=== PATIENT | male | born 1960 | race African-American/Black ===

== ENCOUNTER 2020-03-30 17:27 | Inpatient (IN) | payer MEDICARE, MEDICAID ==
[~2020-03-30] VITALS: Ht 170.2 cm; Wt 51.1 kg
[2020-03-30 18:32] LABS: Eosinophils # (auto) 0 10 ^3/uL (0-0.8); Hematocrit 31.2 % (41.0-53.0); Mean Corpuscular Hemoglobin 26.3 pg (28.0-32.0); Monocytes # (auto) 0.7 10 ^3/uL (0-1.3); Neutrophils # (auto) 10.5 10 ^3/uL (1.6-8.6); Neutrophils % (auto) 88.8 % (37.0-80.0)
[2020-03-30 18:34] LABS: Basophils # (auto) 0 10 ^3/uL (0-0.2); Basophils % (auto) 0.2 % (0.0-2.0); Lymphocytes # (auto) 0.6 10 ^3/uL (0.4-5.4); Lymphocytes % (auto) 5.3 % (10.0-50.0); Mean Corpuscular Hgb Conc. 31.9 g/dL (32.0-36.0); Mean Corpuscular Volume 82.3 fL (80.0-100.0); Monocytes % (auto) 5.7 % (0.0-12.0); Nucleated Red Blood Cells % 0.2 %; Platelet Count (auto) 258 10^3/uL (140-450); Red Blood Cells 3.79 10^6/uL (4.5-5.90); White Blood Cell 11.8 10^3/uL (4.4-10.8)
[2020-03-30 18:49] LABS: Albumin 3.3 g/dL (3.4-5.0); Anion Gap 6 (5-15); BUN/Creatinine Ratio 21.8; Calcium 10.1 mg/dL (8.5-10.1); Carbon Dioxide 18 mmol/L (21-32); Chloride 115 mmol/L (98-107); GFR African American 15 mL/min; GFR Non-African American 12 mL/min; Glucose 145 mg/dL (74-106); Magnesium 2.5 mg/dL (1.6-2.6); Sodium 139 mmol/L (136-145)
[2020-03-30 19:12] LABS: Alanine Aminotransferase 29 U/L (16-61); Alkaline Phosphatase 100 U/L (45-117); Aspartate Aminotransferase 14 U/L (15-37); Bilirubin, Total 0.4 mg/dL (0.2-1.0); Blood Urea Nitrogen 114 mg/dL (7-18); Potassium 8.4 mmol/L (3.5-5.1); Total Protein 8.8 g/dL (6.4-8.2)
[2020-03-30] MEDS ORDERED: SODIUM CHLORIDE 0.9% 1,000 ML IVB ONE (19:29)
[2020-03-30] MEDS ORDERED: SODIUM BICARBONATE 8.4 % INJ 50ML VIAL IV ONE ×2 (19:30→20:49)
[2020-03-30] MEDS ORDERED: DEXTROSE (50%) 50ML SYRG IV ONE (19:30)
[2020-03-30] MEDS ORDERED: CALCIUM CHL 100MG/ML 1,000 MG in D5W 5% 100 ML IV ONE (19:30)
[2020-03-30] MEDS ORDERED: InsuLIN REG 1unit/0.01ml Soln (100units/ml) IV ONE (19:30)
[2020-03-30] MEDS ORDERED: ALBUTEROL SULF 2.5 MG/0.5ML(0.5%) NEB SOLN NEB ONE (19:30)
[2020-03-30] MEDS ORDERED: SODIUM ZIRCONIUM CYCL 10 GM PAK PO ONE (19:45)
[2020-03-30] MEDS ORDERED: CALCIUM CHLOR(10%) 100MG/ML 10ML SYRINGE IV ONE (19:50)
[2020-03-30 20:14] LABS: Amylase 145 U/L (25-115); Lipase 302 U/L (73-393)
[2020-03-30] MEDS: SODIUM BICARBONATE 50ML VIAL 50 ML in D5W/SOD CHL 0.45% 1,000 ML IV SCH (20:15)
[2020-03-30 20:24] LABS: INR 1.13 (0.9-1.15); Partial Thromboplastin Time 27.1 sec (23.64-32.05)
[2020-03-30 21:00] LABS: Protein, Urine 99.4 mg/dL (0.0-11.9)
[2020-03-30 21:13] LABS: Urine Bacteria NONE SEEN /hpf (None Seen); Urine Blood 1+ /uL (Negative); Urine Hyaline Cast MANY /lpf (0 - 2); Urine Mucus FEW (None Seen); Urine Specific Gravity 1.017 (1.001-1.035); Urine WBC 3 /hpf (0 - 3)
[2020-03-30] MEDS ORDERED: SODIUM CHLORIDE 0.9% 1,000 ML IV ONE (22:30)
[2020-03-30] MEDS ORDERED: TEMAZEPAM 15 MG CAP PO PRN (22:45)
[2020-03-30] MEDS ORDERED: DEXTROSE (50%) 50ML SYRG IV PRN (22:45)
[2020-03-30] MEDS ORDERED: SODIUM CHLORIDE 0.9% 1,000 ML IV SCH (22:45)
[2020-03-30] MEDS ORDERED: ONDANSETRON HCL 4 MG/2 ML VIAL IV PRN (22:45)
[2020-03-30] MEDS ORDERED: ALBUMIN 5% 250 ML IV ONE (22:45)
[2020-03-30] MEDS ORDERED: MORPHINE SULF INJ 2 MG/ML SYRINGE 1ML IV PRN (22:45)
[2020-03-30] MEDS ORDERED: NITROGLYCERIN 0.4 MG SL TAB SL PRN (22:45)
[2020-03-30 22:58] LABS: Lactic Acid w/Reflex 4.2 mmol/L (0.4-2.0)
[2020-03-31] MEDS ORDERED: SODIUM ZIRCONIUM CYCL 10 GM PAK PO ONE (01:30)
[2020-03-31] MEDS: NOREPINEPHRINE 8 MG/250ML KIT 250 ML IV SCH (01:58)
[2020-03-31] MEDS ORDERED: SODIUM BICARBONATE 8.4 % INJ 50ML VIAL IV ONE (05:24)
[2020-03-31 05:27] LABS: Basophils # (auto) 0 10 ^3/uL (0-0.2); Basophils % (auto) 0.1 % (0.0-2.0); Eosinophils # (auto) 0 10 ^3/uL (0-0.8); Eosinophils % (auto) 0.2 % (0.0-7.0); Hematocrit 27.8 % (41.0-53.0); Hemoglobin 9.1 g/dL (13.5-17.5); Lymphocytes # (auto) 0.5 10 ^3/uL (0.4-5.4); Lymphocytes % (auto) 3.5 % (10.0-50.0); Mean Corpuscular Hemoglobin 26.7 pg (28.0-32.0); Mean Corpuscular Hgb Conc. 32.9 g/dL (32.0-36.0); Mean Corpuscular Volume 81.2 fL (80.0-100.0); Monocytes # (auto) 1.1 10 ^3/uL (0-1.3); Monocytes % (auto) 7.4 % (0.0-12.0); Neutrophils # (auto) 12.8 10 ^3/uL (1.6-8.6); Neutrophils % (auto) 88.8 % (37.0-80.0); Nucleated Red Blood Cells % 0.1 %; Platelet Count (auto) 212 10^3/uL (140-450); Red Blood Cells 3.43 10^6/uL (4.5-5.90); Red Cell Distribution Width 12.7 % (11.8-14.3); White Blood Cell 14.4 10^3/uL (4.4-10.8)
[2020-03-31] MEDS: SODIUM BICARBONATE 50ML VIAL 50 ML in D5W/SOD CHL 0.45% 1,000 ML IV SCH ×2 (05:51→05:53)
[2020-03-31 05:53] LABS: Albumin 3.3 g/dL (3.4-5.0); Calcium 9.4 mg/dL (8.5-10.1); Potassium 4.8 mmol/L (3.5-5.1)
[2020-03-31 05:59] LABS: BUN/Creatinine Ratio 30.3; Bilirubin, Total 0.5 mg/dL (0.2-1.0); Total Protein 8.1 g/dL (6.4-8.2)
[2020-03-31] MEDS: ACCU-CHEK COMFORT CURVE STRIP VI SCH ×4 (08:00→23:00)
[2020-03-31] MEDS: InsuLIN REG 1unit/0.01ml Soln (100units/ml) SC SCH ×4 (08:00→22:00)
[2020-03-31] MEDS: SOD CHL 0.45% 1,000 ML IV SCH ×2 (08:30→22:59)
[2020-03-31 08:41] LABS: Alcohol, Urine < 3.0 mg/dL (0-10); Amphetamine Screen, Urine NEGATIVE (NEGATIVE); Barbiturate Scree,Urine NEGATIVE (NEGATIVE); Benzodiazephine Screen, Urine NEGATIVE (NEGATIVE); Cannabinoid Screen, Urine NEGATIVE (NEGATIVE); Cocaine Screen, Urine NEGATIVE (NEGATIVE); Opiate Scree,Urine NEGATIVE (NEGATIVE); Phencyclidine Screen, Urine NEGATIVE (NEGATIVE)
[2020-03-31] MEDS ORDERED: SODIUM CHLORIDE 0.9% 1,000 ML IV ONE ×2 (13:30→16:15)
[2020-03-31 15:04] LABS: BUN/Creatinine Ratio 29.2; Calcium 8.5 mg/dL (8.5-10.1); Potassium 4.7 mmol/L (3.5-5.1)
[2020-04-01] MEDS: NOREPINEPHRINE 8 MG/250ML KIT 250 ML IV SCH (01:29)
[2020-04-01] MEDS: InsuLIN REG 1unit/0.01ml Soln (100units/ml) SC SCH ×4 (07:00→21:41)
[2020-04-01] MEDS: ACCU-CHEK COMFORT CURVE STRIP VI SCH ×4 (07:22→21:41)
[2020-04-01 07:29] LABS: Basophils # (auto) 0 10 ^3/uL (0-0.2); Eosinophils # (auto) 0.1 10 ^3/uL (0-0.8); Hematocrit 28.3 % (41.0-53.0); Hemoglobin 9.2 g/dL (13.5-17.5); Lymphocytes # (auto) 0.9 10 ^3/uL (0.4-5.4)
[2020-04-01 07:32] LABS: Basophils % (auto) 0.4 % (0.0-2.0); Eosinophils % (auto) 1.1 % (0.0-7.0); Lymphocytes % (auto) 7.4 % (10.0-50.0); Mean Corpuscular Hgb Conc. 32.6 g/dL (32.0-36.0); Mean Corpuscular Volume 82.7 fL (80.0-100.0); Monocytes # (auto) 1.3 10 ^3/uL (0-1.3); Monocytes % (auto) 9.9 % (0.0-12.0); Neutrophils # (auto) 10.4 10 ^3/uL (1.6-8.6); Neutrophils % (auto) 81.2 % (37.0-80.0); Platelet Count (auto) 183 10^3/uL (140-450); Red Blood Cells 3.42 10^6/uL (4.5-5.90); Red Cell Distribution Width 12.7 % (11.8-14.3); White Blood Cell 12.8 10^3/uL (4.4-10.8)
[2020-04-01 07:53] LABS: Calcium 8.1 mg/dL (8.5-10.1); Potassium 4.6 mmol/L (3.5-5.1)
[2020-04-01 07:57] LABS: BUN/Creatinine Ratio 22.6
[2020-04-01] MEDS: SOD CHL 0.45% 1,000 ML IV SCH (11:27)
[2020-04-01 17:37] VITALS: BP 92/54
[2020-04-01] MEDS ORDERED: LIOT50TA PO (17:56)
[2020-04-01] MEDS ORDERED: LEVO200T7 PO (17:56)
[2020-04-01] MEDS ORDERED: LISI40TA PO (17:56)
[2020-04-01] MEDS ORDERED: METO-158 PO (17:56)
[2020-04-01] MEDS ORDERED: FURO1TAB33 PO (17:56)
[2020-04-01] MEDS ORDERED: POTA10TA51 PO (17:56)
[2020-04-01] MEDS ORDERED: NIFE90TA49 PO (17:56)
--- NOTE | 2020-04-01 19:25 | NUR ---
Opening Shift Note Received report from Pamela FULLER. Assumed care of patient, awake and alert. No S/S of distress/SOB or pain. Instructed on POC and to call for assist PRN. Fall precaution measures in place, will continue to monitor for changes Q1hr and PRN.
[2020-04-01 22:00] VITALS: BP 94/62
[2020-04-02] MEDS: SOD CHL 0.45% 1,000 ML IV SCH ×2 (00:45→13:59)
[2020-04-02] MEDS: NOREPINEPHRINE 8 MG/250ML KIT 250 ML IV SCH (01:29)
[2020-04-02 05:00] VITALS: BP 92/53
[2020-04-02 06:27] LABS: Basophils # (auto) 0 10 ^3/uL (0-0.2); Basophils % (auto) 0.3 % (0.0-2.0); Eosinophils # (auto) 0.3 10 ^3/uL (0-0.8); Eosinophils % (auto) 2.8 % (0.0-7.0); Hematocrit 27.9 % (41.0-53.0); Hemoglobin 9.3 g/dL (13.5-17.5); Lymphocytes # (auto) 0.8 10 ^3/uL (0.4-5.4); Lymphocytes % (auto) 7.3 % (10.0-50.0); Mean Corpuscular Hemoglobin 27.3 pg (28.0-32.0); Mean Corpuscular Hgb Conc. 33.4 g/dL (32.0-36.0); Mean Corpuscular Volume 81.9 fL (80.0-100.0); Monocytes # (auto) 0.9 10 ^3/uL (0-1.3); Monocytes % (auto) 8.4 % (0.0-12.0); Neutrophils # (auto) 8.6 10 ^3/uL (1.6-8.6); Neutrophils % (auto) 81.2 % (37.0-80.0); Nucleated Red Blood Cells % 0.1 %; Platelet Count (auto) 184 10^3/uL (140-450); Red Blood Cells 3.41 10^6/uL (4.5-5.90); Red Cell Distribution Width 12.7 % (11.8-14.3); White Blood Cell 10.6 10^3/uL (4.4-10.8)
[2020-04-02] MEDS: ACCU-CHEK COMFORT CURVE STRIP VI SCH ×4 (06:34→22:14)
[2020-04-02] MEDS: InsuLIN REG 1unit/0.01ml Soln (100units/ml) SC SCH ×4 (06:35→22:00)
[2020-04-02 06:49] LABS: Potassium 4.1 mmol/L (3.5-5.1)
[2020-04-02 06:58] LABS: Albumin 2.6 g/dL (3.4-5.0); BUN/Creatinine Ratio 28.7; Bilirubin, Total 0.4 mg/dL (0.2-1.0); Calcium 8.2 mg/dL (8.5-10.1); Phosphorus 2.6 mg/dL (2.5-4.90); Total Protein 7.2 g/dL (6.4-8.2)
[2020-04-02] MEDS: ACETAMINOPHEN 325 MG TAB PO PRN (08:55)
[2020-04-02 09:23] VITALS: BP 97/59
[2020-04-02 13:00] VITALS: BP 89/55
[2020-04-02 16:54] VITALS: BP 90/60
[2020-04-02 22:00] VITALS: BP 99/65
[2020-04-03] MEDS: SOD CHL 0.45% 1,000 ML IV SCH ×2 (03:10→16:30)
[2020-04-03 05:00] VITALS: BP 102/67
[2020-04-03] MEDS: InsuLIN REG 1unit/0.01ml Soln (100units/ml) SC SCH ×4 (07:00→22:00)
[2020-04-03] MEDS: ACCU-CHEK COMFORT CURVE STRIP VI SCH ×4 (07:00→22:00)
[2020-04-03 07:32] LABS: Potassium 3.8 mmol/L (3.5-5.1)
--- NOTE | 2020-04-03 07:35 | NUR ---
End of Shift Note Endorsed care to dayshift RN. At this time patient has no s/s of distress or SOB, no complaints.
[2020-04-03 07:39] LABS: Albumin 2.6 g/dL (3.4-5.0); Bilirubin, Total 0.1 mg/dL (0.2-1.0); Calcium 8.1 mg/dL (8.5-10.1); Total Protein 6.8 g/dL (6.4-8.2)
--- NOTE | 2020-04-03 07:50 | NUR ---
OPENING SHIFT NOTE ASSUMED CARE OF PATIENT FROM MANAGER MAIL RN ELIGIO. PATIENT IS AWAKE, ALERT, AND ORIENTED X1. REORIENTED PATIENT TO PLACE, TIME, AND SITUATION. SPEECH IS GARBLED AND UNCLEAR. INSTRUCTED PATIENT ON POC, WILL REINFORCE INSTRUCTIONS THROUGHOUT SHIFT. PATIENT HAS NO S/S OF DISTRESS/SOB OR PAIN. INSTRUCTED PATIENT ON POC, PATIENT VERBALIZED UNDERSTANDING. BED IS IN LOWEST POSITION WITH SIDE RAILS RAISED X2, BED WHEELS LOCKED, AND CALL LIGHT IS WITHIN REACH. WILL CONTINUE TO MONITOR.
[2020-04-03 09:00] VITALS: BP 120/65
[2020-04-03 13:00] VITALS: BP 114/70
--- NOTE | 2020-04-03 14:00 | NUR ---
Nutrition Assessment Notes please see attached link for complete assessment Est Energy needs BW 67 k-2010kcals (25-30 kcal/kgBW), Est Protein needs: 67-80 gms/day (1.0-1.2 gm/kgBW). Will continue to monitor and reassess prn. Addendum: 04/03/20 at [address] Amended: Links added.
[2020-04-03 17:00] VITALS: BP 110/61
--- NOTE | 2020-04-03 18:46 | NUR ---
CLOSING SHIFT NOTE PATIENT HAS NO S/S OF DISTRESS/SOB OR PAIN AT THIS TIME. WILL ENDORSE CARE TO BRICKLAYER SUPERVISOR RN.
[2020-04-03 22:00] VITALS: BP 95/59
[2020-04-04] MEDS: ACETAMINOPHEN 325 MG TAB PO PRN (01:34)
[2020-04-04 05:00] VITALS: BP 110/62
[2020-04-04] MEDS: SOD CHL 0.45% 1,000 ML IV SCH (05:50)
[2020-04-04 06:12] LABS: Basophils # (auto) 0 10 ^3/uL (0-0.2); Basophils % (auto) 0.3 % (0.0-2.0); Eosinophils # (auto) 0.3 10 ^3/uL (0-0.8); Eosinophils % (auto) 3.3 % (0.0-7.0); Hematocrit 27.4 % (41.0-53.0); Hemoglobin 9.1 g/dL (13.5-17.5); Lymphocytes # (auto) 0.9 10 ^3/uL (0.4-5.4); Lymphocytes % (auto) 11.3 % (10.0-50.0); Mean Corpuscular Hemoglobin 27.1 pg (28.0-32.0); Mean Corpuscular Volume 82.2 fL (80.0-100.0); Monocytes # (auto) 0.8 10 ^3/uL (0-1.3); Monocytes % (auto) 9.2 % (0.0-12.0); Neutrophils # (auto) 6.4 10 ^3/uL (1.6-8.6); Neutrophils % (auto) 75.9 % (37.0-80.0); Platelet Count (auto) 195 10^3/uL (140-450); Red Blood Cells 3.34 10^6/uL (4.5-5.90); Red Cell Distribution Width 12.8 % (11.8-14.3); White Blood Cell 8.4 10^3/uL (4.4-10.8)
[2020-04-04 06:36] LABS: Potassium 3.8 mmol/L (3.5-5.1)
[2020-04-04 06:44] LABS: Albumin 2.5 g/dL (3.4-5.0); BUN/Creatinine Ratio 25.9; Bilirubin, Total 0.2 mg/dL (0.2-1.0); Calcium 8.5 mg/dL (8.5-10.1); Total Protein 6.9 g/dL (6.4-8.2)
[2020-04-04] MEDS: InsuLIN REG 1unit/0.01ml Soln (100units/ml) SC SCH ×4 (06:47→21:46)
[2020-04-04] MEDS: ACCU-CHEK COMFORT CURVE STRIP VI SCH ×3 (06:47→17:21)
--- NOTE | 2020-04-04 07:10 | NUR ---
OPENING SHIFT NOTE ASSUMED CARE OF PATIENT FROM EXHIBITION DESIGNER RN ELIGIO. PATIENT IS AWAKE, ALERT, AND ORIENTED X1. REORIENTED PATIENT TO PLACE, TIME, AND SITUATION. SPEECH IS GARBLED AND UNCLEAR. INSTRUCTED PATIENT ON POC, WILL REINFORCE INSTRUCTIONS THROUGHOUT SHIFT. PATIENT HAS NO S/S OF DISTRESS/SOB OR PAIN. INSTRUCTED PATIENT ON POC, PATIENT VERBALIZED UNDERSTANDING. BED IS IN LOWEST POSITION WITH SIDE RAILS RAISED X2, BED WHEELS LOCKED, BRENNER IS HANGING BELOW BLADDER AND IS DRAINING YELLOW URINE, AND CALL LIGHT IS WITHIN REACH. WILL CONTINUE TO MONITOR.
--- NOTE | 2020-04-04 07:24 | NUR ---
End of Shift Note Endorsed care to dayshift RN. At this time patient has no s/s of distress or SOB. Patient responsive to name and touch.
[2020-04-04 08:00] VITALS: BP 111/68
[2020-04-04 08:51] VITALS: BP 111/68
--- NOTE | 2020-04-04 09:20 | NUR ---
MD EDILSON AT BEDSIDE UPDATED MD ON PATIENT'S STATUS. PER MD BRENNER CAN BE DISCONTINUED AND PATIENT CAN BE DISCHARGED. WILL FOLLOW THROUGH WITH ORDERS.
--- NOTE | 2020-04-04 10:25 | NUR ---
PAGED EDILSON FOR DISCHARGE ORDER AND TO INFORM OF HEART RATE OF 140 BPM AND FOUL SMELLING URINE. PATIENT HAS NO S/S OF DISTRESS/SOB OR PAIN AND HEART RATE WENT BACK DOWN TO 100. AWAITING CALL BACK.
--- NOTE | 2020-04-04 10:50 | NUR ---
Landrum catheter dc'd Order to discontinue landrum catheter. Landrum dc'd with clean technique following deflation of balloon. Patient tolerated well with no complaints of pain. 700 ml emptied. Continue care.
--- NOTE | 2020-04-04 12:06 | NUR ---
RECEIVED CALL BACK FROM DR. WAGGONER INFORMED MD PATIENT HAD FOUL SMELLING URINE WHEN BRENNER WAS DISCONTINUED AND AN EPISODE OF HEART RATE OF 140 BPM. MD IS AWARE AND ORDERED URINE CULTURE AND MICROSCOPIC. ONCE URINE IS COLLECTED MD WANTS BACTRIM ORDERED. WILL FOLLOW THROUGH WITH ORDERS.
[2020-04-04 13:00] VITALS: BP 114/72
[2020-04-04 16:37] VITALS: BP 96/57
[2020-04-04 17:10] LABS: Urine Bacteria FEW /hpf (None Seen); Urine Blood 2+ /uL (Negative); Urine Hyaline Cast FEW /lpf (0 - 2); Urine Specific Gravity 1.008 (1.001-1.035); Urine WBC 1 /hpf (0 - 3)
--- NOTE | 2020-04-04 19:04 | NUR ---
CLOSING SHIFT NOTE ENDORSED CARE TO GOLD MINER RN SCOTTY. PATIENT HAS NO S/S OF DISTRESS/SOB OR PAIN AT THIS TIME.
[2020-04-04] MEDS: SULFAMETHOX W/TRIMETH(800/160MG) DS TAB PO SCH (21:57)
[2020-04-04 22:00] VITALS: BP 104/68
[2020-04-05] MEDS: ACCU-CHEK COMFORT CURVE STRIP VI SCH ×4 (00:43→16:45)
[2020-04-05 05:00] VITALS: BP 108/77
[2020-04-05] MEDS: InsuLIN REG 1unit/0.01ml Soln (100units/ml) SC SCH ×3 (06:23→17:00)
[2020-04-05] MEDS: SOD CHL 0.45% 1,000 ML IV SCH ×2 (06:42→09:02)
[2020-04-05 08:00] VITALS: BP 137/83
[2020-04-05 08:50] VITALS: BP 137/83
[2020-04-05] MEDS: SULFAMETHOX W/TRIMETH(800/160MG) DS TAB PO SCH (09:02)
[2020-04-05] MEDS: ACETAMINOPHEN 325 MG TAB PO PRN ×2 (09:28→20:19)
[2020-04-05 10:09] VITALS: BP 137/83
--- NOTE | 2020-04-05 10:39 | NUR ---
CALLED PT'S BROTHER SHIRIN REGARDING DISCHARGE ORDER. SHIRIN STATED HE IS IN [place] AT THIS TIME WILL BE BACK TO ANTIQUE REPAIRER PT AROUND AROUND 8PM TONSOLE.
[2020-04-05 12:40] VITALS: BP 123/67
[2020-04-05 17:09] VITALS: BP 122/78
--- NOTE | 2020-04-05 21:25 | NUR ---
Pt's saline locks x2 dc'd in entirety and pressure dressing to each site. Pt gina well. Pt had prev attempted to use urinal. Large amount urine in pads on bed. Tele dc'd and sent to monitoring center. Pt's brother here at main entrance. Pt escorted by this RN to front entrance after home meds obtained from pharmacy. Printed and verbal discharge instructions given to Art, pt's brother who voiced understanding. Pt gina activity well; condition stable. Brother placed pt in private car. Rx for Bactrim given to brother as well as follow up info. Pt discharged.
== END 2020-04-05 21:25 | disposition home or self-care (01) | DRG 682 ==
LOC: ER 17:27 → TELE 17:28 → TELE-WESTW 04-01 15:54
PROVIDERS: ADMIT Nurse Practitioner; ATTEND Internal Medicine
DX: N17.9 Acute kidney failure, unspecified (principal); G93.41 Metabolic encephalopathy; E43 Unspecified severe protein-calorie malnutrition; E87.2 Acidosis; E87.0 Hyperosmolality and hypernatremia; Z68.1 Body mass index [BMI] 19.9 or less, adult; E87.5 Hyperkalemia; E86.0 Dehydration; R79.89 Other specified abnormal findings of blood chemistry; I95.9 Hypotension, unspecified; E05.90 Thyrotoxicosis, unspecified without thyrotoxic crisis or storm; F79 Unspecified intellectual disabilities; H54.8 Legal blindness, as defined in USA; D64.9 Anemia, unspecified; I10 Essential (primary) hypertension; E11.9 Type 2 diabetes mellitus without complications; E03.9 Hypothyroidism, unspecified; E86.9 Volume depletion, unspecified; E88.09 Other disorders of plasma-protein metabolism, not elsewhere classified
CPT/HCPCS: 36415; 36600; 70450; 71045; 72125; 74176; 76775; 80048; 80053; 80307; 81001; 82150; 82306; 82550; 82570; 82805; 82962; 83605; 83690; 83735; 83970; 84100; 84132; 84156; 84300; 84443; 84484; 85025; 85610; 85730; 87040; 87086; 93005; 94640; 96361; 96365; 96375; 99291; G0378; J1815; J7060

== ENCOUNTER 2020-04-12 11:19 | Inpatient (IN) | payer MEDICARE, MEDICAID ==
[~2020-04-12] VITALS: Ht 157.5 cm; Wt 53.1 kg
[~2020-04-12 11:19] MED LIST: FURO1TAB33 PO; LEVO200T7 PO; LIOT50TA PO; LISI40TA11 PO; METO-158 PO; NIFE90TA49 PO; POTA10TA51 PO
[2020-04-12 12:09] LABS: Hematocrit 29.7 % (41.0-53.0); Hemoglobin 9.5 g/dL (13.5-17.5); Mean Corpuscular Hemoglobin 26.6 pg (28.0-32.0); Mean Corpuscular Volume 83.2 fL (80.0-100.0); Platelet Count (auto) 430 10^3/uL (140-450); Red Blood Cells 3.57 10^6/uL (4.5-5.90); Red Cell Distribution Width 13.9 % (11.8-14.3); White Blood Cell 15.8 10^3/uL (4.4-10.8)
[2020-04-12 12:12] LABS: Band Neutrophils % (manual) 0; Basophils % (manual) 0 (0.0-2.0); Blast Cells 0; Eosinophils % (manual) 0 (0-7); Metamyelocytes % 0; Myelocytes % 0; Promyelocytes % 0; Reactive Lymphocytes 0
[2020-04-12 12:22] LABS: Lymphocytes % (manual) 3 (10.0-50.0); Monocytes % (manual) 1 (0-12)
[2020-04-12 12:28] LABS: Albumin 3.4 g/dL (3.4-5.0); Anion Gap 12 (5-15); Calcium 9.7 mg/dL (8.5-10.1); Carbon Dioxide 12 mmol/L (21-32); Chloride 115 mmol/L (98-107); Glucose 73 mg/dL (74-106); Magnesium 2.6 mg/dL (1.6-2.6); Sodium 139 mmol/L (136-145)
[2020-04-12 12:33] LABS: Alanine Aminotransferase 32 U/L (16-61); Alkaline Phosphatase 110 U/L (45-117); Aspartate Aminotransferase 30 U/L (15-37); Bilirubin, Total 0.4 mg/dL (0.2-1.0); GFR African American 8 mL/min; GFR Non-African American 6 mL/min
[2020-04-12 12:35] LABS: Blood Urea Nitrogen 108 mg/dL (7-18)
[2020-04-12] MEDS ORDERED: SODIUM BICARBONATE 8.4 % INJ 50ML VIAL IV ONE ×2 (12:45→14:00)
[2020-04-12] MEDS ORDERED: CALCIUM GLUC 4.65meq/50ml D5AE 50 ML IV ONE ×4 (12:45→14:00)
[2020-04-12 13:49] LABS: Alanine Aminotransferase 33 U/L (16-61); Anion Gap 14 (5-15); Aspartate Aminotransferase 32 U/L (15-37); BUN/Creatinine Ratio 12.1; Calcium 9.3 mg/dL (8.5-10.1); Carbon Dioxide 11 mmol/L (21-32); Chloride 113 mmol/L (98-107); GFR African American 8 mL/min; GFR Non-African American 6 mL/min; Glucose 73 mg/dL (74-106); Sodium 138 mmol/L (136-145)
[2020-04-12 13:52] LABS: Alkaline Phosphatase 103 U/L (45-117); Bilirubin, Total 0.4 mg/dL (0.2-1.0); Total Protein 8.3 g/dL (6.4-8.2)
[2020-04-12 13:54] LABS: Blood Urea Nitrogen 112 mg/dL (7-18); Potassium 9.1 mmol/L (3.5-5.1)
[2020-04-12] MEDS ORDERED: ALBUTEROL SULF 2.5 MG/0.5ML(0.5%) NEB SOLN HHN ONE (14:00)
[2020-04-12] MEDS ORDERED: SODIUM CHLORIDE 0.9% 1,000 ML IV ONE (14:15)
[2020-04-12] MEDS ORDERED: LIDOCAINE 2% (LOCAL ANESTH.) PF 5ml SDV ONE ×2 (14:15→14:31)
[2020-04-12] MEDS ORDERED: HEPARIN 1,000 UNITS/ml 1ML VIAL IV ONE (14:30)
[2020-04-12] MEDS ORDERED: SODIUM CHLORIDE 0.9% 3,000 ML IV ONE (14:30)
[2020-04-12] MEDS ORDERED: SODIUM BICARBONATE 50ML VIAL 150 ML in D5W 5% 1,000 ML IV ONE (14:30)
[2020-04-12] MEDS ORDERED: InsuLIN REG 1unit/0.01ml Soln (100units/ml) IV ONE (15:15)
[2020-04-12] MEDS ORDERED: CALCIUM CHL 100MG/ML 500 MG in D5W 5% 100 ML IV ONE (15:15)
[2020-04-12] MEDS ORDERED: FUROSEMIDE 40 MG/4 ML VIAL IV ONE (15:15)
[2020-04-12] MEDS ORDERED: DEXTROSE (50%) 50ML SYRG IV ONE ×2 (15:15→16:15)
[2020-04-12] MEDS ORDERED: SODIUM ZIRCONIUM CYCL 10 GM PAK PO ONE (15:15)
[2020-04-12] MEDS ORDERED: ALBUTEROL SULF 2.5 MG/0.5ML(0.5%) NEB SOLN NEB ONE (15:15)
[2020-04-12 15:51] LABS: Urine Amorphous Crystal FEW /hpf (None Seen); Urine Bacteria FEW /hpf (None Seen); Urine Blood 3+ /uL (Negative); Urine Hyaline Cast MANY /lpf (0 - 2); Urine Mucus FEW (None Seen); Urine Specific Gravity 1.015 (1.001-1.035); Urine WBC 3 /hpf (0 - 3)
[2020-04-12] MEDS ORDERED: METOPROLOL SUCCINATE XL 50 MG TAB PO ONE (16:00)
[2020-04-12] MEDS ORDERED: hydrALAZINE HCL 20 MG/ML VL IV PRN (16:00)
[2020-04-12] MEDS ORDERED: MORPHINE SULF INJ 2 MG/ML SYRINGE 1ML IV PRN (16:15)
[2020-04-12] MEDS ORDERED: MORPHINE SULFATE 4 MG/ML SYR/VIAL IV PRN (16:15)
[2020-04-12] MEDS ORDERED: NITROGLYCERIN 0.4 MG SL TAB SL PRN (16:15)
[2020-04-12] MEDS ORDERED: LORazepam 2MG/ML-1ML VIAL IV PRN (16:15)
[2020-04-12] MEDS ORDERED: VANCOMYCIN PER PHARMACY 1,000 MG IV SCH (16:15)
[2020-04-12] MEDS ORDERED: ACETAMINOPHEN 325 MG TAB PO PRN (16:15)
[2020-04-12 16:21] LABS: Alcohol, Urine < 3.0 mg/dL (0-10); Amphetamine Screen, Urine NEGATIVE (NEGATIVE); Barbiturate Scree,Urine NEGATIVE (NEGATIVE); Benzodiazephine Screen, Urine NEGATIVE (NEGATIVE); Cannabinoid Screen, Urine NEGATIVE (NEGATIVE); Cocaine Screen, Urine NEGATIVE (NEGATIVE); Opiate Scree,Urine NEGATIVE (NEGATIVE); Phencyclidine Screen, Urine NEGATIVE (NEGATIVE)
[2020-04-12] MEDS ORDERED: VANCOMYCIN 1GM/250ML 250 ML IV ONE (16:30)
[2020-04-12] MEDS: NOREPINEPHRINE 8 MG/250ML KIT 250 ML IV SCH (16:32)
[2020-04-12] MEDS ORDERED: SODIUM CHLORIDE 0.9% 2,000 ML IV ONE (16:45)
[2020-04-12 17:02] LABS: INR 1.2 (0.9-1.15); Partial Thromboplastin Time 24.8 sec (23.64-32.05)
[2020-04-12 17:07] LABS: Albumin 2.3 g/dL (3.4-5.0); BUN/Creatinine Ratio 13.3; Calcium 7.6 mg/dL (8.5-10.1); Potassium 4.9 mmol/L (3.5-5.1)
[2020-04-12 17:08] LABS: Lactic Acid w/Reflex 4.2 mmol/L (0.4-2.0)
[2020-04-12 17:10] LABS: Bilirubin, Total 0.3 mg/dL (0.2-1.0); Total Protein 6.4 g/dL (6.4-8.2)
[2020-04-12] MEDS ORDERED: POTA-180 PO (17:38)
[2020-04-12] MEDS ORDERED: SULF400T PO (17:38)
[2020-04-12] MEDS ORDERED: LEVO125T7 PO (17:38)
[2020-04-12] MEDS ORDERED: PIPERACILLIN-TAZOB 3.375GM 3.375 GM in D5W 5% 100 ML IV SCH (18:00)
[2020-04-12] MEDS: HYDROCORTISONE SOD SUCC 100 MG/2ML INJ VIAL IV SCH (18:00)
[2020-04-12] MEDS: FUROSEMIDE 20 MG/2 ML VIAL IV SCH (18:23)
[2020-04-12] MEDS ORDERED: PIPERACILLIN-TAZOB 2.25GM 50 ML IV SCH (22:00)
[2020-04-12] MEDS: FAMOTIDINE (10MG/ML) 2ML VL IV SCH (22:07)
[2020-04-12] MEDS: SODIUM ZIRCONIUM CYCL 10 GM PAK PO SCH (22:08)
[2020-04-13] MEDS: HYDROCORTISONE SOD SUCC 100 MG/2ML INJ VIAL IV SCH ×5 (00:28→23:05)
[2020-04-13] MEDS: MORPHINE SULF INJ 2 MG/ML SYRINGE 1ML IV PRN (02:57)
[2020-04-13] MEDS: NOREPINEPHRINE 8 MG/250ML KIT 250 ML IV SCH (04:10)
[2020-04-13 05:46] LABS: Basophils # (auto) 0.1 10 ^3/uL (0-0.2); Basophils % (auto) 0.5 % (0.0-2.0); Eosinophils # (auto) 0 10 ^3/uL (0-0.8); Hematocrit 26.5 % (41.0-53.0); Hemoglobin 8.9 g/dL (13.5-17.5); Lymphocytes # (auto) 0.3 10 ^3/uL (0.4-5.4); Lymphocytes % (auto) 1.9 % (10.0-50.0); Mean Corpuscular Hemoglobin 26.8 pg (28.0-32.0); Mean Corpuscular Hgb Conc. 33.5 g/dL (32.0-36.0); Mean Corpuscular Volume 80.1 fL (80.0-100.0); Monocytes # (auto) 0.4 10 ^3/uL (0-1.3); Monocytes % (auto) 2.7 % (0.0-12.0); Neutrophils # (auto) 15.1 10 ^3/uL (1.6-8.6); Neutrophils % (auto) 94.9 % (37.0-80.0); Nucleated Red Blood Cells % 0.1 %; Platelet Count (auto) 396 10^3/uL (140-450); Red Cell Distribution Width 13.5 % (11.8-14.3); White Blood Cell 15.9 10^3/uL (4.4-10.8)
[2020-04-13 06:01] LABS: INR 1.16 (0.9-1.15); Partial Thromboplastin Time 27.1 sec (23.64-32.05)
[2020-04-13] MEDS: FUROSEMIDE 20 MG/2 ML VIAL IV SCH (06:05)
[2020-04-13 06:21] LABS: Calcium 8.2 mg/dL (8.5-10.1); Magnesium 1.8 mg/dL (1.6-2.6); Potassium 4.9 mmol/L (3.5-5.1)
[2020-04-13 06:24] LABS: BUN/Creatinine Ratio 17.5; Bilirubin, Total 0.6 mg/dL (0.2-1.0); Phosphorus 4.8 mg/dL (2.5-4.90); Total Protein 8.3 g/dL (6.4-8.2)
[2020-04-13] MEDS: SODIUM ZIRCONIUM CYCL 10 GM PAK PO SCH ×3 (06:27→22:00)
[2020-04-13] MEDS: LEVOTHYROXINE SODIUM 100 MCG TAB PO SCH (06:50)
[2020-04-13] MEDS: SODIUM CHLORIDE 0.9% 1,000 ML IV SCH ×2 (06:57→20:05)
[2020-04-13] MEDS ORDERED: LIOTHYRONINE PO SCH (10:00)
[2020-04-13] MEDS: METOPROLOL SUCCINATE XL 50 MG TAB PO SCH (10:00)
[2020-04-13] MEDS ORDERED: MEROPENEM 500MG IVPB 50 ML IV ONE ×2 (10:15)
[2020-04-13] MEDS: LINEZOLID 600MG/300ML 300 ML IV SCH ×2 (10:15→22:00)
[2020-04-13] MEDS: FAMOTIDINE (10MG/ML) 2ML VL IV SCH (10:26)
[2020-04-13] MEDS ORDERED: MEROPENEM 1GM IVPB 100 ML IV SCH (22:00)
[2020-04-14] MEDS: HYDROCORTISONE SOD SUCC 100 MG/2ML INJ VIAL IV SCH ×3 (05:47→18:00)
[2020-04-14] MEDS: SODIUM ZIRCONIUM CYCL 10 GM PAK PO SCH ×2 (05:49→14:00)
[2020-04-14] MEDS: LEVOTHYROXINE SODIUM 100 MCG TAB PO SCH (06:05)
[2020-04-14] MEDS ORDERED: SODIUM CHLORIDE 0.9% 1,000 ML IV SCH (08:52)
[2020-04-14] MEDS ORDERED: SODIUM CHLORIDE 0.9% 500 ML IV ONE (09:00)
[2020-04-14 09:06] LABS: Calcium 7.2 mg/dL (8.5-10.1); Potassium 3.5 mmol/L (3.5-5.1)
[2020-04-14] MEDS: METOPROLOL SUCCINATE XL 50 MG TAB PO SCH (10:00)
[2020-04-14] MEDS: FAMOTIDINE (10MG/ML) 2ML VL IV SCH (10:00)
[2020-04-14] MEDS: LINEZOLID 600MG/300ML 300 ML IV SCH ×2 (12:00→23:14)
[2020-04-14 13:58] LABS: Eosinophils # (auto) 0 10 ^3/uL (0-0.8); Eosinophils % (auto) 0.2 % (0.0-7.0); Hemoglobin 8.8 g/dL (13.5-17.5); Lymphocytes # (auto) 0.6 10 ^3/uL (0.4-5.4); Lymphocytes % (auto) 4.8 % (10.0-50.0); Mean Corpuscular Volume 82.9 fL (80.0-100.0); Monocytes # (auto) 0.8 10 ^3/uL (0-1.3)
[2020-04-14 14:00] LABS: Basophils # (auto) 0.1 10 ^3/uL (0-0.2); Basophils % (auto) 0.5 % (0.0-2.0); Hematocrit 27.5 % (41.0-53.0); Mean Corpuscular Hemoglobin 26.6 pg (28.0-32.0); Mean Corpuscular Hgb Conc. 32.1 g/dL (32.0-36.0); Neutrophils # (auto) 11.5 10 ^3/uL (1.6-8.6); Neutrophils % (auto) 88.5 % (37.0-80.0); Nucleated Red Blood Cells % 0.4 %; Platelet Count (auto) 360 10^3/uL (140-450); Red Blood Cells 3.32 10^6/uL (4.5-5.90); Red Cell Distribution Width 13.6 % (11.8-14.3)
[2020-04-14] MEDS: NOREPINEPHRINE 8 MG/250ML KIT 250 ML IV SCH (16:03)
[2020-04-14] MEDS: MEROPENEM 1GM IVPB 100 ML IV SCH (19:48)
[2020-04-15] VITALS (20 sets, daily range): BP systolic 98–147; BP diastolic 46–82
[2020-04-15] MEDS: HYDROCORTISONE SOD SUCC 100 MG/2ML INJ VIAL IV SCH ×5 (00:50→23:28)
[2020-04-15] MEDS ORDERED: NOREPINEPHRINE 8 MG/250ML KIT 250 ML IV SCH (04:45)
[2020-04-15 04:50] LABS: Basophils # (auto) 0 10 ^3/uL (0-0.2); Eosinophils # (auto) 0 10 ^3/uL (0-0.8); Lymphocytes # (auto) 0.3 10 ^3/uL (0.4-5.4); Lymphocytes % (auto) 2.9 % (10.0-50.0); Monocytes # (auto) 0.2 10 ^3/uL (0-1.3); Neutrophils # (auto) 9.6 10 ^3/uL (1.6-8.6); Neutrophils % (auto) 95.2 % (37.0-80.0); Nucleated Red Blood Cells % 0.4 %; Platelet Count (auto) 325 10^3/uL (140-450); White Blood Cell 10.1 10^3/uL (4.4-10.8)
[2020-04-15 04:56] LABS: Hematocrit 27.5 % (41.0-53.0); Mean Corpuscular Hemoglobin 27.1 pg (28.0-32.0); Mean Corpuscular Hgb Conc. 32.7 g/dL (32.0-36.0); Mean Corpuscular Volume 82.9 fL (80.0-100.0); Monocytes % (auto) 1.9 % (0.0-12.0); Red Blood Cells 3.31 10^6/uL (4.5-5.90); Red Cell Distribution Width 13.3 % (11.8-14.3)
[2020-04-15 05:30] LABS: Calcium 7.1 mg/dL (8.5-10.1); Potassium 3.1 mmol/L (3.5-5.1)
[2020-04-15 05:32] LABS: BUN/Creatinine Ratio 22.8
[2020-04-15] MEDS: LEVOTHYROXINE SODIUM 100 MCG TAB PO SCH (07:00)
[2020-04-15] MEDS: MEROPENEM 1GM IVPB 100 ML IV SCH (08:40)
[2020-04-15] MEDS: METOPROLOL SUCCINATE XL 50 MG TAB PO SCH (09:58)
[2020-04-15] MEDS: LINEZOLID 600MG/300ML 300 ML IV SCH (09:58)
[2020-04-15] MEDS: FAMOTIDINE (10MG/ML) 2ML VL IV SCH (09:58)
[2020-04-15] MEDS ORDERED: POTASSIUM CHLORIDE 20 MEQ, LIDOCAINE 1% (LOCAL ANESTH.) 2 ML in SODIUM CHL 0.9% 100 ML IV ONE (13:30)
[2020-04-15] MEDS ORDERED: cefTRIAXone 1GM/50ML D5W 50 ML IV ONE (13:30)
--- NOTE | 2020-04-15 15:55 | NUR ---
Telemetry admit from ER JESSICA IRIZARRY admitted to Telemetry unit after SBAR received. Patient oriented to JOHN roman RN, unit, room, bed, and unit policies regarding patient care and visiting hours. Patient now on continuous telemetry monitoring, tele box # 40 and telemetry reading on arrival to unit is NSR. Patient weighed by bedscale and encouraged to call if they need something. All questions and concerns addressed, patient verbalized understanding.
--- NOTE | 2020-04-15 19:20 | NUR ---
End of shift note Endorsed care to NOC ALINA Potter. No s/s of distress noted.
--- NOTE | 2020-04-15 20:00 | NUR ---
Opening Shift Note Assumed care of patient. Awake, alert and oriented to self and location. No S/S of distress/SOB or pain. Patient was laying down in bed on room air with even and unlabored respirations. Em is off the floor, patent and draining clear, yellow urine. Instructed on POC and to call for assist PRN. Bed locked, in lowest position, call light within reach, side rails up x2, bed alarm on. Will continue to monitor for changes Q1hr and PRN.
[2020-04-16 05:00] VITALS: BP 126/63
[2020-04-16 05:16] LABS: Basophils # (auto) 0 10 ^3/uL (0-0.2); Eosinophils # (auto) 0 10 ^3/uL (0-0.8); Hematocrit 24.7 % (41.0-53.0); Hemoglobin 7.9 g/dL (13.5-17.5); Mean Corpuscular Hgb Conc. 32.1 g/dL (32.0-36.0); Neutrophils # (auto) 9.1 10 ^3/uL (1.6-8.6); Nucleated Red Blood Cells % 1.2 %; Red Blood Cells 2.93 10^6/uL (4.5-5.90)
[2020-04-16 05:23] LABS: Basophils % (auto) 0.4 % (0.0-2.0); Eosinophils % (auto) 0.2 % (0.0-7.0); Lymphocytes # (auto) 0.4 10 ^3/uL (0.4-5.4); Lymphocytes % (auto) 3.9 % (10.0-50.0); Mean Corpuscular Volume 84.2 fL (80.0-100.0); Monocytes # (auto) 0.5 10 ^3/uL (0-1.3); Monocytes % (auto) 5.3 % (0.0-12.0); Neutrophils % (auto) 90.2 % (37.0-80.0); Platelet Count (auto) 306 10^3/uL (140-450); Red Cell Distribution Width 13.6 % (11.8-14.3); White Blood Cell 10.1 10^3/uL (4.4-10.8)
[2020-04-16 05:39] LABS: Potassium 3.1 mmol/L (3.5-5.1)
[2020-04-16 05:44] LABS: Albumin 2.1 g/dL (3.4-5.0); BUN/Creatinine Ratio 33.7; Calcium 6.9 mg/dL (8.5-10.1)
[2020-04-16 05:47] LABS: Bilirubin, Total 0.2 mg/dL (0.2-1.0); Total Protein 5.9 g/dL (6.4-8.2)
[2020-04-16] MEDS: HYDROCORTISONE SOD SUCC 100 MG/2ML INJ VIAL IV SCH ×3 (06:20→18:36)
[2020-04-16] MEDS: LEVOTHYROXINE SODIUM 100 MCG TAB PO SCH (06:20)
[2020-04-16 09:00] VITALS: BP 126/77
[2020-04-16] MEDS: cefTRIAXone 1GM/50ML D5W 50 ML IV SCH (09:30)
[2020-04-16] MEDS: FAMOTIDINE (10MG/ML) 2ML VL IV SCH ×2 (09:30→21:21)
[2020-04-16] MEDS: METOPROLOL SUCCINATE XL 50 MG TAB PO SCH (09:31)
[2020-04-16 13:00] VITALS: BP 120/70
[2020-04-16 16:57] VITALS: BP 119/68
[2020-04-16] MEDS: POTASSIUM CHL 20 Meq TABLET PO SCH (21:21)
[2020-04-16 22:00] VITALS: BP 134/74
[2020-04-17] MEDS: HYDROCORTISONE SOD SUCC 100 MG/2ML INJ VIAL IV SCH ×4 (00:09→18:50)
[2020-04-17 05:00] VITALS: BP 135/70
[2020-04-17 06:32] LABS: Mean Corpuscular Hgb Conc. 32.1 g/dL (32.0-36.0); Platelet Count (auto) 290 10^3/uL (140-450); White Blood Cell 10.4 10^3/uL (4.4-10.8)
[2020-04-17 06:34] LABS: Hematocrit 24.9 % (41.0-53.0); Mean Corpuscular Hemoglobin 26.7 pg (28.0-32.0); Mean Corpuscular Volume 83.3 fL (80.0-100.0); Red Blood Cells 2.99 10^6/uL (4.5-5.90); Red Cell Distribution Width 13.4 % (11.8-14.3)
[2020-04-17] MEDS: LEVOTHYROXINE SODIUM 100 MCG TAB PO SCH (06:40)
--- NOTE | 2020-04-17 06:45 | NUR ---
IV dislodged Pressure dressing applied. No reports of pain. Will continue to monitor
[2020-04-17 06:51] LABS: Potassium 3.7 mmol/L (3.5-5.1)
[2020-04-17 06:56] LABS: BUN/Creatinine Ratio 33.7; Calcium 7.1 mg/dL (8.5-10.1)
--- NOTE | 2020-04-17 07:20 | NUR ---
Opening Shift Note Assumed care of patient, patient currently sleeping, breathing even and unlabored, easily awakened via verbal stimuli. No S/S of distress/SOB or pain reported at this time, Instructed on POC and to call for assist PRN, call light within teach, bed alarm on,will continue to monitor for changes Q1hr and PRN.
[2020-04-17 07:36] LABS: Band Neutrophils % (manual) 0; Basophils % (manual) 0 (0.0-2.0); Blast Cells 0; Eosinophils % (manual) 0 (0-7); Metamyelocytes % 0; Myelocytes % 0; Promyelocytes % 0; Reactive Lymphocytes 0
[2020-04-17 07:38] LABS: Lymphocytes % (manual) 3 (10.0-50.0); Monocytes % (manual) 4 (0-12)
[2020-04-17 09:00] VITALS: BP 142/88
--- NOTE | 2020-04-17 09:20 | NUR ---
LARGE BM PT ABLE TO ASSIST WITH TURNING, PT CLEANSED, PULLED UP IN BED AND POSITIONED ON HIS RIGHT SIDE, SKIN INTACT, HOB>30, CALL LIGHT WITHIN REACH, BED ALARM ACTIVATED, CONT CARE
[2020-04-17] MEDS: cefTRIAXone 1GM/50ML D5W 50 ML IV SCH (09:26)
[2020-04-17] MEDS: POTASSIUM CHL 20 Meq TABLET PO SCH (09:26)
[2020-04-17] MEDS: FAMOTIDINE (10MG/ML) 2ML VL IV SCH (09:26)
[2020-04-17] MEDS: METOPROLOL SUCCINATE XL 50 MG TAB PO SCH (09:27)
--- NOTE | 2020-04-17 10:10 | NUR ---
GI DR FORREST AT BEDSIDE, DISCUSSING POC, INCLUDING POSSIBLE EGD AND COLONOSCOPY, PT AXOX3, CONT CARE
[2020-04-17] MEDS ORDERED: GOLYTELY 4L KIT PO ONE (10:15)
--- NOTE | 2020-04-17 12:41 | NUR ---
Est energy needs 5257-3964 kcal (30-35 kcal/kg BW 51.4kg) Est protein needs 41-51g (0.8-1g/kg BW 51.4kg) Will reassess prn Addendum: 04/17/20 at [address] Amended: Links added.
[2020-04-17 13:00] VITALS: BP 123/70
--- NOTE | 2020-04-17 13:10 | NUR ---
GOLYTLY GIVEN TO PT SALBADOR CLOUD DEVELOPER AND PRIMARY RN WILL HELP PT KEEP CUP FULL SO JUG CAN BE COMPLETED IN A TIMELY MANNER.
--- NOTE | 2020-04-17 15:29 | NUR ---
BROTHER CALLED TO CONSENT PT LEFT MESSAGE, AWAITING RETURN CALL PT IS A&O X3 HOWEVER IS DELAYED AND STATES HIS BROTHER IS WHO HELPS HIM MAKE DECISIONS.
--- NOTE | 2020-04-17 15:38 | NUR ---
BROTHER RETURNED CALL GAVE VERBAL CONSENT FOR PROCEDURES WITNESSED BY: KASHMIR
[2020-04-17 17:00] VITALS: BP 139/95
[2020-04-17 22:00] VITALS: BP 134/81
[2020-04-18] MEDS: HYDROCORTISONE SOD SUCC 100 MG/2ML INJ VIAL IV SCH ×4 (00:48→17:37)
[2020-04-18] MEDS: FAMOTIDINE (10MG/ML) 2ML VL IV SCH ×3 (00:48→22:25)
[2020-04-18 05:00] VITALS: BP 139/72
[2020-04-18] MEDS ORDERED: GOLYTELY 4L KIT PO ONE (05:00)
[2020-04-18 07:03] LABS: Basophils # (auto) 0 10 ^3/uL (0-0.2); Eosinophils # (auto) 0 10 ^3/uL (0-0.8); Hemoglobin 8.6 g/dL (13.5-17.5); Lymphocytes # (auto) 0.7 10 ^3/uL (0.4-5.4); Monocytes # (auto) 0.4 10 ^3/uL (0-1.3)
[2020-04-18 07:04] LABS: Basophils % (auto) 0.2 % (0.0-2.0); Hematocrit 27.1 % (41.0-53.0); Lymphocytes % (auto) 6.4 % (10.0-50.0); Mean Corpuscular Hemoglobin 26.3 pg (28.0-32.0); Mean Corpuscular Hgb Conc. 31.8 g/dL (32.0-36.0); Mean Corpuscular Volume 82.9 fL (80.0-100.0); Monocytes % (auto) 3.7 % (0.0-12.0); Neutrophils # (auto) 9.5 10 ^3/uL (1.6-8.6); Neutrophils % (auto) 89.7 % (37.0-80.0); Nucleated Red Blood Cells % 2.7 %; Platelet Count (auto) 302 10^3/uL (140-450); Red Blood Cells 3.27 10^6/uL (4.5-5.90); Red Cell Distribution Width 13.6 % (11.8-14.3); White Blood Cell 10.6 10^3/uL (4.4-10.8)
[2020-04-18 07:16] LABS: INR 1.14 (0.9-1.15)
[2020-04-18 08:00] VITALS: BP 148/82
--- NOTE | 2020-04-18 08:00 | NUR ---
Morning note Patient resting in bed with even and unlabored respirations, no distress noted. Instructed patient on POC, fall precautions and to call for assistance as needed. Patient verbalized understanding although frequent reorientation needed due to mental status; patient is A&Ox self and place. Fall precautions in place with call light within reach; bed alarm on for safety.
[2020-04-18] MEDS: cefTRIAXone 1GM/50ML D5W 50 ML IV SCH (09:06)
[2020-04-18] MEDS: METOPROLOL SUCCINATE XL 50 MG TAB PO SCH (09:07)
--- NOTE | 2020-04-18 09:55 | NUR ---
RE: Orders Notified Dr. Gerber of Metoprolol PO held due to decreased HR. MD verbalized understanding. Orders received and read back to verify.
[2020-04-18] MEDS: amLODIPine BESYLATE 5 MG TAB PO SCH (11:08)
[2020-04-18] MEDS ORDERED: LIDOCAINE VISCOUS 2% 15ML UD ONE (11:33)
[2020-04-18] MEDS ORDERED: SODIUM CHLORIDE LOCK 10 ML ONE (11:33)
[2020-04-18] MEDS ORDERED: diphenhdrAMINE HCL 50 MG/1 ML VL ONE (11:34)
--- NOTE | 2020-04-18 11:55 | NUR ---
Patient transferred to pre-op via hospital bed. Respirations even and unlabored, no distress noted.
[2020-04-18 12:00] VITALS: BP 156/82
[2020-04-18] MEDS: fentaNYL CITRATE 100 MCG/2 ML VL ONE ×3 (12:05→12:20)
[2020-04-18] MEDS: MIDAZOLAM HCL 5 MG/ML-1ML VIAL ONE ×3 (12:05→12:20)
--- NOTE | 2020-04-18 12:10 | NUR ---
Attempted PT eval, pt is off unit for procedure. Will try again.
--- NOTE | 2020-04-18 13:06 | NUR ---
Patient returned to unit via hospital bed Respirations even and unlabored, no distress noted. Patient denies abdominal pain, or N/V. Call light within reach. Bed alarm on for safety.
--- NOTE | 2020-04-18 14:15 | NUR ---
Patient tolerated lunch meal with no complications noted.
--- NOTE | 2020-04-18 14:30 | NUR ---
Patient resting in bed with even and unlabored respirations, no distress noted. Patient denies abdominal pain, N/V. Fall precautions in place with call light within reach.
--- NOTE | 2020-04-18 16:00 | NUR ---
Spoke with RICHARD Art. RE: active social science research assistant order Kaelyn is aware of order.
[2020-04-18 17:00] VITALS: BP 106/70
[2020-04-18 17:28] LABS: Lactic Acid w/Reflex 2.1 mmol/L (0.4-2.0)
--- NOTE | 2020-04-18 18:44 | NUR ---
Closing note patient resting in bed with even and unlabored respirations, no distress noted. Fall precautions in place with call light within reach. patient denies abdominal pain, N/V. Abdomen is soft to palpitation.
--- NOTE | 2020-04-18 19:05 | NUR ---
Care endorsed to ALINA Mattson.
[2020-04-18 22:00] VITALS: BP 112/64
--- NOTE | 2020-04-18 22:45 | NUR ---
BROTHER CALLED Patient's brother called for an update. All questions were answered. Brother states that he will call tomorrow for another update.
[2020-04-19 05:00] VITALS: BP 137/74
[2020-04-19] MEDS: HYDROCORTISONE SOD SUCC 100 MG/2ML INJ VIAL IV SCH ×2 (06:00)
[2020-04-19 08:00] VITALS: BP 136/73
[2020-04-19] MEDS: cefTRIAXone 1GM/50ML D5W 50 ML IV SCH (09:14)
[2020-04-19] MEDS: amLODIPine BESYLATE 5 MG TAB PO SCH (09:15)
[2020-04-19] MEDS: FAMOTIDINE (10MG/ML) 2ML VL IV SCH ×2 (09:15→21:22)
--- NOTE | 2020-04-19 09:46 | NUR ---
POC discussed with POC discussed with Dr. Gerber. discussed transfer to higher level of care with patient's brother. Art, patient's brother, verbalized understanding.
--- NOTE | 2020-04-19 10:08 | NUR ---
POC discussed with Dr. Valera/RE: transfer Accepting MD at [facility] is Dr. Trinh per Dr. Valera. Attempted to call CM to update. Voicemail box full. Contacted RICHARD Wild, to notify. Voicemail left.
[2020-04-19] MEDS: SODIUM CHLORIDE 0.9% 1,000 ML IV SCH ×2 (10:38→21:22)
[2020-04-19 12:00] VITALS: BP 118/74
--- NOTE | 2020-04-19 12:06 | NUR ---
Nutrition Followup Notes Wt: 54.5 kg Pt was sleeping with no family by bedside. per records pt with anemia and having GI wrkup. pt is currently on clear liq diet with adequate PO of 75% x 6 per RN doc Est energy needs 3259-8755 kcal (30-35 kcal/kg BW 51.4kg) Est protein needs 41-51g (0.8-1g/kg BW 51.4kg) Will reassess prn LABS: BUN 32 H, CA 7.1 L, ALB 2.1 L. GI: Pt with daily BM per RN doc BS: 15 mod risk Refer to wound assessment report for full details. PES: Altered nutrition related labs aeb pt with severe hypoalb, hypocalcemia, elevated BUN r/t current medical condition Comments 1) Advance diet as medically feasible. 2) Continue to monitor po intake, labs, skin 2) Refer pt to [facility] on DC 3) Continue current plan of care. F/u high 2-3 days
--- NOTE | 2020-04-19 12:24 | NUR ---
Contacted SON Ramirez RE: transfer No answer. Voicemail left to notify CM that accepting MD is Dr. Trinh at [facility].
--- NOTE | 2020-04-19 14:39 | NUR ---
Called lab to request COVID swab
--- NOTE | 2020-04-19 14:53 | NUR ---
1430 04/19/20 Faxed to [facility] [place] center at [phone] face sheet, H/P, labs, meds, progress notes, imaging, order for transfer to for higher level of care for GI. Spoke with Janki at transfer center who requested a current COVID [address] test[address] Accepting physican is Dr Trinh. Pending review and bed availability.
--- NOTE | 2020-04-19 16:15 | NUR ---
Called lab to request COVID swab
--- NOTE | 2020-04-19 16:30 | NUR ---
COVID specimen collected per MD order Specimen walked to lab by ALINA Santos.
[2020-04-19 17:00] VITALS: BP 133/73
--- NOTE | 2020-04-19 18:41 | NUR ---
Closing note Patient resting in bed with even and unlabored, no distress noted. Fall precautions in place with call light within reach.
[2020-04-19] MEDS: MORPHINE SULF INJ 2 MG/ML SYRINGE 1ML IV PRN (21:22)
[2020-04-19 22:00] VITALS: BP 119/66
[2020-04-20 05:00] VITALS: BP 109/68
[2020-04-20 07:12] LABS: Basophils # (auto) 0 10 ^3/uL (0-0.2); Basophils % (auto) 0.4 % (0.0-2.0); Hematocrit 25.4 % (41.0-53.0); Hemoglobin 8.2 g/dL (13.5-17.5); Mean Corpuscular Hemoglobin 26.7 pg (28.0-32.0); Monocytes # (auto) 1.1 10 ^3/uL (0-1.3); Monocytes % (auto) 9.6 % (0.0-12.0); Nucleated Red Blood Cells % 1.9 %
[2020-04-20 07:13] LABS: Eosinophils # (auto) 0.8 10 ^3/uL (0-0.8); Eosinophils % (auto) 6.8 % (0.0-7.0); Lymphocytes # (auto) 1.2 10 ^3/uL (0.4-5.4); Lymphocytes % (auto) 10.2 % (10.0-50.0); Mean Corpuscular Hgb Conc. 32.3 g/dL (32.0-36.0); Mean Corpuscular Volume 82.6 fL (80.0-100.0); Neutrophils # (auto) 8.4 10 ^3/uL (1.6-8.6); Platelet Count (auto) 287 10^3/uL (140-450); Red Blood Cells 3.08 10^6/uL (4.5-5.90); Red Cell Distribution Width 13.8 % (11.8-14.3); White Blood Cell 11.5 10^3/uL (4.4-10.8)
[2020-04-20 07:30] LABS: Albumin 2.1 g/dL (3.4-5.0); Calcium 6.3 mg/dL (8.5-10.1)
[2020-04-20 07:34] LABS: BUN/Creatinine Ratio 9.2; Bilirubin, Total 0.3 mg/dL (0.2-1.0); Total Protein 5.3 g/dL (6.4-8.2)
[2020-04-20 07:36] LABS: Potassium 2.1 mmol/L (3.5-5.1)
--- NOTE | 2020-04-20 07:53 | NUR ---
Critical potassium Received telephone orders for critical potassium from Dr. Gerber. Orders read back and verified and entered in eMAR.
[2020-04-20] MEDS ORDERED: POTASSIUM CHL 20 Meq TABLET PO ONE (08:00)
[2020-04-20] MEDS ORDERED: POTASSIUM CHLORIDE 40 MEQ, LIDOCAINE 1% (LOCAL ANESTH.) 4 ML in SODIUM CHL 0.9% 100 ML IV ONE (08:00)
[2020-04-20] MEDS: cefTRIAXone 1GM/50ML D5W 50 ML IV SCH (08:13)
--- NOTE | 2020-04-20 08:20 | NUR ---
[facility] Transfer Telephone call received from Robert watch case polisher for [facility]. Patient has accepting MD, (Dr. Arteaga) but no beds are available at this time. He will notify watch case polisher when a bed becomes available for this patient.
[2020-04-20 09:13] VITALS: BP 112/70
[2020-04-20] MEDS: amLODIPine BESYLATE 5 MG TAB PO SCH (09:30)
[2020-04-20] MEDS: FAMOTIDINE (10MG/ML) 2ML VL IV SCH ×2 (09:30→22:44)
[2020-04-20 11:47] VITALS: BP 116/69
--- NOTE | 2020-04-20 11:59 | NUR ---
1100 04/20/20 - Contacted the [facility] transfer center at [phone] to f/u on pending transfer. Spoke with Robert palliative care coordinator who stated they had received all requested documents via fax. Robert also stated patient was still pending bed availability and [facility] has no beds available today.
[2020-04-20] MEDS: SODIUM CHLORIDE 0.9% 1,000 ML IV SCH (16:13)
[2020-04-20 16:30] VITALS: BP 120/69
--- NOTE | 2020-04-20 18:00 | NUR ---
Hospitalist Rounded Dr. Gerber rounded on patient.
--- NOTE | 2020-04-20 19:20 | NUR ---
Opening shift note Patient A&O without s/s of distress or SOB at this time. Discussed POC with patient and transport to [facility]. Em patent, draining 1200 ml of clear light yellow urine. IV discontinued to right FA due to infiltration/leaking. Changed wet gown/linens. Patient tolerated well. Bed lowered locked with 2 side rails up. Call light within reach. Will continue to monitor.
--- NOTE | 2020-04-20 20:06 | NUR ---
CALLED REPORT TO LELE FULLER AT [facility]
[2020-04-20 22:00] VITALS: BP 106/65
[2020-04-20] MEDS ORDERED: POTASSIUM CHL 20 Meq TABLET PO SCH (22:00)
--- NOTE | 2020-04-21 01:00 | NUR ---
[facility]IFF ARRIVED FOR TRANSPORT TO [facility]. Removed Telemetry box.
== END 2020-04-21 01:00 | disposition short-term general hospital (02) | DRG 871 ==
LOC: ER 11:19 → TELE 11:20 → TELE-CENTR 04-15 15:46
PROVIDERS: ADMIT Hospitalist; ATTEND Internal Medicine
PROC: 0DBL8ZZ Excision of Transverse Colon, Via Natural or Artificial Opening Endoscopic (ICD-10-PCS; 2020-04-18)
PROC: 0DB68ZX Excision of Stomach, Via Natural or Artificial Opening Endoscopic, Diagnostic (ICD-10-PCS; principal; 2020-04-18 12:04)
PROC: 0DBK8ZX Excision of Ascending Colon, Via Natural or Artificial Opening Endoscopic, Diagnostic (ICD-10-PCS; 2020-04-18 12:04)
DX: A41.9 Sepsis, unspecified organism (principal); E43 Unspecified severe protein-calorie malnutrition; N17.0 Acute kidney failure with tubular necrosis; E41 Nutritional marasmus; R53.2 Functional quadriplegia; R65.21 Severe sepsis with septic shock; G93.41 Metabolic encephalopathy; J18.9 Pneumonia, unspecified organism; N18.5 Chronic kidney disease, stage 5; M62.82 Rhabdomyolysis; I13.2 Hypertensive heart and chronic kidney disease with heart failure and with stage 5 chronic kidney disease, or end stage renal disease; E87.2 Acidosis; N39.0 Urinary tract infection, site not specified; E86.0 Dehydration; E87.5 Hyperkalemia; H54.8 Legal blindness, as defined in USA; I50.9 Heart failure, unspecified; D64.9 Anemia, unspecified; E03.9 Hypothyroidism, unspecified; E11.22 Type 2 diabetes mellitus with diabetic chronic kidney disease; E87.6 Hypokalemia; F79 Unspecified intellectual disabilities; K63.5 Polyp of colon; K31.7 Polyp of stomach and duodenum; Z82.3 Family history of stroke; Z83.3 Family history of diabetes mellitus; Z86.73 Personal history of transient ischemic attack (TIA), and cerebral infarction without residual deficits; Z79.899 Other long term (current) drug therapy; Z68.21 Body mass index [BMI] 21.0-21.9, adult; Z20.828 Contact with and (suspected) exposure to other viral communicable diseases
CPT/HCPCS: 36415; 36600; 43239; 45380; 71045; 80048; 80053; 80202; 80307; 81001; 82550; 82553; 82570; 82805; 82962; 83605; 83735; 84100; 84132; 84300; 84443; 84484; 85007; 85025; 85027; 85379; 85610; 85730; 87040; 87081; 87086; 93005; 93306; 94640; 96365; 96375; 96376; 97163; 99291; G0378; J0610; J0696; J1815; J2001; J2185; J2250; J2543; J3490; J7060

== ENCOUNTER 2020-04-30 17:07 | Inpatient (IN) | payer MEDICARE, MEDICAID ==
[~2020-04-30] VITALS: Ht 157.5 cm; Wt 45.1 kg
[~2020-04-30 17:07] MED LIST changes: +LEVO125T7 PO; -LEVO200T7 PO; -LIOT50TA PO; +POTA-180 PO; -POTA10TA51 PO; +SULF400T PO
[2020-04-30] MEDS ORDERED: ACETAMINOPHEN 325 MG TAB PO PRN (17:30)
[2020-04-30 17:52] VITALS: BP 95/74
--- NOTE | 2020-04-30 18:26 | NUR ---
JESSCIA IRIZARRY admitted to [facility] from I unit after SBAR received. AAOX2 developmental disability, functional quadriplegia. Incontinence BB. Patient oriented to Alexandro Canseco RN primary RN, unit, room, bed. Midline to right upper arm, IV to left FA SL. Patient placed on bedside oxygen, weighed by bedscale and encouraged to call if they need something. Bed locked in the lowest position, call light within easy reach, will continue care.
--- NOTE | 2020-04-30 18:31 | NUR ---
PT's brother Marito Cordova notified of the adm.
--- NOTE | 2020-04-30 19:40 | NUR ---
assumed care, pt. awake, pt. aphasic, but follows command, no c/o pain, repositioned pt. no sob.
[2020-04-30] MEDS: PRAVASTATIN SODIUM 20 MG TAB PO SCH (21:19)
[2020-04-30 22:00] VITALS: BP 114/68
[2020-05-01 05:00] VITALS: BP 96/60
[2020-05-01 06:44] LABS: Potassium 4.3 mmol/L (3.5-5.1)
[2020-05-01 06:47] LABS: Basophils # (auto) 0.1 10 ^3/uL (0-0.2); Eosinophils # (auto) 0.5 10 ^3/uL (0-0.8); Eosinophils % (auto) 5.5 % (0.0-7.0); Hematocrit 27.9 % (41.0-53.0); Lymphocytes # (auto) 0.9 10 ^3/uL (0.4-5.4); Lymphocytes % (auto) 10.7 % (10.0-50.0); Mean Corpuscular Hgb Conc. 32.1 g/dL (32.0-36.0); Mean Corpuscular Volume 84.1 fL (80.0-100.0); Monocytes # (auto) 0.7 10 ^3/uL (0-1.3); Monocytes % (auto) 7.9 % (0.0-12.0); Neutrophils # (auto) 6.2 10 ^3/uL (1.6-8.6); Neutrophils % (auto) 74.9 % (37.0-80.0); Platelet Count (auto) 285 10^3/uL (140-450); Red Blood Cells 3.32 10^6/uL (4.5-5.90); Red Cell Distribution Width 16.9 % (11.8-14.3); White Blood Cell 8.3 10^3/uL (4.4-10.8)
[2020-05-01 06:58] LABS: Albumin 2.9 g/dL (3.4-5.0); BUN/Creatinine Ratio 23.5; Bilirubin, Total 0.1 mg/dL (0.2-1.0); Calcium 8.5 mg/dL (8.5-10.1); Total Protein 7.2 g/dL (6.4-8.2)
--- NOTE | 2020-05-01 07:30 | NUR ---
Opening Shift Note Assumed patient care from [facility]. Patient currently resting in bed with eyes closed, laying on left side. No sign of distress, respirations even and unlabored on room air. Safety precautions in place, call light within reach, will continue to monitor.
[2020-05-01 09:00] VITALS: BP 112/67
[2020-05-01] MEDS: MAGNESIUM CHLORIDE 64 MG PO SCH (10:00)
[2020-05-01] MEDS: ASPirin 81 mg TAB PO SCH (10:28)
[2020-05-01] MEDS: POLYETHYLENE GLYCOL 17 GM PWDR PO SCH (10:29)
[2020-05-01] MEDS: MULTIPLE VITAMIN TAB PO SCH (10:29)
[2020-05-01] MEDS: FERROUS SULFATE 325 MG TAB PO SCH (10:29)
[2020-05-01] MEDS: LIDOCAINE 5% TOPICAL PATCH TOP SCH (10:29)
--- NOTE | 2020-05-01 10:53 | NUR ---
Family Spoke with family regarding patient care at [facility]. Per patient's mill hand plate mill, patient had a chest tube removed from [facility] on 04/29, colonic polyp removal done on 04/30.
--- NOTE | 2020-05-01 11:07 | NUR ---
Dressing Reinforced Left, lateral chest dressing reinforced. Patient shows no signs of distress at this time. Respirations even and unlabored. Safety precautions in place, call light within reach, will continue to monitor.
[2020-05-01 13:00] VITALS: BP 118/83
[2020-05-01] MEDS: HYDROcodone-ACET 5/325MG TAB PO PRN (13:21)
--- NOTE | 2020-05-01 14:10 | NUR ---
at Bedside Dr. Gerber at bedside discussing patient plan of care. New orders received.
[2020-05-01 17:00] VITALS: BP 116/61
--- NOTE | 2020-05-01 18:30 | NUR ---
Dressing Change Left lateral chest dressing changed per MD request. Minimal, dry drainage noted on dressing, no odor noted.
--- NOTE | 2020-05-01 19:24 | NUR ---
Closing Note Report given to [facility] RN, Erica. Patient shows no signs of distress at this time. Respirations even and unlabored. Safety precautions in place.
[2020-05-01 21:11] VITALS: BP 105/63
[2020-05-01] MEDS: PRAVASTATIN SODIUM 20 MG TAB PO SCH (21:11)
[2020-05-02 05:00] VITALS: BP 94/67
[2020-05-02] MEDS: LEVOTHYROXINE SODIUM 25 MCG TAB PO SCH (06:03)
--- NOTE | 2020-05-02 08:00 | NUR ---
Opening Shift Note Assumed patient care from [facility]. Patient currently resting in bed with eyes closed, laying on right side. No sign of distress, respirations even and unlabored on room air. Safety precautions in place, call light within reach, will continue to monitor.
[2020-05-02 08:05] LABS: Hematocrit 29.2 % (41.0-53.0); Hemoglobin 9.4 g/dL (13.5-17.5); Mean Corpuscular Hemoglobin 27.1 pg (28.0-32.0); Mean Corpuscular Hgb Conc. 32.2 g/dL (32.0-36.0); Mean Corpuscular Volume 84.1 fL (80.0-100.0); Platelet Count (auto) 302 10^3/uL (140-450); Red Blood Cells 3.47 10^6/uL (4.5-5.90); Red Cell Distribution Width 17.5 % (11.8-14.3); White Blood Cell 6.4 10^3/uL (4.4-10.8)
[2020-05-02 08:19] LABS: Potassium 4.2 mmol/L (3.5-5.1)
[2020-05-02 08:27] LABS: BUN/Creatinine Ratio 27.3; Bilirubin, Total 0.2 mg/dL (0.2-1.0); Calcium 8.6 mg/dL (8.5-10.1); Total Protein 7.7 g/dL (6.4-8.2)
[2020-05-02 08:32] LABS: Basophils % (manual) 0 (0.0-2.0); Blast Cells 0; Metamyelocytes % 0; Myelocytes % 0; Promyelocytes % 0; Reactive Lymphocytes 0
[2020-05-02 09:00] VITALS: BP 99/69
[2020-05-02 09:09] LABS: Band Neutrophils % (manual) 1; Eosinophils % (manual) 3 (0-7); Lymphocytes % (manual) 16 (10.0-50.0); Monocytes % (manual) 4 (0-12)
--- NOTE | 2020-05-02 09:30 | NUR ---
dr henderson at bedside
--- NOTE | 2020-05-02 09:42 | NUR ---
taken to chest ct
[2020-05-02] MEDS: POLYETHYLENE GLYCOL 17 GM PWDR PO SCH (10:00)
[2020-05-02] MEDS: MAGNESIUM CHLORIDE 64 MG PO SCH (10:00)
[2020-05-02] MEDS: ASPirin 81 mg TAB PO SCH (10:14)
[2020-05-02] MEDS: LIDOCAINE 5% TOPICAL PATCH TOP SCH (10:14)
[2020-05-02] MEDS: FERROUS SULFATE 325 MG TAB PO SCH (10:14)
[2020-05-02] MEDS: MULTIPLE VITAMIN TAB PO SCH (10:14)
--- NOTE | 2020-05-02 10:30 | NUR ---
returned from ct
--- NOTE | 2020-05-02 11:30 | NUR ---
UP WITH PT AMBULATED WITH A WALKER 500 FEET AND RETURNED TO ROOM. PATIENT TOLERATED WLELL.
[2020-05-02 13:00] VITALS: BP 99/71
[2020-05-02 17:00] VITALS: BP 96/69
--- NOTE | 2020-05-02 19:30 | NUR ---
Opening Shift Note Patient is AOx2 to person and place. Patient asked for bed brumfield by pointing. Patient has been helped to bed brumfield. Call light is within reach to call for assist when ready to get off bed brumfield. Patient is supine in bed w/ HOB at 40 degrees, no s/s of distress or SOB. Will continue to monitor.
--- NOTE | 2020-05-02 19:40 | NUR ---
Patient Cleaned Patient called for assist off bed brumfield, patient cleaned and linens along with soil sheets changed. Patient tolerated well and now comfortable in bed w/ HOB at 30 degrees and call light in reach.
[2020-05-02 20:00] VITALS: BP 106/58
[2020-05-02] MEDS: PRAVASTATIN SODIUM 20 MG TAB PO SCH (21:55)
[2020-05-03] MEDS: HYDROcodone-ACET 5/325MG TAB PO PRN (05:15)
--- NOTE | 2020-05-03 05:15 | NUR ---
Pain Patient woke up and as vitals were about to be taken patient pointed to left shoulder and said "hurt", asked patient if he needed pain medication and he nodded yes. Patient was given pain medication as prescribed for pain. Will continue to monitor patient.
[2020-05-03] MEDS: LEVOTHYROXINE SODIUM 25 MCG TAB PO SCH (06:38)
--- NOTE | 2020-05-03 07:15 | NUR ---
Endorsed Patient Care to Day Shift RN Patient is AOx4, in bed resting w/ bed locked in lowest position and call light within reach. No s/s of distress, SOB or pain at this time
--- NOTE | 2020-05-03 08:00 | NUR ---
Opening Shift Note Assumed patient care from NOC RN,Nava Patient currently resting in bed with eyes open laying on left side. No sign of distress, respirations even and unlabored on room air. Safety precautions in place, call light within reach, will continue to monitor.
[2020-05-03] MEDS: LIDOCAINE 5% TOPICAL PATCH TOP SCH (08:37)
[2020-05-03] MEDS: FERROUS SULFATE 325 MG TAB PO SCH (08:38)
[2020-05-03] MEDS: MULTIPLE VITAMIN TAB PO SCH (08:38)
[2020-05-03] MEDS: POLYETHYLENE GLYCOL 17 GM PWDR PO SCH (08:38)
[2020-05-03] MEDS: ASPirin 81 mg TAB PO SCH (08:38)
[2020-05-03 09:00] VITALS: BP 117/73
[2020-05-03] MEDS: MAGNESIUM CHLORIDE 64 MG PO SCH (10:00)
--- NOTE | 2020-05-03 12:33 | NUR ---
Assessment Patient is a 59-year-old male with mental disabilities. Assessment was completed with patient brother Art . Per Art prior to admission patient lived home with him and functioned with assistance. Per Art he helps patient with his ADLs. Per Art patient has a walker for home use. Advised Art there is a social service consult for home health physical therapy. Provided Art with information and choice letter for home health. Per Art he has no home health preference. Informed Art clinical information will be faxed to [facility]. Per Art patient will return home to his prior living arrangements post discharge and he will transport patient home. Informed Art he has the right to participate in all discharge planning. Art verbalized understanding and agreed to discharge plan. Faxed clinical information to [facility]. Ronny Campbell with [facility] they can accept patient and will see patient within 24-48hrs upon d/c day. Addendum: 05/03/20 at 1236 by VAN MILLER Amended: Links added.
[2020-05-03 13:01] VITALS: BP 115/74
[2020-05-03 14:48] VITALS: BP 115/74
--- NOTE | 2020-05-03 19:17 | NUR ---
Discharge instructions given as ordered. Encourage to follow up with PMD as instructed. All questions and concerns addressed. Patient verbalized understanding. BOTH IV removed with catheter intact, pressure dressing applied, Telemetry unit returned to ICU. Patient taken to vehicle via wheelchair with all personal belongings, accompanied by staff and family member. No distress noted at time of departure.
== END 2020-05-03 19:00 | disposition home health service (06) | DRG 393 ==
LOC: TELE-WESTW 17:07 → WEST WING 17:37
PROVIDERS: ADMIT Internal Medicine; ATTEND Internal Medicine
DX: K63.5 Polyp of colon (principal); E43 Unspecified severe protein-calorie malnutrition; Z68.1 Body mass index [BMI] 19.9 or less, adult; D64.9 Anemia, unspecified; E03.9 Hypothyroidism, unspecified; I10 Essential (primary) hypertension; F79 Unspecified intellectual disabilities; H54.8 Legal blindness, as defined in USA; Z87.19 Personal history of other diseases of the digestive system
CPT/HCPCS: 36415; 71250; 80053; 84443; 85007; 85025; 85027; 97163; G0378

== ENCOUNTER 2024-10-30 14:18 | Inpatient (IN) | payer MEDICARE, MEDICAID ==
[~2024-10-30] VITALS: Ht 177.8 cm; Wt 110.4 kg
[~2024-10-30 14:18] MED LIST changes: +CARB25TA79 PO; -FURO1TAB33 PO; +LEVO-177 PO; -LEVO125T7 PO; -LISI40TA11 PO; +LISI40TA16 PO; +NIFE1TAB30 PO; -NIFE90TA49 PO; -POTA-180 PO; -SULF400T PO
--- NOTE | 2024-10-30 14:57 | ED.PDOC ---
History of Present Illness HPI Comments 64M presents to the Er w/ no prior Hx associated to the c/c of ABD pain. EMS informed us that the pt is nonverbal w/ current baseline and w/ son at home taking care of the pt. EMS report that the son on scene stated that the pt was complaining of LLQ pain associated w/ constipation for 2 days. PMHx of Anemia, DM, HTN, Thyroid, UTI and Parkinson's Jeronimo. Family Hx of DM and CVA. Denies chills, fever, N/V/D, SOB, CP or other associated symptom's, modifiers, or recent injuries or sick contact at this time. Chief Complaint: Abdominal Pain Time Seen by MD: 14:35 Primary Care Provider: unknown Reviewed Notes: Nurses Notes, Fur Blowing Machine Attendant Notes, Medications, Allergies Allergies: Coded Allergies: NO KNOWN ALLERGIES (Unverified , 01/07/24) Home Meds Reported Medications Nifedipine (Nifedipine Er) 60 Mg Tab, 1 TAB PO DAILY 01/08/24 Levothyroxine Sodium (Levothyroxine Sodium) 88 Mcg Tab, 1 TAB PO DAILY 12/04/23 Carbidopa-Levodopa (Carbidopa/Levodopa Odt 25-100 mg) 1 Tab Tab, 1 TAB PO TID 12/04/23 Lisinopril (Lisinopril) 40 Mg Tab, 40 MG PO DAILY for 30 Days, MG 04/01/20 Metoprolol Tartrate (Metoprolol Tartrate) 50 Mg Tab, 50 MG PO BID for 30 Days, MG 04/01/20 Information Source: Patient, Emergency Med Personnel Mode of Arrival: EMS Severity: Moderate Timing: Days Duration: Since onset, Days Prehospital treatment: None Past Medical History PAST MEDICAL HISTORY: Anemia, DM, HTN, Thyroid, UTI'S Past Medical History (Other): Parkinson's Jeronimo Surgical History: Denies all surgeries Family History Family History: Reviewed,noncontributory to illness, Family hx of DM, Family hx of stroke Social History Smoker: Non-Smoker Alcohol: Denies ETOH Use Drugs: Denies Drug Use Lives In: Home Constitutional: denies: chills, diaphoresis, fatigue, fever, malaise, sweats, weakness, others EENTM: denies: blurred vision, double vision, ear bleeding, ear discharge, ear drainage, ear pain, ear ringing, eye pain, eye redness, hearing loss, mouth pain, mouth swelling, nasal discharge, nose bleeding, nose congestion, nose pain, photophobia, tearing, throat pain, throat swelling, voice changes, others Respiratory: denies: cough, hemoptysis, orthopnea, SOB at rest, shortness of breath, SOB with excertion, stridor, wheezing, others Cardiovascular: denies: chest pain, dizzy spells, diaphoresis, Dyspnea on exertion, edema, irregular heart beat, left arm pain, lightheadedness, palpitations, PND, syncope, others Gastrointestinal: reports: abdominal pain, constipated; denies: abdomen distended, blood streaked bowels, diarrhea, dysphagia, difficulty swallowing, hematemesis, melena, nausea, poor appetite, poor fluid intake, rectal bleeding, rectal pain, vomiting, others Genitourinary: denies: burning, dysuria, flank pain, frequency, hematuria, incontinence, penile discharge, penile sore, pain, testicle pain, testicle swelling, urgency, others Neurological: denies: dizziness, fainting, headache, left sided numbness, left sided weakness, numbness, paresthesia, pre-existing deficit, right sided numbness, right sided weakness, seizure, speech problems, tingling, tremors, weakness, others Musculoskeletal: denies: back pain, gout, joint pain, joint swelling, muscle pain, muscle stiffness, neck pain, others Integumetry: denies: bruises, change in color, change in hair/nails, dryness, laceration, lesions, lumps, rash, wounds, others Allergic/Immunocompromised: denies: Difficulty Healing, Frequent Infections, Hives, Itching, others Hematologic/Lymphatic: denies: anemia, blood clots, easy bleeding, easy bruising, swollen glands, others Endocrine: denies: excessive hunger, excessive sweating, excessive thirst, excessive urination, flushing, intolerance to cold, intolerance to heat, unexplained weight gain, unexplained weight loss, others Psychiatric: denies: anxiety, bipolar disorder, depression, hopeless, panic disorder, schizophrenia, sleepless, suicidal, others All Other Systems: Reviewed and Negative Physical Exam General Appearance: Moderate Distress HEENT: Normal ENT Inspection, Pharynx Normal, TMs Normal Neck: Full Range of Motion, Non-Tender, Normal, Normal Inspection Respiratory: Chest Non-Tender, Lungs Clear, No Accessory Muscle Use, No R espiratory Distress, Normal Breath Sounds Cardiovascular: No Edema, No JVD, No Murmur, No Gallop, Normal Peripheral Pulses, Regular Rate/Rhythm Breast Exam: Deferred Gastrointestinal: Diffuse, No Organomegaly, No Pulsatile Mass, Normal Bowel Sounds, Soft, Tenderness Genitalia: Deferred Pelvic: Deferred Rectal: Deferred Extremities: No calf tenderness, Normal capillary refill, No pedal edema Musculoskeletal : Apperance: Normal Neurologic: timber girdler II-XII nml as Tested, Motor Weakness, Normal Affect, No Sensory Deficits, Other (The patient was nonverbal) Cerebellar Function: Normal Reflexes: Normal Skin: Dry, Normal Color, Warm Lymphatic: No Adenopathy Was a procedure done? Was a procedure done?: No Differential Dx Considerations may include: Constipation, intractable abdominal pain, gastroenteritis, electrolyte imbalance X-Ray, Labs, Meds, VS Vital Signs Date Time Temp Pulse Resp B/P (MAP) Pulse Ox O2 Delivery O2 Flow Rate FiO2 10/30/24 14:28 97.8 100 16 114/75 (88) 95 Lab Test 10/30/24 15:19 Range/Units White Blood Count 5.8 4.4-10.8 10^3/uL Red Blood Count 4.43 L 4.5-5.90 10^6/uL Hemoglobin 12.8 L 13.5-17.5 g/dL Hematocrit 38.6 L 41.0-53.0 % Mean Corpuscular Volume 87.1 80.0-100.0 fL Mean Corpuscular Hemoglobin 28.9 28.0-32.0 pg Mean Corpuscular Hemoglobin Concent 33.2 32.0-36.0 g/dL Red Cell Distribution Width 14.6 H 11.8-14.3 % Platelet Count 191 140-450 10^3/uL Mean Platelet Volume 9.2 6.9-10.8 fL Neutrophils (%) (Auto) 84.5 H 37.0-80.0 % Lymphocytes (%) (Auto) 8.8 L 10.0-50.0 % Monocytes (%) (Auto) 4.5 0.0-12.0 % Eosinophils (%) (Auto) 1.5 0.0-7.0 % Basophils (%) (Auto) 0.7 0.0-2.0 % Neutrophils # (Auto) 4.9 1.6-8.6 10 ^3/uL Lymphocytes # (Auto) 0.5 0.4-5.4 10 ^3/uL Monocytes # (Auto) 0.3 0-1.3 10 ^3/uL Eosinophils # (Auto) 0.1 0-0.8 10 ^3/uL Basophils # (Auto) 0 0-0.2 10 ^3/uL Nucleated Red Blood Cells 0.0 % Sodium Level Pending Potassium Level Pending Chloride Level Pending Carbon Dioxide Level Pending Anion Gap Pending Blood Urea Nitrogen Pending Creatinine Pending Glomerular Filtration Rate Calc Pending BUN/Creatinine Ratio Pending Serum Glucose Pending Calcium Level Pending Total Bilirubin Pending Aspartate Amino Transferase (AST) Pending Alanine Aminotransferase (ALT) Pending Alkaline Phosphatase Pending Total Protein Pending Albumin Pending Lipase Pending The patient's CBC is within normal limits except for anemia with a hemoglobin of 12.8 and hematocrit that is decreased The patient was being admitted The CT scan of the abdomen and pelvis shows: IMPRESSION: 1. There is nonspecific moderate gas distention of the colon throughout with scattered stool. There are no obvious dilated small bowel loops. Findings May relate to constipation. Clinical correlation is recommended. 2. Prostatomegaly. Images Reviewed?: Images reviewed and evaluated by me Time of 1ST Reevaluation: 15:05 Reevaluation 1ST: Unchanged Patient Education/Counseling: Other (The patient was somewhat nonverbal) Family Education/Counseling: No Family Present Departure 1 Departure Time of Disposition: 16:14 Impression: Primary Impression: Intractable abdominal pain Additional Impressions: Constipation Qualified Codes: K59.00 - Constipation, unspecified Generalized weakness Disposition: ADMITTED INPATIENT Admit to: Med Surg Condition: Fair Critical Care Note Critical Care Time?: No Stability Stability form required: Yes Unstable for transfer: ED Physician Assesment (Clinical assesment) Heart Score Heart Score: Heart Score Response (Comments) Value History N/A 0 EKG N/A 0 Age N/A 0 Risk Factors N/A 0 Troponin N/A 0 Total 0 I personally scribed for GOGO SHIPMAN MD ([email or web address]) on 10/30/24 at 14:57. Electronically submitted by Adrian Veloz ([email or web address]). GOGO SHIPMAN MD Oct 30, 2024 14:57
--- NOTE | 2024-10-30 15:24 | DVH ---
CT ABDOMEN AND PELVIS WITHOUT CONTRAST CLINICAL HISTORY: pain TECHNIQUE: Multiple contiguous axial images of the abdomen and pelvis without intravenous contrast. The images were reformatted degenerate coronal and sagittal reconstructions. All CT scans at this medical facility are performed using dose modulation techniques as appropriate t o a performed exam including the following:Automated exposure control was utilized; adjustment of the MA and/or KV according to patient size; and use of iterative reconstruction technique. Radiation Dose Information: CT Dose: CTDI volume is 7 mGy. Dose-length product is 320 mGy*cm Comparison: CT CT AB PEL WO CON-NO ORAL OR IV on DOS: 01/07/24, CT CT AB PEL WO CON-NO ORAL OR IV on DO S: 12/26/23 FINDINGS: Evaluation of the abdomen and pelvis is limited without intravenous contrast. There is paucity of int ra-abdominal fat and crowding of the abdominal viscera which also limits evaluation. There is moderate gas distention of the colon throughout with scattered stool. There are no obvious dilated small bowel loops. The liver, gallbladder, pancreas, kidneys, adrenal glands, and spleen grossly appear within normal limits. there is no free fluid or obvious free air. The abdominal aorta and IVC appear within normal limits. There is a Em catheter in the bladder which is mostly decompressed. Prostate gland is prominent in size.. There is no gross evidence of a pelvic mass. There is no free fluid collection. Lung bases are clear. There is no acute osseous abnormality. IMPRESSION: 1. There is nonspecific moderate gas distention of the colon throughout with scattered stool. There a re no obvious dilated small bowel loops. Findings May relate to constipation. Clinical correlation i s recommended. 2. Prostatomegaly. HS:Y
[2024-10-30 15:55] LABS: Basophils # (auto) 0 10 ^3/uL (0-0.2); Basophils % (auto) 0.7 % (0.0-2.0); Eosinophils # (auto) 0.1 10 ^3/uL (0-0.8); Eosinophils % (auto) 1.5 % (0.0-7.0); Hematocrit 38.6 % (41.0-53.0); Hemoglobin 12.8 g/dL (13.5-17.5); Lymphocytes # (auto) 0.5 10 ^3/uL (0.4-5.4); Lymphocytes % (auto) 8.8 % (10.0-50.0); Mean Corpuscular Hemoglobin 28.9 pg (28.0-32.0); Mean Corpuscular Hgb Conc. 33.2 g/dL (32.0-36.0); Mean Corpuscular Volume 87.1 fL (80.0-100.0); Monocytes # (auto) 0.3 10 ^3/uL (0-1.3); Monocytes % (auto) 4.5 % (0.0-12.0); Neutrophils # (auto) 4.9 10 ^3/uL (1.6-8.6); Neutrophils % (auto) 84.5 % (37.0-80.0); Platelet Count (auto) 191 10^3/uL (140-450); Red Blood Cells 4.43 10^6/uL (4.5-5.90); Red Cell Distribution Width 14.6 % (11.8-14.3); White Blood Cell 5.8 10^3/uL (4.4-10.8)
[2024-10-30 16:09] LABS: Alanine Aminotransferase 12 U/L (7-40); Albumin 4.2 g/dL (3.2-4.8); Alkaline Phosphatase 78 U/L (46-116); Anion Gap 6 (5-15); Aspartate Aminotransferase 14 U/L (13-40); BUN/Creatinine Ratio 13.6 (10.0-20.0); Blood Urea Nitrogen 12 mg/dL (9-23); Calcium 9.5 mg/dL (8.7-10.4); Carbon Dioxide 27 mmol/L (20-31); Lipase 52 U/L (12-53); Potassium 3.7 mmol/L (3.5-5.1); Sodium 141 mmol/L (136-145); Total Protein 7.5 g/dL (5.7-8.2)
[2024-10-30 16:22] LABS: Bilirubin, Total 0.3 mg/dL (0.2-1.0); Chloride 108 mmol/L (98-107); Glucose 112 mg/dL (74-106)
[2024-10-30 16:51] VITALS: PULSE 98; RESP 20; O2SAT 98
[2024-10-30 17:14] LABS: Urine Bacteria MANY /hpf (None Seen); Urine Blood TRACE /uL (Negative); Urine Clarity Turbid (Clear); Urine Color Colorless (Yellow); Urine Mucus FEW (None Seen); Urine Protein, UAD TRACE (Negative); Urine Specific Gravity 1.014 (1.001-1.035); Urine Squamous Epithelial Cell None Seen /hpf (<5); Urine Urobilinogen Normal (Negative); Urine WBC 253 /HPF (0-3); Urine WBC Clumps PRESENT /hpf (None Seen)
[2024-10-30 19:35] VITALS: PULSE 87; RESP 20; O2SAT 98
[2024-10-30] MEDS ORDERED: ONDANSETRON HCL 4 MG/2 ML VIAL IV PRN (19:45)
[2024-10-30] MEDS ORDERED: DOCUSATE SOD 100 MG CAP PO PRN (19:45)
[2024-10-30] MEDS ORDERED: DEXTROSE (50%) 50ML SYRG IV PRN (19:45)
[2024-10-30] MEDS ORDERED: ACETAMINOPHEN 325 MG TAB PO PRN (19:45)
[2024-10-30] MEDS ORDERED: MORPHINE SULFATE INJ 2 MG/ml SYRG IV PRN (21:45)
[2024-10-30] MEDS ORDERED: NITROGLYCERIN 0.4 MG SL TAB SL PRN (21:45)
--- NOTE | 2024-10-30 21:47 | DVHHP2 ---
History of Present Illness Reason for Visit: Acute abdominal pain History of Present Illness The patient is a 64-year-old male with past medical history of anemia, DM, thyroid disease, UTIs, Parkinson's disease, and hypertension who presented to [facility] ED with complaint of acute abdominal pain. As reported by EMS, patient was complaining of left lower quadrant abdominal pain associated with constipation for 2 days. Patient was seen and evaluated in the ED, laboratory data shows WBC 5.8, platelets 191, sodium 141, potassium 3.7, BUN 12, creatinine 0.88, GFR 97, glucose 112, lipase 52. Abdomen/pelvis CT revealing nonspecific moderate gas distention of the colon throughout with scattered s tool, no obvious dilated small bowel loops, findings may relate to constipation; prostatomegaly. Please see medication orders section in the computer. On my assessment, patient denies abdominal pain at this moment, no diarrhea, no nausea, no vomiting, no fever, no chills. Patient was admitted for further evaluation and medical management. Past Medical History Anemia, DM, HTN, Thyroid, UTI'S, Parkinson's Past Surgical History Denies all surgeries Family History Reviewed, noncontributory to the management of this case. Past Social History The patient lives at home, denies smoking, alcohol or illicit drugs abuse. Review of Systems Constitutional: Yes: Weakness; No: Fever, Chills, Sweats, Malaise, Other Eyes: No: Pain, Vision change, Conjunctivae inflammation, Eyelid inflammation, Other, Redness ENT: No: Ear pain, Ear discharge, Nose pain, Nose discharge, Nose congestion, Mouth pain, Mouth swelling, Throat pain, Throat swelling, Other Respiratory: No: Cough, Dry, Shortness of breath, SOB with excertion, Wheezing, Hemoptysis, Pleuritic Pain, Sputum, Wheezing, Other Cardiovascular: No: Chest Pain, Palpitations, Orthopnea, Paroxysmal Noc. Dyspnea, Edema, Lt Headedness, Other Gastrointestinal: Abdominal Pain, Constipation; No: Nausea, Vomiting, Diarrhea, Melena, Hematochezia, Other Genitourinary: No Dysuria, No Frequency, No Incontinence, No Hematuria, No R etention, No Other Musculoskeletal: No: other, neck pain, shoulder pain, arm pain, back pain, hand pain, leg pain, foot pain Skin: No: Rash, Lesions, Jaundice, Bruising, Other Neurological: No: Weakness, Numbness, Incoordination, Change in speech, Confusion, Seizures, Other Allergies: Coded Allergies: NO KNOWN ALLERGIES (Unverified , 01/07/24) Medications Current Medications Medications Dose Ordered Sig/Kylee Route Start Time Stop Time Status Last Admin Dose Admin Lisinopril 20 mg DAILY PO 10/31/24 10:00 Metoprolol Tartrate 25 mg BID PO 10/30/24 22:00 Ceftriaxone Sodium 50 ml @ 100 mls/hr DAILY@09 IV 10/31/24 09:00 Levothyroxine Sodium 88 mcg QAM@0600 PO 10/31/24 06:00 Diagnostic Test (Pha) 1 strip ACHS 10/30/24 22:00 Insulin Human Regular ACHS SC 10/30/24 22:00 Dextrose 50 ml UD PRN IV 10/30/24 19:45 Sodium Chloride 10 ml Q8HR IV 10/30/24 22:00 Acetaminophen/ Hydrocodone Bitart 1 tab Q4HP PRN PO 10/30/24 19:45 Ondansetron HCl 4 mg Q4HP PRN IV 10/30/24 19:45 Docusate Sodium 100 mg BIDPRN PRN PO 10/30/24 19:45 Acetaminophen 650 mg Q6HP PRN PO 10/30/24 19:45 Carbidopa/Levodopa 1 tab TID PO 10/30/24 22:00 Exam Vital Signs Vital Signs Date Time Temp Pulse Resp B/P (MAP) Pulse Ox O2 Delivery O2 Flow Rate FiO2 10/30/24 20:00 98.0 79 15 92/62 (72) 96 98.0 10/30/24 19:35 Room Air* 0 21 General Appearance: Alert, Cooperative, No acute distress, Other (Oriented x2) HEENT: Atraumatic, PERRLA, EOMI, Mucous membr. moist/pink Respiratory: Clear to auscultation, Normal air movement Cardiovascular: Regular rate, Normal S1, Normal S2, No murmurs Abdominal: Normal bowel sounds, Soft, No tenderness, No hepatospenomegaly, No masses Extremities: No clubbing, No cyanosis, No edema, Normal pulses, No tenderness/swelling Skin: No rashes, No breakdown, No significant lesion Neuro: Normal speech, Normal tone, Sensation intact, Cranial nerves 3-12 NL, Reflexes 2+, Other (Generalized weakness) Psych/Mental Status: Mental status NL, Mood NL Labs/Xrays Labs Test 10/30/24 16:56 10/30/24 15:19 Range/Units Urine Color Colorless Yellow Urine Clarity Turbid H Clear Urine pH 6.0 5.0-9.0 Urine Specific [place] 1.014 1.001-1.035 Urine Protein Trace H Negative Urine Ketones Negative Negative Urine Blood Trace H Negative /uL Urine Nitrite Negative Negative Urine Bilirubin Negative Negative Urine Urobilinogen Normal Negative mg/dL Urine Leukocyte Esterase 3+ Negative /uL Urine RBC 19 0 - 3 /hpf Urine WBC Clumps Present None Seen /hpf Urine Microscopic WBC 253 H 0-3 /HPF Urine Squamous Epithelial Cells None seen <5 /hpf Urine Bacteria Many H None Seen /hpf Urine Mucus Few None Seen Urine Glucose Normal Normal mg/dL White Blood Count 5.8 4.4-10.8 10^3/uL Red Blood Count 4.43 L 4.5-5.90 10^6/uL Hemoglobin 12.8 L 13.5-17.5 g/dL Hematocrit 38.6 L 41.0-53.0 % Mean Corpuscular Volume 87.1 80.0-100.0 fL Mean Corpuscular Hemoglobin 28.9 28.0-32.0 pg Mean Corpuscular Hemoglobin Concent 33.2 32.0-36.0 g/dL Red Cell Distribution Width 14.6 H 11.8-14.3 % Platelet Count 191 140-450 10^3/uL Mean Platelet Volume 9.2 6.9-10.8 fL Neutrophils (%) (Auto) 84.5 H 37.0-80.0 % Lymphocytes (%) (Auto) 8.8 L 10.0-50.0 % Monocytes (%) (Auto) 4.5 0.0-12.0 % Eosinophils (%) (Auto) 1.5 0.0-7.0 % Basophils (%) (Auto) 0.7 0.0-2.0 % Neutrophils # (Auto) 4.9 1.6-8.6 10 ^3/uL Lymphocytes # (Auto) 0.5 0.4-5.4 10 ^3/uL Monocytes # (Auto) 0.3 0-1.3 10 ^3/uL Eosinophils # (Auto) 0.1 0-0.8 10 ^3/uL Basophils # (Auto) 0 0-0.2 10 ^3/uL Nucleated Red Blood Cells 0.0 % Sodium Level 141 136-145 mmol/L Potassium Level 3.7 3.5-5.1 mmol/L Chloride Level 108 H 98-107 mmol/L Carbon Dioxide Level 27 20-31 mmol/L Anion Gap 6 5-15 Blood Urea Nitrogen 12 9-23 mg/dL Creatinine 0.88 0.700-1.30 mg/dL Glomerular Filtration Rate Calc 97 >90 mL/min BUN/Creatinine Ratio 13.6 10.0-20.0 Serum Glucose 112 H 74-106 mg/dL Calcium Level 9.5 8.7-10.4 mg/dL Total Bilirubin 0.3 0.2-1.0 mg/dL Aspartate Amino Transferase (AST) 14 13-40 U/L Alanine Aminotransferase (ALT) 12 7-40 U/L Alkaline Phosphatase 78 46-116 U/L Total Protein 7.5 5.7-8.2 g/dL Albumin 4.2 3.2-4.8 g/dL Lipase 52 12-53 U/L Thyroid Stimulating Hormone (TSH) 0.31 L 0.55-4.78 uIU/mL PATIENT: JESSICA IRIZARRY ACCT: [id number] UNIT: [id number] : 1960 LOC: ER ROOM / BED: / AGE / SEX: 64 / M ADM STATUS: REG ER SERVICE 1440 ORDERING PHYSICIAN: GOGO SHIPMAN MD PROCEDURE(s): ABPL - CT AB PEL WO CON-NO ORAL OR IV REASON: pain ORDER NUMBER(s): [id number], ACCESSION NUMBER(s): [id number] CT ABDOMEN AND PELVIS WITHOUT CONTRAST CLINICAL HISTORY: pain TECHNIQUE: Multiple contiguous axial images of the abdomen and pelvis without intravenous contrast. The images were reformatted degenerate coronal and sagittal reconstructions. All CT scans at this medical facility are performed using dose modulation techniques as appropriate to a performed exam including the following:Automated exposure control was utilized; adjustment of the MA and/or KV according to patient size; and use of iterative reconstruction technique. Radiation Dose Information: CT Dose: CTDI volume is 7 mGy. Dose-length product is 320 mGy*cm Comparison: CT CT AB PEL WO CON-NO ORAL OR IV on DOS: 01/07/24, CT CT AB PEL WO CON-NO ORAL OR IV on DOS: 12/26/23 FINDINGS: Evaluation of the abdomen and pelvis is limited without intravenous contrast. There is paucity of intra-abdominal fat and crowding of the abdominal viscera which also limits evaluation. There is moderate gas distention of the colon throughout with scattered stool. There are no obvious dilated small bowel loops. The liver, gallbladder, pancreas, kidneys, adrenal glands, and spleen grossly appear within normal limits. there is no free fluid or obvious free air. The abdominal aorta and IVC appear within normal limits. There is a Em catheter in the bladder which is mostly decompressed. Prostate gland is prominent in size. There is no gross evidence of a pelvic mass. There is no free fluid collection. Lung bases are clear. There is no acute osseous abnormality. IMPRESSION: 1. There is nonspecific moderate gas distention of the colon throughout with scattered stool. There are no obvious dilated small bowel loops. Findings May relate to constipation. Clinical correlation is recommended. 2. Prostatomegaly. Assessment/Plan Assessment/Plan Intractable abdominal pain Constipation Constipation, unspecified Generalized weakness Urinary tract infection Plan 1. Admit to med surge unit 2. Breathing treatment 3. Pain control management 4. IV antibiotic management 5. Management of fluids and electrolytes 6. Consultation for hospitalist 7. Diagnostic test abdomen/pelvis CT 8. DVT prophylaxis-on SCDs 9. Repeat labs CBC, CMP in a.m. 10. Home medication reviewed and reconciled 11. Continue with current medical management 12. Treatment plan discussed with patient and RN. Patient verbalized understanding. Plan discussed with: Patient, Other (RN) My Orders Orders - KATIUSKA AUGUST DNP Procedure Category Date Status Time Lisinopril Tablet PHA 10/31/24 In Process (Zestril Tablet) 10:00 Metoprolol Tartrate PHA 10/30/24 In Process Tablet (Lopressor Ta 22:00 Ceftriaxone 1gm/50ml PHA 10/31/24 In Process D5w (Rocephin) 09:00 Urine Bacterial MINGO 10/30/24 In Process Culture 19:42 Consistent DIET 10/31/24 Transmitted Carb(Ccho)Diabetes Breakfast Levothyroxine Tablet PHA 10/31/24 In Process (Synthroid Tablet) 06:00 Glucose Blood PHA 10/30/24 In Process (Accu-Chek Comfort 22:00 Insulin R (Human) PHA 10/30/24 In Process (Insulin R) 22:00 Dextrose 50% Syringe PHA 10/30/24 In Process 19:45 Allergies DIVYA 10/30/24 In Process 19:42 Code Status CODE 10/30/24 Transmitted 19:42 Sodium Chloride Lock PHA 10/30/24 In Process (Saline Lock Ns) 22:00 Oxygen Per Hour RT 10/30/24 Transmitted 19:42 Hydrocodone-Acet PHA 10/30/24 In Process 5/325mg Tab ([place] 19:45 Ondansetron Hcl PHA 10/30/24 In Process (Zofran) 19:45 Docusate Sodium PHA 10/30/24 In Process Capsule (Colace 19:45 Complete Blood Count LAB 10/31/24 Verified 04:00 Comprehensive LAB 10/31/24 Verified Metabolic Panel 04:00 Condition: Serious DIVYA 10/30/24 In Process 19:42 Acetaminophen Tablet PHA 10/30/24 In Process (Tylenol Tablet) 19:45 Bedrest With Bathroom DIVYA 10/30/24 In Process Privileg 19:42 Sequential DIVYA 10/30/24 In Process Compression Device Carbidopa W Levodopa PHA 10/30/24 In Process 25/100mg (Sinemet 2 22:00 Admit ADMIT 10/30/24 Verified 21:45 Nitroglycerin PHA 10/30/24 Verified Sublingual (Ntrostat 21:45 Morphine Sulfate PHA 10/30/24 Verified Injection 21:45 Notify Md Of Changes DIVYA 10/30/24 Verified From Base 21:45 Emergency Dysrhythmia DIVYA 10/30/24 Verified Protocol 21:45 Oxygen By Nasal RT 10/30/24 Verified Cannula 21:45 Problem List: (1) Intractable abdominal pain (2) Constipation (3) Constipation, unspecified (4) Generalized weakness (5) Urinary tract infection Date of Service: Oct 30, 2024 Billing Provider: KATIUSKA AUGUST DNP Common Visit Codes: 12179-MUXBFIS INP/OBS CARE (HIGH) KATIUSKA AUGUST DNP Oct 30, 2024 21:47
[2024-10-30] MEDS: METOPROLOL TARTRATE 25 MG TAB PO SCH (22:00)
[2024-10-30] MEDS: InsuLIN REG 1unit/0.01ml Soln (100units/ml) SC SCH (22:00)
[2024-10-30] MEDS: SODIUM CHLOR 0.9% PF (SALINE LOCK) 10ML VIAL/SYR IV SCH (22:02)
[2024-10-30] MEDS: DOCUSATE SOD 100 MG CAP PO ONE (22:06)
[2024-10-30] MEDS: cefTRIAXone 1GM/50ML D5W 50 ML IV ONE (22:06)
[2024-10-30] MEDS: CARBIDOPA W LEVODOPA 25/100mg TABLET PO SCH (22:06)
[2024-10-30] MEDS: ACCU-CHEK COMFORT CURVE STRIP VI SCH (22:07)
[2024-10-31 05:40] LABS: Basophils # (auto) 0 10 ^3/uL (0-0.2); Basophils % (auto) 0.7 % (0.0-2.0); Eosinophils # (auto) 0.2 10 ^3/uL (0-0.8); Eosinophils % (auto) 4.5 % (0.0-7.0); Hematocrit 37.4 % (41.0-53.0); Hemoglobin 12.6 g/dL (13.5-17.5); Lymphocytes % (auto) 19.2 % (10.0-50.0); Mean Corpuscular Hemoglobin 29.3 pg (28.0-32.0); Mean Corpuscular Hgb Conc. 33.6 g/dL (32.0-36.0); Mean Corpuscular Volume 87.1 fL (80.0-100.0); Monocytes # (auto) 0.4 10 ^3/uL (0-1.3); Monocytes % (auto) 7.4 % (0.0-12.0); Neutrophils # (auto) 3.6 10 ^3/uL (1.6-8.6); Neutrophils % (auto) 68.2 % (37.0-80.0); Nucleated Red Blood Cells % 0.1 %; Platelet Count (auto) 170 10^3/uL (140-450); Red Blood Cells 4.29 10^6/uL (4.5-5.90); Red Cell Distribution Width 14.3 % (11.8-14.3); White Blood Cell 5.2 10^3/uL (4.4-10.8)
[2024-10-31 05:58] LABS: Albumin 4.2 g/dL (3.2-4.8); Alkaline Phosphatase 73 U/L (46-116); Anion Gap 9 (5-15); Aspartate Aminotransferase 15 U/L (13-40); Blood Urea Nitrogen 10 mg/dL (9-23); Calcium 9.4 mg/dL (8.7-10.4); Carbon Dioxide 25 mmol/L (20-31); Glucose 82 mg/dL (74-106); Sodium 141 mmol/L (136-145)
[2024-10-31 05:59] LABS: Bilirubin, Total 0.4 mg/dL (0.2-1.0); Total Protein 7.3 g/dL (5.7-8.2)
[2024-10-31 06:04] LABS: Alanine Aminotransferase < 9 U/L (7-40); Chloride 107 mmol/L (98-107); Potassium 3.4 mmol/L (3.5-5.1)
[2024-10-31] MEDS: LEVOTHYROXINE SODIUM 88 MCG TAB PO SCH (06:09)
[2024-10-31 07:48] VITALS: O2SAT 96
[2024-10-31] MEDS: cefTRIAXone 1GM/50ML D5W 50 ML IV SCH (08:39)
[2024-10-31 09:25] VITALS: BP 101/74; PULSE 64; PULSE 74; RESP 17; RESP 18; TEMP 97.8; O2SAT 97; O2SAT 98
[2024-10-31] MEDS ORDERED: OMEP20TA PO (09:58)
[2024-10-31] MEDS: LISINOPRIL 20 MG TAB PO SCH (10:00)
[2024-10-31] MEDS: POTASSIUM CHL 20MEQ/100ML 100 ML IV SCH (10:15)
[2024-10-31] MEDS: POTASSIUM EFFERVESENT TAB 25 MEQ PO ONE (10:49)
[2024-10-31] MEDS: SODIUM CHLORIDE 0.9% 1,000 ML IV SCH (10:49)
[2024-10-31 12:46] VITALS: BP 91/62; PULSE 77; RESP 17; TEMP 97.7; O2SAT 95
--- NOTE | 2024-10-31 14:36 | DVHPN2 ---
Subjective Feels better. No pain. Ate lunch. Not verbalizing properly Reviewed: Care Plan, H&P, Labs, Medications, Previous Orders, Radiology Changes from previous H/P or p: No Changes Objective Vitals Vital Signs Date Time Temp Pulse Resp B/P (MAP) Pulse Ox O2 Delivery O2 Flow Rate FiO2 10/31/24 12:46 97.7 77 17 91/62 (72) 95 97.7 10/31/24 09:25 Room Air* 0 21 Intake/Output Intake and Output 10/31/24 07:00 Intake Total 50 ml Output Total 800 ml Balance -750 ml Intake IV Total 50 ml Output Urine Total 800 ml General Appearance: Alert, Cooperative, No acute distress Lungs: Clear to auscultation Cardiovascular: Regular rate Abdomen: No tenderness Extremities: No edema Medications Current Medications Medications Dose Ordered Sig/Kylee Route Start Time Stop Time Status Last Admin Dose Admin Lisinopril 20 mg DAILY PO 10/31/24 10:00 Metoprolol Tartrate 25 mg BID PO 10/30/24 22:00 Ceftriaxone Sodium 50 ml @ 100 mls/hr DAILY@09 IV 10/31/24 09:00 10/31/24 08:39 100 MLS/HR Levothyroxine Sodium 88 mcg QAM@0600 PO 10/31/24 06:00 10/31/24 06:09 88 MCG Diagnostic Test (Pha) 1 strip ACHS 10/30/24 22:00 10/31/24 11:16 1 STRIP Insulin Human Regular ACHS SC 10/30/24 22:00 Dextrose 50 ml UD PRN IV 10/30/24 19:45 Sodium Chloride 10 ml Q8HR IV 10/30/24 22:00 10/31/24 13:45 10 ML Acetaminophen/ Hydrocodone Bitart 1 tab Q4HP PRN PO 10/30/24 19:45 Ondansetron HCl 4 mg Q4HP PRN IV 10/30/24 19:45 Docusate Sodium 100 mg BIDPRN PRN PO 10/30/24 19:45 Acetaminophen 650 mg Q6HP PRN PO 10/30/24 19:45 Carbidopa/Levodopa 1 tab TID PO 10/30/24 22:00 10/31/24 13:45 1 TAB Nitroglycerin 0.4 mg Q5MINP PRN SL 10/30/24 21:45 Morphine Sulfate 2 mg Q30M PRN IV 10/30/24 21:45 Sodium Chloride 1,000 ml @ 75 mls/hr [id number] IV 10/31/24 10:00 10/31/24 10:49 75 MLS/HR Laboratory Results Laboratory Tests 10/31/24 05:20 Chemistry Test 10/30/24 15:19 10/31/24 05:20 Albumin 4.2 g/dL (3.2-4.8) 4.2 g/dL (3.2-4.8) Calcium Level 9.5 mg/dL (8.7-10.4) 9.4 mg/dL (8.7-10.4) Total Protein 7.5 g/dL (5.7-8.2) 7.3 g/dL (5.7-8.2) Lipid panel Test 10/30/24 15:19 Lipase 52 U/L (12-53) LFT Test 10/30/24 15:19 10/31/24 05:20 Alanine Aminotransferase (ALT) 12 U/L (7-40) < 9 U/L (7-40) Alkaline Phosphatase 78 U/L (46-116) 73 U/L (46-116) Aspartate Amino Transferase (AST) 14 U/L (13-40) 15 U/L (13-40) Total Bilirubin 0.3 mg/dL (0.2-1.0) 0.4 mg/dL (0.2-1.0) HgA1c, TSH Test 10/30/24 15:19 Thyroid Stimulating Hormone (TSH) 0.31 uIU/mL (0.55-4.78) L Urinalysis Test 10/30/24 16:56 Urine Color Colorless (Yellow) Urine Clarity Turbid (Clear) H Urine pH 6.0 (5.0-9.0) Urine Specific [place] 1.014 (1.001-1.035) Urine Protein Trace (Negative) H Urine Ketones Negative (Negative) Urine Blood Trace /uL (Negative) H Urine Nitrite Negative (Negative) Urine Bilirubin Negative (Negative) Urine Urobilinogen Normal mg/dL (Negative) Urine Leukocyte Esterase 3+ /uL (Negative) Urine RBC 19 /hpf (0 - 3) Urine WBC Clumps Present /hpf (None Seen) Urine Microscopic WBC 253 /HPF (0-3) H Urine Squamous Epithelial Cells None seen /hpf (<5) Urine Bacteria Many /hpf (None Seen) H Urine Mucus Few (None Seen) Urine Glucose Normal mg/dL (Normal) Microbiology Microbiology Date/Time Source Procedure Growth Status 10/30/24 16:56 Voided Urine Urine Culture - Preliminary Resulted Assessment/Plan Assessment/Plan Abdominal pain UTI Constipation Diabetes Parkinson Anemia Hypothyroidism/over replaced Plan: IV fluid. Antibiotic. Potassium replacement. Further plan per orders Plan discussed with: Patient My Orders Orders - SAUL BOYER MD Procedure Category Date Status Time Sodium Chloride 0.9% PHA 10/31/24 In Process 10:00 Levothyroxine Tablet PHA 11/01/24 Verified (Synthroid Tablet) 06:00 Date of Service: Oct 31, 2024 Billing Provider: SAUL BOYER MD Common Visit Codes: [id number] INP/OBS CARE(HIGH) SAUL BOYER MD Oct 31, 2024 14:36
[2024-10-31 17:00] VITALS: BP 87/62; PULSE 65; RESP 17; TEMP 97.3; O2SAT 96
[2024-10-31 20:00] VITALS: PULSE 99; RESP 18; O2SAT 97
[2024-10-31 21:00] VITALS: BP 114/80; PULSE 94; RESP 18; TEMP 97.5; O2SAT 97
[2024-11-01] VITALS (9 sets, daily range): BP systolic 90–143; BP diastolic 57–76; PULSE 66–99; RESP 16–18; TEMP 97.5–98.4; O2SAT 95–97
[2024-11-01] MEDS: LEVOTHYROXINE SODIUM 25 MCG TAB PO SCH (05:54)
--- NOTE | 2024-11-01 13:27 | DVHPN2 ---
Subjective Same Reviewed: Care Plan, H&P, Labs, Medications, Previous Orders, Radiology Changes from previous H/P or p: No Changes Objective Vitals Vital Signs Date Time Temp Pulse Resp B/P (MAP) Pulse Ox O2 Delivery O2 Flow Rate FiO2 11/01/24 13:10 98.1 66 16 90/57 (68) 95 98.1 11/01/24 09:25 Room Air* 0 21 Intake/Output Intake and Output 11/01/24 07:00 Intake Total 1800 ml Output Total 1300 ml Balance 500 ml Intake Oral 1700 ml IV Total 100 ml Output Urine Total 1300 ml # Bowel Movements 2 General Appearance: Alert, Cooperative, No acute distress Lungs: Clear to auscultation Cardiovascular: Regular rate Abdomen: No tenderness Extremities: No edema Medications Current Medications Medications Dose Ordered Sig/Kylee Route Start Time Stop Time Status Last Admin Dose Admin Lisinopril 20 mg DAILY PO 10/31/24 10:00 11/01/24 09:00 20 MG Metoprolol Tartrate 25 mg BID PO 10/30/24 22:00 11/01/24 08:59 25 MG Ceftriaxone Sodium 50 ml @ 100 mls/hr DAILY@09 IV 10/31/24 09:00 11/01/24 09:01 100 MLS/HR Diagnostic Test (Pha) 1 strip ACHS 10/30/24 22:00 11/01/24 11:30 1 STRIP Insulin Human Regular ACHS SC 10/30/24 22:00 11/01/24 13:15 3 UNITS Dextrose 50 ml UD PRN IV 10/30/24 19:45 Sodium Chloride 10 ml Q8HR IV 10/30/24 22:00 11/01/24 05:53 10 ML Acetaminophen/ Hydrocodone Bitart 1 tab Q4HP PRN PO 10/30/24 19:45 Ondansetron HCl 4 mg Q4HP PRN IV 10/30/24 19:45 Docusate Sodium 100 mg BIDPRN PRN PO 10/30/24 19:45 Acetaminophen 650 mg Q6HP PRN PO 10/30/24 19:45 Carbidopa/Levodopa 1 tab TID PO 10/30/24 22:00 11/01/24 05:54 1 TAB Nitroglycerin 0.4 mg Q5MINP PRN SL 10/30/24 21:45 Morphine Sulfate 2 mg Q30M PRN IV 10/30/24 21:45 Sodium Chloride 1,000 ml @ 75 mls/hr [id number] IV 10/31/24 10:00 11/01/24 12:40 75 MLS/HR Levothyroxine Sodium 75 mcg QAM@0600 PO 11/01/24 06:00 11/01/24 05:54 75 MCG Laboratory Results Laboratory Tests 10/31/24 05:20 Urinalysis Test 10/30/24 16:56 Urine Color Colorless (Yellow) Urine Clarity Turbid (Clear) H Urine pH 6.0 (5.0-9.0) Urine Specific [place] 1.014 (1.001-1.035) Urine Protein Trace (Negative) H Urine Ketones Negative (Negative) Urine Blood Trace /uL (Negative) H Urine Nitrite Negative (Negative) Urine Bilirubin Negative (Negative) Urine Urobilinogen Normal mg/dL (Negative) Urine Leukocyte Esterase 3+ /uL (Negative) Urine RBC 19 /hpf (0 - 3) Urine WBC Clumps Present /hpf (None Seen) Urine Microscopic WBC 253 /HPF (0-3) H Urine Squamous Epithelial Cells None seen /hpf (<5) Urine Bacteria Many /hpf (None Seen) H Urine Mucus Few (None Seen) Urine Glucose Normal mg/dL (Normal) Microbiology Microbiology Date/Time Source Procedure Growth Status 10/30/24 16:56 Voided Urine Urine Culture - Preliminary Resulted Assessment/Plan Assessment/Plan Abdominal pain UTI Constipation Diabetes Parkinson Anemia Hypothyroidism/over replaced Plan: Continue current plan of care Plan discussed with: Other (Nursing) My Orders Orders - SAUL BOYER MD Procedure Category Date Status Time Levothyroxine Tablet PHA 11/01/24 In Process (Synthroid Tablet) 06:00 Date of Service: Nov 01, 2024 Billing Provider: SAUL BOYER MD Common Visit Codes: [id number] INP/OBS CARE(MOD) SAUL BOYER MD Nov 01, 2024 13:27
[2024-11-02] VITALS (9 sets, daily range): BP systolic 96–120; BP diastolic 57–79; PULSE 74–105; RESP 16–18; TEMP 97.2–98.6; O2SAT 94–100
--- NOTE | 2024-11-02 14:29 | DVHPN2 ---
Reviewed: Care Plan, H&P, Labs, Medications, Previous Orders, Radiology Changes from previous H/P or p: No Changes Objective Vitals Vital Signs Date Time Temp Pulse Resp B/P (MAP) Pulse Ox O2 Delivery O2 Flow Rate FiO2 11/02/24 13:18 98.1 78 16 117/57 (77) 100 98.1 11/02/24 08:00 Room Air* 0 21 Intake/Output Intake and Output 11/02/24 07:00 Intake Total 700 ml Output Total 2300 ml Balance -1600 ml Intake Oral 700 ml Output Urine Total 2300 ml # Bowel Movements 1 General Appearance: Alert, Cooperative, No acute distress Lungs: Clear to auscultation Cardiovascular: Regular rate Abdomen: No tenderness Extremities: No edema Medications Current Medications Medications Dose Ordered Sig/Kylee Route Start Time Stop Time Status Last Admin Dose Admin Lisinopril 20 mg DAILY PO 10/31/24 10:00 11/01/24 09:00 20 MG Metoprolol Tartrate 25 mg BID PO 10/30/24 22:00 11/01/24 08:59 25 MG Ceftriaxone Sodium 50 ml @ 100 mls/hr DAILY@09 IV 10/31/24 09:00 11/02/24 08:40 100 MLS/HR Diagnostic Test (Pha) 1 strip ACHS 10/30/24 22:00 11/02/24 11:47 1 STRIP Insulin Human Regular ACHS SC 10/30/24 22:00 11/01/24 13:15 3 UNITS Dextrose 50 ml UD PRN IV 10/30/24 19:45 Sodium Chloride 10 ml Q8HR IV 10/30/24 22:00 11/02/24 05:58 10 ML Acetaminophen/ Hydrocodone Bitart 1 tab Q4HP PRN PO 10/30/24 19:45 Ondansetron HCl 4 mg Q4HP PRN IV 10/30/24 19:45 Docusate Sodium 100 mg BIDPRN PRN PO 10/30/24 19:45 Acetaminophen 650 mg Q6HP PRN PO 10/30/24 19:45 Carbidopa/Levodopa 1 tab TID PO 10/30/24 22:00 11/02/24 05:58 1 TAB Nitroglycerin 0.4 mg Q5MINP PRN SL 10/30/24 21:45 Morphine Sulfate 2 mg Q30M PRN IV 10/30/24 21:45 Sodium Chloride 1,000 ml @ 75 mls/hr [id number] IV 10/31/24 10:00 11/02/24 06:10 75 MLS/HR Levothyroxine Sodium 75 mcg QAM@0600 PO 11/01/24 06:00 11/02/24 05:59 75 MCG Laboratory Results Laboratory Tests 10/31/24 05:20 Urinalysis Test 10/30/24 16:56 Urine Color Colorless (Yellow) Urine Clarity Turbid (Clear) H Urine pH 6.0 (5.0-9.0) Urine Specific [place] 1.014 (1.001-1.035) Urine Protein Trace (Negative) H Urine Ketones Negative (Negative) Urine Blood Trace /uL (Negative) H Urine Nitrite Negative (Negative) Urine Bilirubin Negative (Negative) Urine Urobilinogen Normal mg/dL (Negative) Urine Leukocyte Esterase 3+ /uL (Negative) Urine RBC 19 /hpf (0 - 3) Urine WBC Clumps Present /hpf (None Seen) Urine Microscopic WBC 253 /HPF (0-3) H Urine Squamous Epithelial Cells None seen /hpf (<5) Urine Bacteria Many /hpf (None Seen) H Urine Mucus Few (None Seen) Urine Glucose Normal mg/dL (Normal) Microbiology Microbiology Date/Time Source Procedure Growth Status 10/30/24 16:56 Voided Urine Urine Culture - Final Pseudomonas aeruginosa Complete Labs and/or images reviewed: Labs reviewed by me, Image(s) reviewed by me Assessment/Plan Assessment/Plan Sepsis Secondary to urinary tract infection Acute urinary tract infection: Urine cultures growing Pseudomonas, DC Rocephin start Levaquin Acute abdominal pain Constipation Diabetes Parkinson Anemia Hypothyroidism Plan discussed with: Patient Date of Service: Nov 02, 2024 Billing Provider: ANA PAULA SERVIN MD Common Visit Codes: [id number] INP/OBS CARE(HIGH) ANA PAULA SERVIN MD Nov 02, 2024 14:29
[2024-11-02] MEDS ORDERED: levoFLOXacin 500MG 100 ML IV ONE (14:30)
[2024-11-02] MEDS: levoFLOXacin 500 MG TAB PO ONE (18:00)
[2024-11-02] MEDS: HYDROcodone-ACET 5/325MG TAB PO PRN (22:06)
[2024-11-03 01:00] VITALS: BP 114/66; PULSE 76; RESP 17; TEMP 98.5; O2SAT 96
[2024-11-03 05:00] VITALS: BP 130/86; PULSE 98; RESP 18; TEMP 98.3; O2SAT 96
[2024-11-03 08:00] VITALS: PULSE 85; RESP 16; O2SAT 96
[2024-11-03 08:37] VITALS: BP 98/70; PULSE 85; RESP 16; TEMP 98.4; O2SAT 96
[2024-11-03] MEDS ORDERED: levoFLOXacin 500MG 100 ML IV SCH (10:00)
[2024-11-03] MEDS: levoFLOXacin 500 MG TAB PO SCH (10:13)
--- NOTE | 2024-11-03 11:46 | DVHDS2 ---
Discharge Summary Date of Admission Oct 30, 2024 at 21:45 Date of Discharge: Nov 03, 2024 Admitting Diagnosis Altered mental status and confusion Wounds: None Labs/Diagnostic Data: Laboratory Results Test 11/02/24 22:00 10/31/24 05:20 10/30/24 16:56 10/30/24 15:19 POC Glucose 105 mg/dl (70-106) White Blood Count 5.2 10^3/uL (4.4-10.8) Red Blood Count 4.29 10^6/uL (4.5-5.90) Hemoglobin 12.6 g/dL (13.5-17.5) Hematocrit 37.4 % (41.0-53.0) Mean Corpuscular Volume 87.1 fL (80.0-100.0) Mean Corpuscular Hemoglobin 29.3 pg (28.0-32.0) Mean Corpuscular Hemoglobin Concent 33.6 g/dL (32.0-36.0) Red Cell Distribution Width 14.3 % (11.8-14.3) Platelet Count 170 10^3/uL (140-450) Mean Platelet Volume 8.9 fL (6.9-10.8) Neutrophils (%) (Auto) 68.2 % (37.0-80.0) Lymphocytes (%) (Auto) 19.2 % (10.0-50.0) Monocytes (%) (Auto) 7.4 % (0.0-12.0) Eosinophils (%) (Auto) 4.5 % (0.0-7.0) Basophils (%) (Auto) 0.7 % (0.0-2.0) Neutrophils # (Auto) 3.6 10 ^3/uL (1.6-8.6) Lymphocytes # (Auto) 1.0 10 ^3/uL (0.4-5.4) Monocytes # (Auto) 0.4 10 ^3/uL (0-1.3) Eosinophils # (Auto) 0.2 10 ^3/uL (0-0.8) Basophils # (Auto) 0 10 ^3/uL (0-0.2) Nucleated Red Blood Cells 0.1 % Sodium Level 141 mmol/L (136-145) Potassium Level 3.4 mmol/L (3.5-5.1) Chloride Level 107 mmol/L (98-107) Carbon Dioxide Level 25 mmol/L (20-31) Anion Gap 9 (5-15) Blood Urea Nitrogen 10 mg/dL (9-23) Creatinine 0.91 mg/dL (0.700-1.30) Glomerular Filtration Rate Calc 95 mL/min (>90) BUN/Creatinine Ratio 11.0 (10.0-20.0) Serum Glucose 82 mg/dL (74-106) Calcium Level 9.4 mg/dL (8.7-10.4) Total Bilirubin 0.4 mg/dL (0.2-1.0) Aspartate Amino Transferase (AST) 15 U/L (13-40) Alanine Aminotransferase (ALT) < 9 U/L (7-40) Alkaline Phosphatase 73 U/L (46-116) Total Protein 7.3 g/dL (5.7-8.2) Albumin 4.2 g/dL (3.2-4.8) Urine Color Colorless (Yellow) Urine Clarity Turbid (Clear) Urine pH 6.0 (5.0-9.0) Urine Specific [place] 1.014 (1.001-1.035) Urine Protein Trace (Negative) Urine Ketones Negative (Negative) Urine Blood Trace /uL (Negative) Urine Nitrite Negative (Negative) Urine Bilirubin Negative (Negative) Urine Urobilinogen Normal mg/dL (Negative) Urine Leukocyte Esterase 3+ /uL (Negative) Urine RBC 19 /hpf (0 - 3) Urine WBC Clumps Present /hpf (None Seen) Urine Microscopic WBC 253 /HPF (0-3) Urine Squamous Epithelial Cells None seen /hpf (<5) Urine Bacteria Many /hpf (None Seen) Urine Mucus Few (None Seen) Urine Glucose Normal mg/dL (Normal) Lipase 52 U/L (12-53) Thyroid Stimulating Hormone (TSH) 0.31 uIU/mL (0.55-4.78) Other Laboratory Tests 10/31/24 05:20 Brief Hx & Hospital Course: 64-year-old male chronically bed-bound with a history of Parkinson's diabetes anemia hypothyroidism and constipation came in for abdominal pain found to have acute urinary tract infection growing Pseudomonas treated with the Rocephin and changed to Levaquin .constipation relieved with lactulose. Patient is bed-bound and nonverbal spoke to his brother Art who is also his caregiver and patient being discharged to [facility] facility for Levaquin 500 mg IV daily for three weeks for complicated cystitis . Consults/Reason for consult None Operations or Procedures CT abdomen pelvis without contrast Condition at Discharge: Fair Final Diagnosis/Problems List Sepsis Secondary to urinary tract infection Acute urinary tract infection: Urine cultures growing Pseudomonas, DC Rocephin start Levaquin Acute abdominal pain Constipation Diabetes Parkinson Anemia Hypothyroidism Discharge Disposition: [facility] Facility Discharge Instruct/Medications Diet: Regular Activity: Bed rest Follow Up/Referral: Follow up with the [facility] Medications: Levaquin 500 mg IV daily for three weeks See list for other meds 35 (Time taken for discharge summary 35 minutes) Discharge Statement: "Patient was advised to return to the ER or call 911 if any headaches, dizziness, shortness of breath, chest pain, abdominal pain, bleeding, fevers, or worsening of medical condition. Patient was counseled about treatment plan, medications, possible side effects, patientverbalized understanding. All questions were answered to the best of my ability. This discharge took greater then 30 minutes in planning, reviewing documentation, counseling the patient, and discussing with other team members." ASSESSMENT ASSESSMENT Hospital Course Marginal improvement Assessment Sepsis Secondary to urinary tract infection Acute urinary tract infection: Urine cultures growing Pseudomonas, DC Rocephin start Levaquin Acute abdominal pain Constipation Diabetes Parkinson Anemia Hypothyroidism Date of Service: Nov 03, 2024 Billing Provider: ANA PAULA SERVIN MD Common Visit Codes: [id number] DISCH DAY >30min ANA PAULA SERVIN MD Nov 03, 2024 11:46
[2024-11-03 13:06] VITALS: BP 108/74; PULSE 81; RESP 16; TEMP 97.8; O2SAT 97
[2024-11-03 15:52] VITALS: BP 112/74; PULSE 85; RESP 16; TEMP 36.6
== END 2024-11-03 16:30 | DRG 871 ==
LOC: ER 14:18 → EDBD 14:18 → OVERFLOW 21:45 → WEST WING 10-31 09:32
PROVIDERS: ADMIT Nurse Practitioner Family; ATTEND Family Medicine
PROC: 05HF33Z Insertion of Infusion Device into Left Cephalic Vein, Percutaneous Approach (ICD-10-PCS; principal; 2024-11-03)
PROC: B54NZZA Ultrasonography of Left Upper Extremity Veins, Guidance (ICD-10-PCS; 2024-11-03)
DX: A41.9 Sepsis, unspecified organism (principal); G93.41 Metabolic encephalopathy; N39.0 Urinary tract infection, site not specified; K59.00 Constipation, unspecified; D64.9 Anemia, unspecified; E03.9 Hypothyroidism, unspecified; E11.9 Type 2 diabetes mellitus without complications; G20.A1 Parkinson's disease without dyskinesia, without mention of fluctuations; B96.5 Pseudomonas (aeruginosa) (mallei) (pseudomallei) as the cause of diseases classified elsewhere; I10 Essential (primary) hypertension; Z74.01 Bed confinement status; Z82.3 Family history of stroke; Z83.3 Family history of diabetes mellitus
CPT/HCPCS: 36415; 74176; 80053; 81001; 82962; 83690; 84443; 85025; 87086; 87088; 87186; 97163; G0378; J1815

== ENCOUNTER 2024-12-14 20:01 | Inpatient (IN) | payer MEDICARE, MEDICAID ==
[~2024-12-14] VITALS: Ht 167.6 cm; Wt 46.0 kg
[~2024-12-14 20:01] MED LIST changes: -LISI40TA16 PO; -METO-158 PO; -NIFE1TAB30 PO; +OMEP20TA PO
--- NOTE | 2024-12-14 20:31 | ED.PDOC ---
History of Present Illness HPI Comments 64-year-old male, with limited known history of hypertension, nonverbal secondary to Parkinson's, and bed-bound with home assistance, is brought in by ambulance for complaint of diffused abdominal pain and constipation for 3 days, today. Per EMS report, patient's son called on patient's behalf, due to ongoing symptoms for the past 3 days following initial unprovoked onset (LBM 3x days ago). Patient was noted to have been found with a mild rigid abdomen, with generalized pain to palpation on scene by EMS. His vitals were commented to have been stable and within normal limits. Upon arrival to ED, patient is only able to use head nod gestures to responds to inquiries, which he uses to re- affirm on having current symptoms. Patient has no reported nausea, vomiting, diarrhea, urinary symptoms, fever, chills, or other associated symptoms or modifying factors at this time. Additional history cannot be obtained, due to patient's since of family/heat treating bluer historians at time of initial encounter. Per [facility] previous medical record, patient has history of anemia, chronic constipation, diabetes, hypothyroidism, sepsis, and UTIs. Time Seen by MD: 20:15 Primary Care Provider: unknown Reviewed Notes: Nurses Notes, Causticiser Notes, Medications, Allergies Allergies: Coded Allergies: NO KNOWN ALLERGIES (Unverified , 01/07/24) Home Meds Reported Medications Omeprazole (Gnp Omeprazole) 20 Mg Tab, 20 MG PO DAILY, TAB 10/31/24 Levothyroxine Sodium (Levothyroxine Sodium) 88 Mcg Tab, 1 TAB PO DAILY 12/04/23 Carbidopa-Levodopa (Carbidopa/Levodopa Odt 25-100 mg) 1 Tab Tab, 1 TAB PO TID 12/04/23 Information Source: Patient, Emergency Med Personnel Mode of Arrival: EMS Severity: Moderate Timing: Days Duration: Since onset Prehospital treatment: 12 Lead EKG, Accucheck, [facility] Review of Systems: REVIEW OF SYSTEMS: No fever, no chills, or fatigue HEENT: No sore throat, no earache, no congestion, no neck pain. Cardiac: No chest pain. No palpitations. Lungs: No shortness of breath, no cough. GI: Diffuse abdominal pain constipation. No nausea, no vomiting, no diarrhea. : No dysuria, frequency, or urgency. No hematuria. Musculoskeletal: No joint pain , no joint swelling, no extremity edema. Skin: No rash, no itching. Neuro: No headache, no dizziness, no weakness Vital Signs Vital Signs Date Time Temp Pulse Resp B/P (MAP) Pulse Ox O2 Delivery O2 Flow Rate FiO2 12/15/24 01:32 98.6 63 16 139/76 (97) 96 98.6 Physical Exam General: Awake, alert and oriented. No acute distress. Skin: Skin in warm, dry and intact. Appropriate color for ethnicity. HEENT: The head is normocephalic and atraumatic. Conjunctivae are clear without exudates or hemorrhage. Sclera is non-icteric. EOM are intact. No signs of nystagmus. Eyelids are normal in appearance without swelling or lesions. Oral mucosa is pink and moist Neck: The neck is supple with normal range of motion. No JVD. Cardiac: Heart rate and rhythm are normal. No murmurs, gallops, or rubs are auscultated. Respiratory: No signs of respiratory distress. Lung sounds are clear in all lobes bilaterally without rales, ronchi, or wheezes. Abdominal: Abdomen distended, tender with diminished bowel sounds. Extremities: Coarse bilateral upper extremity tremors. Upper and lower extremities are atraumatic in appearance without deformity or edema. Neurological: The patient is awake, nonverbal Coarse bilateral upper extremity tremors. Past Medical History PAST MEDICAL HISTORY: Anemia, DM, HTN, Thyroid (Hypothyroidism), UTI'S Past Medical History (Other): Chronic constipation, nonverbal secondary to Parkinson, sepsis Surgical History: Denies all surgeries Family History Family History: Reviewed,noncontributory to illness, Family hx of DM, Family hx of stroke Social History Smoker: Non-Smoker Alcohol: Denies ETOH Use Drugs: Denies Drug Use Lives In: Home, Assisted Care Was a procedure done? Was a procedure done?: No Differential Dx Considerations may include: Differential diagnoses considered include: Abdominal aortic aneurysm, IA, esophageal rupture, intestinal obstruction, mesenteric ischemia, perforated viscus or solid organ rupture, CHF with hepatomegaly, pneumonia, abscess, appendicitis, biliary disease, diverticulitis, gastritis, gastroenteritis, hepatitis, hernia, inflammatory bowel disease, pancreatitis, peptic ulcer disease, urinary tract infection, ureteral colic, constipation, GERD, irritable syndrome, abdominal wall pain, nonspecific abdominal pain, herpes zoster. X-Ray, Labs, Meds, VS Vital Signs Date Time Temp Pulse Resp B/P (MAP) Pulse Ox O2 Delivery O2 Flow Rate FiO2 12/15/24 01:32 98.6 63 16 139/76 (97) 96 98.6 12/15/24 01:32 63 14 139/76 12/14/24 20:19 97.8 92 16 131/84 (100) 95 Lab Test 12/14/24 20:29 Range/Units White Blood Count 6.5 4.4-10.8 10^3/uL Red Blood Count 3.76 L 4.5-5.90 10^6/uL Hemoglobin 11.2 L 13.5-17.5 g/dL Hematocrit 33.4 L 41.0-53.0 % Mean Corpuscular Volume 88.7 80.0-100.0 fL Mean Corpuscular Hemoglobin 29.8 28.0-32.0 pg Mean Corpuscular Hemoglobin Concent 33.6 32.0-36.0 g/dL Red Cell Distribution Width 15.1 H 11.8-14.3 % Platelet Count 182 140-450 10^3/uL Mean Platelet Volume 8.4 6.9-10.8 fL Neutrophils (%) (Auto) 78.8 37.0-80.0 % Lymphocytes (%) (Auto) 14.3 10.0-50.0 % Monocytes (%) (Auto) 5.7 0.0-12.0 % Eosinophils (%) (Auto) 1.0 0.0-7.0 % Basophils (%) (Auto) 0.2 0.0-2.0 % Neutrophils # (Auto) 5.1 1.6-8.6 10 ^3/uL Lymphocytes # (Auto) 0.9 0.4-5.4 10 ^3/uL Monocytes # (Auto) 0.4 0-1.3 10 ^3/uL Eosinophils # (Auto) 0.1 0-0.8 10 ^3/uL Basophils # (Auto) 0 0-0.2 10 ^3/uL Nucleated Red Blood Cells 0.1 % Sodium Level 141 136-145 mmol/L Potassium Level 3.3 L 3.5-5.1 mmol/L Chloride Level 106 98-107 mmol/L Carbon Dioxide Level 25 20-31 mmol/L Anion Gap 10 5-15 Blood Urea Nitrogen 8 L 9-23 mg/dL Creatinine 0.97 0.700-1.30 mg/dL Glomerular Filtration Rate Calc 88 >90 mL/min BUN/Creatinine Ratio 8.2 L 10.0-20.0 Serum Glucose 89 74-106 mg/dL Lactic Acid Level 1.7 0.4-2.0 mmol/L Calcium Level 9.1 8.7-10.4 mg/dL Total Bilirubin 0.3 0.2-1.0 mg/dL Aspartate Amino Transferase (AST) 25 13-40 U/L Alanine Aminotransferase (ALT) 12 7-40 U/L Alkaline Phosphatase 50 46-116 U/L Total Protein 6.8 5.7-8.2 g/dL Albumin 3.9 3.2-4.8 g/dL Lipase 43 12-53 U/L Current Medications Medications (Trade) Dose Ordered Sig/Kylee Route Start Time Stop Time Status Last Admin Morphine Sulfate 2 mg ONCE ONCE IV 12/14/24 20:15 12/14/24 20:17 DC 12/15/24 01:32 Ondansetron HCl (Zofran) 4 mg ONCE ONCE IV 12/14/24 20:15 12/14/24 20:17 DC 12/15/24 01:28 Ceftriaxone Sodium 50 ml @ 100 mls/hr ONCE ONCE IV 12/15/24 03:15 12/15/24 03:44 DC 12/15/24 04:01 Time of 1ST Reevaluation: 20:45 Reevaluation 1ST: Unchanged Patient Education/Counseling: Treatment, Need For Follow Up Family Education/Counseling: No Family Present Departure 1 Departure Time of Disposition: 00:46 Impression: Primary Impression: Fecal impaction Additional Impressions: Parkinson disease Abdominal pain Disposition: ADMITTED INPATIENT Condition: Stable Comments 64-YEAR-OLD MALE WITH HISTORY OF PARKINSON'S, BED-BOUND WITH ABDOMINAL PAIN AND SEVERE CONSTIPATION/FECAL IMPACTION. . PATIENT ADMITTED FOR FURTHER TREATMENT, EVALUATION AND MONITORING. Extensive evaluation was performed in attempt to identify or rule out: (See differential diagnosis section) The following tests were ordered, and results were reviewed by me: (See diagnostic results section) The following test were independently interpreted by me: N/A I reviewed and agreed with the following test results read by other providers: CT abdomen and pelvis I reviewed the following notes from the pt's past medical encounters: October/2024 encounter for acute abdominal pain and January/2024 encounter for generalized weakness. Additional information was gathered from interviewing the following independent historians: EMS Discussion of management or test interpretation with external physician/other qualified health children's zoo caretaker: N/A Critical Care Note Critical Care Time?: No Stability Stability form required: No Heart Score Heart Score: Heart Score Response (Comments) Value History N/A 0 EKG N/A 0 Age N/A 0 Risk Factors N/A 0 Troponin N/A 0 Total 0 I personally scribed for ANDREW BAILON MD ([email or web address]) on 12/14/24 at 20:31. Electronically submitted by Rashad Sue ([email or web address]). ANDREW BAILON MD Dec 14, 2024 20:31
[2024-12-14 21:28] LABS: Basophils # (auto) 0 10 ^3/uL (0-0.2); Basophils % (auto) 0.2 % (0.0-2.0); Eosinophils # (auto) 0.1 10 ^3/uL (0-0.8); Hematocrit 33.4 % (41.0-53.0); Hemoglobin 11.2 g/dL (13.5-17.5); Lymphocytes # (auto) 0.9 10 ^3/uL (0.4-5.4); Lymphocytes % (auto) 14.3 % (10.0-50.0); Mean Corpuscular Hemoglobin 29.8 pg (28.0-32.0); Mean Corpuscular Hgb Conc. 33.6 g/dL (32.0-36.0); Mean Corpuscular Volume 88.7 fL (80.0-100.0); Monocytes # (auto) 0.4 10 ^3/uL (0-1.3); Monocytes % (auto) 5.7 % (0.0-12.0); Neutrophils # (auto) 5.1 10 ^3/uL (1.6-8.6); Neutrophils % (auto) 78.8 % (37.0-80.0); Nucleated Red Blood Cells % 0.1 %; Platelet Count (auto) 182 10^3/uL (140-450); Red Blood Cells 3.76 10^6/uL (4.5-5.90); Red Cell Distribution Width 15.1 % (11.8-14.3); White Blood Cell 6.5 10^3/uL (4.4-10.8)
[2024-12-14 21:43] LABS: Alanine Aminotransferase 12 U/L (7-40); Albumin 3.9 g/dL (3.2-4.8); Alkaline Phosphatase 50 U/L (46-116); Anion Gap 10 (5-15); Aspartate Aminotransferase 25 U/L (13-40); BUN/Creatinine Ratio 8.2 (10.0-20.0); Calcium 9.1 mg/dL (8.7-10.4); Carbon Dioxide 25 mmol/L (20-31); Chloride 106 mmol/L (98-107); Glucose 89 mg/dL (74-106); Lipase 43 U/L (12-53); Sodium 141 mmol/L (136-145); Total Protein 6.8 g/dL (5.7-8.2)
[2024-12-14 21:44] LABS: Bilirubin, Total 0.3 mg/dL (0.2-1.0)
[2024-12-14 21:48] LABS: Blood Urea Nitrogen 8 mg/dL (9-23); Potassium 3.3 mmol/L (3.5-5.1)
--- NOTE | 2024-12-15 01:14 | DVH ---
Exam: CT CT AB PEL WITH IV CON ONLY History: Abdominal pain, abdominal distention, decreased bowel sounds Comparison Study: None available at time of dictation. Technique: Multidetector spiral CT of the abdomen and pelvis was performed from lung bases to pubic s ymphysis. Intravenous contrast was administered during this examination. Portal venous imaging was o btained. Axial, coronal and sagittal multiplanar reformats were performed by the technologist on a [employer] workstation. Radiation Dose : 1. Abdomen/Pelvis: CTDIvol 5.88 mGy, DLP 317.45 mGy*cm. Findings: Lung Bases: No acute or significant lung base finding. Normal heart size. No pleural or pericardial effusion. Liver: The liver is normal in size. No focal lesions. Normal hepatic vascular enhancement. Gallbladder and Biliary Tree: Unremarkable Spleen: Unremarkable Pancreas: The pancreas is normal in appearance without focal lesions or abnormal enhancement. Adrenal Glands: Unremarkable Kidneys: Kidneys demonstrate normal symmetric enhancement without focal lesions, calculi or hydroneph rosis. Bladder: Unremarkable Bowel: The stomach is grossly normal in appearance. Moderate fecal retention throughout the colon. La rge fecal impaction. There is mild wall thickening of the adjacent rectosigmoid colon with trace free fluid in the pelvis.. The appendix is not visualized; however, no secondary findings of acute append icitis identified. Ascites: Absent Lymphadenopathy: No mesenteric, retroperitoneal or periportal lymphadenopathy. Abdominal Wall and Mesentery: Unremarkable. Vasculature: The visualized abdominal aorta is normal in size and caliber. Abdominal and pelvic vess els demonstrate normal enhancement. Pelvic Organs: Unremarkable Musculoskeletal: No aggressive focal bony lesions, acute fractures or dislocation. IMPRESSION: Fecal impaction with findings concerning for stercoral colitis. Moderate to severe fecal retention throughout the colon.
[2024-12-15] MEDS: ONDANSETRON HCL 4 MG/2 ML VIAL IV ONE (01:28)
[2024-12-15] MEDS: MORPHINE SULFATE INJ 2 MG/ml SYRG IV ONE (01:32)
[2024-12-15] MEDS: IOHEXOL 300 MG/ML 100ML BOTTLE IJ ONE (03:04)
--- NOTE | 2024-12-15 03:42 | DVHHPRES ---
History of Present Illness Resident Creating Document: JAYY YINCampos RESDIENT History of Present Illness A 64-year-old male chronically bed-bound and nonverbal with past medical history of Parkinson disease, anemia, hypothyroidism and chronic constipation brought to the hospital due to abdominal pain and constipation. Per patient's brother, the patient has chronic constipation which recently has worsened and was associated with abdominal pain. Patient recently discharged on 10/26/2024 from [facility], had admitted with UTI. PMHx: Parkinson disease, anemia, hypothyroidism and chronic constipation Social history: She lives with brother at home, bed-bound and nonverbal at baseline Home medication: Carbidopa/levodopa, senna, lactulose, Colace, levothyroxine, Allergic history: No known allergies Review of Systems Review of Systems Patient is nonverbal, could not obtain review of systems. Allergies: Coded Allergies: NO KNOWN ALLERGIES (Unverified , 01/07/24) Exam Vital Signs Vital Signs Date Time Temp Pulse Resp B/P (MAP) Pulse Ox O2 Delivery O2 Flow Rate FiO2 12/15/24 01:32 98.6 63 16 139/76 (97) 96 98.6 Exam General Appearance: Alert, but can not communicate, cachectic HEENT: Atraumatic, PERRLA, EOMI, Mucous membrane moist/pink Respiratory: Clear to auscultation, Normal air movement Cardiovascular: Regular rate, Normal S1, Normal S2, No murmurs, no chest wall tenderness Abdominal: Mild abdominal tenderness with multiple mass palpated on lower abdomen Extremities: No clubbing, No cyanosis, No edema, Normal pulses, No tenderness/swelling Skin: No rashes, No breakdown, No significant lesion Neuro: Normal gait, Normal speech, Strength at 5/5 X4 ext, Normal tone, Sensation intact, Cranial nerves 3-12 NL, Reflexes 2+ Psych/Mental Status: Mental status NL, Mood NL Labs/Xrays Labs Test 12/14/24 20:29 Range/Units White Blood Count 6.5 4.4-10.8 10^3/uL Red Blood Count 3.76 L 4.5-5.90 10^6/uL Hemoglobin 11.2 L 13.5-17.5 g/dL Hematocrit 33.4 L 41.0-53.0 % Mean Corpuscular Volume 88.7 80.0-100.0 fL Mean Corpuscular Hemoglobin 29.8 28.0-32.0 pg Mean Corpuscular Hemoglobin Concent 33.6 32.0-36.0 g/dL Red Cell Distribution Width 15.1 H 11.8-14.3 % Platelet Count 182 140-450 10^3/uL Mean Platelet Volume 8.4 6.9-10.8 fL Neutrophils (%) (Auto) 78.8 37.0-80.0 % Lymphocytes (%) (Auto) 14.3 10.0-50.0 % Monocytes (%) (Auto) 5.7 0.0-12.0 % Eosinophils (%) (Auto) 1.0 0.0-7.0 % Basophils (%) (Auto) 0.2 0.0-2.0 % Neutrophils # (Auto) 5.1 1.6-8.6 10 ^3/uL Lymphocytes # (Auto) 0.9 0.4-5.4 10 ^3/uL Monocytes # (Auto) 0.4 0-1.3 10 ^3/uL Eosinophils # (Auto) 0.1 0-0.8 10 ^3/uL Basophils # (Auto) 0 0-0.2 10 ^3/uL Nucleated Red Blood Cells 0.1 % Sodium Level 141 136-145 mmol/L Potassium Level 3.3 L 3.5-5.1 mmol/L Chloride Level 106 98-107 mmol/L Carbon Dioxide Level 25 20-31 mmol/L Anion Gap 10 5-15 Blood Urea Nitrogen 8 L 9-23 mg/dL Creatinine 0.97 0.700-1.30 mg/dL Glomerular Filtration Rate Calc 88 >90 mL/min BUN/Creatinine Ratio 8.2 L 10.0-20.0 Serum Glucose 89 74-106 mg/dL Lactic Acid Level 1.7 0.4-2.0 mmol/L Calcium Level 9.1 8.7-10.4 mg/dL Total Bilirubin 0.3 0.2-1.0 mg/dL Aspartate Amino Transferase (AST) 25 13-40 U/L Alanine Aminotransferase (ALT) 12 7-40 U/L Alkaline Phosphatase 50 46-116 U/L Total Protein 6.8 5.7-8.2 g/dL Albumin 3.9 3.2-4.8 g/dL Lipase 43 12-53 U/L Assessment/Plan Assessment/Plan Constipation Possible colitis Abdominal CT scan shows fecal impaction with findings concerning for stercoral colitis Rectal enema Lactulose IV fluid Empiric Antibiotics History of Parkinson disease Continue home medicine Hypothyroidism Continue home medicine Severe malnutrition BMI is 14.6 Consult nutrition DIET: Regular the DVT PROPHYLAXIS: Lovenox BOWEL REGIMEN: Lactulose CODE STATUS: We will of care discussed for more than 21 minutes with brother, full code DISPOSITION: Med/surge Patient's status and paln discussed with the patient and the patient's brother on the phone. Case discussed with Dr. Ramirez. Plan discussed with: Patient, Other (Brother) My Orders Orders - ROMAINE YIN RESDISELINA Procedure Category Date Status Time Admit ADMIT 12/15/24 Transmitted 03:37 Stat Ekg For Chest DIVYA 12/15/24 In Process Pain 03:37 Notify Md Of Changes DIVAY 12/15/24 In Process From Base 03:37 Date of Service: Dec 15, 2024 Billing Provider: ZAINAB RAMIREZ MD Common Visit Codes: [id number] INP/OBS CARE (HIGH) ROMAINE YIN RESDIENT Dec 15, 2024 03:42 URSULA DEL CASTILLO RESIDENT Dec 15, 2024 06:38 ZAINAB RAMIREZ MD Dec 15, 2024 17:31
[2024-12-15] MEDS: cefTRIAXone 1GM/50ML D5W 50 ML IV ONE (04:01)
[2024-12-15] MEDS: LACTATED RINGER'S 1,000 ML IV ONE ×2 (04:04→04:50)
[2024-12-15] MEDS: POTASSIUM EFFERVESENT TAB 25 MEQ PO ONE (04:12)
[2024-12-15 04:29] LABS: Basophils # (auto) 0.1 10 ^3/uL (0-0.2); Basophils % (auto) 0.8 % (0.0-2.0); Eosinophils # (auto) 0.2 10 ^3/uL (0-0.8); Eosinophils % (auto) 2.6 % (0.0-7.0); Hematocrit 35.6 % (41.0-53.0); Hemoglobin 11.9 g/dL (13.5-17.5); Lymphocytes # (auto) 1.2 10 ^3/uL (0.4-5.4); Lymphocytes % (auto) 17.6 % (10.0-50.0); Mean Corpuscular Hemoglobin 29.4 pg (28.0-32.0); Mean Corpuscular Hgb Conc. 33.5 g/dL (32.0-36.0); Mean Corpuscular Volume 87.8 fL (80.0-100.0); Monocytes # (auto) 0.4 10 ^3/uL (0-1.3); Monocytes % (auto) 5.4 % (0.0-12.0); Neutrophils # (auto) 5.2 10 ^3/uL (1.6-8.6); Neutrophils % (auto) 73.6 % (37.0-80.0); Nucleated Red Blood Cells % 0.1 %; Platelet Count (auto) 192 10^3/uL (140-450); Red Blood Cells 4.05 10^6/uL (4.5-5.90); Red Cell Distribution Width 15.4 % (11.8-14.3)
[2024-12-15 04:40] LABS: Chloride 104 mmol/L (98-107); Potassium 3.7 mmol/L (3.5-5.1); Sodium 139 mmol/L (136-145)
[2024-12-15 04:41] LABS: Anion Gap 7 (5-15); Carbon Dioxide 28 mmol/L (20-31)
[2024-12-15] MEDS: CARBIDOPA W LEVODOPA CR 25/100mg TABLET PO ONE ×2 (04:45→04:51)
[2024-12-15 04:46] LABS: BUN/Creatinine Ratio 6.7 (10.0-20.0)
[2024-12-15 04:47] LABS: Magnesium 1.8 mg/dL (1.6-2.6)
[2024-12-15 04:54] LABS: Blood Urea Nitrogen 7 mg/dL (9-23); Glucose 107 mg/dL (74-106)
[2024-12-15] MEDS: metroNIDAZOLE 500MG/100ML 100 ML IV ONE (07:36)
[2024-12-15] MEDS: LACTULOSE 20Gm/30ML SOLN PO ONE ×2 (07:36)
[2024-12-15] MEDS: LACTULOSE 20Gm/30ML SOLN PO SCH (07:37)
[2024-12-15] MEDS: ENOXAPARIN SOD 40 MG/0.4 ML SYRINGE SC SCH (07:37)
[2024-12-15] MEDS: LEVOTHYROXINE SODIUM 88 MCG TAB PO SCH (07:38)
[2024-12-15 08:13] VITALS: PULSE 84; RESP 14; O2SAT 95
[2024-12-15 08:46] LABS: Opiate Scree,Urine Neg (NEGATIVE)
[2024-12-15 08:48] LABS: Amphetamine Screen, Urine Neg (NEGATIVE); Barbiturate Scree,Urine Neg (NEGATIVE); Benzodiazephine Screen, Urine Neg (NEGATIVE); Cannabinoid Screen, Urine Neg (NEGATIVE); Cocaine Screen, Urine Neg (NEGATIVE); Phencyclidine Screen, Urine Neg (NEGATIVE)
[2024-12-15 08:49] LABS: Urine Bacteria None Seen /hpf (None Seen); Urine Blood TRACE /uL (Negative); Urine Clarity Clear (Clear); Urine Color Colorless (Yellow); Urine Protein, UAD Negative (Negative); Urine Specific Gravity 1.011 (1.001-1.035); Urine Squamous Epithelial Cell None Seen /hpf (<5); Urine Urobilinogen Normal (Negative); Urine WBC 1 /HPF (0-3); Urine pH 7.5 (5.0-9.0)
--- NOTE | 2024-12-15 09:22 | DVHPNRES ---
Progress Note Date Seen: Dec 15, 2024 Resident Creating Document: ARIAN RAUSCH RESIDENT Medical Necessity Reason Pt with a Central, PICC or Fol: No Subjective Review of Systems This is a 64-year-old male chronically bed-bound and nonverbal with past medical history of Parkinson disease, anemia, hypothyroidism and chronic constipation brought to the hospital due to abdominal pain and constipation. Per patient's brother, the patient has chronic constipation which recently has worsened and was associated with abdominal pain. Patient recently discharged on 10/26/2024 from [facility], had admitted with UTI. Patient was seen and examined on the bedside. He is nonverbal and not able to mentioned any complaint. Objective vital signs Vital Sign Date Time Temp Pulse Resp B/P (MAP) Pulse Ox O2 Delivery O2 Flow Rate FiO2 12/15/24 08:23 98.0 92 16 116/76 (89) 98 98.0 12/15/24 08:13 Room Air* 0 21 Total Intake and Output 12/14/24 12/14/24 12/15/24 15:00 23:00 07:00 Intake Total 50 ml Balance 50 ml medications Current Medications Medications Dose Ordered Sig/Kylee Route Start Time Stop Time Status Last Admin Dose Admin Enoxaparin Sodium 30 mg DAILY SC 12/15/24 10:00 UNV Lactulose 30 ml BID PO 12/15/24 10:00 Carbidopa/Levodopa 1 tab BID PO 12/15/24 22:00 Levothyroxine Sodium 88 mcg DAILY PO 12/15/24 10:00 12/15/24 07:38 88 MCG Enoxaparin Sodium 40 mg DAILY SC 12/15/24 10:00 12/15/24 07:37 40 MG Metronidazole 100 ml @ 100 mls/hr Q8HR IV 12/15/24 14:00 Ceftriaxone Sodium 50 ml @ 100 mls/hr DAILY@0400 IV 12/16/24 04:00 Examination Physical examination: General Appearance: Alert, but can not communicate, cachectic HEENT: Atraumatic, PERRLA, EOMI, Mucous membrane moist/pink Respiratory: Clear to auscultation, Normal air movement Cardiovascular: Regular rate, Normal S1, Normal S2, No murmurs, no chest wall tenderness Abdominal: Mild abdominal tenderness with multiple mass palpated on lower abdomen. Extremities: No clubbing, No cyanosis, No edema, Normal pulses, No tenderness/swelling Skin: No rashes, No breakdown, No significant lesion Neuro: Normal speech, Strength at 5/5 X4 ext, Normal tone, Sensation intact, grossly intact cranial nerves. laboratory and microbiology Laboratory Tests 12/15/24 04:19 Test 12/15/24 04:19 Range/Units Serum Glucose 107 H 74-106 mg/dL Labs and/or images reviewed: Labs reviewed by me, Image(s) reviewed by me Problem List/Assessment/Plan Problem List/Assessment/Plan Assessment and plan: # Intractable abdominal pain likely due to constipation # Stercoral colitis CT abdomen pelvis with IV contrast demonstrated fecal impaction with finding concerning for stercoral colitis and moderate to severe fecal retention throughout the colon. - Rectal fleet enema once - Colace 100 mg p.o. b.i.d. - Lactulose 30 mL b.i.d. - Patient was given 2 L IV bolus - IV ceftriaxone 1 g daily and IV metronidazole 500 mg t.i.d. # History of Parkinson's disease - continue carbidopa/ levodopa ( ) 1 tab p.o. b.i.d. # Chronic hypothyroidism - Levothyroxine 88 mcg PO at q.a.m. # Severe malnutrition, BMI 14.6 kg/m2 - Nutrition consultation DIET: Regular the DVT PROPHYLAXIS: Lovenox BOWEL REGIMEN: Lactulose CODE STATUS: Goal of care discussed for more than 21 minutes with brother, full code DISPOSITION: Med/surge Plan discussed with Dr. Bauer Plan discussed with: Patient, Other Date of Service: Dec 15, 2024 Billing Provider: DELBERT BURGESS MD Common Visit Codes: [id number] INP/OBS CARE(HIGH) ARIAN RAUSCH RESIDENT Dec 15, 2024 09:22 DELBERT BURGESS MD Dec 20, 2024 23:31
[2024-12-15] MEDS ORDERED: LACTULOSE 20Gm/30ML SOLN PO SCH (10:00)
[2024-12-15] MEDS ORDERED: LEVOTHYROXINE SODIUM 88 MCG TAB PO SCH ×2 (10:00)
[2024-12-15] MEDS ORDERED: ENOXAPARIN SOD 30 MG/0.3 ML SYRINGE SC SCH (10:00)
[2024-12-15] MEDS ORDERED: ENOXAPARIN SOD 40 MG/0.4 ML SYRINGE SC SCH ×2 (10:00)
[2024-12-15] MEDS: FLEET ENEMA(ADULT) 135 ML PR ONE ×2 (10:42→11:45)
[2024-12-15] MEDS ORDERED: METOCLOPRAMIDE HCL 5MG/ml INJ 2ml VIAL IV PRN (11:45)
[2024-12-15] MEDS: DOCUSATE SOD 100 MG CAP PO ONE (13:49)
[2024-12-15] MEDS: metroNIDAZOLE 500MG/100ML 100 ML IV SCH (16:20)
[2024-12-15] MEDS: METOCLOPRAMIDE HCL 5MG/ml INJ 2ml VIAL IV SCH (16:20)
[2024-12-15 17:15] VITALS: PULSE 95; RESP 16; O2SAT 94
[2024-12-15 21:00] VITALS: BP 106/63; PULSE 74; RESP 18; TEMP 97.1; O2SAT 94
[2024-12-15] MEDS ORDERED: CARBIDOPA W LEVODOPA CR 25/100mg TABLET PO SCH (22:00)
[2024-12-15] MEDS: CARBIDOPA W LEVODOPA CR 25/100mg TABLET PO SCH (23:07)
[2024-12-15] MEDS: DOCUSATE SOD 100 MG CAP PO SCH (23:07)
[2024-12-16] VITALS (8 sets, daily range): BP systolic 91–108; BP diastolic 56–74; PULSE 75–97; RESP 16–19; TEMP 36.6; O2SAT 94–97
[2024-12-16] MEDS ORDERED: cefTRIAXone 1GM/50ML D5W 50 ML IV SCH (04:00)
[2024-12-16] MEDS: cefTRIAXone 1GM/50ML D5W 50 ML IV SCH (07:04)
[2024-12-16 07:27] LABS: Basophils # (auto) 0 10 ^3/uL (0-0.2); Basophils % (auto) 0.2 % (0.0-2.0); Eosinophils # (auto) 0.1 10 ^3/uL (0-0.8); Eosinophils % (auto) 1.3 % (0.0-7.0); Hematocrit 34.1 % (41.0-53.0); Hemoglobin 11.2 g/dL (13.5-17.5); Lymphocytes # (auto) 0.8 10 ^3/uL (0.4-5.4); Lymphocytes % (auto) 13.6 % (10.0-50.0); Mean Corpuscular Hemoglobin 30.4 pg (28.0-32.0); Mean Corpuscular Hgb Conc. 32.7 g/dL (32.0-36.0); Mean Corpuscular Volume 92.9 fL (80.0-100.0); Monocytes # (auto) 0.3 10 ^3/uL (0-1.3); Neutrophils # (auto) 4.4 10 ^3/uL (1.6-8.6); Neutrophils % (auto) 78.9 % (37.0-80.0); Nucleated Red Blood Cells % 0.2 %; Platelet Count (auto) 176 10^3/uL (140-450); Red Blood Cells 3.68 10^6/uL (4.5-5.90); Red Cell Distribution Width 15.4 % (11.8-14.3); White Blood Cell 5.6 10^3/uL (4.4-10.8)
[2024-12-16 07:33] LABS: Alanine Aminotransferase 12 U/L (7-40); Albumin 3.6 g/dL (3.2-4.8); Alkaline Phosphatase 47 U/L (46-116); Anion Gap 9 (5-15); Aspartate Aminotransferase 22 U/L (13-40); BUN/Creatinine Ratio 7.5 (10.0-20.0); Bilirubin, Total 0.5 mg/dL (0.2-1.0); Calcium 8.8 mg/dL (8.7-10.4); Carbon Dioxide 27 mmol/L (20-31); Chloride 104 mmol/L (98-107); Glucose 78 mg/dL (74-106); Potassium 3.7 mmol/L (3.5-5.1); Sodium 140 mmol/L (136-145); Total Protein 6.3 g/dL (5.7-8.2)
[2024-12-16 07:39] LABS: Blood Urea Nitrogen 7 mg/dL (9-23)
[2024-12-16] MEDS ORDERED: AUG875T PO ×2 (11:14)
[2024-12-16] MEDS ORDERED: LACT10SO3 PO ×2 (11:14)
[2024-12-16] MEDS ORDERED: DOCU-94 PO ×2 (11:14)
--- NOTE | 2024-12-16 11:32 | DVHDSRES ---
Discharge Summary Date of Admission Resident Creating Document: ARIAN RAUSCH RESIDENT Dec 15, 2024 at 03:37 Date of Discharge: Dec 16, 2024 Admitting Diagnosis Intractable abdominal pain likely due to constipation Wounds: No wound was present Labs/Diagnostic Data: Laboratory Results Test 12/16/24 06:37 12/15/24 09:00 12/15/24 04:19 12/15/24 03:45 White Blood Count 5.6 10^3/uL (4.4-10.8) Red Blood Count 3.68 10^6/uL (4.5-5.90) Hemoglobin 11.2 g/dL (13.5-17.5) Hematocrit 34.1 % (41.0-53.0) Mean Corpuscular Volume 92.9 fL (80.0-100.0) Mean Corpuscular Hemoglobin 30.4 pg (28.0-32.0) Mean Corpuscular Hemoglobin Concent 32.7 g/dL (32.0-36.0) Red Cell Distribution Width 15.4 % (11.8-14.3) Platelet Count 176 10^3/uL (140-450) Mean Platelet Volume 8.4 fL (6.9-10.8) Neutrophils (%) (Auto) 78.9 % (37.0-80.0) Lymphocytes (%) (Auto) 13.6 % (10.0-50.0) Monocytes (%) (Auto) 6.0 % (0.0-12.0) Eosinophils (%) (Auto) 1.3 % (0.0-7.0) Basophils (%) (Auto) 0.2 % (0.0-2.0) Neutrophils # (Auto) 4.4 10 ^3/uL (1.6-8.6) Lymphocytes # (Auto) 0.8 10 ^3/uL (0.4-5.4) Monocytes # (Auto) 0.3 10 ^3/uL (0-1.3) Eosinophils # (Auto) 0.1 10 ^3/uL (0-0.8) Basophils # (Auto) 0 10 ^3/uL (0-0.2) Nucleated Red Blood Cells 0.2 % Sodium Level 140 mmol/L (136-145) Potassium Level 3.7 mmol/L (3.5-5.1) Chloride Level 104 mmol/L (98-107) Carbon Dioxide Level 27 mmol/L (20-31) Anion Gap 9 (5-15) Blood Urea Nitrogen 7 mg/dL (9-23) Creatinine 0.93 mg/dL (0.700-1.30) Glomerular Filtration Rate Calc 92 mL/min (>90) BUN/Creatinine Ratio 7.5 (10.0-20.0) Serum Glucose 78 mg/dL (74-106) Calcium Level 8.8 mg/dL (8.7-10.4) Total Bilirubin 0.5 mg/dL (0.2-1.0) Aspartate Amino Transferase (AST) 22 U/L (13-40) Alanine Aminotransferase (ALT) 12 U/L (7-40) Alkaline Phosphatase 47 U/L (46-116) Total Protein 6.3 g/dL (5.7-8.2) Albumin 3.6 g/dL (3.2-4.8) Urine Color Colorless (Yellow) Urine Clarity Clear (Clear) Urine pH 7.5 (5.0-9.0) Urine Specific Chambers 1.011 (1.001-1.035) Urine Protein Negative (Negative) Urine Ketones Negative (Negative) Urine Blood Trace /uL (Negative) Urine Nitrite Negative (Negative) Urine Bilirubin Negative (Negative) Urine Urobilinogen Normal mg/dL (Negative) Urine Leukocyte Esterase Negative /uL (Negative) Urine RBC <1 /hpf (0 - 3) Urine Microscopic WBC 1 /HPF (0-3) Urine Squamous Epithelial Cells None seen /hpf (<5) Urine Bacteria None seen /hpf (None Seen) Urine Glucose Normal mg/dL (Normal) Lactic Acid Level 1.8 mmol/L (0.4-2.0) Magnesium Level 1.8 mg/dL (1.6-2.6) Urine Opiates Screen Neg (NEGATIVE) Urine Fentanyl Screen Neg (NEGATIVE) Urine Barbiturates Screen Neg (NEGATIVE) Urine Phencyclidine Screen Neg (NEGATIVE) Urine Amphetamines Screen Neg (NEGATIVE) Urine Benzodiazepines Screen Neg (NEGATIVE) Urine Cocaine Screen Neg (NEGATIVE) Urine Cannabinoids Screen Neg (NEGATIVE) Test 12/14/24 20:29 Lipase 43 U/L (12-53) Other Laboratory Tests 12/16/24 06:37 Brief Hx & Hospital Course: This is a 64-year-old male chronically bed-bound and nonverbal with past medical history of Parkinson disease, anemia, hypothyroidism and chronic constipation brought to the hospital due to abdominal pain and constipation. Per patient's brother, the patient has chronic constipation which recently has worsened and was associated with abdominal pain. Patient recently discharged on 10/26/2024 from [facility], had admitted with UTI. Hospital course: Initial CT abdomen pelvis with IV contrast demonstrated fecal impaction with finding concerning for stercoral colitis and moderate to severe fecal retention throughout the colon. the patient was treated with erectile Fleet enema once, Colace 100 mg p.o. b.i.d., lactulose 30 mL b.i.d., IV ceftriaxone 1 g daily and IV metronidazole 500 mg t.i.d. and also continued the home medications. nutrition consultation was done for severe malnutrition BMI 16.0 kg per m2. Patient had a big bowel movement yesterday and today on physical examination of the abdomen is soft, no tenderness and and no lump of hard stool in the abdomen. Patient is being discharged to home. Physical examination: General Appearance: Alert,but can not communicate, cachectic. HEENT: Atraumatic, PERRLA, EOMI, Mucous membrane moist/pink Respiratory: Clear to auscultation, Normal air movement Cardiovascular: Regular rate, Normal S1, Normal S2, No murmurs, no chest wall tenderness Abdominal: Normal bowel sounds, Soft, No tenderness, No hepatospenomegaly, No masses Extremities: No clubbing, No cyanosis, No edema, Normal pulses, No tenderness/swelling Skin: No rashes, No breakdown, No significant lesion Neuro: Bed bound, Normal speech, Strength at 5/5 X4 ext, Normal tone, Sensation intact, grossly intact cranial nerves. Psych/Mental Status: Mental status NL, Mood NL Discharge Diagnosis: # Intractable abdominal pain likely due to constipation # Stercoral colitis # History of Parkinson's disease # Chronic hypothyroidism # Severe malnutrition, BMI 16.0 kg/m2 Discharge Plan: Disposition: Home Medications: Augmentin 875 mg p.o. b.i.d. for 3 days, lactulose 30 mL b.i.d. for 7 days, Colace 100 mg p.o. b.i.d. for 1 month and continued home medications Dietary recommendations: More fibre and healthy nutritious diet Follow up : PCP in 1 week Consults/Reason for consult No consultation was done Operations or Procedures Exam: CT CT AB PEL WITH IV CON ONLY Findings: Lung Bases: No acute or significant lung base finding. Normal heart size. No pleural or pericardial effusion. Liver: The liver is normal in size. No focal lesions. Normal hepatic vascular enhancement. Gallbladder and Biliary Tree: Unremarkable Spleen: Unremarkable Pancreas: The pancreas is normal in appearance without focal lesions or abnormal enhancement. Adrenal Glands: Unremarkable Kidneys: Kidneys demonstrate normal symmetric enhancement without focal lesions, calculi or hydronephrosis. Bladder: Unremarkable Bowel: The stomach is grossly normal in appearance. Moderate fecal retention throughout the colon. Large fecal impaction. There is mild wall thickening of the adjacent rectosigmoid colon with trace free fluid in the pelvis.. The appendix is not visualized; however, no secondary findings of acute appendicitis identified. Ascites: Absent Lymphadenopathy: No mesenteric, retroperitoneal or periportal lymphadenopathy. Abdominal Wall and Mesentery: Unremarkable. Vasculature: The visualized abdominal aorta is normal in size and caliber. Abdominal and pelvic vessels demonstrate normal enhancement. Pelvic Organs: Unremarkable Musculoskeletal: No aggressive focal bony lesions, acute fractures or dislocation. IMPRESSION: Fecal impaction with findings concerning for stercoral colitis. Moderate to severe fecal retention throughout the colon. Condition at Discharge: Guarded Final Diagnosis/Problems List # Intractable abdominal pain likely due to constipation # Stercoral colitis # History of Parkinson's disease # Chronic hypothyroidism # Severe malnutrition, BMI 16.0 kg/m2 Discharge Disposition: Home Discharge Instruct/Medications Diet: Regular Activity: No Restrictions, As Tolerated Follow Up/Referral: Follow up with PCP in 1 week. Medications: Augmentin 875 mg b.i.d. for 3 days Colace 100 mg b.i.d. for 1 month Lactulose 30 mL b.i.d. for 7 days Discharge Statement: "Patient was advised to return to the ER or call 911 if any headaches, dizziness, shortness of breath, chest pain, abdominal pain, bleeding, fevers, or worsening of medical condition. Patient was counseled about treatment plan, medications, possible side effects, patientverbalized understanding. All questions were answered to the best of my ability. This discharge took greater then 30 minutes in planning, reviewing documentation, counseling the patient, and discussing with other team members." ASSESSMENT ASSESSMENT Assessment # Intractable abdominal pain likely due to constipation # Stercoral colitis # History of Parkinson's disease # Chronic hypothyroidism # Severe malnutrition, BMI 16.0 kg/m2 Date of Service: Dec 16, 2024 Billing Provider: DELBERT BURGESS MD Common Visit Codes: 29874-FXE/OBS DISCH DAY >30min ARIAN RAUSCH RESIDENT Dec 16, 2024 11:32 DELBERT BURGESS MD Dec 21, 2024 00:20
[2024-12-20] MEDS ORDERED: LACT10PA2 PO (07:36)
[2024-12-20] MEDS ORDERED: DOCU-94 PO (07:36)
[2024-12-24] MEDS ORDERED: LACT10SO3 PO (09:49)
[2024-12-24] MEDS ORDERED: DOCU-265 PO (09:49)
== END 2024-12-16 21:55 | disposition home or self-care (01) | DRG 388 ==
LOC: ER 20:01 → EDBD 20:01 → OVERFLOW 12-15 03:37 → EAST 12-15 18:13
PROVIDERS: ADMIT Student in an Organized Health Care Education/Training Program; ATTEND Emergency Medicine
DX: K56.41 Fecal impaction (principal); E43 Unspecified severe protein-calorie malnutrition; Z68.1 Body mass index [BMI] 19.9 or less, adult; K52.89 Other specified noninfective gastroenteritis and colitis; E03.9 Hypothyroidism, unspecified; I10 Essential (primary) hypertension; E11.9 Type 2 diabetes mellitus without complications; D64.9 Anemia, unspecified; G20.A1 Parkinson's disease without dyskinesia, without mention of fluctuations; Z74.01 Bed confinement status; Z79.899 Other long term (current) drug therapy; Z79.2 Long term (current) use of antibiotics
CPT/HCPCS: 36415; 74177; 80048; 80053; 80307; 81001; 83605; 83690; 83735; 85025; 87086; G0378; J2405; J3490

== ENCOUNTER 2024-12-17 20:04 | Emergency (ER) | payer MEDICARE, MEDICAID ==
[~2024-12-17] VITALS: Ht 162.6 cm; Wt 50.0 kg
[~2024-12-17 20:04] MED LIST changes: +AUG875T PO; +DOCU-94 PO; +LACT10SO3 PO
--- NOTE | 2024-12-17 20:30 | ED.PDOC ---
GI ASSESSMENT HPI Comments 64-year-old male chronically bed-bound and nonverbal with past medical history of Parkinson disease, anemia, hypothyroidism and chronic constipation brought to the hospital due to abdominal pain and constipation. Patient was just discharged yesterday and after admission for abdominal pain , constipation and stercoral colitis. Patient had a large bowel movement prior to discharge. He was started on bowel regimen including lactulose b.i.d. for 7 days and Colace b.i.d.. BMI 16.0 kg/m2. Per EMS, family members states patient still appears to be in pain, writhing while pointing to his stomach, associated with nausea and vomiting. 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 Specialist Notes Allergies: Coded Allergies: NO KNOWN ALLERGIES (Unverified , 01/07/24) Home Meds Active Scripts Acetaminophen (Acetaminophen Er) 650 Mg Tab, 650 MG PO TIDPRN PRN for 3 Days, #9 TAB Prov:ANDREW BAILON MD 12/18/24 Lactulose (Lactulose) 10 Gm/15 Ml Triny, 20 GM PO BID for 7 Days, #420 ML Prov:ARIAN RAUSCH RESIDENT 12/16/24 Docusate Sodium (Colace) 100 Mg Cap, 1 CAP PO BID for 30 Days, #60 CAP Prov:ARIAN RAUSCH RESIDENT 12/16/24 Amoxicillin & Pot Clavulanate (AUGMENTIN TABLET) 875 Mg Tb, 875 MG PO BID for 3 Days, #6 TAB Prov:ARIAN RAUSCH RESIDENT 12/16/24 Reported Medications Omeprazole (Gnp Omeprazole) 20 Mg Tab, 20 MG PO DAILY, TAB 10/31/24 Levothyroxine Sodium (Levothyroxine Sodium) 88 Mcg Tab, 1 TAB PO DAILY 12/04/23 Carbidopa-Levodopa (Carbidopa/Levodopa Odt 25-100 mg) 1 Tab Tab, 1 TAB PO TID 12/04/23 Information Source: Emergency Med Personnel Mode of Arrival: EMS Timing: Days Duration: Intermittent Review of Systems REVIEW OF SYSTEMS: No fever, no chills, or fatigue HEENT: No sore throat, no earache, no congestion, no neck pain. Cardiac: No chest pain. No palpitations. Lungs: No shortness of breath, no cough. GI: No nausea, no vomiting, no diarrhea, no constipation, (+) abdominal pain : No dysuria, frequency, or urgency. No hematuria. Musculoskeletal: No joint pain , no joint swelling, no extremity edema. Skin: No rash, no itching. Neuro: No headache, no dizziness, no weakness Vital Signs Vital Signs Date Time Temp Pulse Resp B/P (MAP) Pulse Ox O2 Delivery O2 Flow Rate FiO2 12/18/24 00:53 98.8 12/18/24 00:00 95 19 91/58 (69) 97 12/17/24 22:20 Room Air* 0 21 Physical Exam General: Awake, alert and oriented. No acute distress. Skin: Skin in warm, dry and intact. Appropriate color for ethnicity. Nailbeds pink with no cyanosis. HEENT: The head is normocephalic and atraumatic. Conjunctivae are clear without exudates or hemorrhage. Sclera is non-icteric. EOM are intact. No signs of nystagmus. Eyelids are normal in appearance without swelling or lesions. Oral mucosa is pink and moist Neck: The neck is supple with normal range of motion. No JVD. Cardiac: Heart rate and rhythm are normal. No murmurs, gallops, or rubs are auscultated. Respiratory: No signs of respiratory distress. Lung sounds are clear in all lobes bilaterally without rales, ronchi, or wheezes. Abdominal: Abdomen is soft, non-tender without distention. Bowel sounds are present and normoactive in all four quadrants. Extremities: Upper and lower extremities are atraumatic in appearance without deformity or edema. Neurological: The patient is awake, alert and oriented to person, place, and time with normal speech. Speech is clear. There is no facial asymmetry. Psychiatric: Appropriate mood and affect. Good judgement and insight. No visual or auditory hallucinations. Past Medical History PAST MEDICAL HISTORY: Anemia, DM, HTN, Thyroid, UTI'S Past Medical History (Other): Parkinson's disease Surgical History: Denies all surgeries Family History Family History: Reviewed,noncontributory to illness, Family hx of DM, Family hx of stroke Social History Smoker: Non-Smoker Alcohol: Denies ETOH Use Drugs: Denies Drug Use Lives In: Home Was a procedure done? Was a procedure done?: No GI differential Dx Differential Diagnosis: Constipation, Diverticular disease, Gastritis/PUD, Gastroenteritis, UTI X-Ray, Labs, Meds, VS Vital Signs Date Time Temp Pulse Resp B/P (MAP) Pulse Ox O2 Delivery O2 Flow Rate FiO2 12/18/24 00:53 98.8 12/18/24 00:21 98.9 12/18/24 00:00 98.8 95 19 91/58 (69) 97 98.8 12/17/24 22:20 98 14 97 Room Air* 0 21 12/17/24 22:03 98.9 97 17 110/87 (95) 97 98.9 12/17/24 20:10 99.0 94 18 100/71 (81) 99 Current Medications Medications (Trade) Dose Ordered Sig/Kylee Route Start Time Stop Time Status Last Admin Sodium Chloride 1,000 ml @ 1,000 mls/hr Q1H ONCE IV 12/18/24 00:15 12/18/24 01:14 DC 12/18/24 00:08 Lactulose 30 ml ONCE ONCE PO 12/18/24 00:15 12/18/24 00:16 DC 12/18/24 00:19 Docusate Sodium (Colace Capsule) 100 mg ONCE ONCE PO 12/18/24 00:15 12/18/24 00:16 DC 12/18/24 00:19 Acetaminophen (Tylenol Tablet) 650 mg ONCE ONCE PO 12/18/24 00:15 12/18/24 00:20 DC 12/18/24 00:21 Exam: CT AB PEL WO CON-NO ORAL OR IV History: severe abdominal pain s/p constipation and stercoral colitis Comparison Study: CT CT AB PEL WO CON-NO ORAL OR IV on DOS: 10/30/24, CT CT AB PEL WO CON-NO ORAL OR IV on DOS: 01/07/24, CT CT AB PEL WO CON-NO ORAL OR IV on DOS: 12/26/23 Contrast: None TECHNIQUE: Multidetector CT of abdomen and pelvis without IV contrast. Radiation Dose Information: CT Dose: CTDI volume is 5.88 mGy. Dose-length product is 317.45 mGy*cm FINDINGS: Patient May have enlarged aascending aorta which is incompletely seen in the study there is mild pulmonary vascular congestion in the lung bases.1 large fausto unt of material in the stomach. Patient has a large stool burden no evidence for obstruction. There is a large amount of dense stool in the rectosigmoid patient is constipated. Bones are osteopenic no compression fractures appreciated. Bladder is filled with fluid the prostate is prominent measuring 6 by 2.5 by 3.34 cm. Kidneys visual adrenals appear to be unremarkable. Liver and spleen are within normal limits for size. Appendix is normal. IMPRESSION: 1. Severe constipation. Time of 1ST Reevaluation: 20:24 Reevaluation 1ST: Unchanged Patient Education/Counseling: Diagnosis, Treatment Family Education/Counseling: No Family Present Departure 1 Departure Time of Disposition: 00:09 Impression: Primary Impression: Constipation Additional Impression: Abdominal pain Disposition: HOME / SELF CARE / HOMELESS Condition: Stable Additional Instructions: ED DISCHARGE INSTRUCTIONS Instructions: Please read all instructions provided in this packet carefully. Continue medications for constipation including Colace twice daily and lactulose twice daily. Use Tylenol as needed for abdominal pain. Although you have been discharged from the Emergency Department, this does not mean that you have a "clean bill of health". No definitive diagnosis for your symptoms has been made today. It is possible that you are in the process of developing a serious illness. This is why you must return to the ED without fail if any new or worsening symptoms (especially if your symptoms include no bowel movement within 3 days, chest pain, trouble breathing, worsening abdominal pain, fever, headache, confusion, trouble seeing, or trouble walking) It is also very important that you see a primary care doctor within the next 3-5 days to follow up. If you are unable to get an appointment, return to the ED for re-evaluation. e-Prescriptions Acetaminophen (Acetaminophen Er) 650 Mg Tab 650 MG PO TIDPRN PRN for 3 Days, #9 TAB Prov: ANDREW BAILON MD 12/18/24 Comments 64-year-old nonverbal male with a history of Parkinson's male who presents to the emergency department with family reports of abdominal pain. CT abdomen and pelvis shows constipation. Patient had bowel movement prior to discharge yesterday. Patient observed in the ED with no vomiting, has been sleeping quietly. No peritoneal signs on exam. He is felt stable for discharge home to continue bowel regimen and follow up with primary care provider for re- evaluation. Extensive evaluation was performed in attempt to identify or rule out: (See differential diagnosis section) The following tests were ordered, and results were reviewed by me: (See diagnostic results section) The following test were independently interpreted by me: N/A I reviewed and agreed with the following test results read by other providers: CT abdomen and pelvis I reviewed the following notes from the pt's past medical encounters: Recent admission for abdominal pain, constipation and stercoral colitis Additional information was gathered from interviewing the following independent historians: EMS personnel, PATIENT'S BROTHER SHIRIN Discussion of management or test interpretation with external physician/other qualified health daycare teacher: N/A Decision regarding hospitalization or escalation of hospital level of care: Risks and benefits of admission for further treatment of patient's condition was considered however due to patient's stable condition patient will be discharged to follow up closely or return to care for worsening of condition or inability to follow up. Critical Care Note Critical Care Time?: No Stability Stability form required: No Heart Score Heart Score: Heart Score Response (Comments) Value History N/A 0 EKG N/A 0 Age N/A 0 Risk Factors N/A 0 Troponin N/A 0 Total 0 I personally scribed for ANDREW BAILON MD ([facility]) on 12/17/24 at 20:30. Electronically submitted by Leighton Granados ([place]). I personally scribed for ANDREW BAILON MD ([facility]) on 12/17/24 at 23:23. Electronically submitted by Leighton Granados ([place]). ANDREW BAILON MD Dec 17, 2024 20:30
[2024-12-17 22:20] VITALS: PULSE 98; RESP 14; O2SAT 97
[2024-12-17] MEDS: ACETAMINOPHEN IV 1000 MG/100ML (10MG/ML) IV ONE (22:28)
--- NOTE | 2024-12-17 23:01 | DVH ---
Exam: CT AB PEL WO CON-NO ORAL OR IV History: severe abdominal pain s/p constipation and stercoral colitis Comparison Study: CT CT AB PEL WO CON-NO ORAL OR IV on DOS: 10/30/24, CT CT AB PEL WO CON-NO ORAL OR I V on DOS: 01/07/24, CT CT AB PEL WO CON-NO ORAL OR IV on DOS: 12/26/23 Contrast: None TECHNIQUE: Multidetector CT of abdomen and pelvis without IV contrast. Radiation Dose Information: CT Dose: CTDI volume is 5.88 mGy. Dose-length product is 317.45 mGy*cm FINDINGS: Patient May have enlarged aascending aorta which is incompletely seen in the study there is mild pulm onary vascular congestion in the lung bases.1 large amount of material in the stomach. Patient has a large stool burden no evidence for obstruction. There is a large amount of dense stool in the rectos igmoid patient is constipated. Bones are osteopenic no compression fractures appreciated. Bladder is filled with fluid the prostate is prominent measuring 6 by 2.5 by 3.34 cm. Kidneys visual adrenals appear to be unremarkable. Liver and spleen are within normal limits for size . Appendix is normal. IMPRESSION: 1. Severe constipation.
[2024-12-18] MEDS ORDERED: MAGNESIUM CITRATE SOLUTION 300 ML BTL PO ONE
[2024-12-18] MEDS: SODIUM CHLORIDE 0.9% 1,000 ML IV ONE (00:08)
[2024-12-18] MEDS ORDERED: ACET650T12 PO (00:12)
[2024-12-18] MEDS: LACTULOSE 20Gm/30ML SOLN PO ONE (00:19)
[2024-12-18] MEDS: DOCUSATE SOD 100 MG CAP PO ONE (00:19)
[2024-12-18] MEDS: ACETAMINOPHEN 325 MG TAB PO ONE (00:21)
[2024-12-18 00:53] VITALS: TEMP 98.8
[2024-12-18 02:05] VITALS: RESP 16; O2SAT 98
[2024-12-18 04:00] VITALS: BP 106/60; PULSE 82; RESP 19; O2SAT 97
== END 2024-12-18 05:38 | disposition home or self-care (01) ==
LOC: ER 20:04
DX: K59.00 Constipation, unspecified (principal); E11.9 Type 2 diabetes mellitus without complications; E03.9 Hypothyroidism, unspecified; I10 Essential (primary) hypertension; Z74.01 Bed confinement status; Z79.890 Hormone replacement therapy; Z79.899 Other long term (current) drug therapy; Z87.440 Personal history of urinary (tract) infections
CPT/HCPCS: 74176; 96360; 99284; J7030

== ENCOUNTER 2024-12-17 20:04 | Emergency (ER) | payer MEDICARE, MEDICAID ==
[~2024-12-17] VITALS: Ht 162.6 cm; Wt 50.0 kg
[2024-12-17 20:10] VITALS: BP 100/71; PULSE 94; RESP 18; O2SAT 99
[2024-12-18] MEDS ORDERED: ACET650T12 PO (00:12)
--- NOTE | 2024-12-18 00:38 | ECG ---
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
[2024-12-20] MEDS ORDERED: DOCU-94 PO (07:36)
[2024-12-20] MEDS ORDERED: LACT10PA2 PO (07:36)
[2024-12-24] MEDS ORDERED: LACT10SO3 PO (09:49)
[2024-12-24] MEDS ORDERED: DOCU-265 PO (09:49)
== END 2024-12-17 20:10 | disposition left against medical advice (07) ==
LOC: EDBD 20:04 → EDUNIT# 20:04 → ER 20:04
DX: R10.84 Generalized abdominal pain (principal); Z53.21 Procedure and treatment not carried out due to patient leaving prior to being seen by health care provider
CPT/HCPCS: 93005

== ENCOUNTER 2024-12-18 21:38 | Inpatient (IN) | payer MEDICARE, MEDICAID ==
[~2024-12-18] VITALS: Ht 167.6 cm; Wt 50.3 kg
[~2024-12-18 21:38] MED LIST changes: +ACET650T12 PO
--- NOTE | 2024-12-18 22:01 | ED.PDOC ---
GI ASSESSMENT HPI Comments 64Y M with PMHx DM, HTN, and anemia presents to ED via EMS for chief complaint abd pain and constipation. Pt was discharged from [facility] on 12/16/2024 and 11/03/2024. Pt was also seen at [facility] ER yesterday, 02/16/2025. Pt was discharged home with Lactulose and Docusate, but EMS believes pt may not have been given medication by family. Pt is nonverbal. No other symptoms reported.Per EMS, patient's brother has done an excellent job of managed with the patient until he had a stroke himself a short time back. Subsequent to that event, patient has had health concerns. Time Seen by MD: 21:50 Primary Care Provider: unknown Reviewed Notes: Nurses Notes, Scalper Operator Notes, Medications, Allergies Allergies: Coded Allergies: NO KNOWN ALLERGIES (Unverified , 01/07/24) Home Meds Active Scripts Acetaminophen (Acetaminophen Er) 650 Mg Tab, 650 MG PO TIDPRN PRN for 3 Days, #9 TAB Prov:ANDREW BAILON MD 12/18/24 Lactulose (Lactulose) 10 Gm/15 Ml Triny, 20 GM PO BID for 7 Days, #420 ML Prov:ARIAN RAUSCH RESIDENT 12/16/24 Docusate Sodium (Colace) 100 Mg Cap, 1 CAP PO BID for 30 Days, #60 CAP Prov:ARIAN RAUSCH RESIDENT 12/16/24 Amoxicillin & Pot Clavulanate (AUGMENTIN TABLET) 875 Mg Tb, 875 MG PO BID for 3 Days, #6 TAB Prov:ARIAN RAUSCH RESIDENT 12/16/24 Reported Medications Omeprazole (Gnp Omeprazole) 20 Mg Tab, 20 MG PO DAILY, TAB 10/31/24 Levothyroxine Sodium (Levothyroxine Sodium) 88 Mcg Tab, 1 TAB PO DAILY 12/04/23 Carbidopa-Levodopa (Carbidopa/Levodopa Odt 25-100 mg) 1 Tab Tab, 1 TAB PO TID 12/04/23 Information Source: Emergency Med Personnel Mode of Arrival: EMS Brought in by: EMS Timing: Days Duration: Since onset Prehospital treatment: Treatment Quality: Other Vomitus: None Stool: Minimal Severity: Moderate Recent: Other (Patient has a history of recent constipation concerns.) Recent Hx of: Narcotic Use Pain Location: Diffuse, Epigastric, Periumbilical Modifying Factors: Nothing Associated sign and symptoms: Constipation, Abdominal Pain Past Medical History PAST MEDICAL HISTORY: Anemia, DM, HTN, Thyroid, UTI'S Surgical History: Denies all surgeries Family History Family History: Reviewed,noncontributory to illness, Family hx of DM, Family hx of stroke Social History Smoker: Non-Smoker Alcohol: Denies ETOH Use Drugs: Denies Drug Use Lives In: Home Constitutional: denies: chills, diaphoresis, fatigue, fever, malaise, sweats, weakness, others EENTM: denies: blurred vision, double vision, ear bleeding, ear discharge, ear drainage, ear pain, ear ringing, eye pain, eye redness, hearing loss, mouth pain, mouth swelling, nasal discharge, nose bleeding, nose congestion, nose pain, photophobia, tearing, throat pain, throat swelling, voice changes, others Respiratory: denies: cough, hemoptysis, orthopnea, SOB at rest, shortness of breath, SOB with excertion, stridor, wheezing, others Cardiovascular: denies: chest pain, dizzy spells, diaphoresis, Dyspnea on exertion, edema, irregular heart beat, left arm pain, lightheadedness, palpitations, PND, syncope, others Gastrointestinal: reports: abdominal pain, constipated; denies: abdomen distended, blood streaked bowels, diarrhea, dysphagia, difficulty swallowing, hematemesis, melena, nausea, poor appetite, poor fluid intake, rectal bleeding, rectal pain, vomiting, others Genitourinary: denies: burning, dysuria, flank pain, frequency, hematuria, incontinence, penile discharge, penile sore, pain, testicle pain, testicle swelling, urgency, others Neurological: denies: dizziness, fainting, headache, left sided numbness, left sided weakness, numbness, paresthesia, pre-existing deficit, right sided numbness, right sided weakness, seizure, speech problems, tingling, tremors, weakness, others Musculoskeletal: denies: back pain, gout, joint pain, joint swelling, muscle pain, muscle stiffness, neck pain, others Integumetry: denies: bruises, change in color, change in hair/nails, dryness, laceration, lesions, lumps, rash, wounds, others Allergic/Immunocompromised: denies: Difficulty Healing, Frequent Infections, Hives, Itching, others Hematologic/Lymphatic: denies: anemia, blood clots, easy bleeding, easy bruising, swollen glands, others Endocrine: denies: excessive hunger, excessive sweating, excessive thirst, excessive urination, flushing, intolerance to cold, intolerance to heat, unexplained weight gain, unexplained weight loss, others Psychiatric: denies: anxiety, bipolar disorder, depression, hopeless, panic disorder, schizophrenia, sleepless, suicidal, others Unable to Obtain due to: Other All Other Systems: Reviewed and Negative Physical Exam General Appearance: No Apparent Distress, Normal HEENT: Normal ENT Inspection, Pharynx Normal, TMs Normal Neck: Full Range of Motion, Non-Tender, Normal, Normal Inspection Respiratory: Chest Non-Tender, Lungs Clear, No Accessory Muscle Use, No Respiratory Distress, Normal Breath Sounds Cardiovascular: No Edema, No JVD, No Murmur, No Gallop, Normal Peripheral Pulses, Regular Rate/Rhythm Breast Exam: Deferred Gastrointestinal: Other ( Patient arrives with a relatively firm belly on the gurney. Patient displayed signs of pain on palpation. No pulsatile masses.) Genitalia: Deferred Pelvic: Deferred Rectal: Deferred Extremities: No calf tenderness, Normal capillary refill, Non-tender, No pedal edema Musculoskeletal : Apperance: Normal Neurologic: NOT DONE Cerebellar Function: NOT DONE Reflexes: NOT DONE Skin: Dry, Normal Color, Warm Lymphatic: No Adenopathy Was a procedure done? Was a procedure done?: No GI differential Dx Differential Diagnosis: Constipation, Gastritis/PUD, Gastroenteritis, Dehydration X-Ray, Labs, Meds, VS Vital Signs Date Time Temp Pulse Resp B/P (MAP) Pulse Ox O2 Delivery O2 Flow Rate FiO2 12/19/24 00:00 83 12/19/24 00:00 89 18 138/81 (100) 96 12/18/24 22:30 98.2 79 14 97/65 (76) 98 98.2 12/18/24 21:49 89 12/18/24 21:44 97.9 98 14 119/80 (93) 95 97.9 Lab Test 12/18/24 23:07 12/18/24 22:01 Range/Units Troponin I High Sensitivity 11 11 </=54 ng/L White Blood Count 5.1 4.4-10.8 10^3/uL Red Blood Count 3.91 L 4.5-5.90 10^6/uL Hemoglobin 11.2 L 13.5-17.5 g/dL Hematocrit 34.5 L 41.0-53.0 % Mean Corpuscular Volume 88.3 # 80.0-100.0 fL Mean Corpuscular Hemoglobin 28.6 28.0-32.0 pg Mean Corpuscular Hemoglobin Concent 32.4 32.0-36.0 g/dL Red Cell Distribution Width 16.1 H 11.8-14.3 % Platelet Count 173 140-450 10^3/uL Mean Platelet Volume 8.5 6.9-10.8 fL Neutrophils (%) (Auto) 80.6 H 37.0-80.0 % Lymphocytes (%) (Auto) 9.3 L 10.0-50.0 % Monocytes (%) (Auto) 6.7 0.0-12.0 % Eosinophils (%) (Auto) 2.9 0.0-7.0 % Basophils (%) (Auto) 0.5 0.0-2.0 % Neutrophils # (Auto) 4.1 1.6-8.6 10 ^3/uL Lymphocytes # (Auto) 0.5 0.4-5.4 10 ^3/uL Monocytes # (Auto) 0.3 0-1.3 10 ^3/uL Eosinophils # (Auto) 0.2 0-0.8 10 ^3/uL Basophils # (Auto) 0 0-0.2 10 ^3/uL Nucleated Red Blood Cells 0.1 % Sodium Level 140 136-145 mmol/L Potassium Level 3.5 3.5-5.1 mmol/L Chloride Level 105 98-107 mmol/L Carbon Dioxide Level 27 20-31 mmol/L Anion Gap 8 5-15 Blood Urea Nitrogen 9 9-23 mg/dL Creatinine 0.98 0.700-1.30 mg/dL Glomerular Filtration Rate Calc 87 >90 mL/min BUN/Creatinine Ratio 9.2 L 10.0-20.0 Serum Glucose 84 74-106 mg/dL Lactic Acid Level 1.4 0.4-2.0 mmol/L Calcium Level 9.0 8.7-10.4 mg/dL Total Bilirubin 0.4 0.2-1.0 mg/dL Aspartate Amino Transferase (AST) 18 13-40 U/L Alanine Aminotransferase (ALT) < 9 7-40 U/L Alkaline Phosphatase 47 46-116 U/L Total Protein 7.0 5.7-8.2 g/dL Albumin 4.1 3.2-4.8 g/dL Lipase 43 12-53 U/L X-Ray, Labs, Meds, VS Comment All studies performed the ED were evaluated by me personally. Laboratories were only remarkable for an anemia. Imaging studies of the abdomen revealed copious stool throughout the large intestine. This patient has constipation issues that can not be managed at home. I do not believe it is a fault of the family but rather, and inability of the family to help with the patient has the brother has had a stroke and appears to have some long lasting effects from that event. Patient should be admitted, constipation issue should be resolved and the patient probably needs to be placed in a [place] [facility] [place] facility for a while until patient can be set up an long-term assisted living condition. Time of 1ST Reevaluation: 00:47 Reevaluation 1ST: Unchanged Consultation: PCP Patient Education/Counseling: Diagnosis, Treatment Family Education/Counseling: Diagnosis, Treatment, No Family Present Departure 1 Departure Time of Disposition: 00:47 Impression: Primary Impression: Constipation Additional Impression: Anemia Disposition: 09 ADMITTED INPATIENT Condition: Stable Discharged With: Self Critical Care Note Critical Care Time?: No Stability Stability form required: No Heart Score Heart Score: Heart Score Response (Comments) Value History N/A 0 EKG N/A 0 Age N/A 0 Risk Factors N/A 0 Troponin N/A 0 Total 0 I personally scribed for EUFEMIA LE PAC ([email or web address]) on 12/18/24 at 22:01. Electronically submitted by Danielle Fleming ([email or web address]). EUFEMIA LE PAC Dec 18, 2024 22:01
[2024-12-18 22:31] LABS: Basophils # (auto) 0 10 ^3/uL (0-0.2); Basophils % (auto) 0.5 % (0.0-2.0); Eosinophils # (auto) 0.2 10 ^3/uL (0-0.8); Eosinophils % (auto) 2.9 % (0.0-7.0); Hematocrit 34.5 % (41.0-53.0); Hemoglobin 11.2 g/dL (13.5-17.5); Lymphocytes # (auto) 0.5 10 ^3/uL (0.4-5.4); Lymphocytes % (auto) 9.3 % (10.0-50.0); Mean Corpuscular Hemoglobin 28.6 pg (28.0-32.0); Mean Corpuscular Hgb Conc. 32.4 g/dL (32.0-36.0); Mean Corpuscular Volume 88.3 fL (80.0-100.0); Monocytes # (auto) 0.3 10 ^3/uL (0-1.3); Monocytes % (auto) 6.7 % (0.0-12.0); Neutrophils # (auto) 4.1 10 ^3/uL (1.6-8.6); Neutrophils % (auto) 80.6 % (37.0-80.0); Nucleated Red Blood Cells % 0.1 %; Platelet Count (auto) 173 10^3/uL (140-450); Red Blood Cells 3.91 10^6/uL (4.5-5.90); Red Cell Distribution Width 16.1 % (11.8-14.3); White Blood Cell 5.1 10^3/uL (4.4-10.8)
[2024-12-18 23:04] LABS: Alanine Aminotransferase < 9 U/L (7-40); Albumin 4.1 g/dL (3.2-4.8); Alkaline Phosphatase 47 U/L (46-116); Anion Gap 8 (5-15); Aspartate Aminotransferase 18 U/L (13-40); BUN/Creatinine Ratio 9.2 (10.0-20.0); Bilirubin, Total 0.4 mg/dL (0.2-1.0); Blood Urea Nitrogen 9 mg/dL (9-23); Carbon Dioxide 27 mmol/L (20-31); Chloride 105 mmol/L (98-107); Glucose 84 mg/dL (74-106); Lipase 43 U/L (12-53); Potassium 3.5 mmol/L (3.5-5.1); Sodium 140 mmol/L (136-145)
--- NOTE | 2024-12-18 23:18 | DVH ---
Exam: XY KUB ABDOMEN SINGLE VIEW Indication: Constipation Comparison: None Technique: AP radiographs of the abdomen Findings / Impression: Nonobstructive bowel gas pattern noted. Large amount of stool present in the large bowel. No abnormal calcifications noted.
[2024-12-19] MEDS: LACTULOSE 10g/15ml SOLN 473ML PR ONE (00:45)
[2024-12-19] MEDS: SODIUM CHLORIDE 0.9% 1,000 ML IV ONE (01:15)
[2024-12-19] MEDS ORDERED: ONDANSETRON HCL 4 MG/2 ML VIAL IV PRN (02:15)
[2024-12-19] MEDS: DOCUSATE ORAL LIQUID 100 MG/10 ML UD GT ONE (02:15)
[2024-12-19] MEDS ORDERED: MORPHINE SULFATE INJ 2 MG/ml SYRG IV PRN (02:15)
[2024-12-19] MEDS ORDERED: ACETAMINOPHEN 650 MG PO PRN (02:45)
--- NOTE | 2024-12-19 02:49 | DVHHPRES ---
History of Present Illness Resident Creating Document: CHUCK SIMON RESIDENT Reason for Visit: abd pain and constipation History of Present Illness Patient is a 64 year-old male, nonverbal at baseline due to CVA, presented to ED via EMS for chief complaint abd pain and constipation. Pt was recently dischar [facility] from [facility] on 12/16/2024 and 11/03/2024. Pt was discharged home with Lactulose and Docusate, but EMS believes patient may not received the medication by family. No other symptoms reported. Abdominal xray showed Nonobstructive bowel gas pattern noted. Large amount of stool present in the large bowel. No abnormal calcifications noted. PMHx: DM, HTN, CVA status chronically bed-bound and nonverbal, Parkinson's disease dementia, hypothyroidism, chronic constipation, multiple admissions due to chronic constipation PSHX: Denies all surgeries FHx: Reviewed,noncontributory to illness, Family hx of DM, Family hx of stroke SHX:lives at home, No Smoking or ETOH use Review of Systems Review of Systems Patient is nonverbal. Thus unable to obtain further history Allergies: Coded Allergies: NO KNOWN ALLERGIES (Unverified , 01/07/24) Medications Current Medications Medications Dose Ordered Sig/Kylee Route Start Time Stop Time Status Last Admin Dose Admin Docusate Sodium 100 mg DAILY GT 12/19/24 10:00 Exam Vital Signs Vital Signs Date Time Temp Pulse Resp B/P (MAP) Pulse Ox O2 Delivery O2 Flow Rate FiO2 12/19/24 00:00 83 12/19/24 00:00 18 138/81 (100) 96 12/18/24 22:30 98.2 98.2 Exam General Appearance: Alert, Oriented X3, Cooperative, Mild acute distress HEENT: Atraumatic, PERRLA, EOMI, Mucous membrane moist/pink Respiratory: Clear to auscultation, Normal air movement Cardiovascular: Regular rate, Normal S1, Normal S2, No murmurs, no chest wall tenderness Abdominal: [place] and distended, mild tenderness,hyper active bowel sounds present, no scars noted Extremities: Muscle atrophy notable in the upper and lower extremities Skin: Sacral ulcer noted Neuro: Unable to assess Psych/Mental Status: Non-verbal Labs/Xrays Labs Test 12/18/24 23:07 12/18/24 22:01 Range/Units Troponin I High Sensitivity 11 </=54 ng/L White Blood Count 5.1 4.4-10.8 10^3/uL Red Blood Count 3.91 L 4.5-5.90 10^6/uL Hemoglobin 11.2 L 13.5-17.5 g/dL Hematocrit 34.5 L 41.0-53.0 % Mean Corpuscular Volume 88.3 # 80.0-100.0 fL Mean Corpuscular Hemoglobin 28.6 28.0-32.0 pg Mean Corpuscular Hemoglobin Concent 32.4 32.0-36.0 g/dL Red Cell Distribution Width 16.1 H 11.8-14.3 % Platelet Count 173 140-450 10^3/uL Mean Platelet Volume 8.5 6.9-10.8 fL Neutrophils (%) (Auto) 80.6 H 37.0-80.0 % Lymphocytes (%) (Auto) 9.3 L 10.0-50.0 % Monocytes (%) (Auto) 6.7 0.0-12.0 % Eosinophils (%) (Auto) 2.9 0.0-7.0 % Basophils (%) (Auto) 0.5 0.0-2.0 % Neutrophils # (Auto) 4.1 1.6-8.6 10 ^3/uL Lymphocytes # (Auto) 0.5 0.4-5.4 10 ^3/uL Monocytes # (Auto) 0.3 0-1.3 10 ^3/uL Eosinophils # (Auto) 0.2 0-0.8 10 ^3/uL Basophils # (Auto) 0 0-0.2 10 ^3/uL Nucleated Red Blood Cells 0.1 % Sodium Level 140 136-145 mmol/L Potassium Level 3.5 3.5-5.1 mmol/L Chloride Level 105 98-107 mmol/L Carbon Dioxide Level 27 20-31 mmol/L Anion Gap 8 5-15 Blood Urea Nitrogen 9 9-23 mg/dL Creatinine 0.98 0.700-1.30 mg/dL Glomerular Filtration Rate Calc 87 >90 mL/min BUN/Creatinine Ratio 9.2 L 10.0-20.0 Serum Glucose 84 74-106 mg/dL Lactic Acid Level 1.4 0.4-2.0 mmol/L Calcium Level 9.0 8.7-10.4 mg/dL Total Bilirubin 0.4 0.2-1.0 mg/dL Aspartate Amino Transferase (AST) 18 13-40 U/L Alanine Aminotransferase (ALT) < 9 7-40 U/L Alkaline Phosphatase 47 46-116 U/L Total Protein 7.0 5.7-8.2 g/dL Albumin 4.1 3.2-4.8 g/dL Lipase 43 12-53 U/L Assessment/Plan Assessment/Plan Constipation --> Evidence on abdomen x-ray --> Fleet enema --> Colace Abdominal pain secondary to constipation --> As above Normocytic anemia --> stable --> Monitor closely for any changes Sacral ulcer - present on admission --> Wound consult Hypothyroidism --> Continue levothyroxine --> Order TSH Diabetes Mellitus --> Random blood sugar 84 CVA - current clinical status bed-bound and nonverbal --> Currently on aspirin and atorvastatin --> DVT prophylaxis Parkinson's disease --> Continue home medication Goal of care discussed for more than 20 minute, full code Case and plan discussed with Dr. Ramirez Plan discussed with: Patient, Other (Nurses) My Orders Orders - CHUCK SIMON RESIDENT Procedure Category Date Status Time Docusate Sodium PHA 12/19/24 In Process Liquid (Colace Liquid) 02:15 Docusate Sodium PHA 12/19/24 In Process Liquid (Colace Liquid) 10:00 Admit ADMIT 12/19/24 Verified 02:06 Code Status CODE 12/19/24 Verified 02:06 Vital Signs [facility] 12/19/24 Verified 02:06 Review Orders With [facility] 12/19/24 Verified Adm. 02:06 Acetaminophen Tablet [facility] 12/19/24 Verified (Tylenol Tablet) 02:15 Notify Of Changes [facility] 12/19/24 Verified From Base 02:06 Advance Directive [facility] 12/19/24 Verified 02:06 Patient Condition ORDERS 12/19/24 Verified 02:06 Allergies [facility] 12/19/24 Verified 02:06 Ondansetron Hcl [facility] 12/19/24 Verified (Zofran) 02:15 Morphine 2mg Iv Q4hprn [facility] 12/19/24 Verified 02:15 Caden Rodrigues Of Changes [facility] 12/19/24 Verified From Base 02:06 Basic Metabolic Panel LAB 12/19/24 Verified 04:00 Complete Blood Count LAB 12/19/24 Verified 04:00 Urinalysis LAB 12/19/24 Verified 02:06 Date of Service: Dec 19, 2024 Billing Provider: ZAINAB RAMIREZ MD Common Visit Codes: [id number] INP/OBS CARE (HIGH) CHUCK SIMON RESIDENT Dec 19, 2024 02:49 URSULA DEL CASTILLO RESIDENT Dec 19, 2024 02:58 ZAINAB RAMIREZ MD Dec 19, 2024 11:39
--- NOTE | 2024-12-19 03:31 | ECG ---
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
[2024-12-19] MEDS: FLEET ENEMA(ADULT) 135 ML PR ONE ×3 (03:32→13:52)
[2024-12-19 03:40] VITALS: PULSE 79; RESP 14; O2SAT 97
[2024-12-19 05:00] VITALS: BP 145/95; PULSE 76; RESP 18; TEMP 97.8; O2SAT 96
[2024-12-19] MEDS: CARBIDOPA W LEVODOPA 25/100mg TABLET PO SCH (05:40)
[2024-12-19 09:00] VITALS: BP 100/78; PULSE 82; RESP 17; TEMP 96.7; O2SAT 99
[2024-12-19] MEDS: DOCUSATE ORAL LIQUID 100 MG/10 ML UD GT SCH (10:29)
[2024-12-19] MEDS: ASPirin 81 mg TAB PO SCH (10:30)
[2024-12-19] MEDS: ENOXAPARIN SOD 30 MG/0.3 ML SYRINGE SC SCH (10:30)
[2024-12-19] MEDS: LACTULOSE 20Gm/30ML SOLN PO SCH (10:30)
[2024-12-19] MEDS: PANTOPRAZOLE 40 MG TAB PO SCH (10:30)
[2024-12-19] MEDS: LEVOTHYROXINE SODIUM 88 MCG TAB PO SCH (10:30)
[2024-12-19 10:48] LABS: Basophils # (auto) 0 10 ^3/uL (0-0.2); Basophils % (auto) 0.1 % (0.0-2.0); Eosinophils # (auto) 0 10 ^3/uL (0-0.8); Eosinophils % (auto) 0.3 % (0.0-7.0); Hematocrit 33.8 % (41.0-53.0); Hemoglobin 11.3 g/dL (13.5-17.5); Lymphocytes # (auto) 0.6 10 ^3/uL (0.4-5.4); Mean Corpuscular Hemoglobin 29.5 pg (28.0-32.0); Mean Corpuscular Hgb Conc. 33.6 g/dL (32.0-36.0); Mean Corpuscular Volume 87.9 fL (80.0-100.0); Monocytes # (auto) 0.4 10 ^3/uL (0-1.3); Monocytes % (auto) 4.3 % (0.0-12.0); Neutrophils # (auto) 8.3 10 ^3/uL (1.6-8.6); Neutrophils % (auto) 89.3 % (37.0-80.0); Nucleated Red Blood Cells % 0.1 %; Platelet Count (auto) 183 10^3/uL (140-450); Red Blood Cells 3.84 10^6/uL (4.5-5.90); Red Cell Distribution Width 15.8 % (11.8-14.3); White Blood Cell 9.3 10^3/uL (4.4-10.8)
[2024-12-19 10:58] LABS: Chloride 104 mmol/L (98-107); Sodium 139 mmol/L (136-145)
[2024-12-19 10:59] LABS: Anion Gap 9 (5-15); Calcium 8.8 mg/dL (8.7-10.4); Carbon Dioxide 26 mmol/L (20-31)
[2024-12-19 11:01] LABS: Potassium 3.5 mmol/L (3.5-5.1)
[2024-12-19 11:04] LABS: BUN/Creatinine Ratio 9.8 (10.0-20.0); Glucose 78 mg/dL (74-106)
[2024-12-19 11:06] LABS: Blood Urea Nitrogen 9 mg/dL (9-23)
--- NOTE | 2024-12-19 12:34 | DVHPN2 ---
Reviewed: Care Plan, H&P, Labs, Medications, Previous Orders, Radiology Changes from previous H/P or p: No Changes Objective Vitals Vital Signs Date Time Temp Pulse Resp B/P (MAP) Pulse Ox O2 Delivery O2 Flow Rate FiO2 12/19/24 09:00 96.7 82 17 100/78 (85) 99 96.7 12/19/24 08:00 Room Air* 0 21 Intake/Output Intake and Output 12/19/24 07:00 Intake Total 0 ml Balance 0 ml Intake Oral 0 ml Medications Current Medications Medications Dose Ordered Sig/Kylee Route Start Time Stop Time Status Last Admin Dose Admin Docusate Sodium 100 mg DAILY GT 12/19/24 10:00 12/19/24 10:29 100 MG Acetaminophen 650 mg Q6HP PRN PO 12/19/24 02:15 Ondansetron HCl 4 mg Q4HP PRN IV 12/19/24 02:15 Morphine Sulfate 2 mg Q4HPRN PRN IV 12/19/24 02:15 Levothyroxine Sodium 88 mcg DAILY PO 12/19/24 10:00 12/19/24 10:30 88 MCG Carbidopa/Levodopa 1 tab TID PO 12/19/24 06:00 12/19/24 05:40 1 TAB Lactulose 30 ml BID PO 12/19/24 10:00 12/19/24 10:30 30 ML Pantoprazole Sodium 40 mg DAILY PO 12/19/24 10:00 12/19/24 10:30 40 MG Aspirin 81 mg DAILY PO 12/19/24 10:00 12/19/24 10:30 81 MG Atorvastatin Calcium 20 mg HS PO 12/19/24 22:00 Enoxaparin Sodium 30 mg DAILY SC 12/19/24 10:00 12/19/24 10:30 30 MG Laboratory Results Laboratory Tests 12/19/24 10:11 Chemistry Test 12/18/24 22:01 12/19/24 10:11 Albumin 4.1 g/dL (3.2-4.8) Calcium Level 9.0 mg/dL (8.7-10.4) 8.8 mg/dL (8.7-10.4) Total Protein 7.0 g/dL (5.7-8.2) Lipid panel Test 12/18/24 22:01 Lipase 43 U/L (12-53) LFT Test 12/18/24 22:01 Alanine Aminotransferase (ALT) < 9 U/L (7-40) Alkaline Phosphatase 47 U/L (46-116) Aspartate Amino Transferase (AST) 18 U/L (13-40) Total Bilirubin 0.4 mg/dL (0.2-1.0) Labs and/or images reviewed: Labs reviewed by me, Image(s) reviewed by me Assessment/Plan Assessment/Plan Constipation: Colace lactulose Acute abdominal pain Diabetes Parkinson Anemia Hypothyroidism Parkinson's Nonverbal Bedridden Multiple admissions Plan discussed with: Patient Date of Service: Dec 19, 2024 Billing Provider: ANA PAULA SERVIN MD Common Visit Codes: [id number] INP/OBS CARE(HIGH) ANA PAULA SERVIN MD Dec 19, 2024 12:34
[2024-12-19 12:46] VITALS: BP 122/85; PULSE 87; RESP 17; TEMP 97.6; O2SAT 94
[2024-12-19] MEDS: D5W/SOD CHLO 0.9% 1,000 ML IV SCH (13:52)
[2024-12-19 17:00] VITALS: BP 157/81; PULSE 72; RESP 17; TEMP 97.3; O2SAT 96
[2024-12-19 21:00] VITALS: BP 142/81; PULSE 84; RESP 17; TEMP 98.2; O2SAT 96
[2024-12-19] MEDS: ATORVASTATIN 20 MG TAB PO SCH (22:14)
[2024-12-19] MEDS: ACETAMINOPHEN 325 MG TAB PO PRN (22:15)
[2024-12-20 01:00] VITALS: BP 121/75; PULSE 69; RESP 17; TEMP 98.1; O2SAT 96
[2024-12-20 05:00] VITALS: BP 117/68; PULSE 70; RESP 17; TEMP 97.9; O2SAT 95
[2024-12-20] MEDS ORDERED: LACT10PA2 PO ×2 (07:36)
[2024-12-20] MEDS ORDERED: DOCU-94 PO ×2 (07:36)
--- NOTE | 2024-12-20 07:38 | DVHPN2 ---
Reviewed: Care Plan, H&P, Labs, Medications, Previous Orders, Radiology Changes from previous H/P or p: No Changes Objective Vitals Vital Signs Date Time Temp Pulse Resp B/P (MAP) Pulse Ox O2 Delivery O2 Flow Rate FiO2 12/20/24 05:00 97.9 70 17 117/68 (84) 95 97.9 12/19/24 20:00 Room Air* 0 21 Intake/Output Intake and Output 12/20/24 07:00 Intake Total 100 ml Balance 100 ml Intake Oral 100 ml # Voids 3 # Bowel Movements 2 Medications Current Medications Medications Dose Ordered Sig/Kylee Route Start Time Stop Time Status Last Admin Dose Admin Docusate Sodium 100 mg DAILY GT 12/19/24 10:00 12/19/24 10:29 100 MG Acetaminophen 650 mg Q6HP PRN PO 12/19/24 02:15 12/19/24 22:15 650 MG Ondansetron HCl 4 mg Q4HP PRN IV 12/19/24 02:15 Morphine Sulfate 2 mg Q4HPRN PRN IV 12/19/24 02:15 Levothyroxine Sodium 88 mcg DAILY PO 12/19/24 10:00 12/19/24 10:30 88 MCG Carbidopa/Levodopa 1 tab TID PO 12/19/24 06:00 12/20/24 06:13 1 TAB Lactulose 30 ml BID PO 12/19/24 10:00 12/19/24 22:15 30 ML Pantoprazole Sodium 40 mg DAILY PO 12/19/24 10:00 12/19/24 10:30 40 MG Aspirin 81 mg DAILY PO 12/19/24 10:00 12/19/24 10:30 81 MG Atorvastatin Calcium 20 mg HS PO 12/19/24 22:00 12/19/24 22:14 20 MG Enoxaparin Sodium 30 mg DAILY SC 12/19/24 10:00 12/19/24 10:30 30 MG Dextrose/Sodium Chloride 1,000 ml @ 125 mls/hr Q8H IV 12/19/24 12:45 12/20/24 06:12 125 MLS/HR Laboratory Results Laboratory Tests 12/19/24 10:11 Chemistry Test 12/19/24 10:11 Calcium Level 8.8 mg/dL (8.7-10.4) Labs and/or images reviewed: Labs reviewed by me, Image(s) reviewed by me Assessment/Plan Assessment/Plan Constipation: Colace lactulose Acute abdominal pain Diabetes Parkinson Anemia Hypothyroidism Parkinson's Nonverbal Bedridden Multiple admissions Patient has had a good bowel movement and constipation has been relieved after administration of enema 2 times Plan discussed with: Patient My Orders Orders - ANA PAULA SERVIN MD Procedure Category Date Status Time D5w/Sod Chlo 0.9% PHA 12/19/24 In Process (D5w Ns 0.9%) 12:45 Npo (Nothing By DIET 12/19/24 Transmitted Mouth) Diet Lunch * Swallow Request ST 12/19/24 Transmitted 13:20 Date of Service: Dec 20, 2024 Billing Provider: ANA PAULA SERVIN MD Common Visit Codes: [id number] INP/OBS CARE(HIGH) ANA PAULA SERVIN MD Dec 20, 2024 07:38
--- NOTE | 2024-12-20 07:41 | DVHDS2 ---
Discharge Summary Date of Admission Dec 19, 2024 at 02:06 Date of Discharge: Dec 20, 2024 Admitting Diagnosis Abdominal pain secondary to constipation Wounds: None Labs/Diagnostic Data: Laboratory Results Test 12/19/24 10:11 12/18/24 23:07 12/18/24 22:01 White Blood Count 9.3 10^3/uL (4.4-10.8) Red Blood Count 3.84 10^6/uL (4.5-5.90) Hemoglobin 11.3 g/dL (13.5-17.5) Hematocrit 33.8 % (41.0-53.0) Mean Corpuscular Volume 87.9 fL (80.0-100.0) Mean Corpuscular Hemoglobin 29.5 pg (28.0-32.0) Mean Corpuscular Hemoglobin Concent 33.6 g/dL (32.0-36.0) Red Cell Distribution Width 15.8 % (11.8-14.3) Platelet Count 183 10^3/uL (140-450) Mean Platelet Volume 8.6 fL (6.9-10.8) Neutrophils (%) (Auto) 89.3 % (37.0-80.0) Lymphocytes (%) (Auto) 6.0 % (10.0-50.0) Monocytes (%) (Auto) 4.3 % (0.0-12.0) Eosinophils (%) (Auto) 0.3 % (0.0-7.0) Basophils (%) (Auto) 0.1 % (0.0-2.0) Neutrophils # (Auto) 8.3 10 ^3/uL (1.6-8.6) Lymphocytes # (Auto) 0.6 10 ^3/uL (0.4-5.4) Monocytes # (Auto) 0.4 10 ^3/uL (0-1.3) Eosinophils # (Auto) 0 10 ^3/uL (0-0.8) Basophils # (Auto) 0 10 ^3/uL (0-0.2) Nucleated Red Blood Cells 0.1 % Sodium Level 139 mmol/L (136-145) Potassium Level 3.5 mmol/L (3.5-5.1) Chloride Level 104 mmol/L (98-107) Carbon Dioxide Level 26 mmol/L (20-31) Anion Gap 9 (5-15) Blood Urea Nitrogen 9 mg/dL (9-23) Creatinine 0.92 mg/dL (0.700-1.30) Glomerular Filtration Rate Calc 93 mL/min (>90) BUN/Creatinine Ratio 9.8 (10.0-20.0) Serum Glucose 78 mg/dL (74-106) Calcium Level 8.8 mg/dL (8.7-10.4) Troponin I High Sensitivity 11 ng/L (</=54) Lactic Acid Level 1.4 mmol/L (0.4-2.0) Total Bilirubin 0.4 mg/dL (0.2-1.0) Aspartate Amino Transferase (AST) 18 U/L (13-40) Alanine Aminotransferase (ALT) < 9 U/L (7-40) Alkaline Phosphatase 47 U/L (46-116) Total Protein 7.0 g/dL (5.7-8.2) Albumin 4.1 g/dL (3.2-4.8) Lipase 43 U/L (12-53) Other Laboratory Tests 12/19/24 10:11 Brief Hx & Hospital Course: 64-year-old male with a history of diabetes Parkinson's with a anemia hypothyroidism nonverbal bedridden frequent admissions came in for constipation treated with a Colace lactulose and adult Fleet enema x2 he had a good bowel movement and now completely pain-free being discharged home. CT abdomen pelvis without contrast showed constipation. Consults/Reason for consult None Operations or Procedures Enema CT abdomen pelvis without contrast Condition at Discharge: Fair Final Diagnosis/Problems List Constipation: Colace lactulose Acute abdominal pain Diabetes Parkinson Anemia Hypothyroidism Parkinson's Nonverbal Bedridden Multiple admissions Discharge Disposition: Home Discharge Instruct/Medications Diet: Regular Activity: Light activity Follow Up/Referral: Follow up with the primary Dr Jose A medications today Medications: Colace Lactulose Transmitted to pharmacy 35 (Time taken for discharge summary 35 minutes) Discharge Statement: "Patient was advised to return to the ER or call 911 if any headaches, dizziness, shortness of breath, chest pain, abdominal pain, bleeding, fevers, or worsening of medical condition. Patient was counseled about treatment plan, medications, possible side effects, patientverbalized understanding. All questions were answered to the best of my ability. This discharge took greater then 30 minutes in planning, reviewing documentation, counseling the patient, and discussing with other team members." ASSESSMENT ASSESSMENT Hospital Course Improved Assessment Constipation: Colace lactulose Acute abdominal pain Diabetes Parkinson Anemia Hypothyroidism Parkinson's Nonverbal Bedridden Multiple admissions Date of Service: Dec 20, 2024 Billing Provider: ANA PAULA SERVIN MD Common Visit Codes: [id number] DISCH DAY >30min ANA PAULA SERVIN MD Dec 20, 2024 07:41
[2024-12-20 08:26] VITALS: BP 113/73; PULSE 73; RESP 19; TEMP 36.6; O2SAT 97
[2024-12-20 08:45] VITALS: BP 113/73; PULSE 73; RESP 19; TEMP 97.8; O2SAT 97
[2024-12-20 13:08] VITALS: BP 131/85; PULSE 76; RESP 19; TEMP 97.9; O2SAT 97
== END 2024-12-20 14:20 | disposition home or self-care (01) | DRG 390 ==
LOC: ER 21:38 → EDBD 21:38 → OVERFLOW 12-19 02:06 → CENTRAL 12-19 03:50
PROVIDERS: ADMIT Family Medicine; ATTEND Family Medicine
DX: K56.41 Fecal impaction (principal); D64.9 Anemia, unspecified; G20.A1 Parkinson's disease without dyskinesia, without mention of fluctuations; E03.9 Hypothyroidism, unspecified; I10 Essential (primary) hypertension; F02.80 Dementia in other diseases classified elsewhere, unspecified severity, without behavioral disturbance, psychotic disturbance, mood disturbance, and anxiety; E11.9 Type 2 diabetes mellitus without complications; Z79.1 Long term (current) use of non-steroidal anti-inflammatories (NSAID); Z79.899 Other long term (current) drug therapy; Z79.2 Long term (current) use of antibiotics; Z74.01 Bed confinement status; Z79.82 Long term (current) use of aspirin; L89.152 Pressure ulcer of sacral region, stage 2
CPT/HCPCS: 36415; 74018; 80048; 80053; 83605; 83690; 84484; 85025; 92610; 93005; 96360; G0378; J7042

== ENCOUNTER 2024-12-26 12:02 | Inpatient (IN) | payer MEDICARE, MEDICAID ==
[~2024-12-26] VITALS: Ht 157.5 cm; Wt 45.0 kg
[~2024-12-26 12:02] MED LIST changes: -ACET650T12 PO; -AUG875T PO; +DOCU-265 PO; -DOCU-94 PO
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
--- NOTE | 2024-12-26 13:06 | DVH ---
CT CT AB PEL WO CON-NO ORAL OR IV INDICATION: abd pain EXAM DATE: 12/26/2024 12:15 PM COMPARISON: CT CT AB PEL WO CON-NO ORAL OR IV on DOS: 12/17/24, CT CT AB PEL WO CON-NO ORAL OR IV on D OS: 10/30/24, CT CT AB PEL WO CON-NO ORAL OR IV on DOS: 01/07/24 RADIATION DOSE: CTDIvol: 5.47 mGy, DLP: 275.45 mGy*cm PROCEDURE: Helical CT images were obtained of the abdomen and pelvis without IV contrast Sagittal and coronal reconstructions are provided. ORAL CONTRAST: None. ADDITIONAL IMAGES / REFORMATS: None All C T scans at this medical facility are performed using dose modulation techniques as appropriate to a p erformed exam including the following: Automated exposure control was utilized; adjustment of the MA and/or KV according to patient size; and use of iterative reconstruction technique. FINDINGS: LUNG BASE: Normal. LIVER: Normal. GALLBLADDER AND BILIARY TREE: No calcified gallstones. Normal caliber wall. No intra- or extrahepatic biliary ductal dilation. PANCREAS: Normal. SPLEEN: Normal. BOWEL: Large colonic fecal burden. Stool filled appendix. ADRENALS: Normal. KIDNEYS AND URETER: Normal. BLADDER: Em REPRODUCTIVE ORGANS: Normal. LYMPH NODES:No lymphadenopathy. PERITONEUM: No ascites or free air. No other fluid collection. VESSELS: Scattered atherosclerotic calcifications are noted. RETROPERITONEUM: Normal. ABDOMINAL WALL: Small umbilical hernia BONES: Scattered osseous degenerative changes are noted. IMPRESSION: No acute intraabdominal abnormality. Large colonic fecal burden.
--- NOTE | 2024-12-26 13:08 | DVH ---
EXAM: XR Chest, 1 View CLINICAL INDICATION: weak TECHNIQUE: Frontal view of the chest. COMPARISON: XY CHEST PORTABLE on DOS: 01/07/24, XY CHEST PORTABLE on DOS: 12/04/23, CHEST PORTABLE on DOS: 04/12/20, CHEST PORTABLE on DOS: 04/12/20, CHEST PORTABLE on DOS: 03/30/20 FINDINGS: LUNGS AND PLEURAL SPACES: Unremarkable. No consolidation. No pneumothorax. HEART: Unremarkable. No cardiomegaly. MEDIASTINUM: Unremarkable. Normal mediastinal contour. BONES/JOINTS: Unremarkable. No acute fracture. OTHER FINDINGS: . None. IMPRESSION: No acute cardiopulmonary process.
[2024-12-26] MEDS: SODIUM CHLORIDE 0.9% 1,000 ML IV ONE (13:30)
[2024-12-26 13:33] LABS: Basophils # (auto) 0 10 ^3/uL (0-0.2); Basophils % (auto) 0.3 % (0.0-2.0); Eosinophils # (auto) 0 10 ^3/uL (0-0.8); Eosinophils % (auto) 0.6 % (0.0-7.0); Hematocrit 39.7 % (41.0-53.0); Lymphocytes # (auto) 0.3 10 ^3/uL (0.4-5.4); Lymphocytes % (auto) 6.6 % (10.0-50.0); Mean Corpuscular Hemoglobin 29.3 pg (28.0-32.0); Mean Corpuscular Hgb Conc. 32.9 g/dL (32.0-36.0); Monocytes # (auto) 0.2 10 ^3/uL (0-1.3); Monocytes % (auto) 4.5 % (0.0-12.0); Neutrophils # (auto) 4.6 10 ^3/uL (1.6-8.6); Platelet Count (auto) 200 10^3/uL (140-450); Red Blood Cells 4.46 10^6/uL (4.5-5.90); Red Cell Distribution Width 16.8 % (11.8-14.3); White Blood Cell 5.3 10^3/uL (4.4-10.8)
[2024-12-26 13:52] LABS: Alanine Aminotransferase 18 U/L (7-40); Albumin 4.5 g/dL (3.2-4.8); Alkaline Phosphatase 57 U/L (46-116); Anion Gap 8 (5-15); Aspartate Aminotransferase 31 U/L (13-40); BUN/Creatinine Ratio 9.8 (10.0-20.0); Blood Urea Nitrogen 11 mg/dL (9-23); CRP High Sensitivity 0.02 mg/dL (<1.0); Calcium 8.8 mg/dL (8.7-10.4); Carbon Dioxide 26 mmol/L (20-31); Glucose 84 mg/dL (74-106); Magnesium 1.8 mg/dL (1.6-2.6); Potassium 3.8 mmol/L (3.5-5.1); Total Protein 7.8 g/dL (5.7-8.2)
[2024-12-26 13:58] LABS: Bilirubin, Total 0.3 mg/dL (0.2-1.0); Chloride 112 mmol/L (98-107); Sodium 146 mmol/L (136-145)
[2024-12-26 14:36] LABS: Lipase 48 U/L (12-53)
[2024-12-26 15:15] VITALS: PULSE 98; RESP 15; O2SAT 98
[2024-12-26 15:35] LABS: Urine Bacteria None Seen /hpf (None Seen)
[2024-12-26 15:48] LABS: Urine Blood Negative /uL (Negative); Urine Clarity Clear (Clear); Urine Color Light-Yellow (Yellow); Urine Mucus FEW (None Seen); Urine Protein, UAD Negative (Negative); Urine Specific Gravity 1.011 (1.001-1.035); Urine Squamous Epithelial Cell None Seen /hpf (<5); Urine Urobilinogen Normal (Negative); Urine WBC 2 /HPF (0-3)
[2024-12-26] MEDS ORDERED: ONDANSETRON HCL 4 MG/2 ML VIAL IV PRN (16:30)
[2024-12-26] MEDS ORDERED: ACETAMINOPHEN 325 MG TAB PO PRN (16:30)
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
[2024-12-26] MEDS: MAGNESIUM SULFATE 1GM/100ML 100 ML IV SCH (17:48)
[2024-12-26] MEDS: SODIUM CHLORIDE 0.9% 1,000 ML IV SCH (17:48)
[2024-12-26 20:26] VITALS: PULSE 83; RESP 17; O2SAT 96
[2024-12-26] MEDS: ASCORBIC ACID 500 MG TAB PO SCH (22:20)
[2024-12-27 03:59] LABS: Basophils # (auto) 0 10 ^3/uL (0-0.2); Basophils % (auto) 0.4 % (0.0-2.0); Eosinophils # (auto) 0.2 10 ^3/uL (0-0.8); Eosinophils % (auto) 3.5 % (0.0-7.0); Hematocrit 32.5 % (41.0-53.0); Hemoglobin 10.9 g/dL (13.5-17.5); Lymphocytes # (auto) 0.6 10 ^3/uL (0.4-5.4); Lymphocytes % (auto) 13.2 % (10.0-50.0); Mean Corpuscular Hemoglobin 29.7 pg (28.0-32.0); Mean Corpuscular Hgb Conc. 33.6 g/dL (32.0-36.0); Mean Corpuscular Volume 88.6 fL (80.0-100.0); Monocytes # (auto) 0.3 10 ^3/uL (0-1.3); Monocytes % (auto) 6.5 % (0.0-12.0); Neutrophils # (auto) 3.4 10 ^3/uL (1.6-8.6); Neutrophils % (auto) 76.4 % (37.0-80.0); Nucleated Red Blood Cells % 0.2 %; Platelet Count (auto) 183 10^3/uL (140-450); Red Blood Cells 3.67 10^6/uL (4.5-5.90); Red Cell Distribution Width 16.9 % (11.8-14.3); White Blood Cell 4.4 10^3/uL (4.4-10.8)
[2024-12-27 04:31] LABS: Alanine Aminotransferase 37 U/L (7-40); Albumin 3.8 g/dL (3.2-4.8); Alkaline Phosphatase 49 U/L (46-116); BUN/Creatinine Ratio 8.8 (10.0-20.0); Glucose 105 mg/dL (74-106); Potassium 3.6 mmol/L (3.5-5.1); Sodium 142 mmol/L (136-145); Total Protein 6.6 g/dL (5.7-8.2)
[2024-12-27 04:32] LABS: Aspartate Aminotransferase 25 U/L (13-40)
[2024-12-27 04:39] LABS: Blood Urea Nitrogen 7 mg/dL (9-23); Calcium 8.5 mg/dL (8.7-10.4); Chloride 108 mmol/L (98-107)
[2024-12-27 04:51] LABS: Anion Gap 10 (5-15); Carbon Dioxide 24 mmol/L (20-31)
[2024-12-27 05:07] LABS: Bilirubin, Total 0.3 mg/dL (0.2-1.0)
[2024-12-27 05:12] VITALS: PULSE 64; RESP 18; O2SAT 96
[2024-12-27 08:14] VITALS: PULSE 87; RESP 20; O2SAT 96
[2024-12-27 13:00] VITALS: BP 131/88; PULSE 84; RESP 16; TEMP 97.9; O2SAT 97
[2024-12-27] MEDS: LACTULOSE 20Gm/30ML SOLN PO SCH (16:38)
[2024-12-27] MEDS: ENOXAPARIN SOD 40 MG/0.4 ML SYRINGE SC SCH (16:39)
[2024-12-27] MEDS: ZINC SULFATE 220mg CAP or TAB PO SCH (16:39)
[2024-12-27] MEDS: MULTIPLE VITAMIN TAB PO SCH (16:39)
[2024-12-27] MEDS: FLEET ENEMA(ADULT) 135 ML PR ONE (16:39)
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
[2024-12-27 17:00] VITALS: BP 144/81; PULSE 87; RESP 16; TEMP 97.8; O2SAT 99
[2024-12-27] MEDS: PANTOPRAZOLE 40 MG/10 ML VIAL INJ IV ONE (19:03)
[2024-12-27] MEDS: CARBIDOPA W LEVODOPA 25/100mg TABLET PO ONE (19:03)
[2024-12-27 20:00] VITALS: RESP 16
[2024-12-27] MEDS: DOCUSATE SOD 100 MG CAP PO SCH (20:56)
[2024-12-27] MEDS: CARBIDOPA W LEVODOPA 25/100mg TABLET PO SCH (20:56)
[2024-12-27] MEDS: ATORVASTATIN 20 MG TAB PO SCH (20:57)
[2024-12-27 21:00] VITALS: BP 107/74; PULSE 86; RESP 16; TEMP 98.2; O2SAT 98
[2024-12-28] VITALS (7 sets, daily range): BP systolic 96–123; BP diastolic 67–83; PULSE 54–95; RESP 16–18; TEMP 97.7–98.6; O2SAT 97–100
[2024-12-28 07:57] LABS: Basophils # (auto) 0 10 ^3/uL (0-0.2); Basophils % (auto) 0.9 % (0.0-2.0); Eosinophils # (auto) 0.1 10 ^3/uL (0-0.8); Eosinophils % (auto) 3.6 % (0.0-7.0); Hematocrit 33.4 % (41.0-53.0); Lymphocytes # (auto) 0.6 10 ^3/uL (0.4-5.4); Lymphocytes % (auto) 17.3 % (10.0-50.0); Mean Corpuscular Hemoglobin 29.6 pg (28.0-32.0); Mean Corpuscular Volume 89.7 fL (80.0-100.0); Monocytes # (auto) 0.3 10 ^3/uL (0-1.3); Monocytes % (auto) 7.4 % (0.0-12.0); Neutrophils # (auto) 2.5 10 ^3/uL (1.6-8.6); Neutrophils % (auto) 70.8 % (37.0-80.0); Nucleated Red Blood Cells % 0.2 %; Platelet Count (auto) 177 10^3/uL (140-450); Red Blood Cells 3.72 10^6/uL (4.5-5.90); Red Cell Distribution Width 16.9 % (11.8-14.3); White Blood Cell 3.5 10^3/uL (4.4-10.8)
[2024-12-28 08:15] LABS: Anion Gap 9 (5-15); Carbon Dioxide 26 mmol/L (20-31); Potassium 3.8 mmol/L (3.5-5.1); Sodium 144 mmol/L (136-145)
[2024-12-28 08:16] LABS: Calcium 8.9 mg/dL (8.7-10.4)
[2024-12-28 08:18] LABS: Chloride 109 mmol/L (98-107)
[2024-12-28 08:21] LABS: BUN/Creatinine Ratio 9.5 (10.0-20.0); Glucose 79 mg/dL (74-106)
[2024-12-28 08:22] LABS: Magnesium 1.9 mg/dL (1.6-2.6)
[2024-12-28 08:26] LABS: Blood Urea Nitrogen 8 mg/dL (9-23)
--- NOTE | 2024-12-28 10:03 | ECG ---
[facility] Test Date: 2024-12-26 Test Time: 12:03:47 Pat Name: JESSICA IRIZARRY Department: ED Room: 0277 B Gender: M Meter Calibrator: swathi : 1960 Requested By: YAMINI MAHMOOD Order Number: [id number] Reading MD: Lon Sauer Measurements Intervals Otto Rate: 101 P: -62 HI: 214 QRS: 52 QRSD: 80 T: 76 QT: 342 QTc: 444 Interpretive Statements Sinus or ectopic atrial tachycardia Borderline prolonged HI interval Abnormal R-wave progression, early transition Electronically Signed On 12-31-2024 13:13:35 PDT by Lon Sauer Please click the below link to view image of tracing.
[2024-12-28] MEDS: PANTOPRAZOLE 40 MG/10 ML VIAL INJ IV SCH (10:52)
[2024-12-28] MEDS: ASPirin 81 mg TAB PO SCH (10:52)
[2024-12-28] MEDS: LEVOTHYROXINE SODIUM 88 MCG TAB PO SCH (10:53)
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
[2024-12-28] MEDS: FLEET ENEMA(ADULT) 135 ML PR ONE (14:54)
[2024-12-29] VITALS (7 sets, daily range): BP systolic 116–159; BP diastolic 48–93; PULSE 81–117; RESP 16–18; TEMP 97.4–98.9; O2SAT 95–98
[2024-12-29 06:22] LABS: Anion Gap 11 (5-15); Carbon Dioxide 25 mmol/L (20-31); Chloride 108 mmol/L (98-107); Potassium 3.5 mmol/L (3.5-5.1); Sodium 144 mmol/L (136-145)
[2024-12-29 06:23] LABS: Calcium 9.2 mg/dL (8.7-10.4)
[2024-12-29 06:28] LABS: BUN/Creatinine Ratio 9.9 (10.0-20.0); Glucose 83 mg/dL (74-106)
[2024-12-29 06:30] LABS: Blood Urea Nitrogen 9 mg/dL (9-23)
[2024-12-29] MEDS: POTASSIUM EFFERVESENT TAB 25 MEQ PO ONE (11:27)
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
== END 2024-12-29 20:12 | disposition home or self-care (01) | DRG 388 ==
LOC: EDBD 12:02 → ER 12:02 → OVERFLOW 16:21 → WEST WING 12-27 09:14
PROVIDERS: ADMIT Internal Medicine; ATTEND Internal Medicine
DX: K56.41 Fecal impaction (principal); R53.2 Functional quadriplegia; E87.0 Hyperosmolality and hypernatremia; R64 Cachexia; Z68.1 Body mass index [BMI] 19.9 or less, adult; E44.1 Mild protein-calorie malnutrition; R62.7 Adult failure to thrive; E11.9 Type 2 diabetes mellitus without complications; E83.42 Hypomagnesemia; I10 Essential (primary) hypertension; D64.9 Anemia, unspecified; E03.9 Hypothyroidism, unspecified; G20.A1 Parkinson's disease without dyskinesia, without mention of fluctuations; L89.891 Pressure ulcer of other site, stage 1; E86.0 Dehydration; Z86.73 Personal history of transient ischemic attack (TIA), and cerebral infarction without residual deficits; Z74.01 Bed confinement status; Z79.899 Other long term (current) drug therapy
CPT/HCPCS: 36415; 71045; 74176; 80048; 80053; 81001; 83605; 83690; 83735; 83880; 84484; 85025; 86141; 87081; 92610; 93005; 96361; 96365; G0378; J2470

== ENCOUNTER 2025-01-13 10:24 | Inpatient (IN) | payer MEDICARE, MEDICAID ==
[~2025-01-13] VITALS: Ht 160 cm; Wt 45.0 kg
--- NOTE | 2025-01-13 10:32 | ED.PDOC ---
GI ASSESSMENT HPI Comments 64 year old male ANA presents to the ED with chief complaint of abdominal pain. EMS reports that the patient is coming from home with concern of abdominal pain with associated constipation for the past week. EMS relays that the patient's brother stated that the patient has used stool softeners with no relief and is currently on Cipro. EMS states patient is bed bound and non-verbal, but able to answer to yes or no questions. EMS denies any further history at this time. Chief Complaint: Abdominal Pain Time Seen by MD: 10:28 Reviewed Notes: Nurses Notes, Radiologist Notes, Medications, Allergies Allergies: Coded Allergies: NO KNOWN ALLERGIES (Unverified , 12/17/24) Information Source: Patient, Emergency Med Personnel Mode of Arrival: EMS Timing: Days Duration: Since onset Prehospital treatment: None Quality: Aching Vomitus: None Stool: Impaction Severity: Moderate Recent: None Recent Hx of: None Pain Location: Diffuse Modifying Factors: Nothing Associated sign and symptoms: Constipation, Abdominal Pain Past Medical History PAST MEDICAL HISTORY: DM Past Medical History (Other): Bed-bound Surgical History: Unknown Family History Family History: Reviewed,noncontributory to illness Social History Smoker: Non-Smoker Alcohol: Denies ETOH Use Drugs: Denies Drug Use Lives In: Home, Assisted Care Constitutional: denies: chills, diaphoresis, fatigue, fever, malaise, sweats, weakness, others EENTM: denies: blurred vision, double vision, ear bleeding, ear discharge, ear drainage, ear pain, ear ringing, eye pain, eye redness, hearing loss, mouth pain, mouth swelling, nasal discharge, nose bleeding, nose congestion, nose pain, photophobia, tearing, throat pain, throat swelling, voice changes, others Respiratory: denies: cough, hemoptysis, orthopnea, SOB at rest, shortness of breath, SOB with excertion, stridor, wheezing, others Cardiovascular: denies: chest pain, dizzy spells, diaphoresis, Dyspnea on exertion, edema, irregular heart beat, left arm pain, lightheadedness, palpitations, PND, syncope, others Gastrointestinal: reports: abdominal pain, constipated; denies: abdomen distended, blood streaked bowels, diarrhea, dysphagia, difficulty swallowing, hematemesis, melena, nausea, poor appetite, poor fluid intake, rectal bleeding, rectal pain, vomiting, others Genitourinary: denies: burning, dysuria, flank pain, frequency, hematuria, incontinence, penile discharge, penile sore, pain, testicle pain, testicle swelling, urgency, others Neurological: denies: dizziness, fainting, headache, left sided numbness, left sided weakness, numbness, paresthesia, pre-existing deficit, right sided numbness, right sided weakness, seizure, speech problems, tingling, tremors, weakness, others Musculoskeletal: denies: back pain, gout, joint pain, joint swelling, muscle pain, muscle stiffness, neck pain, others Integumetry: denies: bruises, change in color, change in hair/nails, dryness, laceration, lesions, lumps, rash, wounds, others Allergic/Immunocompromised: denies: Difficulty Healing, Frequent Infections, Hives, Itching, others Hematologic/Lymphatic: denies: anemia, blood clots, easy bleeding, easy bruising, swollen glands, others Endocrine: denies: excessive hunger, excessive sweating, excessive thirst, excessive urination, flushing, intolerance to cold, intolerance to heat, unexplained weight gain, unexplained weight loss, others Psychiatric: denies: anxiety, bipolar disorder, depression, hopeless, panic disorder, schizophrenia, sleepless, suicidal, others All Other Systems: Reviewed and Negative Physical Exam General Appearance: Moderate Distress HEENT: Normal ENT Inspection, Pharynx Normal, TMs Normal Neck: Full Range of Motion, Non-Tender, Normal, Normal Inspection Respiratory: Chest Non-Tender, Lungs Clear, No Accessory Muscle Use, No Respiratory Distress, Normal Breath Sounds Cardiovascular: No Edema, No JVD, No Murmur, No Gallop, Normal Peripheral Pulses, Regular Rate/Rhythm Breast Exam: Deferred Gastrointestinal: Diffuse, No Organomegaly, No Pulsatile Mass, Normal Bowel Sounds, Soft, Tenderness Genitalia: Deferred Pelvic: Deferred Rectal: Deferred Extremities: No calf tenderness, Normal capillary refill, Non-tender, No pedal edema Musculoskeletal : Apperance: Normal Neurologic: rolled ham lacer II-XII nml as Tested, Motor Weakness, No Sensory Deficits, Other (The patient was nonverbal and weakness) Cerebellar Function: Unable to Test Reflexes: NOT DONE Skin: Dry, Pallor, Warm Lymphatic: No Adenopathy Was a procedure done? Was a procedure done?: No GI differential Dx Differential Diagnosis: Appendicitis, Gastritis/PUD, Gastroenteritis, Ischemic Bowel, Pancreatitis, UTI, Electrolyte Imbalance, Food Poisoning X-Ray, Labs, Meds, VS Vital Signs Date Time Temp Pulse Resp B/P (MAP) Pulse Ox O2 Delivery O2 Flow Rate FiO2 01/13/25 11:46 98.0 94 16 132/80 (97) 98 98.0 01/13/25 11:29 Room Air* 0 21 01/13/25 10:28 98.4 99 18 134/81 (98) 98 98.4 Lab Test 01/13/25 10:55 Range/Units White Blood Count 5.9 4.4-10.8 10^3/uL Red Blood Count 4.12 L 4.5-5.90 10^6/uL Hemoglobin 12.2 L 13.5-17.5 g/dL Hematocrit 36.4 L 41.0-53.0 % Mean Corpuscular Volume 88.4 80.0-100.0 fL Mean Corpuscular Hemoglobin 29.6 28.0-32.0 pg Mean Corpuscular Hemoglobin Concent 33.5 32.0-36.0 g/dL Red Cell Distribution Width 16.8 H 11.8-14.3 % Platelet Count 228 140-450 10^3/uL Mean Platelet Volume 8.4 6.9-10.8 fL Neutrophils (%) (Auto) 85.2 H 37.0-80.0 % Lymphocytes (%) (Auto) 8.4 L 10.0-50.0 % Monocytes (%) (Auto) 4.0 0.0-12.0 % Eosinophils (%) (Auto) 0.4 0.0-7.0 % Basophils (%) (Auto) 2.0 0.0-2.0 % Neutrophils # (Auto) 5.0 1.6-8.6 10 ^3/uL Lymphocytes # (Auto) 0.5 0.4-5.4 10 ^3/uL Monocytes # (Auto) 0.2 0-1.3 10 ^3/uL Eosinophils # (Auto) 0 0-0.8 10 ^3/uL Basophils # (Auto) 0.1 0-0.2 10 ^3/uL Nucleated Red Blood Cells 0.1 % Sodium Level 142 136-145 mmol/L Potassium Level 3.8 3.5-5.1 mmol/L Chloride Level 106 98-107 mmol/L Carbon Dioxide Level 27 20-31 mmol/L Anion Gap 9 5-15 Blood Urea Nitrogen 11 9-23 mg/dL Creatinine 0.91 0.700-1.30 mg/dL Glomerular Filtration Rate Calc 95 >90 mL/min BUN/Creatinine Ratio 12.1 10.0-20.0 Serum Glucose 96 74-106 mg/dL Calcium Level 9.8 8.7-10.4 mg/dL Total Bilirubin 0.4 0.2-1.0 mg/dL Aspartate Amino Transferase (AST) 44 H 13-40 U/L Alanine Aminotransferase (ALT) 23 7-40 U/L Alkaline Phosphatase 73 46-116 U/L Total Protein 8.0 5.7-8.2 g/dL Albumin 4.5 3.2-4.8 g/dL CT Abd/Pel indicates: There is large amount of stool in the distal colon, particularly in the rectosigmoid colon. There is likely fecal impaction in the rectum. The patient's CBC is within normal limits The chemistry panel is within normal limits The patient will have a GI consult The patient was admitted Images Reviewed?: Images reviewed and evaluated by me Time of 1ST Reevaluation: 12:33 Reevaluation 1ST: Unchanged Patient Education/Counseling: Diagnosis, Treatment, Prognosis Family Education/Counseling: No Family Present Additional Information -Reviewed patient's previous visit(s): None - The following tests were ordered, and results were reviewed by me: CT Abd/Pel, CBC, CMP, UA - Additional information was gathered from interviewing the following independent Historian: EMS - I reviewed and agreed with the following test results read by other provider: CT Abd/Pel - I discussed treatments and results with medical personnel and: patient Comprehensive systems review obtained and negative except for what is stated in the HPI. Departure 1 Departure Time of Disposition: 12:32 Impression: Primary Impression: Intractable abdominal pain Additional Impression: Fecal impaction Disposition: ADMITTED INPATIENT Admit to: Med Surg Condition: Fair Critical Care Note Critical Care Time?: No Stability Stability form required: Yes Unstable for transfer: ED Physician Assesment (Clinical assesment) Heart Score Heart Score: Heart Score Response (Comments) Value History N/A 0 EKG N/A 0 Age N/A 0 Risk Factors N/A 0 Troponin N/A 0 Total 0 I personally scribed for GOGO SHIPMAN MD ([email or web address]) on 01/13/25 at 10:32. Electronically submitted by Jeremias Ferrer ([email or web address]). I personally scribed for GOGO SHIPMAN MD ([email or web address]) on 01/13/25 at 11:57. Electronically submitted by Jeremias Ferrer ([email or web address]). GOGO SHIPMAN MD Jan 13, 2025 10:32
[2025-01-13 11:05] LABS: Basophils # (auto) 0.1 10 ^3/uL (0-0.2); Eosinophils # (auto) 0 10 ^3/uL (0-0.8); Eosinophils % (auto) 0.4 % (0.0-7.0); Hematocrit 36.4 % (41.0-53.0); Hemoglobin 12.2 g/dL (13.5-17.5); Lymphocytes # (auto) 0.5 10 ^3/uL (0.4-5.4); Lymphocytes % (auto) 8.4 % (10.0-50.0); Mean Corpuscular Hemoglobin 29.6 pg (28.0-32.0); Mean Corpuscular Hgb Conc. 33.5 g/dL (32.0-36.0); Mean Corpuscular Volume 88.4 fL (80.0-100.0); Monocytes # (auto) 0.2 10 ^3/uL (0-1.3); Neutrophils % (auto) 85.2 % (37.0-80.0); Nucleated Red Blood Cells % 0.1 %; Platelet Count (auto) 228 10^3/uL (140-450); Red Blood Cells 4.12 10^6/uL (4.5-5.90); Red Cell Distribution Width 16.8 % (11.8-14.3); White Blood Cell 5.9 10^3/uL (4.4-10.8)
[2025-01-13 11:22] LABS: Alanine Aminotransferase 23 U/L (7-40); Albumin 4.5 g/dL (3.2-4.8); Alkaline Phosphatase 73 U/L (46-116); Anion Gap 9 (5-15); Aspartate Aminotransferase 44 U/L (13-40); BUN/Creatinine Ratio 12.1 (10.0-20.0); Bilirubin, Total 0.4 mg/dL (0.2-1.0); Blood Urea Nitrogen 11 mg/dL (9-23); Calcium 9.8 mg/dL (8.7-10.4); Carbon Dioxide 27 mmol/L (20-31); Chloride 106 mmol/L (98-107); Glucose 96 mg/dL (74-106); Potassium 3.8 mmol/L (3.5-5.1); Sodium 142 mmol/L (136-145)
--- NOTE | 2025-01-13 11:52 | DVH ---
CT ABDOMEN AND PELVIS WITHOUT CONTRAST CLINICAL HISTORY: pain TECHNIQUE: Multiple contiguous axial images of the abdomen and pelvis without intravenous contrast. T he images were reformatted degenerate coronal and sagittal reconstructions. All CT scans at this medical facility are performed using dose modulation techniques as appropriate t o a performed exam including the following:Automated exposure control was utilized; adjustment of the MA and/or KV according to patient size; and use of iterative reconstruction technique. Radiation Dose Information: CT Dose: CTDI volume is 5.8 mGy. Dose-length product is 309.77 mGy*cm Comparison: None FINDINGS: Evaluation of the abdomen and pelvis is limited without intravenous contrast. Gallbladder is not adequately seen. The liver, pancreas, kidneys, adrenal glands, and spleen gross ly appear within normal limits. There is no obvious free fluid or free air. There are no dilated small or large bowel loops. There is large amount of stool in the distal colon, particularly in the rectosigmoid colon. There is likely fecal impaction in the rectum. There is large amount of air in the proximal and transverse colon. The appendix is not seen in the right lower quad rant abdomen. The abdominal aorta and IVC appear within normal limits. The bladder appears unremarkable for the degree of distention. Pelvic organ appears within normal rolon its. There is no gross evidence of a pelvic mass. There is no free fluid collection. There is elevation of the left hemidiaphragm. There is mild scarring versus atelectasis in the lung b ases. There is no acute osseous abnormality. IMPRESSION: 1. There is large amount of stool in the distal colon, particularly in the rectosigmoid colon. There is likely fecal impaction in the rectum. HS:Y
[2025-01-13] MEDS ORDERED: ONDANSETRON HCL 4 MG/2 ML VIAL IV PRN (19:30)
[2025-01-13] MEDS ORDERED: ACETAMINOPHEN 325 MG TAB PO PRN (19:30)
[2025-01-13 19:50] VITALS: PULSE 79; RESP 14; O2SAT 97
[2025-01-13 20:03] LABS: Urine Bacteria None Seen /hpf (None Seen)
[2025-01-13 20:16] LABS: Urine Blood Negative /uL (Negative); Urine Clarity Clear (Clear); Urine Color Light-Yellow (Yellow); Urine Mucus FEW (None Seen); Urine Protein, UAD Negative (Negative); Urine Specific Gravity 1.018 (1.001-1.035); Urine Squamous Epithelial Cell None Seen /hpf (<5); Urine Urobilinogen Normal (Negative); Urine WBC 2 /HPF (0-3); Urine pH 5.5 (5.0-9.0)
[2025-01-13] MEDS: FLEET ENEMA(ADULT) 135 ML PR ONE (20:51)
[2025-01-13] MEDS: HYDROcodone-ACET 5/325MG TAB PO PRN (20:52)
[2025-01-13] MEDS: DOCUSATE SOD 100 MG CAP PO SCH (20:52)
[2025-01-14] VITALS (7 sets, daily range): BP systolic 95–145; BP diastolic 61–99; PULSE 64–97; RESP 15–17; TEMP 97.7–98.3; O2SAT 94–99
--- NOTE | 2025-01-14 02:20 | DVHHP2 ---
History of Present Illness Reason for Visit: Constipation History of Present Illness 64-year-old male presents for evaluation of constipation. Patient is bed ridden and is a six secondary to CVA. He presents with complaints of abdominal pain with constipation for the past one-week. No rebound tenderness. No cardiac or respiratory symptoms. Past Medical History Diabetes mellitus and CVA Past Surgical History Denies Family History Noncontributory Smoke: No ALCOHOL: none Drugs: None Lives: with Family Review of Systems Review of Systems Review of systems are currently negative otherwise addressed in HPI. Allergies: Coded Allergies: NO KNOWN ALLERGIES (Unverified , 12/17/24) Medications Current Medications Medications Dose Ordered Sig/Kylee Route Start Time Stop Time Status Last Admin Dose Admin Docusate Sodium 100 mg BID PO 01/13/25 22:00 01/13/25 20:52 100 MG Acetaminophen/ Hydrocodone Bitart 1 tab Q4HP PRN PO 01/13/25 19:30 01/13/25 20:52 1 TAB Ondansetron HCl 4 mg Q4HP PRN IV 01/13/25 19:30 Enoxaparin Sodium 40 mg DAILY SC 01/14/25 10:00 Acetaminophen 650 mg Q6HP PRN PO 01/13/25 19:30 Pantoprazole Sodium 40 mg DAILY IV 01/14/25 10:00 Exam Vital Signs Vital Signs Date Time Temp Pulse Resp B/P (MAP) Pulse Ox O2 Delivery O2 Flow Rate FiO2 01/14/25 00:00 82 01/13/25 19:50 98.6 14 135/76 (95) 97 98.6 01/13/25 11:29 Room Air* 0 21 Exam Gen: 64-year-old male in mild distress. Skin: Warm, dry, normal color and texture, no rash. HEENT: Normocephalic atraumatic, mucous membranes moist and pink. Neck: Cervical and supraclavicular nodes normal without enlargement, trachea is midline, thyroid gland is normal without masses. Pulmonary: Clear to auscultation and percussion bilaterally. Cardiac: Regular rate and rhythm. No murmur Abdomen: Soft, nontender, nondistended, bowel sounds present all 4 quadrants, no guarding, no rigidity, no organomegaly. Extremities: No cyanosis, clubbing, no edema Neuro: Cranial nerves II through XII grossly intact, normal affect and speech, no focal motor deficits. Labs/Xrays ORDERING PHYSICIAN: GOGO SHIPMAN MD PROCEDURE(s): ABPL - CT AB PEL WO CON-NO ORAL OR IV REASON: pain ORDER NUMBER(s): [id number], ACCESSION NUMBER(s): [id number] CT ABDOMEN AND PELVIS WITHOUT CONTRAST CLINICAL HISTORY: pain TECHNIQUE: Multiple contiguous axial images of the abdomen and pelvis without intravenous contrast. The images were reformatted degenerate coronal and sagittal reconstructions. All CT scans at this medical facility are performed using dose modulation techniques as appropriate to a performed exam including the following:Automated exposure control was utilized; adjustment of the MA and/or KV according to patient size; and use of iterative reconstruction technique. Radiation Dose Information: CT Dose: CTDI volume is 5.8 mGy. Dose-length product is 309.77 mGy*cm Comparison: None FINDINGS: Evaluation of the abdomen and pelvis is limited without intravenous contrast. Gallbladder is not adequately seen. The liver, pancreas, kidneys, adrenal glands, and spleen grossly appear within normal limits. There is no obvious free fluid or free air. There are no dilated small or large bowel loops. There is large amount of stool in the distal colon, particularly in the rectosigmoid colon. There is likely fecal impaction in the rectum. There is large amount of air in the proximal and transverse colon. The appendix is not seen in the right lower quadrant abdomen. The abdominal aorta and IVC appear within normal limits. The bladder appears unremarkable for the degree of distention. Pelvic organ appears within normal limits. There is no gross evidence of a pelvic mass. There is no free fluid collection. There is elevation of the left hemidiaphragm. There is mild scarring versus atelectasis in the lung bases. There is no acute osseous abnormality. IMPRESSION: 1. There is large amount of stool in the distal colon, particularly in the rectosigmoid colon. There is likely fecal impaction in the rectum. HS:Y ATED BY: CHUCK HUBBARD MD DICTATED DATE/TIME: 01/13/25 1150 Labs Test 01/13/25 20:01 01/13/25 10:55 Range/Units Urine Color Light-yellow Yellow Urine Clarity Clear Clear Urine pH 5.5 5.0-9.0 Urine Specific [place] 1.018 1.001-1.035 Urine Protein Negative Negative Urine Ketones Negative Negative Urine Blood Negative Negative /uL Urine Nitrite Negative Negative Urine Bilirubin Negative Negative Urine Urobilinogen Normal Negative mg/dL Urine Leukocyte Esterase Negative Negative /uL Urine RBC 1 0 - 3 /hpf Urine Microscopic WBC 2 0-3 /HPF Urine Squamous Epithelial Cells None seen <5 /hpf Urine Bacteria None seen None Seen /hpf Urine Mucus Few None Seen Urine Glucose Normal Normal mg/dL White Blood Count 5.9 4.4-10.8 10^3/uL Red Blood Count 4.12 L 4.5-5.90 10^6/uL Hemoglobin 12.2 L 13.5-17.5 g/dL Hematocrit 36.4 L 41.0-53.0 % Mean Corpuscular Volume 88.4 80.0-100.0 fL Mean Corpuscular Hemoglobin 29.6 28.0-32.0 pg Mean Corpuscular Hemoglobin Concent 33.5 32.0-36.0 g/dL Red Cell Distribution Width 16.8 H 11.8-14.3 % Platelet Count 228 140-450 10^3/uL Mean Platelet Volume 8.4 6.9-10.8 fL Neutrophils (%) (Auto) 85.2 H 37.0-80.0 % Lymphocytes (%) (Auto) 8.4 L 10.0-50.0 % Monocytes (%) (Auto) 4.0 0.0-12.0 % Eosinophils (%) (Auto) 0.4 0.0-7.0 % Basophils (%) (Auto) 2.0 0.0-2.0 % Neutrophils # (Auto) 5.0 1.6-8.6 10 ^3/uL Lymphocytes # (Auto) 0.5 0.4-5.4 10 ^3/uL Monocytes # (Auto) 0.2 0-1.3 10 ^3/uL Eosinophils # (Auto) 0 0-0.8 10 ^3/uL Basophils # (Auto) 0.1 0-0.2 10 ^3/uL Nucleated Red Blood Cells 0.1 % Sodium Level 142 136-145 mmol/L Potassium Level 3.8 3.5-5.1 mmol/L Chloride Level 106 98-107 mmol/L Carbon Dioxide Level 27 20-31 mmol/L Anion Gap 9 5-15 Blood Urea Nitrogen 11 9-23 mg/dL Creatinine 0.91 0.700-1.30 mg/dL Glomerular Filtration Rate Calc 95 >90 mL/min BUN/Creatinine Ratio 12.1 10.0-20.0 Serum Glucose 96 74-106 mg/dL Calcium Level 9.8 8.7-10.4 mg/dL Total Bilirubin 0.4 0.2-1.0 mg/dL Aspartate Amino Transferase (AST) 44 H 13-40 U/L Alanine Aminotransferase (ALT) 23 7-40 U/L Alkaline Phosphatase 73 46-116 U/L Total Protein 8.0 5.7-8.2 g/dL Albumin 4.5 3.2-4.8 g/dL Assessment/Plan Assessment/Plan Assessment Acute abdominal pain Fecal impaction Bed ridden Diabetes mellitus History of CVA Plan Admit the patient to [facility] to the hospitalist Pedro Pablo fergusonema Bowel regimen Resume home medications Continue treatment per orders Plan discussed with: Patient My Orders Orders - REILLY RHODES Procedure Category Date Status Time Docusate Sodium PHA 01/13/25 In Process Capsule (Colace 22:00 Admit ADMIT 01/13/25 Transmitted 19:17 Hydrocodone-Acet PHA 01/13/25 In Process 5/325mg Tab ([place] 19:30 Ondansetron Hcl PHA 01/13/25 In Process (Zofran) 19:30 Enoxaparin Sodium PHA 01/14/25 In Process (Lovenox) 10:00 Condition: Stable DIVYA 01/13/25 In Process 19:17 Acetaminophen Tablet PHA 01/13/25 In Process (Tylenol Tablet) 19:30 Clear Liq Diet DIET 01/14/25 Transmitted Breakfast Maintain Bed Rest DIVYA 01/13/25 In Process 19:17 Pantoprazole PHA 01/14/25 In Process (Protonix) 10:00 Date of Service: Jan 13, 2025 Billing Provider: REILLY RHODES Common Visit Codes: [id number] INP/OBS CARE (MOD) REILLY RHODES Jan 14, 2025 02:20
[2025-01-14] MEDS: PANTOPRAZOLE 40 MG/10 ML VIAL INJ IV SCH (09:33)
[2025-01-14] MEDS: ENOXAPARIN SOD 40 MG/0.4 ML SYRINGE SC SCH (09:33)
--- NOTE | 2025-01-14 12:07 | DVHPN2 ---
Reviewed: Care Plan, H&P, Labs, Medications, Previous Orders, Radiology Changes from previous H/P or p: No Changes Objective Vitals Vital Signs Date Time Temp Pulse Resp B/P (MAP) Pulse Ox O2 Delivery O2 Flow Rate FiO2 01/14/25 09:00 98.2 96 16 114/76 (89) 97 98.2 01/14/25 02:08 Room Air* 0 21 Intake/Output Intake and Output 01/14/25 07:00 Intake Total 0 ml Balance 0 ml Intake Oral 0 ml # Bowel Movements 1 Medications Current Medications Medications Dose Ordered Sig/Kylee Route Start Time Stop Time Status Last Admin Dose Admin Docusate Sodium 100 mg BID PO 01/13/25 22:00 01/14/25 09:33 100 MG Acetaminophen/ Hydrocodone Bitart 1 tab Q4HP PRN PO 01/13/25 19:30 01/13/25 20:52 1 TAB Ondansetron HCl 4 mg Q4HP PRN IV 01/13/25 19:30 Enoxaparin Sodium 40 mg DAILY SC 01/14/25 10:00 01/14/25 09:33 40 MG Acetaminophen 650 mg Q6HP PRN PO 01/13/25 19:30 Pantoprazole Sodium 40 mg DAILY IV 01/14/25 10:00 01/14/25 09:33 40 MG Laboratory Results Laboratory Tests 01/13/25 10:55 Urinalysis Test 01/13/25 20:01 Urine Color Light-yellow (Yellow) Urine Clarity Clear (Clear) Urine pH 5.5 (5.0-9.0) Urine Specific [place] 1.018 (1.001-1.035) Urine Protein Negative (Negative) Urine Ketones Negative (Negative) Urine Blood Negative /uL (Negative) Urine Nitrite Negative (Negative) Urine Bilirubin Negative (Negative) Urine Urobilinogen Normal mg/dL (Negative) Urine Leukocyte Esterase Negative /uL (Negative) Urine RBC 1 /hpf (0 - 3) Urine Microscopic WBC 2 /HPF (0-3) Urine Squamous Epithelial Cells None seen /hpf (<5) Urine Bacteria None seen /hpf (None Seen) Urine Mucus Few (None Seen) Urine Glucose Normal mg/dL (Normal) Labs and/or images reviewed: Labs reviewed by me, Image(s) reviewed by me Assessment/Plan Assessment/Plan Acute abdominal pain Fecal impaction : Patient has had bowel movement after enema in the emergency room GI consult for Dr. Mickie Newsome Chronic Bed ridden Developmental delay Diabetes mellitus History of CVA Plan discussed with: Patient My Orders Orders - ANA PAULA SERVIN MD Procedure Category Date Status Time * Gi Dvh It Security Architect CONS 01/14/25 Transmitted 12:01 Date of Service: Jan 14, 2025 Billing Provider: ANA PAULA SERVIN MD Common Visit Codes: [id number] INP/OBS CARE(HIGH) ANA PAULA SERVIN MD Jan 14, 2025 12:07
--- NOTE | 2025-01-14 15:26 | DVHINCON2 ---
Date of service: Jan 14, 2025 Family History: Diabetes mellitus G8 MOTHER G8 FATHER G8 BROTHER FH: CVA (cerebrovascular accident) G8 FATHER Allergies: Coded Allergies: NO KNOWN ALLERGIES (Unverified , 01/07/24) Home Meds Active Scripts Lactulose (Lactulose) 10 Gm/15 Ml Triny, 30 ML PO BID for 30 Days, #100 ML [facility] 12/24/24 Docusate Sodium (Docusate Sodium) 100 Mg Cap, 100 MG PO BID for 60 Days, #120 CAP Prov:[facility] 12/24/24 Reported Medications Omeprazole (Gnp Omeprazole) 20 Mg Tab, 20 MG PO DAILY, TAB 10/31/24 Levothyroxine Sodium (Levothyroxine Sodium) 88 Mcg Tab, 1 TAB PO DAILY 12/04/23 Carbidopa-Levodopa (Carbidopa/Levodopa Odt 25-100 mg) 1 Tab Tab, 1 TAB PO TID 12/04/23 Current Medications Current Medications Medications (Trade) Dose Ordered Sig/Kylee Route PRN Reason Start Time Stop Time Status Last Admin Docusate Sodium (Colace Capsule) 100 mg BID PO 01/13/25 22:00 01/14/25 09:33 Acetaminophen/ Hydrocodone Bitart ([place] 5/325MG Tab) 1 tab Q4HP PRN PO MODERATE PAIN (4-6 PAIN SCALE) 01/13/25 19:30 01/13/25 20:52 Ondansetron HCl (Zofran) 4 mg Q4HP PRN IV NAUSEA / VOMITING 01/13/25 19:30 Enoxaparin Sodium (Lovenox) 40 mg DAILY SC 01/14/25 10:00 01/14/25 09:33 Acetaminophen (Tylenol Tablet) 650 mg Q6HP PRN PO PAIN SCALE 1-3 OR TEMP>100.4 01/13/25 19:30 Pantoprazole Sodium (Protonix) 40 mg DAILY IV 01/14/25 10:00 01/14/25 09:33 Vital Signs Vital Signs Date Time Temp Pulse Resp B/P (MAP) Pulse Ox O2 Delivery O2 Flow Rate FiO2 01/14/25 13:00 97.8 82 15 95/61 (72) 98 97.8 01/14/25 08:00 Room Air* 0 21 Labs/Diagnostic Data Labs Test 01/13/25 20:01 01/13/25 10:55 Range/Units Urine Color Light-yellow Yellow Urine Clarity Clear Clear Urine pH 5.5 5.0-9.0 Urine Specific [place] 1.018 1.001-1.035 Urine Protein Negative Negative Urine Ketones Negative Negative Urine Blood Negative Negative /uL Urine Nitrite Negative Negative Urine Bilirubin Negative Negative Urine Urobilinogen Normal Negative mg/dL Urine Leukocyte Esterase Negative Negative /uL Urine RBC 1 0 - 3 /hpf Urine Microscopic WBC 2 0-3 /HPF Urine Squamous Epithelial Cells None seen <5 /hpf Urine Bacteria None seen None Seen /hpf Urine Mucus Few None Seen Urine Glucose Normal Normal mg/dL White Blood Count 5.9 4.4-10.8 10^3/uL Red Blood Count 4.12 L 4.5-5.90 10^6/uL Hemoglobin 12.2 L 13.5-17.5 g/dL Hematocrit 36.4 L 41.0-53.0 % Mean Corpuscular Volume 88.4 80.0-100.0 fL Mean Corpuscular Hemoglobin 29.6 28.0-32.0 pg Mean Corpuscular Hemoglobin Concent 33.5 32.0-36.0 g/dL Red Cell Distribution Width 16.8 H 11.8-14.3 % Platelet Count 228 140-450 10^3/uL Mean Platelet Volume 8.4 6.9-10.8 fL Neutrophils (%) (Auto) 85.2 H 37.0-80.0 % Lymphocytes (%) (Auto) 8.4 L 10.0-50.0 % Monocytes (%) (Auto) 4.0 0.0-12.0 % Eosinophils (%) (Auto) 0.4 0.0-7.0 % Basophils (%) (Auto) 2.0 0.0-2.0 % Neutrophils # (Auto) 5.0 1.6-8.6 10 ^3/uL Lymphocytes # (Auto) 0.5 0.4-5.4 10 ^3/uL Monocytes # (Auto) 0.2 0-1.3 10 ^3/uL Eosinophils # (Auto) 0 0-0.8 10 ^3/uL Basophils # (Auto) 0.1 0-0.2 10 ^3/uL Nucleated Red Blood Cells 0.1 % Sodium Level 142 136-145 mmol/L Potassium Level 3.8 3.5-5.1 mmol/L Chloride Level 106 98-107 mmol/L Carbon Dioxide Level 27 20-31 mmol/L Anion Gap 9 5-15 Blood Urea Nitrogen 11 9-23 mg/dL Creatinine 0.91 0.700-1.30 mg/dL Glomerular Filtration Rate Calc 95 >90 mL/min BUN/Creatinine Ratio 12.1 10.0-20.0 Serum Glucose 96 74-106 mg/dL Calcium Level 9.8 8.7-10.4 mg/dL Total Bilirubin 0.4 0.2-1.0 mg/dL Aspartate Amino Transferase (AST) 44 H 13-40 U/L Alanine Aminotransferase (ALT) 23 7-40 U/L Alkaline Phosphatase 73 46-116 U/L Total Protein 8.0 5.7-8.2 g/dL Albumin 4.5 3.2-4.8 g/dL Assessment [id number] CONSTIPATION PARAPLEGIC WITH STROKE HISTORY RECTAL EXAM DONE AT BEDSIDE LOOSE STOOL NO FECAL IMPACTION NOTED CONTINUE CLOSE OBSERVATION Plan discussed with: Other PAULINA BONILLA MD Jan 14, 2025 15:26
[2025-01-14] MEDS ORDERED: POLYETHYLENE GLYCOL 17 GM PWDR PO ONE (15:30)
--- NOTE | 2025-01-14 16:07 | DVHINCON2 ---
DATE OF CONSULTATION: 01/14/2025 HISTORY OF PRESENT ILLNESS: He is 64 years old, unable to give history. He is aphasic and I was asked to see him regarding fecal impaction or possible disimpaction, history of constipation. He is bedridden and has a stroke history and no cardiac or respiratory issues. PAST MEDICAL HISTORY: Diabetes and CVA. PAST SURGICAL HISTORY: Not available. PHYSICAL EXAMINATION: VITAL SIGNS: Afebrile, stable signs. HEENT: With no evidence of pallor, cyanosis, or jaundice. NECK: Supple, nontender with no thyromegaly, lymphadenopathy. CHEST AND LUNGS: Clear. HEART: Within normal limits. ABDOMEN: Soft, minimally distended. No rebound. EXTREMITIES: Unremarkable. NEUROLOGIC: Not assessed. CLINICAL IMPRESSION: Fecal impaction that was possibly released this morning or yesterday. PLAN: To do a rectal examination to disimpact any other residue of the fecal mass in the rectum. Residual fecal stool can be evacuated and the rectal examination was done at the bedside with the nurse at the bedside and liquid stool was obtained. There was no fecal impaction noted, so the plan is to keep him under close observation and manage him conservatively. No indication for urgent surgery. MD ALISSON Gates/ADY TID: [id number] RECEIPT: [id number] cc: Dong Montesinos MD
--- NOTE | 2025-01-14 22:27 | DVHINCON2 ---
Date of service: Jan 14, 2025 Referring Physician Dong Montesinos Reason for Consultation Fecal impaction History of Present Illness 64 years old aphasic admitted with abd pain. Severe constipation with fecal impaction . He is bedridden and has a stroke history and no cardiac or respiratory issues. Family History: Diabetes mellitus G8 MOTHER G8 FATHER G8 BROTHER FH: CVA (cerebrovascular accident) G8 FATHER Allergies: Coded Allergies: NO KNOWN ALLERGIES (Unverified , 01/07/24) Home Meds Active Scripts Lactulose (Lactulose) 10 Gm/15 Ml Triny, 30 ML PO BID for 30 Days, #100 ML Prov:ILENE LORENZANA RESIDENT 12/24/24 Docusate Sodium (Docusate Sodium) 100 Mg Cap, 100 MG PO BID for 60 Days, #120 CAP Prov:ILENE LORENZANA RESIDENT 12/24/24 Reported Medications Omeprazole (Gnp Omeprazole) 20 Mg Tab, 20 MG PO DAILY, TAB 10/31/24 Levothyroxine Sodium (Levothyroxine Sodium) 88 Mcg Tab, 1 TAB PO DAILY 12/04/23 Carbidopa-Levodopa (Carbidopa/Levodopa Odt 25-100 mg) 1 Tab Tab, 1 TAB PO TID 12/04/23 Current Medications Current Medications Medications (Trade) Dose Ordered Sig/Kylee Route PRN Reason Start Time Stop Time Status Last Admin Enoxaparin Sodium (Lovenox) 40 mg DAILY SC 01/14/25 10:00 01/14/25 09:33 Pantoprazole Sodium (Protonix) 40 mg DAILY IV 01/14/25 10:00 01/14/25 09:33 Vital Signs Vital Signs Date Time Temp Pulse Resp B/P (MAP) Pulse Ox O2 Delivery O2 Flow Rate FiO2 01/14/25 21:00 98.3 64 15 131/99 (110) 98 98.3 01/14/25 08:00 Room Air* 0 21 Physical Exam VITAL SIGNS: Afebrile, stable signs. HEENT: With no evidence of pallor, cyanosis, or jaundice. NECK: Supple, nontender with no thyromegaly, lymphadenopathy. CHEST AND LUNGS: Clear. HEART: Within normal limits. ABDOMEN: Soft, minimally distended. No rebound. EXTREMITIES: Unremarkable. Rectal examination done by Dr. Rajiv Bonilla, no impaction noted in the rectum Labs/Diagnostic Data Labs Test 01/13/25 20:01 01/13/25 10:55 Range/Units Urine Color Light-yellow Yellow Urine Clarity Clear Clear Urine pH 5.5 5.0-9.0 Urine Specific [place] 1.018 1.001-1.035 Urine Protein Negative Negative Urine Ketones Negative Negative Urine Blood Negative Negative /uL Urine Nitrite Negative Negative Urine Bilirubin Negative Negative Urine Urobilinogen Normal Negative mg/dL Urine Leukocyte Esterase Negative Negative /uL Urine RBC 1 0 - 3 /hpf Urine Microscopic WBC 2 0-3 /HPF Urine Squamous Epithelial Cells None seen <5 /hpf Urine Bacteria None seen None Seen /hpf Urine Mucus Few None Seen Urine Glucose Normal Normal mg/dL White Blood Count 5.9 4.4-10.8 10^3/uL Red Blood Count 4.12 L 4.5-5.90 10^6/uL Hemoglobin 12.2 L 13.5-17.5 g/dL Hematocrit 36.4 L 41.0-53.0 % Mean Corpuscular Volume 88.4 80.0-100.0 fL Mean Corpuscular Hemoglobin 29.6 28.0-32.0 pg Mean Corpuscular Hemoglobin Concent 33.5 32.0-36.0 g/dL Red Cell Distribution Width 16.8 H 11.8-14.3 % Platelet Count 228 140-450 10^3/uL Mean Platelet Volume 8.4 6.9-10.8 fL Neutrophils (%) (Auto) 85.2 H 37.0-80.0 % Lymphocytes (%) (Auto) 8.4 L 10.0-50.0 % Monocytes (%) (Auto) 4.0 0.0-12.0 % Eosinophils (%) (Auto) 0.4 0.0-7.0 % Basophils (%) (Auto) 2.0 0.0-2.0 % Neutrophils # (Auto) 5.0 1.6-8.6 10 ^3/uL Lymphocytes # (Auto) 0.5 0.4-5.4 10 ^3/uL Monocytes # (Auto) 0.2 0-1.3 10 ^3/uL Eosinophils # (Auto) 0 0-0.8 10 ^3/uL Basophils # (Auto) 0.1 0-0.2 10 ^3/uL Nucleated Red Blood Cells 0.1 % Sodium Level 142 136-145 mmol/L Potassium Level 3.8 3.5-5.1 mmol/L Chloride Level 106 98-107 mmol/L Carbon Dioxide Level 27 20-31 mmol/L Anion Gap 9 5-15 Blood Urea Nitrogen 11 9-23 mg/dL Creatinine 0.91 0.700-1.30 mg/dL Glomerular Filtration Rate Calc 95 >90 mL/min BUN/Creatinine Ratio 12.1 10.0-20.0 Serum Glucose 96 74-106 mg/dL Calcium Level 9.8 8.7-10.4 mg/dL Total Bilirubin 0.4 0.2-1.0 mg/dL Aspartate Amino Transferase (AST) 44 H 13-40 U/L Alanine Aminotransferase (ALT) 23 7-40 U/L Alkaline Phosphatase 73 46-116 U/L Total Protein 8.0 5.7-8.2 g/dL Albumin 4.5 3.2-4.8 g/dL CT SCAN ABD PELVIS IMPRESSION: 1. There is large amount of stool in the distal colon, particularly in the rectosigmoid colon. There is likely fecal impaction in the rectum. Problems(with codes): (1) Constipation, unspecified (2) Fecal impaction (3) Abdominal pain (4) Parkinsons disease Plan/Recommendation Plan Continue conservative management Patient's impaction may be slightly higher up in the rectosigmoid Give him laxatives stool softeners fleets enema and supportive care for now Plan discussed with: Other (Dr Rajiv Bonilla) ADÁN BONILLA MD Jan 14, 2025 22:27
[2025-01-14] MEDS: MAGNESIUM CITRATE SOLUTION 300 ML BTL PO ONE (22:30)
[2025-01-15] VITALS (7 sets, daily range): BP systolic 106–158; BP diastolic 72–92; PULSE 69–104; RESP 15–16; TEMP 97.6–98.1; O2SAT 95–97
--- NOTE | 2025-01-15 10:27 | DVHPN2 ---
Reviewed: Care Plan, H&P, Labs, Medications, Previous Orders, Radiology Changes from previous H/P or p: No Changes Objective Vitals Vital Signs Date Time Temp Pulse Resp B/P (MAP) Pulse Ox O2 Delivery O2 Flow Rate FiO2 01/15/25 08:41 97.6 73 16 114/86 (95) 97 97.6 01/15/25 08:00 Room Air* 0 21 Intake/Output Intake and Output 01/15/25 07:00 Intake Total 550 ml Output Total 1050 ml Balance -500 ml Intake Oral 550 ml Output Urine Total 1050 ml Medications Current Medications Medications Dose Ordered Sig/Kylee Route Start Time Stop Time Status Last Admin Dose Admin Docusate Sodium 100 mg BID PO 01/13/25 22:00 01/15/25 09:37 100 MG Acetaminophen/ Hydrocodone Bitart 1 tab Q4HP PRN PO 01/13/25 19:30 01/13/25 20:52 1 TAB Ondansetron HCl 4 mg Q4HP PRN IV 01/13/25 19:30 Enoxaparin Sodium 40 mg DAILY SC 01/14/25 10:00 01/15/25 09:37 40 MG Acetaminophen 650 mg Q6HP PRN PO 01/13/25 19:30 Pantoprazole Sodium 40 mg DAILY IV 01/14/25 10:00 01/15/25 09:37 40 MG Laboratory Results Laboratory Tests 01/13/25 10:55 Urinalysis Test 01/13/25 20:01 Urine Color Light-yellow (Yellow) Urine Clarity Clear (Clear) Urine pH 5.5 (5.0-9.0) Urine Specific [place] 1.018 (1.001-1.035) Urine Protein Negative (Negative) Urine Ketones Negative (Negative) Urine Blood Negative /uL (Negative) Urine Nitrite Negative (Negative) Urine Bilirubin Negative (Negative) Urine Urobilinogen Normal mg/dL (Negative) Urine Leukocyte Esterase Negative /uL (Negative) Urine RBC 1 /hpf (0 - 3) Urine Microscopic WBC 2 /HPF (0-3) Urine Squamous Epithelial Cells None seen /hpf (<5) Urine Bacteria None seen /hpf (None Seen) Urine Mucus Few (None Seen) Urine Glucose Normal mg/dL (Normal) Labs and/or images reviewed: Labs reviewed by me, Image(s) reviewed by me Assessment/Plan Assessment/Plan Acute abdominal pain Fecal impaction : Patient has had bowel movement after enema in the emergency room GI consult for Dr. Mickie Newsome treated, surgical consult by Dr. Rajiv Newsome appreciated, patient symptom was relieved Chronic Bed ridden Developmental delay Diabetes mellitus History of CVA Plan discussed with: Patient My Orders Orders - ANA PAULA SERVIN MD Procedure Category Date Status Time * Gi Dvh Warehouse Helper CONS 01/14/25 Transmitted 12:01 * Incident Response Coordinator CONS 01/14/25 Transmitted Consult Sequential DIVYA 01/14/25 In Process Compression Device 12:57 Date of Service: Jan 15, 2025 Billing Provider: ANA PAULA SERVIN MD Common Visit Codes: 07886-ACZZELOHOG INP/OBS CARE(HIGH) ANA PAULA SERVIN MD Jan 15, 2025 10:27
[2025-01-15] MEDS ORDERED: POLY335015 PO (10:28)
[2025-01-15] MEDS ORDERED: DOCU-94 PO (10:28)
--- NOTE | 2025-01-15 10:33 | DVHDS2 ---
Discharge Summary Date of Admission Jan 13, 2025 at 19:17 Date of Discharge: Jan 15, 2025 Admitting Diagnosis Abdominal Pain and constipation Wounds: none Labs/Diagnostic Data: Laboratory Results Test 01/13/25 20:01 01/13/25 10:55 Urine Color Light-yellow (Yellow) Urine Clarity Clear (Clear) Urine pH 5.5 (5.0-9.0) Urine Specific [place] 1.018 (1.001-1.035) Urine Protein Negative (Negative) Urine Ketones Negative (Negative) Urine Blood Negative /uL (Negative) Urine Nitrite Negative (Negative) Urine Bilirubin Negative (Negative) Urine Urobilinogen Normal mg/dL (Negative) Urine Leukocyte Esterase Negative /uL (Negative) Urine RBC 1 /hpf (0 - 3) Urine Microscopic WBC 2 /HPF (0-3) Urine Squamous Epithelial Cells None seen /hpf (<5) Urine Bacteria None seen /hpf (None Seen) Urine Mucus Few (None Seen) Urine Glucose Normal mg/dL (Normal) White Blood Count 5.9 10^3/uL (4.4-10.8) Red Blood Count 4.12 10^6/uL (4.5-5.90) Hemoglobin 12.2 g/dL (13.5-17.5) Hematocrit 36.4 % (41.0-53.0) Mean Corpuscular Volume 88.4 fL (80.0-100.0) Mean Corpuscular Hemoglobin 29.6 pg (28.0-32.0) Mean Corpuscular Hemoglobin Concent 33.5 g/dL (32.0-36.0) Red Cell Distribution Width 16.8 % (11.8-14.3) Platelet Count 228 10^3/uL (140-450) Mean Platelet Volume 8.4 fL (6.9-10.8) Neutrophils (%) (Auto) 85.2 % (37.0-80.0) Lymphocytes (%) (Auto) 8.4 % (10.0-50.0) Monocytes (%) (Auto) 4.0 % (0.0-12.0) Eosinophils (%) (Auto) 0.4 % (0.0-7.0) Basophils (%) (Auto) 2.0 % (0.0-2.0) Neutrophils # (Auto) 5.0 10 ^3/uL (1.6-8.6) Lymphocytes # (Auto) 0.5 10 ^3/uL (0.4-5.4) Monocytes # (Auto) 0.2 10 ^3/uL (0-1.3) Eosinophils # (Auto) 0 10 ^3/uL (0-0.8) Basophils # (Auto) 0.1 10 ^3/uL (0-0.2) Nucleated Red Blood Cells 0.1 % Sodium Level 142 mmol/L (136-145) Potassium Level 3.8 mmol/L (3.5-5.1) Chloride Level 106 mmol/L (98-107) Carbon Dioxide Level 27 mmol/L (20-31) Anion Gap 9 (5-15) Blood Urea Nitrogen 11 mg/dL (9-23) Creatinine 0.91 mg/dL (0.700-1.30) Glomerular Filtration Rate Calc 95 mL/min (>90) BUN/Creatinine Ratio 12.1 (10.0-20.0) Serum Glucose 96 mg/dL (74-106) Calcium Level 9.8 mg/dL (8.7-10.4) Total Bilirubin 0.4 mg/dL (0.2-1.0) Aspartate Amino Transferase (AST) 44 U/L (13-40) Alanine Aminotransferase (ALT) 23 U/L (7-40) Alkaline Phosphatase 73 U/L (46-116) Total Protein 8.0 g/dL (5.7-8.2) Albumin 4.5 g/dL (3.2-4.8) Other Laboratory Tests 01/13/25 10:55 Brief Hx & Hospital Course: 4-year-old male developmentally delayed history of diabetes CVA bedridden multiple previous admissions for constipation came in complaining of constipation abdominal pain nausea. CT abdomen pelvis without contrast showed smoke fecal impaction which was disimpacted in the emergency room patient was admitted for observation given Colace and MiraLax seen by GI Dr. Mickie Newsome and surgeon Dr. Rajiv Newsome advised conservative management at the time of discharge patient is asymptomatic no pain and no nausea discharged home on MiraLax and Colace he will continue all his previous home medications follow up with the primary Dr Consults/Reason for consult GI Dr. Mickie Newsome Surgeon Dr. Rajiv Newsome Operations or Procedures CT abdomen pelvis without contrast Condition at Discharge: Fair Final Diagnosis/Problems List Acute abdominal pain Fecal impaction : Patient has had bowel movement after enema in the emergency room GI consult for Dr. Mickie Newsome treated, surgical consult by Dr. Rajiv Newsome appreciated, patient symptom was relieved Chronic Bed ridden Developmental delay Diabetes mellitus History of CVA Discharge Disposition: Home Discharge Instruct/Medications Diet: Regular Activity: Bed rest Follow Up/Referral: Follow up with your primary Dr Luna all previous home medications Medications: Colace MiraLax Transmitted to pharmacy 39 (Time Taken for discharge summary 39 minutes) Discharge Statement: "Patient was advised to return to the ER or call 911 if any headaches, dizziness, shortness of breath, chest pain, abdominal pain, bleeding, fevers, or worsening of medical condition. Patient was counseled about treatment plan, medications, possible side effects, patientverbalized understanding. All questions were answered to the best of my ability. This discharge took greater then 30 minutes in planning, reviewing documentation, counseling the patient, and discussing with other team members." ASSESSMENT ASSESSMENT Hospital Course Uneventful Assessment Acute abdominal pain Fecal impaction : Patient has had bowel movement after enema in the emergency room GI consult for Dr. Mickie Newsome treated, surgical consult by Dr. Rajiv Newsome appreciated, patient symptom was relieved Chronic Bed ridden Developmental delay Diabetes mellitus History of CVA Date of Service: Jan 15, 2025 Billing Provider: ANA PAULA SERVIN MD Common Visit Codes: 58719-DQH/OBS DISCH DAY >30min ANA PAULA SERVIN MD Jan 15, 2025 10:33
--- NOTE | 2025-01-15 21:29 | DVHPN2 ---
Progress Note - Dictate Date Seen: Jan 15, 2025 (10 am) Medical Necessity Reason Pt with a Central, PICC or Fol: No Subjective No New complaints Patient had a bowel movement after digital disimpaction yesterday Abdominal pain has improved vital signs Vital Sign Date Time Temp Pulse Resp B/P (MAP) Pulse Ox O2 Delivery O2 Flow Rate FiO2 01/15/25 17:00 97.8 104 16 158/92 (114) 97 97.8 01/15/25 08:00 Room Air* 0 21 Total Intake and Output 01/14/25 01/14/25 01/15/25 15:00 23:00 07:00 Intake Total 350 ml 200 ml Output Total 550 ml 500 ml Balance -200 ml -300 ml objective VITAL SIGNS: Afebrile, stable signs. HEENT: With no evidence of pallor, cyanosis, or jaundice. NECK: Supple, nontender with no thyromegaly, lymphadenopathy. CHEST AND LUNGS: Clear. HEART: Within normal limits. ABDOMEN: Soft, minimally distended. No rebound. EXTREMITIES: Unremarkable. laboratory and microbiology Laboratory Tests 01/13/25 10:55 Test 01/13/25 10:55 Range/Units Serum Glucose 96 74-106 mg/dL Problems(with codes): (1) Constipation, unspecified (2) Abdominal pain (3) Parkinsons disease (4) Intractable abdominal pain Prognosis Plan Discharge planning is in progress Maintained on stool softeners Lactulose 30 mL p.o. daily MiraLax 17 g p.o. daily or as needed Follow up as needed Plan discussed with: Other (None) ADÁN BONILLA MD Jan 15, 2025 21:29
== END 2025-01-15 17:38 | disposition home or self-care (01) | DRG 388 ==
LOC: ER 10:24 → EDBD 10:24 → OVERFLOW 19:17 → EDUNIT# 19:17 → WEST WING 19:19
PROVIDERS: ADMIT Family Medicine; ATTEND Family Medicine
DX: K56.41 Fecal impaction (principal); E43 Unspecified severe protein-calorie malnutrition; R53.2 Functional quadriplegia; R47.01 Aphasia; R64 Cachexia; Z68.1 Body mass index [BMI] 19.9 or less, adult; E11.9 Type 2 diabetes mellitus without complications; Z74.01 Bed confinement status; Z86.73 Personal history of transient ischemic attack (TIA), and cerebral infarction without residual deficits; Z83.3 Family history of diabetes mellitus; Z82.3 Family history of stroke; Z79.899 Other long term (current) drug therapy
CPT/HCPCS: 36415; 74176; 80053; 81001; 85025; G0378; J2470

== ENCOUNTER 2025-02-03 15:30 | Inpatient (IN) | payer MEDICARE, MEDICAID ==
[~2025-02-03] VITALS: Ht 170.2 cm; Wt 39.9 kg
[~2025-02-03 15:30] MED LIST changes: +DOCU-94 PO; +POLY335015 PO
--- NOTE | 2025-02-03 16:47 | ED.PDOC ---
GI ASSESSMENT HPI Comments BIBA FOR C/O CONSTIPATION X 4 DAYS HX OF CONSTIPATION ALONG WITH DIFFUSE ABDOMINAL. PT IS NON VERBAL AND NON AMBULATORY. Patient denies nausea, vomiting, chest pain, shortness breath, difficulty breathing, diarrhea, fever or chills. Chief Complaint: Constipation Time Seen by MD: 16:02 Primary Care Provider: UNKNOWN Reviewed Notes: Nurses Notes, Tie Worker Notes, Medications, Allergies Allergies: Coded Allergies: NO KNOWN ALLERGIES (Unverified , 01/07/24) Home Meds Active Scripts Docusate Sodium (Colace) 100 Mg Cap, 1 CAP PO BID, #60 CAP 2 Refills Prov:ANA PAULA SERVIN MD 01/15/25 Polyethylene Glycol 3350 (Miralax) 17 Gm Pow, 17 GM PO DAILY PRN, #340 POW Prov:ANA PAULA SERVIN MD 01/15/25 Lactulose (Lactulose) 10 Gm/15 Ml Triny, 30 ML PO BID for 30 Days, #100 ML Prov:ILENE LORENZANA RESIDENT 12/24/24 Docusate Sodium (Docusate Sodium) 100 Mg Cap, 100 MG PO BID for 60 Days, #120 CAP Prov:ILENE LORENZANA 12/24/24 Reported Medications Omeprazole (Gnp Omeprazole) 20 Mg Tab, 20 MG PO DAILY, TAB 10/31/24 Levothyroxine Sodium (Levothyroxine Sodium) 88 Mcg Tab, 1 TAB PO DAILY 12/04/23 Carbidopa-Levodopa (Carbidopa/Levodopa Odt 25-100 mg) 1 Tab Tab, 1 TAB PO TID 12/04/23 Information Source: Patient Mode of Arrival: EMS Past Medical History PAST MEDICAL HISTORY: HTN Surgical History: Unknown Family History Family History: Reviewed,noncontributory to illness, Unknown Social History Smoker: Non-Smoker Alcohol: Denies ETOH Use Drugs: Denies Drug Use Lives In: Home, Assisted Care Constitutional: denies: chills, diaphoresis, fatigue, fever, malaise, sweats, weakness, others Respiratory: denies: cough, hemoptysis, orthopnea, SOB at rest, shortness of breath, SOB with excertion, stridor, wheezing, others Cardiovascular: denies: chest pain, dizzy spells, diaphoresis, Dyspnea on exertion, edema, irregular heart beat, left arm pain, lightheadedness, palpitations, PND, syncope, others Gastrointestinal: reports: abdomen distended, constipated; denies: abdominal pain, blood streaked bowels, diarrhea, dysphagia, difficulty swallowing, hematemesis, melena, nausea, poor appetite, poor fluid intake, rectal bleeding, rectal pain, vomiting, others Genitourinary: denies: burning, dysuria, flank pain, frequency, hematuria, incontinence, penile discharge, penile sore, pain, testicle pain, testicle swelling, urgency, others Neurological: denies: dizziness, fainting, headache, left sided numbness, left sided weakness, numbness, paresthesia, pre-existing deficit, right sided numbness, right sided weakness, seizure, speech problems, tingling, tremors, weakness, others Musculoskeletal: denies: back pain, gout, joint pain, joint swelling, muscle pain, muscle stiffness, neck pain, others Integumetry: denies: bruises, change in color, change in hair/nails, dryness, laceration, lesions, lumps, rash, wounds, others Allergic/Immunocompromised: denies: Difficulty Healing, Frequent Infections, Hives, Itching, others Hematologic/Lymphatic: denies: anemia, blood clots, easy bleeding, easy bruising, swollen glands, others Endocrine: denies: excessive hunger, excessive sweating, excessive thirst, excessive urination, flushing, intolerance to cold, intolerance to heat, unexplained weight gain, unexplained weight loss, others Psychiatric: denies: anxiety, bipolar disorder, depression, hopeless, panic disorder, schizophrenia, sleepless, suicidal, others Physical Exam General Appearance: No Apparent Distress, Normal HEENT: Pharynx Normal Neck: Full Range of Motion, Non-Tender, Normal, Normal Inspection Respiratory: Chest Non-Tender, Lungs Clear, No Accessory Muscle Use, No Respiratory Distress, Normal Breath Sounds Cardiovascular: No Edema, No JVD, No Murmur, No Gallop, Normal Peripheral Pulses, Regular Rate/Rhythm Breast Exam: Deferred Gastrointestinal: Diffuse (Tenderness diffuse), Distended, No Organomegaly, No Pulsatile Mass, Normal Bowel Sounds, Soft Genitalia: Deferred Pelvic: Deferred Rectal: Deferred Extremities: Normal capillary refill, Normal inspection, Normal range of motion , Non-tender, No pedal edema Musculoskeletal : Apperance: Normal Neurologic: Alert, environmental compliance inspector II-XII nml as Tested, No Motor Deficits, Normal Affect, Normal Mood, No Sensory Deficits Cerebellar Function: Normal Reflexes: Normal Skin: Dry, Normal Color, Warm Lymphatic: No Adenopathy Was a procedure done? Was a procedure done?: No GI differential Dx Differential Diagnosis: Bowel Obstruction, Constipation, Urolithiasis, Impaction X-Ray, Labs, Meds, VS Vital Signs Date Time Temp Pulse Resp B/P (MAP) Pulse Ox O2 Delivery O2 Flow Rate FiO2 02/03/25 15:30 99.8 120 18 132/57 (82) 95 99.8 X-Ray, Labs, Meds, VS Comment PATIENT WITH PAST HISTORY OF CHRONIC CONSTIPATION HAS BEEN ADMITTED IN THE PAST BEFORE FOR FECAL IMPACTION PATIENT CONTINUES WITH ABDOMINAL PAIN CONSTIPATION PATIENT PLACED FOR ADMIT HOSPITALIST WITH SCHOOL BUS INSPECTOR MEAGAN. LACTULOSE 60 ML P.O. TRIAL. Time of 1ST Reevaluation: 16:45 Reevaluation 1ST: Unchanged Patient Education/Counseling: Treatment, Prognosis, Need For Follow Up Family Education/Counseling: No Family Present Departure 1 Departure Time of Disposition: 19:27 Impression: Primary Impression: Abdominal pain Qualified Codes: R10.84 - Generalized abdominal pain Additional Impressions: Fecal impaction Constipation, unspecified Qualified Codes: K59.00 - Constipation, unspecified Disposition: ADMITTED INPATIENT Condition: Stable Discharged With: Self Critical Care Note Critical Care Time?: No Stability Stability form required: CAMERON Louis Feb 03, 2025 16:47
--- NOTE | 2025-02-03 18:58 | DVH ---
EXAM: XR Abdomen, 1 View CLINICAL INDICATION: constipation TECHNIQUE: Frontal supine view of the abdomen/pelvis. COMPARISON: XY KUB ABDOMEN SINGLE VIEW on DOS: 01/27/25, XY KUB ABDOMEN SINGLE VIEW on DOS: 12/23/24, XY KUB ABDOMEN SINGLE VIEW on DOS: 12/18/24 FINDINGS: GASTROINTESTINAL TRACT: Fecal retention in the colon consistent with constipation. No dilation. BONES/JOINTS: Unremarkable. No acute fracture. OTHER FINDINGS: . IMPRESSION: Fecal retention in the colon consistent with constipation.
[2025-02-03] MEDS ORDERED: ONDANSETRON HCL 4 MG/2 ML VIAL IV PRN (20:00)
[2025-02-03 20:11] LABS: Basophils # (auto) 0 10 ^3/uL (0-0.2); Basophils % (auto) 0.5 % (0.0-2.0); Eosinophils # (auto) 0.1 10 ^3/uL (0-0.8); Eosinophils % (auto) 0.7 % (0.0-7.0); Hemoglobin 13.4 g/dL (13.5-17.5); Lymphocytes # (auto) 0.9 10 ^3/uL (0.4-5.4); Lymphocytes % (auto) 10.4 % (10.0-50.0); Mean Corpuscular Hemoglobin 28.9 pg (28.0-32.0); Mean Corpuscular Hgb Conc. 32.8 g/dL (32.0-36.0); Mean Corpuscular Volume 88.2 fL (80.0-100.0); Monocytes # (auto) 0.4 10 ^3/uL (0-1.3); Monocytes % (auto) 4.7 % (0.0-12.0); Neutrophils # (auto) 7.2 10 ^3/uL (1.6-8.6); Neutrophils % (auto) 83.7 % (37.0-80.0); Platelet Count (auto) 251 10^3/uL (140-450); Red Blood Cells 4.64 10^6/uL (4.5-5.90); Red Cell Distribution Width 16.4 % (11.8-14.3); White Blood Cell 8.6 10^3/uL (4.4-10.8)
[2025-02-03 20:30] LABS: Alanine Aminotransferase 19 U/L (7-40); Albumin 4.6 g/dL (3.2-4.8); Alkaline Phosphatase 83 U/L (46-116); Anion Gap 10 (5-15); Aspartate Aminotransferase 14 U/L (13-40); Calcium 10.1 mg/dL (8.7-10.4); Carbon Dioxide 25 mmol/L (20-31); Glucose 98 mg/dL (74-106); Potassium 4.1 mmol/L (3.5-5.1); Total Protein 8.1 g/dL (5.7-8.2)
[2025-02-03 20:31] LABS: Bilirubin, Total 0.3 mg/dL (0.2-1.0); Blood Urea Nitrogen 24 mg/dL (9-23); Chloride 110 mmol/L (98-107); Sodium 145 mmol/L (136-145)
[2025-02-03 21:33] VITALS: PULSE 113; RESP 18; O2SAT 99
[2025-02-03] MEDS: LACTULOSE 20Gm/30ML SOLN PO ONE (21:44)
[2025-02-03 22:00] VITALS: BP 129/83; PULSE 52; RESP 16; TEMP 98; O2SAT 99
[2025-02-03] MEDS: CARBIDOPA W LEVODOPA 25/100mg TABLET PO SCH (22:00)
[2025-02-03] MEDS: LACTULOSE 20Gm/30ML SOLN PO SCH (22:00)
[2025-02-03 22:22] VITALS: PULSE 52; RESP 18; O2SAT 99
[2025-02-04] VITALS (8 sets, daily range): BP systolic 107–176; BP diastolic 52–91; PULSE 71–123; RESP 15–24; TEMP 97.7–98.1; O2SAT 90–98
[2025-02-04] MEDS: FLEET ENEMA(ADULT) 135 ML PR ONE (00:19)
--- NOTE | 2025-02-04 04:52 | DVHHP2 ---
History of Present Illness Reason for Visit: Constipation History of Present Illness 64-year-old male brought in for evaluation of abdominal pain with constipation. Patient noted to be having abdominal discomfort with five days of constipation. No nausea or vomiting reported. No cardiac or respiratory complaints. Past Medical History Parkinson's disease, hypothyroidism, hypertension Past Surgical History None Family History Noncontributory Smoke: No ALCOHOL: none Drugs: None Lives: with Family Review of Systems Review of Systems Review of systems are currently negative otherwise addressed in HPI. Allergies: Coded Allergies: NO KNOWN ALLERGIES (Unverified , 01/07/24) Medications Current Medications Medications Dose Ordered Sig/Kylee Route Start Time Stop Time Status Last Admin Dose Admin Lactulose 30 ml BID PO 02/03/25 22:00 Carbidopa/Levodopa 1 tab TID PO 02/03/25 22:00 Levothyroxine Sodium 88 mcg QAM@0600 PO 02/04/25 06:00 Ondansetron HCl 4 mg Q4HP PRN IV 02/03/25 20:00 Enoxaparin Sodium 40 mg DAILY SC 02/04/25 10:00 Acetaminophen 650 mg Q6HP PRN PO 02/03/25 20:00 Exam Vital Signs Vital Signs Date Time Temp Pulse Resp B/P (MAP) Pulse Ox O2 Delivery O2 Flow Rate FiO2 02/04/25 04:46 98.1 110 15 142/81 (101) 97 98.1 02/03/25 22:22 Room Air* 0 21 Exam Gen: 64-year-old male in mild distress, cachectic Skin: Warm, dry, normal color and texture, no rash. HEENT: Normocephalic atraumatic, mucous membranes moist and pink. Neck: Cervical and supraclavicular nodes normal without enlargement, trachea is midline, thyroid gland is normal without masses. Pulmonary: Clear to auscultation and percussion bilaterally. Cardiac: Regular rate and rhythm. No murmur Abdomen: Soft, nontender, nondistended, bowel sounds present all 4 quadrants, no guarding, no rigidity, no organomegaly. Extremities: No cyanosis, clubbing, no edema Neuro: Cranial nerves II through XII grossly intact, normal affect and speech, no focal motor deficits. Labs/Xrays ORDERING PHYSICIAN: CAMERON LAWRENCE PROCEDURE(s): KUB - KUB ABDOMEN SINGLE VIEW REASON: constipation ORDER NUMBER(s): [id number], ACCESSION NUMBER(s): [id number] EXAM: XR Abdomen, 1 View CLINICAL INDICATION: constipation TECHNIQUE: Frontal supine view of the abdomen/pelvis. COMPARISON: XY KUB ABDOMEN SINGLE VIEW on DOS: 01/27/25, XY KUB ABDOMEN SINGLE VIEW on DOS: 12/23/24, XY KUB ABDOMEN SINGLE VIEW on DOS: 12/18/24 FINDINGS: GASTROINTESTINAL TRACT: Fecal retention in the colon consistent with constipation. No dilation. BONES/JOINTS: Unremarkable. No acute fracture. OTHER FINDINGS: . IMPRESSION: Fecal retention in the colon consistent with constipation. Labs Test 02/03/25 20:01 Range/Units White Blood Count 8.6 # 4.4-10.8 10^3/uL Red Blood Count 4.64 4.5-5.90 10^6/uL Hemoglobin 13.4 L 13.5-17.5 g/dL Hematocrit 41.0 # 41.0-53.0 % Mean Corpuscular Volume 88.2 80.0-100.0 fL Mean Corpuscular Hemoglobin 28.9 28.0-32.0 pg Mean Corpuscular Hemoglobin Concent 32.8 32.0-36.0 g/dL Red Cell Distribution Width 16.4 H 11.8-14.3 % Platelet Count 251 140-450 10^3/uL Mean Platelet Volume 8.9 6.9-10.8 fL Neutrophils (%) (Auto) 83.7 H 37.0-80.0 % Lymphocytes (%) (Auto) 10.4 10.0-50.0 % Monocytes (%) (Auto) 4.7 0.0-12.0 % Eosinophils (%) (Auto) 0.7 0.0-7.0 % Basophils (%) (Auto) 0.5 0.0-2.0 % Neutrophils # (Auto) 7.2 1.6-8.6 10 ^3/uL Lymphocytes # (Auto) 0.9 0.4-5.4 10 ^3/uL Monocytes # (Auto) 0.4 0-1.3 10 ^3/uL Eosinophils # (Auto) 0.1 0-0.8 10 ^3/uL Basophils # (Auto) 0 0-0.2 10 ^3/uL Nucleated Red Blood Cells 0.0 % Sodium Level 145 # 136-145 mmol/L Potassium Level 4.1 3.5-5.1 mmol/L Chloride Level 110 H 98-107 mmol/L Carbon Dioxide Level 25 20-31 mmol/L Anion Gap 10 5-15 Blood Urea Nitrogen 24 H 9-23 mg/dL Creatinine 0.96 0.700-1.30 mg/dL Glomerular Filtration Rate Calc 89 >90 mL/min BUN/Creatinine Ratio 25.0 H 10.0-20.0 Serum Glucose 98 74-106 mg/dL Calcium Level 10.1 8.7-10.4 mg/dL Total Bilirubin 0.3 0.2-1.0 mg/dL Aspartate Amino Transferase (AST) 14 13-40 U/L Alanine Aminotransferase (ALT) 19 7-40 U/L Alkaline Phosphatase 83 46-116 U/L Total Protein 8.1 5.7-8.2 g/dL Albumin 4.6 3.2-4.8 g/dL Assessment/Plan Assessment/Plan Assessment Abdominal pain secondary to chronic constipation Anemia of chronic disease Parkinson's disease Hypothyroidism Plan Admit the patient to [facility] to the hospitalist Pedro Pablo franklin Lactulose b.i.d. Resume home medications Continue treatment per orders. Plan discussed with: Other My Orders Orders - REILLY RHODES Procedure Category Date Status Time Lactulose Oral PHA 02/03/25 In Process 22:00 Carbidopa W Levodopa PHA 02/03/25 In Process 25/100mg (Sinemet 2 22:00 Levothyroxine Tablet PHA 02/04/25 In Process (Synthroid Tablet) 06:00 Admit ADMIT 02/03/25 Transmitted 19:51 Ondansetron Hcl PHA 02/03/25 In Process (Zofran) 20:00 Enoxaparin Sodium PHA 02/04/25 In Process (Lovenox) 10:00 Condition: Stable DIVYA 02/03/25 In Process 19:51 Acetaminophen Tablet PHA 02/03/25 In Process (Tylenol Tablet) 20:00 Bedrest With Bathroom DIVYA 02/03/25 In Process Privileg 19:51 * Lunchroom Monitor CONS 02/03/25 Transmitted Consult Mrsa Screen MINGO 02/03/25 In Process 23:19 * Swallow Request ST 02/04/25 Transmitted 00:09 Npo (Nothing By DIET 02/04/25 Transmitted Mouth) Diet Breakfast * Dietary Consult CONS 02/04/25 Transmitted 02:16 D5w/Sod Chlo 0.9% Ns PHA 02/04/25 Transmitted 05:00 Date of Service: Feb 03, 2025 Billing Provider: REILLY RHODES Common Visit Codes: [id number] INP/OBS CARE (MOD) REILLY RHODES February 04, 2025 04:52
[2025-02-04] MEDS: D5W/SOD CHLO 0.9% 1,000 ML IV ONE (05:17)
[2025-02-04] MEDS: LEVOTHYROXINE SODIUM 88 MCG TAB PO SCH (06:00)
[2025-02-04] MEDS: ENOXAPARIN SOD 40 MG/0.4 ML SYRINGE SC SCH (10:30)
[2025-02-04] MEDS: hydrALAZINE HCL 20 MG/ML VL IV PRN (11:05)
--- NOTE | 2025-02-04 12:11 | DVHPN2 ---
Subjective The patient is seen and examined at bedside. The patient is nonverbal. Reviewed: Care Plan, H&P, Labs, Medications, Previous Orders, Radiology Changes from previous H/P or p: No Changes Objective Vitals Vital Signs Date Time Temp Pulse Resp B/P (MAP) Pulse Ox O2 Delivery O2 Flow Rate FiO2 02/04/25 11:05 176/65 02/04/25 09:03 98.0 115 22 97 98.0 02/04/25 08:00 Room Air* 0 21 Intake/Output Intake and Output 02/04/25 07:00 Intake Total 0 ml Output Total 450 ml Balance -450 ml Intake Oral 0 ml Output Urine Total 450 ml # Bowel Movements 1 General Appearance: Alert, No acute distress, Other (Nonverbal) HEENT: Atraumatic, PERRLA, EOMI, Mucous membr. moist/pink Cardiovascular: Regular rate, Normal S1, Normal S2, No murmurs, Gallops, Rubs Abdomen: Normal bowel sounds, Soft, No tenderness, No hepatospenomegaly Neuro: Other (Nonverbal, bed-bound, paraplegic) Medications Current Medications Medications Dose Ordered Sig/Kylee Route Start Time Stop Time Status Last Admin Dose Admin Lactulose 30 ml BID PO 02/03/25 22:00 Carbidopa/Levodopa 1 tab TID PO 02/03/25 22:00 Levothyroxine Sodium 88 mcg QAM@0600 PO 02/04/25 06:00 Ondansetron HCl 4 mg Q4HP PRN IV 02/03/25 20:00 Enoxaparin Sodium 40 mg DAILY SC 02/04/25 10:00 02/04/25 10:30 40 MG Acetaminophen 650 mg Q6HP PRN PO 02/03/25 20:00 Hydralazine HCl 10 mg Q6HP PRN IV 02/04/25 11:00 02/04/25 11:05 10 MG Laboratory Results Laboratory Tests 02/03/25 20:01 Chemistry Test 02/03/25 20:01 Albumin 4.6 g/dL (3.2-4.8) Calcium Level 10.1 mg/dL (8.7-10.4) Total Protein 8.1 g/dL (5.7-8.2) LFT Test 02/03/25 20:01 Alanine Aminotransferase (ALT) 19 U/L (7-40) Alkaline Phosphatase 83 U/L (46-116) Aspartate Amino Transferase (AST) 14 U/L (13-40) Total Bilirubin 0.3 mg/dL (0.2-1.0) Labs and/or images reviewed: Labs reviewed by me Assessment/Plan Assessment/Plan Abdominal pain secondary to chronic constipation Anemia of chronic disease Parkinson's disease Hypothyroidism Plan Continuing current management Continuing with Fleet enema and Lactulose b.i.d. We will monitor his constipation. This medical document was created using an electronic medical record system with [employer] direct computerized dictation system. Although this document has been carefully reviewed, there may still be some phonetic and typographical errors. These areas are purely typographical due to imperfections of the software programs, and do not reflect any compromise in the patient's medical care. Plan discussed with: Patient, Other (RN) My Orders Orders - FERNANDO FOSTER MD Procedure Category Date Status Time Hydralazine Injection PHA 02/04/25 In Process (Apresoline Inject 11:00 Date of Service: February 04, 2025 Billing Provider: FERNANDO FOSTER MD Common Visit Codes: [id number] INP/OBS CARE(HIGH) FERNANDO FOSTER MD February 04, 2025 12:11
[2025-02-05 01:00] VITALS: BP 119/80; PULSE 98; RESP 18; TEMP 98; O2SAT 96
[2025-02-05 05:00] VITALS: BP 102/61; PULSE 94; RESP 18; TEMP 97.8; O2SAT 97
[2025-02-05 09:00] VITALS: BP 153/66; PULSE 90; RESP 18; TEMP 97.4; O2SAT 99
--- NOTE | 2025-02-05 12:19 | DVHPN2 ---
Subjective The patient is seen and examined at bedside. The patient is nonverbal. Reviewed: Care Plan, H&P, Labs, Medications, Previous Orders, Radiology Changes from previous H/P or p: No Changes Objective Vitals Vital Signs Date Time Temp Pulse Resp B/P (MAP) Pulse Ox O2 Delivery O2 Flow Rate FiO2 02/05/25 09:00 97.4 90 18 153/66 (95) 99 97.4 02/05/25 08:00 Room Air* 0 21 Intake/Output Intake and Output 02/05/25 07:00 Intake Total 1200 ml Output Total 800 ml Balance 400 ml Intake Oral 200 ml IV Total 1000 ml Output Urine Total 800 ml General Appearance: Alert, No acute distress, Other (Nonverbal) HEENT: Atraumatic, PERRLA, EOMI, Mucous membr. moist/pink Cardiovascular: Regular rate, Normal S1, Normal S2, No murmurs, Gallops, Rubs Abdomen: Normal bowel sounds, Soft, No tenderness, No hepatospenomegaly Neuro: Other (Nonverbal, bed-bound, paraplegic) Medications Current Medications Medications Dose Ordered Sig/Kylee Route Start Time Stop Time Status Last Admin Dose Admin Lactulose 30 ml BID PO 02/03/25 22:00 02/05/25 09:25 30 ML Carbidopa/Levodopa 1 tab TID PO 02/03/25 22:00 02/05/25 05:57 1 TAB Levothyroxine Sodium 88 mcg QAM@0600 PO 02/04/25 06:00 02/05/25 05:57 88 MCG Ondansetron HCl 4 mg Q4HP PRN IV 02/03/25 20:00 Enoxaparin Sodium 40 mg DAILY SC 02/04/25 10:00 02/05/25 09:27 40 MG Acetaminophen 650 mg Q6HP PRN PO 02/03/25 20:00 Hydralazine HCl 10 mg Q6HP PRN IV 02/04/25 11:00 02/04/25 11:05 10 MG Laboratory Results Laboratory Tests 02/03/25 20:01 Microbiology Microbiology Date/Time Source Procedure Growth Status 02/03/25 23:37 Nose MRSA Screen - Final Complete Labs and/or images reviewed: Labs reviewed by me Assessment/Plan Assessment/Plan Abdominal pain secondary to chronic constipation Anemia of chronic disease Parkinson's disease Hypothyroidism Plan Continuing current management Continuing with Fleet enema and Lactulose b.i.d. We will monitor his constipation. This medical document was created using an electronic medical record system with [employer] direct computerized dictation system. Although this document has been carefully reviewed, there may still be some phonetic and typographical errors. These areas are purely typographical due to imperfections of the software programs, and do not reflect any compromise in the patient's medical care. Plan discussed with: Patient My Orders Orders - FERNANDO FOSTER MD Procedure Category Date Status Time Notify Provider NOTICE 02/04/25 Transmitted Malnutrition 16:33 Nutritional NOURISH 02/04/25 Transmitted Supplements 16:33 Increase Calorie NOURISH 02/04/25 Transmitted Intake 16:33 Date of Service: February 05, 2025 Billing Provider: FERNANDO FOSTER MD Common Visit Codes: [id number] INP/OBS CARE(HIGH) FERNANDO FOSTER MD February 05, 2025 12:19
[2025-02-05 12:56] VITALS: BP 132/80; PULSE 99; RESP 18; TEMP 98.2; O2SAT 95
[2025-02-05 17:00] VITALS: BP 153/81; PULSE 120; RESP 18; TEMP 99.4; O2SAT 94
[2025-02-05 21:00] VITALS: BP 147/68; PULSE 118; RESP 16; TEMP 98.5; O2SAT 92
[2025-02-06 01:00] VITALS: BP 160/85; PULSE 105; RESP 17; TEMP 98.4; O2SAT 98
[2025-02-06] MEDS: ACETAMINOPHEN 325 MG TAB PO PRN (03:16)
[2025-02-06 05:00] VITALS: BP 104/73; PULSE 99; RESP 16; TEMP 98; O2SAT 96
[2025-02-06] MEDS: ENOXAPARIN SOD 30 MG/0.3 ML SYRINGE SC SCH (09:43)
[2025-02-06 13:00] VITALS: BP 123/83; PULSE 101; RESP 19; TEMP 98; O2SAT 99
--- NOTE | 2025-02-06 15:46 | DVHPN2 ---
Subjective The patient is seen and examined at bedside. The patient is nonverbal. Reviewed: Care Plan, H&P, Labs, Medications, Previous Orders, Radiology Objective Vitals Vital Signs Date Time Temp Pulse Resp B/P (MAP) Pulse Ox O2 Delivery O2 Flow Rate FiO2 02/06/25 05:00 98.0 99 16 104/73 (83) 96 98.0 02/05/25 20:00 Room Air* 0 21 Intake/Output Intake and Output 02/06/25 07:00 Intake Total 2200 ml Output Total 760 ml Balance 1440 ml Intake Oral 2200 ml Output Urine Total 760 ml General Appearance: Alert, No acute distress, Other (Nonverbal) HEENT: Atraumatic, PERRLA, EOMI, Mucous membr. moist/pink Cardiovascular: Regular rate, Normal S1, Normal S2, No murmurs, Gallops, Rubs Abdomen: Normal bowel sounds, Soft, No tenderness, No hepatospenomegaly Neuro: Other (Nonverbal, bed-bound, paraplegic) Medications Current Medications Medications Dose Ordered Sig/Kylee Route Start Time Stop Time Status Last Admin Dose Admin Lactulose 30 ml BID PO 02/03/25 22:00 02/06/25 09:44 30 ML Carbidopa/Levodopa 1 tab TID PO 02/03/25 22:00 02/06/25 05:54 1 TAB Levothyroxine Sodium 88 mcg QAM@0600 PO 02/04/25 06:00 02/06/25 05:54 88 MCG Ondansetron HCl 4 mg Q4HP PRN IV 02/03/25 20:00 Acetaminophen 650 mg Q6HP PRN PO 02/03/25 20:00 02/06/25 03:16 650 MG Hydralazine HCl 10 mg Q6HP PRN IV 02/04/25 11:00 02/04/25 11:05 10 MG Enoxaparin Sodium 30 mg DAILY SC 02/06/25 10:00 02/06/25 09:43 30 MG Laboratory Results Laboratory Tests 02/03/25 20:01 Microbiology Microbiology Date/Time Source Procedure Growth Status 02/03/25 23:37 Nose MRSA Screen - Final Complete Assessment/Plan Assessment/Plan Abdominal pain secondary to chronic constipation Anemia of chronic disease Parkinson's disease Hypothyroidism Plan Continuing current management Continuing with Fleet enema and Lactulose b.i.d. We will monitor his constipation. This medical document was created using an electronic medical record system with [employer] direct computerized dictation system. Although this document has been carefully reviewed, there may still be some phonetic and typographical errors. These areas are purely typographical due to imperfections of the software programs, and do not reflect any compromise in the patient's medical care. FERNANDO FOSTER MD February 06, 2025 15:46
[2025-02-06 17:00] VITALS: BP 124/68; PULSE 59; RESP 18; TEMP 97.9; O2SAT 96
[2025-02-06 21:00] VITALS: BP_SYST 126; BP_DIAS 7; BP_DIAS 70; PULSE 11; RESP 16; TEMP 97.6; O2SAT 90
[2025-02-07] VITALS (10 sets, daily range): BP systolic 80–128; BP diastolic 43–109; PULSE 65–100; RESP 15–17; TEMP 97.3–97.9; O2SAT 94–97
[2025-02-07] MEDS ORDERED: LACT10SO3 PO (13:22)
--- NOTE | 2025-02-07 13:22 | DVHDS2 ---
Discharge Summary Date of Admission Feb 03, 2025 at 19:51 Labs/Diagnostic Data: Laboratory Results Test 02/03/25 20:01 White Blood Count 8.6 10^3/uL (4.4-10.8) Red Blood Count 4.64 10^6/uL (4.5-5.90) Hemoglobin 13.4 g/dL (13.5-17.5) Hematocrit 41.0 % (41.0-53.0) Mean Corpuscular Volume 88.2 fL (80.0-100.0) Mean Corpuscular Hemoglobin 28.9 pg (28.0-32.0) Mean Corpuscular Hemoglobin Concent 32.8 g/dL (32.0-36.0) Red Cell Distribution Width 16.4 % (11.8-14.3) Platelet Count 251 10^3/uL (140-450) Mean Platelet Volume 8.9 fL (6.9-10.8) Neutrophils (%) (Auto) 83.7 % (37.0-80.0) Lymphocytes (%) (Auto) 10.4 % (10.0-50.0) Monocytes (%) (Auto) 4.7 % (0.0-12.0) Eosinophils (%) (Auto) 0.7 % (0.0-7.0) Basophils (%) (Auto) 0.5 % (0.0-2.0) Neutrophils # (Auto) 7.2 10 ^3/uL (1.6-8.6) Lymphocytes # (Auto) 0.9 10 ^3/uL (0.4-5.4) Monocytes # (Auto) 0.4 10 ^3/uL (0-1.3) Eosinophils # (Auto) 0.1 10 ^3/uL (0-0.8) Basophils # (Auto) 0 10 ^3/uL (0-0.2) Nucleated Red Blood Cells 0.0 % Sodium Level 145 mmol/L (136-145) Potassium Level 4.1 mmol/L (3.5-5.1) Chloride Level 110 mmol/L (98-107) Carbon Dioxide Level 25 mmol/L (20-31) Anion Gap 10 (5-15) Blood Urea Nitrogen 24 mg/dL (9-23) Creatinine 0.96 mg/dL (0.700-1.30) Glomerular Filtration Rate Calc 89 mL/min (>90) BUN/Creatinine Ratio 25.0 (10.0-20.0) Serum Glucose 98 mg/dL (74-106) Calcium Level 10.1 mg/dL (8.7-10.4) Total Bilirubin 0.3 mg/dL (0.2-1.0) Aspartate Amino Transferase (AST) 14 U/L (13-40) Alanine Aminotransferase (ALT) 19 U/L (7-40) Alkaline Phosphatase 83 U/L (46-116) Total Protein 8.1 g/dL (5.7-8.2) Albumin 4.6 g/dL (3.2-4.8) Other Laboratory Tests 02/03/25 20:01 Discharge Statement: "Patient was advised to return to the ER or call 911 if any headaches, dizziness, shortness of breath, chest pain, abdominal pain, bleeding, fevers, or worsening of medical condition. Patient was counseled about treatment plan, medications, possible side effects, patientverbalized understanding. All questions were answered to the best of my ability. This discharge took greater then 30 minutes in planning, reviewing documentation, counseling the patient, and discussing with other team members." ASSESSMENT ASSESSMENT Assessment FERNANDO FOSTER MD February 07, 2025 13:22
== END 2025-02-07 21:55 | disposition home or self-care (01) | DRG 388 ==
LOC: EDBD 15:30 → ER 15:33 → OVERFLOW 19:51 → WEST WING 19:56
PROVIDERS: ADMIT Internal Medicine; ATTEND Internal Medicine
DX: K56.41 Fecal impaction (principal); E43 Unspecified severe protein-calorie malnutrition; R53.2 Functional quadriplegia; G20.A1 Parkinson's disease without dyskinesia, without mention of fluctuations; D63.8 Anemia in other chronic diseases classified elsewhere; E03.9 Hypothyroidism, unspecified; I10 Essential (primary) hypertension; Z79.899 Other long term (current) drug therapy
CPT/HCPCS: 36415; 74018; 80053; 85025; 87081; 92610; G0378; J7042

== ENCOUNTER 2025-02-21 11:05 | Inpatient (IN) | payer MEDICARE, MEDICAID ==
[~2025-02-21] VITALS: Ht 157.5 cm; Wt 54.5 kg
[2025-02-21 11:17] VITALS: PULSE 65; RESP 15; O2SAT 98
--- NOTE | 2025-02-21 11:32 | ED.PDOC ---
GI ASSESSMENT HPI Comments 64 year old male presents to the ED via EMS with a chief complaint of abdominal pain onset today (02/21/25). 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 Patient has multiple ED visits with admission due to chronic constipation, last ED visit was 02/03/25. PMHx chronic constipation, Parkinson's disease, anemia, hypothyroidism, HTN. No other symptoms or modifying factors present at this time. Chief Complaint: Abdominal Pain Time Seen by MD: 11:20 Primary Care Provider: UNKNOWN Reviewed Notes: Medications, Allergies Allergies: Coded Allergies: NO KNOWN ALLERGIES (Unverified , 01/07/24) Home Meds Active Scripts Lactulose (Lactulose) 10 Gm/15 Ml Triny, 30 ML PO BID for 30 Days, #100 ML 5 Refills Prov:FERNANDO FOSTER MD 02/07/25 Docusate Sodium (Colace) 100 Mg Cap, 1 CAP PO BID, #60 CAP 2 Refills Prov:ANA PAULA SERVIN MD 01/15/25 Polyethylene Glycol 3350 (Miralax) 17 Gm Pow, 17 GM PO DAILY PRN, #340 POW Prov:ANA PAULA SERVIN MD 01/15/25 Docusate Sodium (Docusate Sodium) 100 Mg Cap, 100 MG PO BID for 60 Days, #120 CAP Prov:ILENE LORENZANA RESIDENT 12/24/24 Reported Medications Omeprazole (Gnp Omeprazole) 20 Mg Tab, 20 MG PO DAILY, TAB 10/31/24 Levothyroxine Sodium (Levothyroxine Sodium) 88 Mcg Tab, 1 TAB PO DAILY 12/04/23 Carbidopa-Levodopa (Carbidopa/Levodopa Odt 25-100 mg) 1 Tab Tab, 1 TAB PO TID 12/04/23 Information Source: Relative, Emergency Med Personnel Mode of Arrival: EMS Timing: Hours Duration: Since onset Prehospital treatment: None Quality: Sharp Vomitus: None Severity: Moderate Recent: None Recent Hx of: None Pain Location: Epigastric Modifying Factors: Nothing Associated sign and symptoms: Constipation, Abdominal Pain Past Medical History PAST MEDICAL HISTORY: Anemia, HTN, Thyroid Past Medical History (Other): parkinson's disease, chronic constipation Surgical History: Unknown Family History Family History: Reviewed,noncontributory to illness, Unknown Social History Smoker: Non-Smoker Alcohol: Denies ETOH Use Drugs: Denies Drug Use Lives In: Home, Assisted Care Constitutional: denies: chills, diaphoresis, fatigue, fever, malaise, sweats, weakness, others EENTM: denies: blurred vision, double vision, ear bleeding, ear discharge, ear drainage, ear pain, ear ringing, eye pain, eye redness, hearing loss, mouth pain, mouth swelling, nasal discharge, nose bleeding, nose congestion, nose pain, photophobia, tearing, throat pain, throat swelling, voice changes, others Respiratory: denies: cough, hemoptysis, orthopnea, SOB at rest, shortness of breath, SOB with excertion, stridor, wheezing, others Cardiovascular: denies: chest pain, dizzy spells, diaphoresis, Dyspnea on exertion, edema, irregular heart beat, left arm pain, lightheadedness, palpitations, PND, syncope, others Gastrointestinal: reports: abdominal pain, constipated; denies: abdomen dist ended, blood streaked bowels, diarrhea, dysphagia, difficulty swallowing, hematemesis, melena, nausea, poor appetite, poor fluid intake, rectal bleeding, rectal pain, vomiting, others Genitourinary: denies: burning, dysuria, flank pain, frequency, hematuria, incontinence, penile discharge, penile sore, pain, testicle pain, testicle swelling, urgency, others Neurological: denies: dizziness, fainting, headache, left sided numbness, left sided weakness, numbness, paresthesia, pre-existing deficit, right sided numbness, right sided weakness, seizure, speech problems, tingling, tremors, weakness, others Musculoskeletal: denies: back pain, gout, joint pain, joint swelling, muscle pain, muscle stiffness, neck pain, others Integumetry: denies: bruises, change in color, change in hair/nails, dryness, laceration, lesions, lumps, rash, wounds, others Allergic/Immunocompromised: denies: Difficulty Healing, Frequent Infections, Hives, Itching, others Hematologic/Lymphatic: denies: anemia, blood clots, easy bleeding, easy bruising, swollen glands, others Endocrine: denies: excessive hunger, excessive sweating, excessive thirst, excessive urination, flushing, intolerance to cold, intolerance to heat, unexplained weight gain, unexplained weight loss, others Psychiatric: denies: anxiety, bipolar disorder, depression, hopeless, panic disorder, schizophrenia, sleepless, suicidal, others All Other Systems: Reviewed and Negative Physical Exam General Appearance: Normal, Other (nonverbal, follows commands, in diapper, landrum catheter in place, clear yellow urine) HEENT: Normal ENT Inspection, Pharynx Normal, TMs Normal Neck: Full Range of Motion, Non-Tender, Normal, Normal Inspection Respiratory: Chest Non-Tender, Lungs Clear, No Accessory Muscle Use, No Respiratory Distress, Normal Breath Sounds Cardiovascular: No Edema, No JVD, No Murmur, No Gallop, Normal Peripheral Pulses, Regular Rate/Rhythm Breast Exam: Deferred Gastrointestinal: No Organomegaly, No Pulsatile Mass, Soft, Other (decreased bowel sounds) Genitalia: Deferred Pelvic: Deferred Rectal: Deferred Extremities: No calf tenderness, Normal capillary refill, Normal inspection, Normal range of motion, Non-tender, No pedal edema Musculoskeletal : Apperance: Normal Neurologic: Alert, teletype operator II-XII nml as Tested, No Motor Deficits, Normal Affect, Normal Mood, No Sensory Deficits Cerebellar Function: Normal Reflexes: Normal Skin: Dry, Normal Color, Warm Lymphatic: No Adenopathy Was a procedure done? Was a procedure done?: No GI differential Dx Differential Diagnosis: Appendicitis, Angina/TN, Aortic dissection, Bowel Obstruction, Cholangitis, Cholecystitis, Constipation, Diverticular disease, Ga stritis/PUD, Gastroenteritis, GI hemorrhage, Hernia, Hepatitis, Inflammatory BD, Ischemic Bowel, Pancreatitis, UTI, Electrolyte Imbalance, Food Poisoning, Bacterial, Parasitic, Viral, Hypovolemia, Impaction, Malnutrition, Renal Failure, Ischemic Bowel, Mass, Anemia, Stress Ulcer, Kidney Stone X-Ray, Labs, Meds, VS Vital Signs Date Time Temp Pulse Resp B/P (MAP) Pulse Ox O2 Delivery O2 Flow Rate FiO2 02/21/25 13:35 77 15 91/63 (72) 98 02/21/25 12:34 96.2 65 15 02/21/25 11:17 65 15 98 Room Air* 0 21 02/21/25 11:17 96.5 65 15 86/59 (68) 98 96.5 02/21/25 11:08 98.2 74 14 86/58 (67) 98 98.2 Lab Test 02/21/25 14:30 02/21/25 12:35 02/21/25 12:01 Range/Units Lactic Acid Level Pending 2.7 *H 0.4-2.0 mmol/L White Blood Count 9.2 4.4-10.8 10^3/uL Red Blood Count 4.13 L 4.5-5.90 10^6/uL Hemoglobin 11.7 L 13.5-17.5 g/dL Hematocrit 36.4 L 41.0-53.0 % Mean Corpuscular Volume 88.3 80.0-100.0 fL Mean Corpuscular Hemoglobin 28.4 28.0-32.0 pg Mean Corpuscular Hemoglobin Concent 32.1 32.0-36.0 g/dL Red Cell Distribution Width 15.3 H 11.8-14.3 % Platelet Count 358 140-450 10^3/uL Mean Platelet Volume 9.5 6.9-10.8 fL Neutrophils (%) (Auto) 83.2 H 37.0-80.0 % Lymphocytes (%) (Auto) 11.2 10.0-50.0 % Monocytes (%) (Auto) 4.6 0.0-12.0 % Eosinophils (%) (Auto) 0.7 0.0-7.0 % Basophils (%) (Auto) 0.3 0.0-2.0 % Neutrophils # (Auto) 7.6 1.6-8.6 10 ^3/uL Lymphocytes # (Auto) 1.0 0.4-5.4 10 ^3/uL Monocytes # (Auto) 0.4 0-1.3 10 ^3/uL Eosinophils # (Auto) 0.1 0-0.8 10 ^3/uL Basophils # (Auto) 0 0-0.2 10 ^3/uL Nucleated Red Blood Cells 0.1 % Sodium Level 138 136-145 mmol/L Potassium Level 4.1 3.5-5.1 mmol/L Chloride Level 103 98-107 mmol/L Carbon Dioxide Level 26 20-31 mmol/L Anion Gap 9 5-15 Blood Urea Nitrogen 12 9-23 mg/dL Creatinine 0.89 0.700-1.30 mg/dL Glomerular Filtration Rate Calc 96 >90 mL/min BUN/Creatinine Ratio 13.5 10.0-20.0 Serum Glucose 100 74-106 mg/dL Calcium Level 9.4 8.7-10.4 mg/dL Current Medications Medications (Trade) Dose Ordered Sig/Kylee Route Start Time Stop Time Status Last Admin Sodium Chloride 1,000 ml @ 150 mls/hr Q6H40M ONCE IV 02/21/25 11:45 02/21/25 18:24 02/21/25 11:51 Lactated Ringer's 1,650 ml @ 1,650 mls/hr ONCE ONCE IV 02/21/25 12:15 02/21/25 13:14 DC 02/21/25 12:28 Piperacillin Sod/ Tazobactam Sod 100 ml @ 100 mls/hr ONCE ONCE IV 02/21/25 12:45 02/21/25 13:44 DC 02/21/25 12:50 Time of 1ST Reevaluation: 11:50 Reevaluation 1ST: Unchanged Time of 2ND Reevaluation: 13:52 Reevaluation 2ND: Improved Patient Education/Counseling: Diagnosis, Treatment, Prognosis Family Education/Counseling: No Family Present Additional Information Reviewed previous charts from: 02/03/25, 01/27/25, 01/29/25, 12/21/24, 12/19/24, 12/15/24 The following tests were ordered, and results were reviewed by me: CBC, XY KUB ABDOMEN SINGLE VIEW, BMP Additional Information was gathered from interviewing the following independent historians: EMS I reviewed and agreed with the following test results read by other providers: XY KUB ABDOMEN SINGLE VIEW I discussed treatment and results with medical personnel and: patient Comprehensive systems review obtained and negative except for what is stated in the HPI. pt is clinically stable, appears to be at his baseline, per his care provider. his last visit, he had hypotension as well. he is on mineralocorticoid supplement. however, due to the hypothermia sepsis protocol was initiated. the workup, so far continues to show stool impaction severe sepsis was suspected at: 1130 with SIRS criteria :hypotension, hypothermia at 1117 infection source: suspect intraabdominal patient has evidence of organ failure:sbp <90 broad spectrum antibiotic:zosyn, vanco started at:1250 IVF started at:1228 LR 30cc/kg total of 1600cc blood culture drawn at :1230 in addition, septic shock was not present vasopressor started at: none repeat lactic acid drawn at:1430 reassessment done at:1335. improved BP SBP 91. good skin turgor Sepsis Sepsis Reasesment Focused Exam Sepsis focused exam: focus exam completed (improved SBP 91), time: (1506) Departure 1 Departure Time of Disposition: 14:06 Impression: Primary Impression: Abdominal pain Qualified Codes: R10.84 - Generalized abdominal pain Additional Impressions: Severe sepsis Hypothermia Qualified Codes: T68.XXXA - Hypothermia, initial encounter Fecal impaction Disposition: ADMITTED INPATIENT Admit to: Med Surg Condition: Serious Discharged With: Self Critical Care Note Critical Care Time?: Yes (55 min-critical care time only) Critical care comment: due to concerns for deterioration of patient's condition, the care required my highest level of attention and readiness. i assessed the patient's condition, reviewed relevant documents, communicated with medical personnel, ordered the p mane tests and treatments, reassessed for results and response to treatments, spoke to family and consultants and formulated a plan of care Stability Stability form required: No I personally scribed for HOLLI FORREST MD ([email or web address]) on 02/21/25 at 11:32. Electronically submitted by Tracy Pérez ([email or web address]). I personally scribed for HOLLI FORREST MD ([email or web address]) on 02/21/25 at 11:40. Electronically submitted by Tracy Pérez ([email or web address]). HOLLI FORREST MD February 21, 2025 11:32
[2025-02-21] MEDS: SODIUM CHLORIDE 0.9% 1,000 ML IV ONE (11:51)
[2025-02-21 12:17] LABS: Basophils # (auto) 0 10 ^3/uL (0-0.2); Basophils % (auto) 0.3 % (0.0-2.0); Eosinophils # (auto) 0.1 10 ^3/uL (0-0.8); Eosinophils % (auto) 0.7 % (0.0-7.0); Hematocrit 36.4 % (41.0-53.0); Hemoglobin 11.7 g/dL (13.5-17.5); Lymphocytes % (auto) 11.2 % (10.0-50.0); Mean Corpuscular Hemoglobin 28.4 pg (28.0-32.0); Mean Corpuscular Hgb Conc. 32.1 g/dL (32.0-36.0); Mean Corpuscular Volume 88.3 fL (80.0-100.0); Monocytes # (auto) 0.4 10 ^3/uL (0-1.3); Monocytes % (auto) 4.6 % (0.0-12.0); Neutrophils # (auto) 7.6 10 ^3/uL (1.6-8.6); Neutrophils % (auto) 83.2 % (37.0-80.0); Nucleated Red Blood Cells % 0.1 %; Platelet Count (auto) 358 10^3/uL (140-450); Red Blood Cells 4.13 10^6/uL (4.5-5.90); Red Cell Distribution Width 15.3 % (11.8-14.3); White Blood Cell 9.2 10^3/uL (4.4-10.8)
--- NOTE | 2025-02-21 12:25 | DVH ---
Indication: constipation Technique: Single-view abdomen Comparison: 02/03/2025 FINDINGS/IMPRESSION: Large volume stool within the colonm. Multiple loops gaseous distended small bowel up to approximately 3 cm which can be secondary to ileus , obstruction. Upper abdomen not completely visualized.
[2025-02-21 12:27] LABS: Chloride 103 mmol/L (98-107); Potassium 4.1 mmol/L (3.5-5.1); Sodium 138 mmol/L (136-145)
[2025-02-21 12:28] LABS: Anion Gap 9 (5-15); Calcium 9.4 mg/dL (8.7-10.4); Carbon Dioxide 26 mmol/L (20-31)
[2025-02-21] MEDS: LACTATED RINGER'S 1,650 ML IV ONE (12:28)
[2025-02-21 12:33] LABS: BUN/Creatinine Ratio 13.5 (10.0-20.0); Blood Urea Nitrogen 12 mg/dL (9-23); Glucose 100 mg/dL (74-106)
[2025-02-21] MEDS: PIPERACILLIN-TAZOB 3.375GM 100 ML IV ONE (12:50)
[2025-02-21] MEDS ORDERED: VANCOMYCIN PER PHARMACY 0 MG IV SCH (13:00)
--- NOTE | 2025-02-21 13:02 | DVH ---
CHEST RADIOGRAPH Indication: r/o infitrates Technique: Single frontal view of the chest was obtained COMPARISON: XY CHEST PORTABLE on DOS: 12/26/24 FINDINGS: Lines and Tubes: None Lungs: The lung apices are partially obscured by the overlying mandible. Minimal left basilar atele ctasis. No focal consolidation. Pleura: No effusion. No pneumothorax. Cardiomediastinal contours: Cardiac silhouette is unremarkable. Elevation of the left hemidiaphragm is unchanged. Bones: Unremarkable IMPRESSION: No evidence of acute cardiopulmonary disease.
[2025-02-21 13:10] LABS: Lactic Acid w/Reflex 2.7 mmol/L (0.4-2.0)
--- NOTE | 2025-02-21 14:05 | DVH ---
Indication: abdmonial pain Technique: CT axial images of the abdomen and pelvis are obtained without contrast. Coronal and sagit delonte reformats were obtained. Radiation Dose Information: CTDI volume is 5.1 mGy. Dose-length product is 275.04 mGy*cm Comparison: 12/26/2024 FINDINGS: There is limited interpretation of the abdomen and pelvis without administration of intravenous contr ast. Examination degraded by motion. Lung bases demonstrate no pleural effusion. The adrenal glands, spleen unremarkable in shape. Pancreas is not well characterized. Liver unremar kable in shape. No hydronephrosis/ nephrolithiasis. Stomach is partially distended. Small bowel loops moderately distended. Large volume stool within the rectum and colon. No secondary signs for appendicitis. Abdominal aortic atherosclerotic disease. Bladder decompressed by Em catheter. No free pelvic flui d. No inguinal lymphadenopathy. Moderate bilateral sacroiliac degenerative joint disease. Moderate thoracolumbar degenerative disc disease IMPRESSION: Limited evaluation without contrast. Examination also is significantly degraded by motio n. 1. Large volume stool within the entirety of the colon. Correlate for constipation. 2. Other findings as described.
[2025-02-21] MEDS ORDERED: HYDROcodone-ACET 5/325MG TAB PO PRN (15:45)
[2025-02-21] MEDS ORDERED: ACETAMINOPHEN 500 MG TAB or CAP PO PRN (15:45)
[2025-02-21] MEDS ORDERED: ONDANSETRON HCL 4 MG/2 ML VIAL IV PRN (15:45)
[2025-02-21] MEDS ORDERED: BISACODYL 10 MG RECT SUPP PR PRN (15:45)
--- NOTE | 2025-02-21 15:47 | DVHHP2 ---
History of Present Illness Reason for Visit: Abdominal pain History of Present Illness The patient 64-year-old male presenting to the emergency room with complaints of acute abdominal pain that occurred this a.m.. Patient has a significant history of Parkinson's disease, for which the patient's brother is his primary caregiv er. Patient has a significant history of chronic constipation, for which the patient was recently admitted to this hospital. KUB was ordered with the patient which showed distended bowels, in addition to CT scan of the abdomen and pelvis confirming severe constipation. Other significant history includes hypothyroidism, and anemia. 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 Allergies: Coded Allergies: NO KNOWN ALLERGIES (Unverified , 01/07/24) Medications Current Medications Medications Dose Ordered Sig/Kylee Route Start Time Stop Time Status Last Admin Dose Admin Vancomycin HCl 200 ml @ 200 mls/hr Q12HR IV 02/21/25 22:00 UNV Piperacillin Sod/ Tazobactam Sod 100 ml @ 25 mls/hr Q8HR IV 02/21/25 22:00 Vancomycin HCl 0 ml @ 0 mls/hr UD IV 02/21/25 13:00 UNV Exam Vital Signs Vital Signs Date Time Temp Pulse Resp B/P (MAP) Pulse Ox O2 Delivery O2 Flow Rate FiO2 02/21/25 13:35 77 15 91/63 (72) 98 02/21/25 12:34 96.2 02/21/25 11:17 Room Air* 0 21 General Appearance: Alert, Cooperative, mild distress HEENT: Atraumatic, PERRLA Respiratory: Clear to auscultation, Normal air movement Cardiovascular: Normal S1, Normal S2 Abdominal: Normal bowel sounds, Other (Diffuse distention) Extremities: No clubbing, No cyanosis, No edema, Normal pulses, No tenderness/swelling Neuro: Cranial nerves 3-12 NL Psych/Mental Status: Mental status NL, Mood NL Labs/Xrays Labs Test 02/21/25 14:30 02/21/25 12:01 Range/Units Lactic Acid Level 0.9 0.4-2.0 mmol/L White Blood Count 9.2 4.4-10.8 10^3/uL Red Blood Count 4.13 L 4.5-5.90 10^6/uL Hemoglobin 11.7 L 13.5-17.5 g/dL Hematocrit 36.4 L 41.0-53.0 % Mean Corpuscular Volume 88.3 80.0-100.0 fL Mean Corpuscular Hemoglobin 28.4 28.0-32.0 pg Mean Corpuscular Hemoglobin Concent 32.1 32.0-36.0 g/dL Red Cell Distribution Width 15.3 H 11.8-14.3 % Platelet Count 358 140-450 10^3/uL Mean Platelet Volume 9.5 6.9-10.8 fL Neutrophils (%) (Auto) 83.2 H 37.0-80.0 % Lymphocytes (%) (Auto) 11.2 10.0-50.0 % Monocytes (%) (Auto) 4.6 0.0-12.0 % Eosinophils (%) (Auto) 0.7 0.0-7.0 % Basophils (%) (Auto) 0.3 0.0-2.0 % Neutrophils # (Auto) 7.6 1.6-8.6 10 ^3/uL Lymphocytes # (Auto) 1.0 0.4-5.4 10 ^3/uL Monocytes # (Auto) 0.4 0-1.3 10 ^3/uL Eosinophils # (Auto) 0.1 0-0.8 10 ^3/uL Basophils # (Auto) 0 0-0.2 10 ^3/uL Nucleated Red Blood Cells 0.1 % Sodium Level 138 136-145 mmol/L Potassium Level 4.1 3.5-5.1 mmol/L Chloride Level 103 98-107 mmol/L Carbon Dioxide Level 26 20-31 mmol/L Anion Gap 9 5-15 Blood Urea Nitrogen 12 9-23 mg/dL Creatinine 0.89 0.700-1.30 mg/dL Glomerular Filtration Rate Calc 96 >90 mL/min BUN/Creatinine Ratio 13.5 10.0-20.0 Serum Glucose 100 74-106 mg/dL Calcium Level 9.4 8.7-10.4 mg/dL Assessment/Plan Assessment/Plan Impression: -rule out bowel obstruction -severe constipation -Parkinson's disease -primary hypertension -anemia -lactic acidosis Plan: -admit to Medical/Surgical unit -IV hydration -lactulose, Dulcolax suppository -continue antihypertensives -repeat labs in a.m. Total time spent with patient discussing and formulating plan of care: 35 minutes. This medical document was created using an electronic medical record system with [email or web address] dictation system. Although this document has been carefully reviewed, there may still be some phonetic and typographical errors. These areas are purely typographical due to imperfections of the software programs, and do not reflect any compromise in the patient's medical care. Plan discussed with: Patient, Other (RN) My Orders Orders - JEREMIE CHU NP Procedure Category Date Status Time NS PHA 02/21/25 Verified 15:45 (NF) PHA 02/21/25 Verified Carbidopa-Levodopa 22:00 Admit ADMIT 02/21/25 Verified 15:36 Oxygen By Nasal RT 02/21/25 Verified Cannula 15:36 Bisacodyl Suppository PHA 02/21/25 Verified (Dulcolax Supposit 15:45 Bisacodyl Suppository PHA 02/21/25 Verified (Dulcolax Supposit 15:45 Lactulose Oral PHA 02/21/25 Verified 18:00 Regular Diet DIET 02/21/25 Verified Dinner Basic Metabolic Panel LAB 02/22/25 Verified 04:00 Complete Blood Count LAB 02/22/25 Verified 04:00 Hydrocodone-Acet PHA 02/21/25 Verified 5/325mg Tab ([place] 15:45 Acetaminophen Tab Or PHA 02/21/25 Verified Cap (Tylenol Tablet 15:45 Ondansetron Hcl PHA 02/21/25 Verified (Zofran) 15:45 Date of Service: February 21, 2025 Billing Provider: JEREMIE CHU NP Common Visit Codes: [id number] INP/OBS CARE (HIGH) JEREMIE CHU NP February 21, 2025 15:47
[2025-02-21] MEDS: SODIUM CHLORIDE 0.9% 1,000 ML IV SCH (16:00)
[2025-02-21] MEDS: BISACODYL 10 MG RECT SUPP PR ONE (16:03)
[2025-02-21] MEDS: CARBIDOPA W LEVODOPA 25/100mg TABLET PO SCH (16:25)
[2025-02-21] MEDS: LACTULOSE 20Gm/30ML SOLN PO SCH (17:44)
[2025-02-21 19:45] VITALS: PULSE 92; RESP 25; O2SAT 95
[2025-02-21] MEDS: VANCOMYCIN 1GM/200ML PM 200 ML IV SCH (21:25)
[2025-02-21] MEDS ORDERED: VANCOMYCIN 1GM/200ML PM 200 ML IV SCH (22:00)
[2025-02-21] MEDS: PIPERACILLIN-TAZOB 3.375GM 100 ML IV SCH (22:09)
[2025-02-22 04:06] LABS: Basophils # (auto) 0 10 ^3/uL (0-0.2); Basophils % (auto) 0.3 % (0.0-2.0); Eosinophils # (auto) 0.1 10 ^3/uL (0-0.8); Eosinophils % (auto) 0.8 % (0.0-7.0); Hematocrit 28.1 % (41.0-53.0); Hemoglobin 9.4 g/dL (13.5-17.5); Lymphocytes # (auto) 0.6 10 ^3/uL (0.4-5.4); Lymphocytes % (auto) 6.3 % (10.0-50.0); Mean Corpuscular Hemoglobin 28.7 pg (28.0-32.0); Mean Corpuscular Hgb Conc. 33.3 g/dL (32.0-36.0); Mean Corpuscular Volume 86.1 fL (80.0-100.0); Monocytes # (auto) 0.3 10 ^3/uL (0-1.3); Monocytes % (auto) 3.4 % (0.0-12.0); Neutrophils # (auto) 8.9 10 ^3/uL (1.6-8.6); Neutrophils % (auto) 89.2 % (37.0-80.0); Platelet Count (auto) 416 10^3/uL (140-450); Red Blood Cells 3.26 10^6/uL (4.5-5.90); Red Cell Distribution Width 14.9 % (11.8-14.3); White Blood Cell 9.9 10^3/uL (4.4-10.8)
[2025-02-22 04:20] LABS: Calcium 9.2 mg/dL (8.7-10.4); Potassium 3.9 mmol/L (3.5-5.1); Sodium 144 mmol/L (136-145)
[2025-02-22 04:21] LABS: Anion Gap 11 (5-15); Carbon Dioxide 24 mmol/L (20-31)
[2025-02-22 04:26] LABS: BUN/Creatinine Ratio 11.1 (10.0-20.0); Blood Urea Nitrogen 10 mg/dL (9-23); Glucose 85 mg/dL (74-106)
[2025-02-22 04:57] LABS: Chloride 109 mmol/L (98-107)
[2025-02-22] MEDS ORDERED: SODIUM CHLORIDE 0.9% 500 ML IV ONE (09:15)
[2025-02-22] MEDS: SODIUM CHLORIDE 0.9% 500 ML IV ONE (09:23)
[2025-02-22 09:48] LABS: Base Excess -4.4 mmol/L (-2.0-3.0)
--- NOTE | 2025-02-22 13:55 | DVHPN2 ---
Subjective Patient denies any symptoms Reviewed: Care Plan, H&P, Labs, Medications, Previous Orders Changes from previous H/P or p: No Changes General: Per HPI Objective Vitals Vital Signs Date Time Temp Pulse Resp B/P (MAP) Pulse Ox O2 Delivery O2 Flow Rate FiO2 02/22/25 12:00 81 19 114/80 (91) 97 02/22/25 08:00 Room Air* 0 21 02/22/25 08:00 97.3 97.3 Intake/Output Intake and Output 02/22/25 07:00 Intake Total 2950 ml Balance 2950 ml IV Total 2950 ml # Bowel Movements 1 General Appearance: Alert, Cooperative, No acute distress HEENT: Atraumatic, PERRLA Lungs: Clear to auscultation, Normal air movement Cardiovascular: Normal S1, Normal S2 Extremities: No clubbing, No cyanosis, No edema, Normal pulses, No tenderness/swelling Neuro: Cranial nerves 3-12 NL Skin: Dry, Intact Psych/Mental Status: Mental status NL, Mood NL Medications Current Medications Medications Dose Ordered Sig/Kylee Route Start Time Stop Time Status Last Admin Dose Admin Vancomycin HCl 200 ml @ 200 mls/hr Q12HR IV 02/21/25 22:00 UNV Piperacillin Sod/ Tazobactam Sod 100 ml @ 25 mls/hr Q8HR IV 02/21/25 22:00 02/22/25 06:06 25 MLS/HR Vancomycin HCl 0 ml @ 0 mls/hr UD IV 02/21/25 13:00 Sodium Chloride 1,000 ml @ 75 mls/hr [id number] IV 02/21/25 15:45 02/22/25 05:05 75 MLS/HR Carbidopa/Levodopa 1 tab TID PO 02/21/25 16:01 02/22/25 06:06 1 TAB Bisacodyl 10 mg DAILYP PRN AL 02/21/25 15:45 Lactulose 30 ml Q4HR PO 02/21/25 18:00 02/22/25 11:41 30 ML Acetaminophen/ Hydrocodone Bitart 1 tab Q6HPRN PRN PO 02/21/25 15:45 Acetaminophen 500 mg Q8HP PRN PO 02/21/25 15:45 Ondansetron HCl 4 mg Q6HP PRN IV 02/21/25 15:45 Vancomycin HCl 200 ml @ 160 mls/hr Q16H IV 02/21/25 20:00 02/22/25 12:04 160 MLS/HR Laboratory Results Laboratory Tests 02/22/25 03:38 Chemistry Test 02/22/25 03:38 Calcium Level 9.2 mg/dL (8.7-10.4) Blood Gas Results Test 02/22/25 09:35 Arterial Blood pH 7.407 (7.350-7.450) FiO2 % 21.0 Microbiology Microbiology Date/Time Source Procedure Growth Status 02/21/25 12:35 Blood Blood Culture - Preliminary NO GROWTH AFTER 24 HOURS OF INCUBATION. Resulted Labs and/or images reviewed: Labs reviewed by me, Image(s) reviewed by me Assessment/Plan Assessment/Plan Impression: -rule out bowel obstruction -severe constipation -Parkinson's disease -primary hypertension -anemia -lactic acidosis Plan: Events: Patient had period of decreased blood pressure. Fluid bolus provided to the patient, normal saline 500 mL with improvement with the patient's systolic blood pressure. Patient has had multiple BMs. -deescalate antibiotic therapy -IV hydration -lactulose, Dulcolax suppository -continue antihypertensives -repeat labs in a.m. Total time spent with patient discussing and formulating plan of care: 35 minutes. This medical document was created using an electronic medical record system with [employer] dictation system. Although this document has been carefully reviewed, there may still be some phonetic and typographical errors. These areas are purely typographical due to imperfections of the software programs, and do not reflect any compromise in the patient's medical care. Plan discussed with: Patient, Other (RN) My Orders Orders - JEREMIE CHU PRINCIPAL STATISTICAL PROGRAMMER Procedure Category Date Status Time Sodium Chloride 0.9% PHA 02/21/25 In Process 15:45 Carbidopa W Levodopa PHA 02/21/25 In Process 25/100mg (Sinemet 2 16:01 Admit ADMIT 02/21/25 Transmitted 15:36 Oxygen By Nasal RT 02/21/25 Transmitted Cannula 15:36 Bisacodyl Suppository PHA 02/21/25 In Process (Dulcolax Supposit 15:45 Lactulose Oral PHA 02/21/25 In Process 18:00 Regular Diet DIET 02/21/25 Transmitted Dinner Hydrocodone-Acet PHA 02/21/25 In Process 5/325mg Tab ([place] 15:45 Acetaminophen Tab Or PHA 02/21/25 In Process Cap (Tylenol Tablet 15:45 Ondansetron Hcl PHA 02/21/25 In Process (Zofran) 15:45 Abg W/ Co-Ox RT 02/22/25 Logged 09:03 Mrsa Screen MINGO 02/22/25 Uncollected 10:38 Date of Service: February 22, 2025 Billing Provider: JEREMIE CHU NP Common Visit Codes: [id number] INP/OBS CARE(HIGH) JEREMIE CHU NP February 22, 2025 13:55
[2025-02-22 19:43] VITALS: PULSE 81; RESP 23; O2SAT 97
[2025-02-23 08:34] VITALS: PULSE 84; RESP 23; O2SAT 97
[2025-02-23 11:20] VITALS: BP 116/79; PULSE 91; RESP 20; TEMP 98.3; O2SAT 99
--- NOTE | 2025-02-23 14:11 | DVHDS2 ---
Discharge Summary Date of Admission February 21, 2025 at 15:36 Date of Discharge: February 23, 2025 Admitting Diagnosis Abdominal pain Labs/Diagnostic Data: Laboratory Results Test 02/22/25 09:35 02/22/25 03:38 02/21/25 14:30 Blood Gas Specimen Type Arterial Blood Gas Sample Site Right radial Blood Gas Patient Temperature 37.0 Arterial Blood Date Drawn [id number] Arterial Blood pH 7.407 (7.350-7.450) Arterial Blood Partial Pressure CO2 31.9 mmHg (35.0-48.0) Arterial Blood Partial Pressure O2 89.3 mmHg (83.0-108.0) Arterial Blood HCO3 19.6 mmol/L (21.0-28.0) Arterial Blood Oxygen Saturation 95.7 % (94.0-98.0) Arterial Blood Base Excess -4.4 mmol/L (-2.0-3.0) Arterial Blood Oxyhemoglobin 95.2 % (94.0-98.0) Arterial Blood Carboxyhemoglobin 0.0 % (0.5-1.5) Arterial Blood Methemoglobin 0.5 % (0.0-1.5) Trever Test Yes Blood Gas Total Hemoglobin 8.70 g/dL (13.5-17.5) Blood Gas Modality Room air FiO2 % 21.0 White Blood Count 9.9 10^3/uL (4.4-10.8) Red Blood Count 3.26 10^6/uL (4.5-5.90) Hemoglobin 9.4 g/dL (13.5-17.5) Hematocrit 28.1 % (41.0-53.0) Mean Corpuscular Volume 86.1 fL (80.0-100.0) Mean Corpuscular Hemoglobin 28.7 pg (28.0-32.0) Mean Corpuscular Hemoglobin Concent 33.3 g/dL (32.0-36.0) Red Cell Distribution Width 14.9 % (11.8-14.3) Platelet Count 416 10^3/uL (140-450) Mean Platelet Volume 8.7 fL (6.9-10.8) Neutrophils (%) (Auto) 89.2 % (37.0-80.0) Lymphocytes (%) (Auto) 6.3 % (10.0-50.0) Monocytes (%) (Auto) 3.4 % (0.0-12.0) Eosinophils (%) (Auto) 0.8 % (0.0-7.0) Basophils (%) (Auto) 0.3 % (0.0-2.0) Neutrophils # (Auto) 8.9 10 ^3/uL (1.6-8.6) Lymphocytes # (Auto) 0.6 10 ^3/uL (0.4-5.4) Monocytes # (Auto) 0.3 10 ^3/uL (0-1.3) Eosinophils # (Auto) 0.1 10 ^3/uL (0-0.8) Basophils # (Auto) 0 10 ^3/uL (0-0.2) Nucleated Red Blood Cells 0.0 % Sodium Level 144 mmol/L (136-145) Potassium Level 3.9 mmol/L (3.5-5.1) Chloride Level 109 mmol/L (98-107) Carbon Dioxide Level 24 mmol/L (20-31) Anion Gap 11 (5-15) Blood Urea Nitrogen 10 mg/dL (9-23) Creatinine 0.90 mg/dL (0.700-1.30) Glomerular Filtration Rate Calc 96 mL/min (>90) BUN/Creatinine Ratio 11.1 (10.0-20.0) Serum Glucose 85 mg/dL (74-106) Calcium Level 9.2 mg/dL (8.7-10.4) Lactic Acid Level 0.9 mmol/L (0.4-2.0) Other Laboratory Tests 02/22/25 03:38 Brief Hx & Hospital Course: History of Present Illness The patient 64-year-old male presenting to the emergency room with complaints of acute abdominal pain that occurred this a.m.. Patient has a significant history of Parkinson's disease, for which the patient's brother is his primary caregiver. Patient has a significant history of chronic constipation, for which the patient was recently admitted to this hospital. KUB was ordered with the patient which showed distended bowels, in addition to CT scan of the abdomen and pelvis confirming severe constipation. Other significant history includes hypothyroidism, and anemia. Course of hospitalization: Patient was started on IV hydration, bowel regimen, empiric antibiotic therapy. Patient has had multiple BMs, with the patient's abdominal pain resolving. At this time, the patient continues to be aphasic, but tolerating oral intake without any problems. Patient will be discharged home under the care of his caregiver/brother. He is to continue all previous home medications including previous laxatives that were prescribed to him on his recent admission. Physical examination General: Alert and Oriented x3. No acute distress. Well-nourished. Eyes: EOMI. Anicteric. HENT: Moist mucous membranes. Lungs: Clear to auscultation bilaterally. No accessory muscle use. Cardiovascular: Regular rate and rhythm. No murmur. No JVD. Abdomen: Soft, non-tender and non-distended. No palpable masses. Extremities: No edema. Non-tender. Skin: No rashes or lesions. Warm. Neurologic: No focal neurological deficits. CN II-XII grossly intact, but not individually tested. Psychiatric: Cooperative. Appropriate mood and affect. Total time spent with patient discussing and formulating plan of care: 35 minutes. This medical document was created using an electronic medical record system with [employer] dictation system. Although this document has been carefully reviewed, there may still be some phonetic and typographical errors. These areas are purely typographical due to imperfections of the software programs, and do not reflect any compromise in the patient's medical care. Condition at Discharge: Fair Final Diagnosis/Problems List Ruled out bowel obstruction Secondary diagnosis: -rule out bowel obstruction -severe constipation -Parkinson's disease -primary hypertension -anemia -lactic acidosis Discharge Disposition: Home Discharge Instruct/Medications Diet: Regular Activity: No Restrictions, As Tolerated Follow Up/Referral: Follow up with PCP in 1-2 weeks Medications: Continue all home medications 36 Discharge Statement: "Patient was advised to return to the ER or call 911 if any headaches, dizziness, shortness of breath, chest pain, abdominal pain, bleeding, fevers, or worsening of medical condition. Patient was counseled about treatment plan, medications, possible side effects, patientverbalized understanding. All questions were answered to the best of my ability. This discharge took greater then 30 minutes in planning, reviewing documentation, counseling the patient, and discussing with other team members." ASSESSMENT ASSESSMENT Assessment Ruled out bowel obstruction Date of Service: February 23, 2025 Billing Provider: JEREMIE CHU NP Common Visit Codes: 14978-PAA/OBS DISCH DAY >30min JEREMIE CHU NP February 23, 2025 14:11
[2025-02-23 16:24] VITALS: BP 116/74; PULSE 92; RESP 18; TEMP 98.6; O2SAT 100
[2025-02-23 17:00] VITALS: BP 124/78; PULSE 89; RESP 17; TEMP 97.8; O2SAT 95
== END 2025-02-23 18:50 | disposition home or self-care (01) | DRG 389 ==
LOC: EDBD 11:05 → ER 11:05 → OVERFLOW 15:36 → WEST WING 02-23 11:13
PROVIDERS: ADMIT Nurse Practitioner Acute Care; ATTEND Nurse Practitioner Acute Care
DX: K56.41 Fecal impaction (principal); E87.20 Acidosis, unspecified; R47.01 Aphasia; D64.9 Anemia, unspecified; I10 Essential (primary) hypertension; G20.A1 Parkinson's disease without dyskinesia, without mention of fluctuations; E03.9 Hypothyroidism, unspecified; T68.XXXA Hypothermia, initial encounter; Z79.899 Other long term (current) drug therapy; X31.XXXA Exposure to excessive natural cold, initial encounter
CPT/HCPCS: 36415; 36600; 71045; 74018; 74176; 80048; 82805; 83605; 85025; 87040; 96360; 99291; G0378; J2543

== ENCOUNTER 2025-03-05 14:16 | Inpatient (IN) | payer MEDICARE, MEDICAID ==
[~2025-03-05] VITALS: Ht 170.2 cm; Wt 46.5 kg
--- NOTE | 2025-03-05 15:01 | ED.PDOC ---
GI ASSESSMENT HPI Comments 64 year old male with a past medical history of chronic constipation, Parkinson's disease, anemia, hypothyroidism, HTN. presents to the ED via EMS with a chief complaint of abdominal pain onset 1 week. Patient was seen 02/21/25, for similar complaints. 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 Patient is nonverbal. No other symptoms or modifying factors present at this time. Chief Complaint: Constipation Time Seen by MD: 14:50 Primary Care Provider: UNKNOWN Reviewed Notes: Medications, Allergies Allergies: Coded Allergies: NO KNOWN ALLERGIES (Unverified , 01/07/24) Home Meds Active Scripts Lactulose (Lactulose) 10 Gm/15 Ml Triny, 30 ML PO BID for 30 Days, #100 ML 5 Refills Prov:FERNANDO FOSTER MD 02/07/25 Docusate Sodium (Colace) 100 Mg Cap, 1 CAP PO BID, #60 CAP 2 Refills Prov:ANA PAULA SERVIN MD 01/15/25 Polyethylene Glycol 3350 (Miralax) 17 Gm Pow, 17 GM PO DAILY PRN, #340 POW Prov:ANA PAULA SERVIN MD 01/15/25 Docusate Sodium (Docusate Sodium) 100 Mg Cap, 100 MG PO BID for 60 Days, #120 CAP Prov:ILENE LORENZANA RESIDENT 12/24/24 Reported Medications Omeprazole (Gnp Omeprazole) 20 Mg Tab, 20 MG PO DAILY, TAB 10/31/24 Levothyroxine Sodium (Levothyroxine Sodium) 88 Mcg Tab, 1 TAB PO DAILY 12/04/23 Carbidopa-Levodopa (Carbidopa/Levodopa Odt 25-100 mg) 1 Tab Tab, 1 TAB PO TID 12/04/23 Information Source: Relative, Emergency Med Personnel Mode of Arrival: EMS Timing: Hours Duration: Since onset Prehospital treatment: None Quality: Sharp Vomitus: None Severity: Moderate Recent: None Recent Hx of: None Pain Location: Diffuse Modifying Factors: Nothing Associated sign and symptoms: Constipation, Abdominal Pain Past Medical History PAST MEDICAL HISTORY: Anemia, HTN, Thyroid Surgical History: Unknown Family History Family History: Reviewed,noncontributory to illness, Unknown Social History Smoker: Non-Smoker Alcohol: Denies ETOH Use Drugs: Denies Drug Use Lives In: Home, Assisted Care Constitutional: denies: chills, diaphoresis, fatigue, fever, malaise, sweats, weakness, others EENTM: denies: blurred vision, double vision, ear bleeding, ear discharge, ear drainage, ear pain, ear ringing, eye pain, eye redness, hearing loss, mouth pain, mouth swelling, nasal discharge, nose bleeding, nose congestion, nose pain, photophobia, tearing, throat pain, throat swelling, voice changes, others Respiratory: denies: cough, hemoptysis, orthopnea, SOB at rest, shortness of breath, SOB with excertion, stridor, wheezing, others Cardiovascular: denies: chest pain, dizzy spells, diaphoresis, Dyspnea on exertion, edema, irregular heart beat, left arm pain, lightheadedness, palpitations, PND, syncope, others Gastrointestinal: reports: abdominal pain, constipated; denies: abdomen dis tended, blood streaked bowels, diarrhea, dysphagia, difficulty swallowing, hematemesis, melena, nausea, poor appetite, poor fluid intake, rectal bleeding, rectal pain, vomiting, others Genitourinary: denies: burning, dysuria, flank pain, frequency, hematuria, incontinence, penile discharge, penile sore, pain, testicle pain, testicle swelling, urgency, others Neurological: denies: dizziness, fainting, headache, left sided numbness, left sided weakness, numbness, paresthesia, pre-existing deficit, right sided numbness, right sided weakness, seizure, speech problems, tingling, tremors, weakness, others Musculoskeletal: denies: back pain, gout, joint pain, joint swelling, muscle pain, muscle stiffness, neck pain, others Integumetry: denies: bruises, change in color, change in hair/nails, dryness, laceration, lesions, lumps, rash, wounds, others Allergic/Immunocompromised: denies: Difficulty Healing, Frequent Infections, Hives, Itching, others Hematologic/Lymphatic: denies: anemia, blood clots, easy bleeding, easy bruising, swollen glands, others Endocrine: denies: excessive hunger, excessive sweating, excessive thirst, excessive urination, flushing, intolerance to cold, intolerance to heat, unexplained weight gain, unexplained weight loss, others Psychiatric: denies: anxiety, bipolar disorder, depression, hopeless, panic disorder, schizophrenia, sleepless, suicidal, others All Other Systems: Reviewed and Negative Physical Exam General Appearance: Moderate Distress HEENT: Normal ENT Inspection, Pharynx Normal, TMs Normal Neck: Full Range of Motion, Non-Tender, Normal, Normal Inspection Respiratory: Chest Non-Tender, Lungs Clear, No Accessory Muscle Use, No Respiratory Distress, Normal Breath Sounds Cardiovascular: No Edema, No JVD, No Murmur, No Gallop, Normal Peripheral Pulses, Regular Rate/Rhythm Breast Exam: Deferred Gastrointestinal: Diffuse, No Organomegaly, No Pulsatile Mass, Normal Bowel Sounds, Soft, Tenderness Genitalia: Deferred Pelvic: Deferred Rectal: Deferred Extremities: No calf tenderness, Normal capillary refill, Normal inspection, Normal range of motion, Non-tender, No pedal edema Musculoskeletal : Apperance: Normal Neurologic: Alert, nursing program chair II-XII nml as Tested, No Motor Deficits, No Sensory Deficits, Other (The patient was nonverbal) Cerebellar Function: Normal Reflexes: Normal Skin: Dry, Normal Color, Warm Lymphatic: No Adenopathy Was a procedure done? Was a procedure done?: No GI differential Dx Differential Diagnosis: Gastritis/PUD, Gastroenteritis, Ischemic Bowel, Pancreatitis, Other (Fecal impaction) X-Ray, Labs, Meds, VS Vital Signs Date Time Temp Pulse Resp B/P (MAP) Pulse Ox O2 Delivery O2 Flow Rate FiO2 03/05/25 19:30 86 14 Room Air* 0 21 03/05/25 19:00 98.2 85 20 117/72 (87) 98 98.2 03/05/25 17:44 97 03/05/25 17:30 98.8 85 21 115/71 (86) 96 98.8 03/05/25 14:45 Room Air* 0 21 03/05/25 14:45 98.8 85 13 106/74 (85) 95 98.8 03/05/25 14:20 98.3 95 16 110/75 (87) 96 98.3 Lab Test 03/05/25 16:46 03/05/25 15:46 Range/Units Urine Color Yellow Yellow Urine Clarity Turbid H Clear Urine pH 6.5 5.0-9.0 Urine Specific [place] 1.013 1.001-1.035 Urine Protein Negative Negative Urine Ketones Negative Negative Urine Blood Negative Negative /uL Urine Nitrite Negative Negative Urine Bilirubin Negative Negative Urine Urobilinogen Normal Negative mg/dL Urine Leukocyte Esterase 3+ Negative /uL Urine RBC 3 0 - 3 /hpf Urine Microscopic WBC 48 H 0-3 /HPF Urine Squamous Epithelial Cells Few <5 /hpf Urine Bacteria Many H None Seen /hpf Urine Mucus Few None Seen Urine Glucose Normal Normal mg/dL White Blood Count 4.5 4.4-10.8 10^3/uL Red Blood Count 3.71 L 4.5-5.90 10^6/uL Hemoglobin 10.5 L 13.5-17.5 g/dL Hematocrit 32.1 L 41.0-53.0 % Mean Corpuscular Volume 86.5 80.0-100.0 fL Mean Corpuscular Hemoglobin 28.5 28.0-32.0 pg Mean Corpuscular Hemoglobin Concent 32.9 32.0-36.0 g/dL Red Cell Distribution Width 16.4 H 11.8-14.3 % Platelet Count 276 140-450 10^3/uL Mean Platelet Volume 8.1 6.9-10.8 fL Neutrophils (%) (Auto) 80.9 H 37.0-80.0 % Lymphocytes (%) (Auto) 12.6 10.0-50.0 % Monocytes (%) (Auto) 4.8 0.0-12.0 % Eosinophils (%) (Auto) 0.6 0.0-7.0 % Basophils (%) (Auto) 1.1 0.0-2.0 % Neutrophils # (Auto) 3.6 1.6-8.6 10 ^3/uL Lymphocytes # (Auto) 0.6 0.4-5.4 10 ^3/uL Monocytes # (Auto) 0.2 0-1.3 10 ^3/uL Eosinophils # (Auto) 0 0-0.8 10 ^3/uL Basophils # (Auto) 0.1 0-0.2 10 ^3/uL Nucleated Red Blood Cells 0.1 % Sodium Level 141 136-145 mmol/L Potassium Level 3.4 L 3.5-5.1 mmol/L Chloride Level 107 98-107 mmol/L Carbon Dioxide Level 28 20-31 mmol/L Anion Gap 6 5-15 Blood Urea Nitrogen 7 L 9-23 mg/dL Creatinine 0.80 0.700-1.30 mg/dL Glomerular Filtration Rate Calc 99 >90 mL/min BUN/Creatinine Ratio 8.8 L 10.0-20.0 Serum Glucose 85 74-106 mg/dL Calcium Level 9.3 8.7-10.4 mg/dL Thyroid Stimulating Hormone (TSH) 4.44 0.55-4.78 uIU/mL Current Medications Medications (Trade) Dose Ordered Sig/Kylee Route Start Time Stop Time Status Last Admin Lactulose 30 ml ONCE ONCE PO 03/05/25 20:00 03/05/25 20:08 DC 03/05/25 20:24 Potassium Chloride (Klor-Con Tablet) 20 meq ONCE ONCE PO 03/05/25 20:00 03/05/25 20:08 DC 03/05/25 20:24 IMPRESSION: 1. Nonobstructive bowel gas pattern. The patient was nonverbal The CBC is within normal limits The chemistry panel is within normal limits The patient was given lactulose as well as potassium here in the emergency department's The urine test is positive for infection The patient was being given Rocephin 1 g IV piggyback for the UTI Images Reviewed?: Images reviewed and evaluated by me Time of 1ST Reevaluation: 15:20 Reevaluation 1ST: Unchanged Patient Education/Counseling: Diagnosis, Treatment, Prognosis Family Education/Counseling: No Family Present Departure 1 Departure Time of Disposition: 20:37 Impression: Primary Impression: UTI (urinary tract infection) Qualified Codes: N30.00 - Acute cystitis without hematuria Additional Impression: Fecal impaction Disposition: 01 HOME / SELF CARE / HOMELESS Condition: Fair Discharged With: Self Critical Care Note Critical Care Time?: No Stability Stability form required: No Heart Score Heart Score: Heart Score Response (Comments) Value History N/A 0 EKG N/A 0 Age N/A 0 Risk Factors N/A 0 Troponin N/A 0 Total 0 I personally scribed for GOGO SHIPMAN MD ([email or web address]) on 03/05/25 at 15:01. Electronically submitted by Tracy Pérez ([email or web address]). I personally scribed for GOGO SHIPMAN MD ([email or web address]) on 03/05/25 at 18:45. Electronically submitted by Adrian Veloz ([email or web address]). GOGO SHIPMAN MD March 05, 2025 15:01
--- NOTE | 2025-03-05 15:57 | DVH ---
Date: 03/05/2025 03:35 PM Examination: XY KUB ABDOMEN SINGLE VIEW History: Constipation Comparison: XY KUB ABDOMEN SINGLE VIEW on DOS: 02/21/25, XY KUB ABDOMEN SINGLE VIEW on DOS: 02/03/25, X Y KUB ABDOMEN SINGLE VIEW on DOS: 01/27/25 TECHNIQUE: Frontal views of the abdomen was obtained. FINDINGS: Bowel gas pattern is unremarkable. Increased stool burden in the colon The lung bases are unremarkable. No acute osseous abnormality identified. IMPRESSION: 1. Nonobstructive bowel gas pattern.
[2025-03-05 15:59] LABS: Basophils # (auto) 0.1 10 ^3/uL (0-0.2); Basophils % (auto) 1.1 % (0.0-2.0); Eosinophils # (auto) 0 10 ^3/uL (0-0.8); Eosinophils % (auto) 0.6 % (0.0-7.0); Hematocrit 32.1 % (41.0-53.0); Hemoglobin 10.5 g/dL (13.5-17.5); Lymphocytes # (auto) 0.6 10 ^3/uL (0.4-5.4); Lymphocytes % (auto) 12.6 % (10.0-50.0); Mean Corpuscular Hemoglobin 28.5 pg (28.0-32.0); Mean Corpuscular Hgb Conc. 32.9 g/dL (32.0-36.0); Mean Corpuscular Volume 86.5 fL (80.0-100.0); Monocytes # (auto) 0.2 10 ^3/uL (0-1.3); Monocytes % (auto) 4.8 % (0.0-12.0); Neutrophils # (auto) 3.6 10 ^3/uL (1.6-8.6); Neutrophils % (auto) 80.9 % (37.0-80.0); Nucleated Red Blood Cells % 0.1 %; Platelet Count (auto) 276 10^3/uL (140-450); Red Blood Cells 3.71 10^6/uL (4.5-5.90); Red Cell Distribution Width 16.4 % (11.8-14.3); White Blood Cell 4.5 10^3/uL (4.4-10.8)
[2025-03-05 16:07] LABS: Chloride 107 mmol/L (98-107); Sodium 141 mmol/L (136-145)
[2025-03-05 16:08] LABS: Anion Gap 6 (5-15); Calcium 9.3 mg/dL (8.7-10.4); Carbon Dioxide 28 mmol/L (20-31)
[2025-03-05 16:13] LABS: BUN/Creatinine Ratio 8.8 (10.0-20.0); Glucose 85 mg/dL (74-106)
[2025-03-05 16:23] LABS: Blood Urea Nitrogen 7 mg/dL (9-23); Potassium 3.4 mmol/L (3.5-5.1)
[2025-03-05 19:30] VITALS: PULSE 86; RESP 14
[2025-03-05] MEDS ORDERED: ONDANSETRON HCL 4 MG/2 ML VIAL IV PRN (20:00)
[2025-03-05] MEDS ORDERED: DOCUSATE SOD 100 MG CAP PO PRN (20:00)
[2025-03-05] MEDS ORDERED: ACETAMINOPHEN 325 MG TAB PO PRN (20:00)
[2025-03-05 20:06] LABS: Urine Bacteria MANY /hpf (None Seen); Urine Blood Negative /uL (Negative); Urine Clarity Turbid (Clear); Urine Color Yellow (Yellow); Urine Mucus FEW (None Seen); Urine Protein, UAD Negative (Negative); Urine Specific Gravity 1.013 (1.001-1.035); Urine Squamous Epithelial Cell FEW /hpf (<5); Urine Urobilinogen Normal (Negative); Urine WBC 48 /HPF (0-3); Urine pH 6.5 (5.0-9.0)
[2025-03-05] MEDS: POTASSIUM CHL 20 Meq TABLET PO ONE (20:24)
[2025-03-05] MEDS: LACTULOSE 20Gm/30ML SOLN PO ONE (20:24)
[2025-03-05] MEDS: CARBIDOPA W LEVODOPA 25/100mg TABLET PO SCH (21:50)
[2025-03-05] MEDS: SODIUM CHLOR 0.9% PF (SALINE LOCK) 10ML VIAL/SYR IV SCH (21:50)
[2025-03-05] MEDS ORDERED: NITROGLYCERIN 0.4 MG SL TAB SL PRN (22:00)
[2025-03-05] MEDS ORDERED: MORPHINE SULFATE INJ 2 MG/ml SYRG IV PRN (22:00)
--- NOTE | 2025-03-05 22:05 | DVHHP2 ---
History of Present Illness Reason for Visit: Generalized weakness History of Present Illness The patient is a 64-year-old male nonverbal with past medical history of Parkinson's disease, anemia, hypothyroidism, and hypertension who presented to [facility] ED with complaint of abdominal pain for the past 1 week. 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 Patient was seen and evaluated in the ED, laboratory data shows WBC 4.5, hemoglobin 10.5, hematocrit 32.1, platelets 276, sodium 141, potassium 3.4, BUN seven, creatinine 0.80, glucose 85, temperature 115/71, heart rate 85, temperature 98.8 F, O2 saturation 6% on oxygen. Patient was given lactulose, please see medication orders section in the computer. On my assessment, no diaphoresis, currently on oxygen, no diarrhea, no nausea, no vomiting, no fever, no chills. Patient was admitted for further evaluation and medical management. Past Medical History Parkinson's disease, Chronic constipation, Anemia, HTN, Hypothyroidism Past Surgical History Denies all surgeries Family History Reviewed, noncontributory to the management of this case. Past Social History The patient lives at assisted care living, denies smoking, no alcohol or illicit drugs abuse. Review of Systems Constitutional: Yes: Weakness; No: Fever, Chills, Sweats, Malaise, Other Eyes: No: Pain, Vision change, Conjunctivae inflammation, Eyelid inflammation, Other, Redness ENT: No: Ear pain, Ear discharge, Nose pain, Nose discharge, Nose congestion, Mouth pain, Mouth swelling, Throat pain, Throat swelling, Other Respiratory: No: Cough, Dry, Shortness of breath, SOB with excertion, Wheezing, Hemoptysis, Pleuritic Pain, Sputum, Wheezing, Other Cardiovascular: No: Chest Pain, Palpitations, Orthopnea, Paroxysmal Noc. Dyspnea, Edema, Lt Headedness, Other Gastrointestinal: Abdominal Pain, Constipation; No: Nausea, Vomiting, Diarrhea, Melena, Hematochezia, Other Genitourinary: No Dysuria, No Frequency, No Incontinence, No Hematuria, No Retention, No Other Musculoskeletal: No: other, neck pain, shoulder pain, arm pain, back pain, hand pain, leg pain, foot pain Skin: No: Rash, Lesions, Jaundice, Bruising, Other Neurological: No: Weakness, Numbness, Incoordination, Change in speech, Confusion, Seizures, Other Allergies: Coded Allergies: NO KNOWN ALLERGIES (Unverified , 01/07/24) Medications Current Medications Medications Dose Ordered Sig/Kylee Route Start Time Stop Time Status Last Admin Dose Admin Levothyroxine Sodium 88 mcg QAM@0600 PO 03/06/25 06:00 Carbidopa/Levodopa 1 tab TID PO 03/05/25 22:00 03/05/25 21:50 1 TAB Lactulose 30 ml BID PO 03/06/25 10:00 Famotidine 20 mg DAILY IV 03/06/25 10:00 Sodium Chloride 10 ml Q8HR IV 03/05/25 22:00 03/05/25 21:50 10 ML Acetaminophen/ Hydrocodone Bitart 1 tab Q4HP PRN PO 03/05/25 20:00 Ondansetron HCl 4 mg Q4HP PRN IV 03/05/25 20:00 Docusate Sodium 100 mg BIDPRN PRN PO 03/05/25 20:00 Multivitamins 1 tab DAILY PO 03/06/25 10:00 Acetaminophen 650 mg Q6HP PRN PO 03/05/25 20:00 Exam Vital Signs Vital Signs Date Time Temp Pulse Resp B/P (MAP) Pulse Ox O2 Delivery O2 Flow Rate FiO2 03/05/25 21:00 95 20 107/74 (85) 98 03/05/25 19:30 Room Air* 0 21 03/05/25 19:00 98.2 98.2 General Appearance: Alert, Cooperative, No acute distress, Other (Oriented x1) HEENT: Atraumatic, PERRLA, EOMI, Mucous membr. moist/pink Respiratory: Clear to auscultation, Normal air movement Cardiovascular: Regular rate, Normal S1, Normal S2, No murmurs Abdominal: Normal bowel sounds, Soft, No tenderness, No hepatospenomegaly, No masses Extremities: No clubbing, No cyanosis, No edema, Normal pulses, No tenderness/swelling Skin: No rashes, No significant lesion Neuro: Normal tone, Sensation intact, Cranial nerves 3-12 NL, Reflexes 2+, Other (Generalized weakness) Psych/Mental Status: Mood NL, Other (Altered mental status) Labs/Xrays Labs Test 03/05/25 16:46 03/05/25 15:46 Range/Units Urine Color Yellow Yellow Urine Clarity Turbid H Clear Urine pH 6.5 5.0-9.0 Urine Specific [place] 1.013 1.001-1.035 Urine Protein Negative Negative Urine Ketones Negative Negative Urine Blood Negative Negative /uL Urine Nitrite Negative Negative Urine Bilirubin Negative Negative Urine Urobilinogen Normal Negative mg/dL Urine Leukocyte Esterase 3+ Negative /uL Urine RBC 3 0 - 3 /hpf Urine Microscopic WBC 48 H 0-3 /HPF Urine Squamous Epithelial Cells Few <5 /hpf Urine Bacteria Many H None Seen /hpf Urine Mucus Few None Seen Urine Glucose Normal Normal mg/dL White Blood Count 4.5 4.4-10.8 10^3/uL Red Blood Count 3.71 L 4.5-5.90 10^6/uL Hemoglobin 10.5 L 13.5-17.5 g/dL Hematocrit 32.1 L 41.0-53.0 % Mean Corpuscular Volume 86.5 80.0-100.0 fL Mean Corpuscular Hemoglobin 28.5 28.0-32.0 pg Mean Corpuscular Hemoglobin Concent 32.9 32.0-36.0 g/dL Red Cell Distribution Width 16.4 H 11.8-14.3 % Platelet Count 276 140-450 10^3/uL Mean Platelet Volume 8.1 6.9-10.8 fL Neutrophils (%) (Auto) 80.9 H 37.0-80.0 % Lymphocytes (%) (Auto) 12.6 10.0-50.0 % Monocytes (%) (Auto) 4.8 0.0-12.0 % Eosinophils (%) (Auto) 0.6 0.0-7.0 % Basophils (%) (Auto) 1.1 0.0-2.0 % Neutrophils # (Auto) 3.6 1.6-8.6 10 ^3/uL Lymphocytes # (Auto) 0.6 0.4-5.4 10 ^3/uL Monocytes # (Auto) 0.2 0-1.3 10 ^3/uL Eosinophils # (Auto) 0 0-0.8 10 ^3/uL Basophils # (Auto) 0.1 0-0.2 10 ^3/uL Nucleated Red Blood Cells 0.1 % Sodium Level 141 136-145 mmol/L Potassium Level 3.4 L 3.5-5.1 mmol/L Chloride Level 107 98-107 mmol/L Carbon Dioxide Level 28 20-31 mmol/L Anion Gap 6 5-15 Blood Urea Nitrogen 7 L 9-23 mg/dL Creatinine 0.80 0.700-1.30 mg/dL Glomerular Filtration Rate Calc 99 >90 mL/min BUN/Creatinine Ratio 8.8 L 10.0-20.0 Serum Glucose 85 74-106 mg/dL Calcium Level 9.3 8.7-10.4 mg/dL Thyroid Stimulating Hormone (TSH) 4.44 0.55-4.78 uIU/mL PATIENT: JESSICA IRIZARRY ACCT: [id number] UNIT: [id number] : 1960 LOC: ER ROOM / BED: / AGE / SEX: 64 / M ADM STATUS: REG ER SERVICE 1524 ORDERING PHYSICIAN: GOGO SHIPMAN MD PROCEDURE(s): KUB - KUB ABDOMEN SINGLE VIEW REASON: Constipation ORDER NUMBER(s): [id number], ACCESSION NUMBER(s): [id number] Date: 03/05/2025 03:35 PM Examination: XY KUB ABDOMEN SINGLE VIEW History: Constipation Comparison: XY KUB ABDOMEN SINGLE VIEW on DOS: 02/21/25, XY KUB ABDOMEN SINGLE VIEW on DOS: 02/03/25, XY KUB ABDOMEN SINGLE VIEW on DOS: 01/27/25 TECHNIQUE: Frontal views of the abdomen was obtained. FINDINGS: Bowel gas pattern is unremarkable. Increased stool burden in the colon The lung bases are unremarkable. No acute osseous abnormality identified. IMPRESSION: 1. Nonobstructive bowel gas pattern. Assessment/Plan Assessment/Plan Abdominal pain Hypotension UTI (urinary tract infection) Fecal impaction Constipation, unspecified Generalized weakness Acute cystitis without hematuria Plan 1. Admit to telemetry unit 2. Breathing treatment 3. Pain control management 4. IV antibiotic management 5. Management of fluids and electrolytes 6. Consultation for hospitalist 7. Diagnostic test chest/abdomen x-ray 8. DVT prophylaxis-on SCDs 9. Repeat labs CBC, CMP in a.m. 10. Home medication reviewed and reconciled 11. Continue with current medical management 12. Treatment plan discussed with patient and RN. Patient will need reinstatement of information given mental status. Plan discussed with: Patient, Other (RN) My Orders Orders - KATIUSKA AUGUST DNP Procedure Category Date Status Time Levothyroxine Tablet PHA 03/06/25 In Process (Synthroid Tablet) 06:00 Carbidopa W Levodopa PHA 03/05/25 In Process 25/100mg (Sinemet 2 22:00 Famotidine Injection PHA 03/06/25 In Process (Pepcid Injection) 10:00 Allergies DIVYA 03/05/25 In Process 19:52 Code Status CODE 03/05/25 Transmitted 19:52 Sodium Chloride Lock PHA 03/05/25 In Process (Saline Lock Ns) 22:00 Oxygen Per Hour RT 03/05/25 Transmitted 19:52 Hydrocodone-Acet PHA 03/05/25 In Process 5/325mg Tab ([place] 20:00 Ondansetron Hcl PHA 03/05/25 In Process (Zofran) 20:00 Docusate Sodium PHA 03/05/25 In Process Capsule (Colace 20:00 Multiple Vitamin PHA 03/06/25 In Process Tablet (Mvi Tab) 10:00 Complete Blood Count LAB 03/06/25 Verified 04:00 Comprehensive LAB 03/06/25 Verified Metabolic Panel 04:00 Cardiac DIET 03/06/25 Transmitted Diet-2gna,Lofat,Lochol Breakfast Condition: Serious DIVYA 03/05/25 In Process 19:52 Acetaminophen Tablet PHA 03/05/25 In Process (Tylenol Tablet) 20:00 Bedrest With Bathroom DIVYA 03/05/25 In Process Privileg 19:52 Sequential DIVYA 03/05/25 In Process Compression Device Lactulose Oral PHA 03/06/25 In Process 10:00 Admit ADMIT 03/05/25 Verified 21:58 Nitroglycerin PHA 03/05/25 Verified Sublingual (Ntrostat 22:00 Morphine Sulfate PHA 03/05/25 Verified Injection 22:00 Notify Of Changes DIVYA 03/05/25 Verified From Base 21:58 Timber Faller For DIVYA 03/05/25 Verified 24 Hours 21:58 Emergency Dysrhythmia DIVYA 03/05/25 Verified Protocol 21:58 Rhythm Strips Once DIVYA 03/05/25 Verified Every Shift 21:58 Oxygen By Nasal RT 03/05/25 Verified Cannula 21:58 Problem List: (1) Abdominal pain (2) Hypotension (3) UTI (urinary tract infection) (4) Fecal impaction (5) Constipation, unspecified (6) Generalized weakness (7) Acute cystitis without hematuria Date of Service: March 05, 2025 Billing Provider: KATIUSKA AUGUST DNP Common Visit Codes: [id number] INP/OBS CARE (HIGH) KATIUSKA AUGUST DNP March 05, 2025 22:05
[2025-03-06] MEDS: SODIUM CHLORIDE 0.9% 500 ML IV ONE (00:06)
[2025-03-06] MEDS: MIDODRINE HCL 10 MG TAB PO ONE (00:08)
[2025-03-06] MEDS: cefTRIAXone 1GM/50ML D5W 50 ML IV ONE (02:24)
[2025-03-06 02:50] VITALS: BP 94/58; PULSE 84; RESP 17; TEMP 97.4; O2SAT 97
[2025-03-06 04:00] VITALS: BP 98/63; PULSE 64; RESP 20; TEMP 97.5
[2025-03-06] MEDS: MIDODRINE HCL 10 MG TAB PO SCH (05:12)
[2025-03-06] MEDS: LEVOTHYROXINE SODIUM 88 MCG TAB PO SCH (05:13)
[2025-03-06 05:55] LABS: Basophils # (auto) 0 10 ^3/uL (0-0.2); Basophils % (auto) 1.2 % (0.0-2.0); Eosinophils # (auto) 0.1 10 ^3/uL (0-0.8); Eosinophils % (auto) 1.7 % (0.0-7.0); Hematocrit 30.3 % (41.0-53.0); Hemoglobin 10.1 g/dL (13.5-17.5); Lymphocytes # (auto) 0.7 10 ^3/uL (0.4-5.4); Lymphocytes % (auto) 18.9 % (10.0-50.0); Mean Corpuscular Hemoglobin 28.5 pg (28.0-32.0); Mean Corpuscular Hgb Conc. 33.4 g/dL (32.0-36.0); Mean Corpuscular Volume 85.4 fL (80.0-100.0); Monocytes # (auto) 0.2 10 ^3/uL (0-1.3); Monocytes % (auto) 5.9 % (0.0-12.0); Neutrophils # (auto) 2.8 10 ^3/uL (1.6-8.6); Neutrophils % (auto) 72.3 % (37.0-80.0); Nucleated Red Blood Cells % 0.2 %; Platelet Count (auto) 258 10^3/uL (140-450); Red Blood Cells 3.55 10^6/uL (4.5-5.90); Red Cell Distribution Width 15.7 % (11.8-14.3); White Blood Cell 3.9 10^3/uL (4.4-10.8)
[2025-03-06 06:05] LABS: Alanine Aminotransferase < 9 U/L (7-40); Albumin 3.6 g/dL (3.2-4.8); Alkaline Phosphatase 82 U/L (46-116); Anion Gap 8 (5-15); Aspartate Aminotransferase 12 U/L (13-40); Bilirubin, Total 0.2 mg/dL (0.2-1.0); Blood Urea Nitrogen 10 mg/dL (9-23); Calcium 8.9 mg/dL (8.7-10.4); Carbon Dioxide 26 mmol/L (20-31); Chloride 109 mmol/L (98-107); Glucose 88 mg/dL (74-106); Potassium 3.9 mmol/L (3.5-5.1); Sodium 143 mmol/L (136-145)
[2025-03-06 09:00] VITALS: PULSE 77; RESP 16; O2SAT 98
[2025-03-06] MEDS: MULTIPLE VITAMIN TAB PO SCH (09:06)
[2025-03-06] MEDS: FAMOTIDINE (10MG/ML) 2ML VL IV SCH (09:07)
[2025-03-06] MEDS: LACTULOSE 20Gm/30ML SOLN PO SCH (09:07)
[2025-03-06] MEDS: cefTRIAXone 1GM/50ML D5W 50 ML IV SCH (09:07)
--- NOTE | 2025-03-06 13:20 | DVHPN2 ---
Reviewed: Care Plan, H&P, Labs, Medications, Previous Orders, Radiology Changes from previous H/P or p: No Changes Eyes: No Pain, No Vision change, No Conjunctivae inflammation, No Eyelid inflammation, No Other, No Redness ENT: No Ear pain, No Ear discharge, No Nose pain, No Nose discharge, No Nose congestion, No Mouth pain, No Mouth swelling, No Throat pain, No Throat swelling, No Other Cardiovascular: No Chest Pain, No Palpitations, No Orthopnea, No Paroxysmal Noc. Dyspnea, No Edema, No Lt Headedness, No Other Respiratory: No Cough, No Dry, No Shortness of breath, No SOB with excertion, No Wheezing, No Hemoptysis, No Pleuritic Pain, No Sputum, No Other Gastrointestinal: No Nausea, No Vomiting; Abdominal Pain; No Diarrhea; C onstipation; No Melena, No Hematochezia, No Other Genitourinary: No Dysuria, No Frequency, No Incontinence, No Hematuria, No Retention, No Other Musculoskeletal: No other, No neck pain, No shoulder pain, No arm pain, No back pain, No hand pain, No leg pain, No foot pain Skin: No Rash, No Lesions, No Jaundice, No Bruising, No Other Objective Vitals Vital Signs Date Time Temp Pulse Resp B/P (MAP) Pulse Ox O2 Delivery O2 Flow Rate FiO2 03/06/25 09:00 77 16 98 Room Air* 0 21 03/06/25 04:00 97.5 98/63 (75) 97.5 Intake/Output Intake and Output 03/06/25 07:00 Intake Total 500 ml Balance 500 ml Intake IV Total 500 ml Medications Current Medications Medications Dose Ordered Sig/Kylee Route Start Time Stop Time Status Last Admin Dose Admin Levothyroxine Sodium 88 mcg QAM@0600 PO 03/06/25 06:00 03/06/25 05:13 88 MCG Carbidopa/Levodopa 1 tab TID PO 03/05/25 22:00 03/06/25 05:12 1 TAB Lactulose 30 ml BID PO 03/06/25 10:00 03/06/25 09:07 30 ML Famotidine 20 mg DAILY IV 03/06/25 10:00 03/06/25 09:07 20 MG Sodium Chloride 10 ml Q8HR IV 03/05/25 22:00 03/06/25 05:13 10 ML Acetaminophen/ Hydrocodone Bitart 1 tab Q4HP PRN PO 03/05/25 20:00 Ondansetron HCl 4 mg Q4HP PRN IV 03/05/25 20:00 Docusate Sodium 100 mg BIDPRN PRN PO 03/05/25 20:00 Multivitamins 1 tab DAILY PO 03/06/25 10:00 03/06/25 09:06 1 TAB Acetaminophen 650 mg Q6HP PRN PO 03/05/25 20:00 Nitroglycerin 0.4 mg Q5MINP PRN SL 03/05/25 22:00 Morphine Sulfate 2 mg Q30M PRN IV 03/05/25 22:00 Midodrine 10 mg TID@0600,1200,1800 PO 03/06/25 06:00 03/06/25 05:12 10 MG Ceftriaxone Sodium 50 ml @ 100 mls/hr DAILY@09 IV 03/06/25 09:00 03/06/25 09:07 100 MLS/HR Laboratory Results Laboratory Tests 03/06/25 04:29 Chemistry Test 03/05/25 15:46 03/06/25 04:29 Calcium Level 9.3 mg/dL (8.7-10.4) 8.9 mg/dL (8.7-10.4) Albumin 3.6 g/dL (3.2-4.8) Total Protein 7.0 g/dL (5.7-8.2) LFT Test 03/06/25 04:29 Alanine Aminotransferase (ALT) < 9 U/L (7-40) Alkaline Phosphatase 82 U/L (46-116) Aspartate Amino Transferase (AST) 12 U/L (13-40) L Total Bilirubin 0.2 mg/dL (0.2-1.0) HgA1c, TSH Test 03/05/25 15:46 Thyroid Stimulating Hormone (TSH) 4.44 uIU/mL (0.55-4.78) Urinalysis Test 03/05/25 16:46 Urine Color Yellow (Yellow) Urine Clarity Turbid (Clear) H Urine pH 6.5 (5.0-9.0) Urine Specific [place] 1.013 (1.001-1.035) Urine Protein Negative (Negative) Urine Ketones Negative (Negative) Urine Blood Negative /uL (Negative) Urine Nitrite Negative (Negative) Urine Bilirubin Negative (Negative) Urine Urobilinogen Normal mg/dL (Negative) Urine Leukocyte Esterase 3+ /uL (Negative) Urine RBC 3 /hpf (0 - 3) Urine Microscopic WBC 48 /HPF (0-3) H Urine Squamous Epithelial Cells Few /hpf (<5) Urine Bacteria Many /hpf (None Seen) H Urine Mucus Few (None Seen) Urine Glucose Normal mg/dL (Normal) Labs and/or images reviewed: Labs reviewed by me, Image(s) reviewed by me Assessment/Plan Assessment/Plan Abdominal pain Hypotension UTI (urinary tract infection): Rocephin Fecal impaction Constipation, unspecified: Lactulose Parkinson's Generalized weakness Acute cystitis without hematuria Time spent 55 minutes Condition guarded Advanced care planning time 20 minutes Plan discussed with: Patient Date of Service: March 06, 2025 Billing Provider: ANA PAULA SERVIN MD Common Visit Codes: [id number] INP/OBS CARE(HIGH) Secondary Visit Codes: [id number] CARE PLAN 30 MINUTES ANA PAULA SERVIN MD March 06, 2025 13:20
[2025-03-06 17:00] VITALS: BP 103/67; PULSE 55; RESP 16; TEMP 98.4; O2SAT 97
[2025-03-06 20:00] VITALS: PULSE 81; PULSE 88; RESP 17; O2SAT 98
[2025-03-06 21:00] VITALS: BP 102/73; PULSE 81; RESP 17; TEMP 97.8; O2SAT 98
[2025-03-07] VITALS (8 sets, daily range): BP systolic 90–125; BP diastolic 59–76; PULSE 55–94; RESP 16–18; TEMP 97.8–98.7; O2SAT 95–99
--- NOTE | 2025-03-07 12:17 | DVHPN2 ---
Reviewed: Care Plan, H&P, Labs, Medications, Previous Orders, Radiology Changes from previous H/P or p: No Changes Eyes: No Pain, No Vision change, No Conjunctivae inflammation, No Eyelid inflammation, No Other, No Redness ENT: No Ear pain, No Ear discharge, No Nose pain, No Nose discharge, No Nose congestion, No Mouth pain, No Mouth swelling, No Throat pain, No Throat swelling, No Other Cardiovascular: No Chest Pain, No Palpitations, No Orthopnea, No Paroxysmal Noc. Dyspnea, No Edema, No Lt Headedness, No Other Respiratory: No Cough, No Dry, No Shortness of breath, No SOB with excertion, No Wheezing, No Hemoptysis, No Pleuritic Pain, No Sputum, No Other Gastrointestinal: No Nausea, No Vomiting; Abdominal Pain; No Diarrhea; C onstipation; No Melena, No Hematochezia, No Other Genitourinary: No Dysuria, No Frequency, No Incontinence, No Hematuria, No Retention, No Other Musculoskeletal: No other, No neck pain, No shoulder pain, No arm pain, No back pain, No hand pain, No leg pain, No foot pain Skin: No Rash, No Lesions, No Jaundice, No Bruising, No Other Objective Vitals Vital Signs Date Time Temp Pulse Resp B/P (MAP) Pulse Ox O2 Delivery O2 Flow Rate FiO2 03/07/25 08:06 84 17 98 Room Air* 0 21 03/07/25 08:00 97.8 90/59 (69) 97.8 Intake/Output Intake and Output 03/07/25 07:00 Intake Total 325 ml Output Total 600 ml Balance -275 ml Intake Oral 275 ml IV Total 50 ml Output Urine Total 600 ml Medications Current Medications Medications Dose Ordered Sig/Kylee Route Start Time Stop Time Status Last Admin Dose Admin Levothyroxine Sodium 88 mcg QAM@0600 PO 03/06/25 06:00 03/07/25 05:37 88 MCG Carbidopa/Levodopa 1 tab TID PO 03/05/25 22:00 03/07/25 05:37 1 TAB Lactulose 30 ml BID PO 03/06/25 10:00 03/06/25 21:28 30 ML Famotidine 20 mg DAILY IV 03/06/25 10:00 03/07/25 09:39 20 MG Sodium Chloride 10 ml Q8HR IV 03/05/25 22:00 6/1/25 05:44 10 ML Acetaminophen/ Hydrocodone Bitart 1 tab Q4HP PRN PO 03/05/25 20:00 Ondansetron HCl 4 mg Q4HP PRN IV 03/05/25 20:00 Docusate Sodium 100 mg BIDPRN PRN PO 03/05/25 20:00 Multivitamins 1 tab DAILY PO 03/06/25 10:00 03/07/25 09:39 1 TAB Acetaminophen 650 mg Q6HP PRN PO 03/05/25 20:00 Nitroglycerin 0.4 mg Q5MINP PRN SL 03/05/25 22:00 Morphine Sulfate 2 mg Q30M PRN IV 03/05/25 22:00 Midodrine 10 mg TID@0600,1200,1800 PO 03/06/25 06:00 03/07/25 11:26 10 MG Ceftriaxone Sodium 50 ml @ 100 mls/hr DAILY@09 IV 03/06/25 09:00 03/07/25 09:39 100 MLS/HR Laboratory Results Laboratory Tests 03/06/25 04:29 Urinalysis Test 03/05/25 16:46 Urine Color Yellow (Yellow) Urine Clarity Turbid (Clear) H Urine pH 6.5 (5.0-9.0) Urine Specific [place] 1.013 (1.001-1.035) Urine Protein Negative (Negative) Urine Ketones Negative (Negative) Urine Blood Negative /uL (Negative) Urine Nitrite Negative (Negative) Urine Bilirubin Negative (Negative) Urine Urobilinogen Normal mg/dL (Negative) Urine Leukocyte Esterase 3+ /uL (Negative) Urine RBC 3 /hpf (0 - 3) Urine Microscopic WBC 48 /HPF (0-3) H Urine Squamous Epithelial Cells Few /hpf (<5) Urine Bacteria Many /hpf (None Seen) H Urine Mucus Few (None Seen) Urine Glucose Normal mg/dL (Normal) Microbiology Microbiology Date/Time Source Procedure Growth Status 03/05/25 16:46 Voided Urine Urine Culture - Preliminary Resulted Labs and/or images reviewed: Labs reviewed by me, Image(s) reviewed by me Assessment/Plan Assessment/Plan Abdominal pain Hypotension UTI (urinary tract infection): Rocephin, awaiting urine cultures Fecal impaction, resolved with lactulose Constipation, unspecified: Lactulose Parkinson's Generalized weakness Acute cystitis without hematuria Time spent 55 minutes Condition guarded Advanced care planning time 20 minutes Plan discussed with: Patient Date of Service: Mar 07, 2025 Billing Provider: ANA PAULA SERVIN MD Common Visit Codes: [id number] INP/OBS CARE(HIGH) ANA PAULA SERVIN MD Mar 07, 2025 12:17
[2025-03-07] MEDS ORDERED: SODIUM CHLORIDE 0.9% 1,000 ML IV SCH (12:30)
[2025-03-07] MEDS: SODIUM CHLORIDE 0.9% 1,000 ML IV SCH (17:50)
[2025-03-08] VITALS (8 sets, daily range): BP systolic 91–130; BP diastolic 59–85; PULSE 43–84; RESP 17–20; TEMP 97.6–98.6; O2SAT 94–98
--- NOTE | 2025-03-08 13:20 | DVHPN2 ---
Reviewed: Care Plan, H&P, Labs, Medications, Previous Orders, Radiology Changes from previous H/P or p: No Changes Eyes: No Pain, No Vision change, No Conjunctivae inflammation, No Eyelid inflammation, No Other, No Redness ENT: No Ear pain, No Ear discharge, No Nose pain, No Nose discharge, No Nose congestion, No Mouth pain, No Mouth swelling, No Throat pain, No Throat swelling, No Other Cardiovascular: No Chest Pain, No Palpitations, No Orthopnea, No Paroxysmal Noc. Dyspnea, No Edema, No Lt Headedness, No Other Respiratory: No Cough, No Dry, No Shortness of breath, No SOB with excertion, No Wheezing, No Hemoptysis, No Pleuritic Pain, No Sputum, No Other Gastrointestinal: No Nausea, No Vomiting; Abdominal Pain; No Diarrhea; C onstipation; No Melena, No Hematochezia, No Other Genitourinary: No Dysuria, No Frequency, No Incontinence, No Hematuria, No Retention, No Other Musculoskeletal: No other, No neck pain, No shoulder pain, No arm pain, No back pain, No hand pain, No leg pain, No foot pain Skin: No Rash, No Lesions, No Jaundice, No Bruising, No Other Objective Vitals Vital Signs Date Time Temp Pulse Resp B/P (MAP) Pulse Ox O2 Delivery O2 Flow Rate FiO2 03/08/25 09:00 98.6 62 18 91/59 (70) 98 98.6 03/08/25 08:00 Room Air* 0 21 Intake/Output Intake and Output 03/08/25 07:00 Intake Total 400 ml Output Total 700 ml Balance -300 ml Intake Oral 400 ml Output Urine Total 700 ml # Bowel Movements 1 Medications Current Medications Medications Dose Ordered Sig/Kylee Route Start Time Stop Time Status Last Admin Dose Admin Levothyroxine Sodium 88 mcg QAM@0600 PO 03/06/25 06:00 03/08/25 05:21 88 MCG Carbidopa/Levodopa 1 tab TID PO 03/05/25 22:00 03/08/25 05:22 1 TAB Lactulose 30 ml BID PO 03/06/25 10:00 03/08/25 09:04 30 ML Famotidine 20 mg DAILY IV 03/06/25 10:00 03/08/25 09:04 20 MG Sodium Chloride 10 ml Q8HR IV 03/05/25 22:00 6/2/25 06:16 10 ML Acetaminophen/ Hydrocodone Bitart 1 tab Q4HP PRN PO 03/05/25 20:00 Ondansetron HCl 4 mg Q4HP PRN IV 03/05/25 20:00 Docusate Sodium 100 mg BIDPRN PRN PO 03/05/25 20:00 Multivitamins 1 tab DAILY PO 03/06/25 10:00 03/08/25 09:04 1 TAB Acetaminophen 650 mg Q6HP PRN PO 03/05/25 20:00 Nitroglycerin 0.4 mg Q5MINP PRN SL 03/05/25 22:00 Morphine Sulfate 2 mg Q30M PRN IV 03/05/25 22:00 Midodrine 10 mg TID@0600,1200,1800 PO 03/06/25 06:00 03/08/25 12:58 10 MG Ceftriaxone Sodium 50 ml @ 100 mls/hr DAILY@09 IV 03/06/25 09:00 03/08/25 09:04 100 MLS/HR Sodium Chloride 1,000 ml @ 125 mls/hr Q8H IV 03/07/25 15:00 03/08/25 09:14 125 MLS/HR Laboratory Results Laboratory Tests 03/06/25 04:29 Urinalysis Test 03/05/25 16:46 Urine Color Yellow (Yellow) Urine Clarity Turbid (Clear) H Urine pH 6.5 (5.0-9.0) Urine Specific [place] 1.013 (1.001-1.035) Urine Protein Negative (Negative) Urine Ketones Negative (Negative) Urine Blood Negative /uL (Negative) Urine Nitrite Negative (Negative) Urine Bilirubin Negative (Negative) Urine Urobilinogen Normal mg/dL (Negative) Urine Leukocyte Esterase 3+ /uL (Negative) Urine RBC 3 /hpf (0 - 3) Urine Microscopic WBC 48 /HPF (0-3) H Urine Squamous Epithelial Cells Few /hpf (<5) Urine Bacteria Many /hpf (None Seen) H Urine Mucus Few (None Seen) Urine Glucose Normal mg/dL (Normal) Microbiology Microbiology Date/Time Source Procedure Growth Status 03/05/25 16:46 Voided Urine Urine Culture - Final Escherichia coli - ESBL Complete Labs and/or images reviewed: Labs reviewed by me, Image(s) reviewed by me Assessment/Plan Assessment/Plan Abdominal pain Hypotension Complicated UTI with ESBL E coli: DC Rocephin, start Invanz 1 g IV daily Fecal impaction, resolved with lactulose Constipation, unspecified: Lactulose Parkinson's Generalized weakness Acute cystitis without hematuria Time spent 55 minutes Condition guarded Advanced care planning time 20 minutes Plan discussed with: Patient My Orders Orders - ANA PAULA SERVIN MD Procedure Category Date Status Time Sodium Chloride 0.9% PHA 03/07/25 In Process 15:00 Date of Service: Mar 08, 2025 Billing Provider: ANA PAULA SERVIN MD Common Visit Codes: [id number] INP/OBS CARE(HIGH) ANA PAULA SERVIN MD Mar 08, 2025 13:20
[2025-03-08] MEDS: ERTAPENEM SOD INJ 1 GM in SODIUM CHL 0.9% 50 ML IV ONE (18:05)
[2025-03-08] MEDS: HYDROcodone-ACET 5/325MG TAB PO PRN (20:51)
[2025-03-09] VITALS (8 sets, daily range): BP systolic 105–131; BP diastolic 68–83; PULSE 56–92; RESP 16–18; TEMP 97.5–98.4; O2SAT 95–97
--- NOTE | 2025-03-09 08:47 | DVHPN2 ---
Reviewed: Care Plan, H&P, Labs, Medications, Previous Orders, Radiology Changes from previous H/P or p: No Changes Eyes: No Pain, No Vision change, No Conjunctivae inflammation, No Eyelid inflammation, No Other, No Redness ENT: No Ear pain, No Ear discharge, No Nose pain, No Nose discharge, No Nose congestion, No Mouth pain, No Mouth swelling, No Throat pain, No Throat swelling, No Other Cardiovascular: No Chest Pain, No Palpitations, No Orthopnea, No Paroxysmal Noc. Dyspnea, No Edema, No Lt Headedness, No Other Respiratory: No Cough, No Dry, No Shortness of breath, No SOB with excertion, No Wheezing, No Hemoptysis, No Pleuritic Pain, No Sputum, No Other Gastrointestinal: No Nausea, No Vomiting; Abdominal Pain; No Diarrhea; C onstipation; No Melena, No Hematochezia, No Other Genitourinary: No Dysuria, No Frequency, No Incontinence, No Hematuria, No Retention, No Other Musculoskeletal: No other, No neck pain, No shoulder pain, No arm pain, No back pain, No hand pain, No leg pain, No foot pain Skin: No Rash, No Lesions, No Jaundice, No Bruising, No Other Objective Vitals Vital Signs Date Time Temp Pulse Resp B/P (MAP) Pulse Ox O2 Delivery O2 Flow Rate FiO2 03/09/25 05:00 98.4 85 18 131/82 (98) 96 98.4 03/08/25 20:00 Room Air* 0 21 Intake/Output Intake and Output 03/09/25 07:00 Intake Total 2075 ml Output Total 2450 ml Balance -375 ml Intake Oral 1125 ml IV Total 950 ml Output Urine Total 2450 ml Medications Current Medications Medications Dose Ordered Sig/Kylee Route Start Time Stop Time Status Last Admin Dose Admin Levothyroxine Sodium 88 mcg QAM@0600 PO 03/06/25 06:00 03/09/25 06:04 88 MCG Carbidopa/Levodopa 1 tab TID PO 03/05/25 22:00 03/09/25 06:04 1 TAB Lactulose 30 ml BID PO 03/06/25 10:00 03/08/25 21:09 30 ML Famotidine 20 mg DAILY IV 03/06/25 10:00 03/08/25 09:04 20 MG Sodium Chloride 10 ml Q8HR IV 03/05/25 22:00 03/09/25 06:05 10 ML Acetaminophen/ Hydrocodone Bitart 1 tab Q4HP PRN PO 03/05/25 20:00 03/09/25 06:04 1 TAB Ondansetron HCl 4 mg Q4HP PRN IV 03/05/25 20:00 Docusate Sodium 100 mg BIDPRN PRN PO 03/05/25 20:00 Multivitamins 1 tab DAILY PO 03/06/25 10:00 03/08/25 09:04 1 TAB Acetaminophen 650 mg Q6HP PRN PO 03/05/25 20:00 Nitroglycerin 0.4 mg Q5MINP PRN SL 03/05/25 22:00 Morphine Sulfate 2 mg Q30M PRN IV 03/05/25 22:00 Midodrine 10 mg TID@0600,1200,1800 PO 03/06/25 06:00 03/09/25 06:04 10 MG Sodium Chloride 1,000 ml @ 125 mls/hr Q8H IV 03/07/25 15:00 03/09/25 06:25 125 MLS/HR Ertapenem 1 gm/ Sodium Chloride 50 ml @ 100 mls/hr DAILY IV 03/09/25 10:00 Laboratory Results Laboratory Tests 03/06/25 04:29 Urinalysis Test 03/05/25 16:46 Urine Color Yellow (Yellow) Urine Clarity Turbid (Clear) H Urine pH 6.5 (5.0-9.0) Urine Specific [place] 1.013 (1.001-1.035) Urine Protein Negative (Negative) Urine Ketones Negative (Negative) Urine Blood Negative /uL (Negative) Urine Nitrite Negative (Negative) Urine Bilirubin Negative (Negative) Urine Urobilinogen Normal mg/dL (Negative) Urine Leukocyte Esterase 3+ /uL (Negative) Urine RBC 3 /hpf (0 - 3) Urine Microscopic WBC 48 /HPF (0-3) H Urine Squamous Epithelial Cells Few /hpf (<5) Urine Bacteria Many /hpf (None Seen) H Urine Mucus Few (None Seen) Urine Glucose Normal mg/dL (Normal) Microbiology Microbiology Date/Time Source Procedure Growth Status 03/05/25 16:46 Voided Urine Urine Culture - Final Escherichia coli - ESBL Complete Labs and/or images reviewed: Labs reviewed by me, Image(s) reviewed by me Assessment/Plan Assessment/Plan Abdominal pain Hypotension Complicated UTI with ESBL E coli: Continue Invanz 1 g IV daily for 14 days Fecal impaction, resolved with lactulose Constipation, unspecified: Lactulose Parkinson's Generalized weakness Acute cystitis without hematuria Time spent [address] Discussed with Dragger Out Brother Art [phone] and he is agreeable for the patient to [facility] for [facility] for 2 weeks Plan discussed with: Patient My Orders Orders - ANA PAULA SERVIN MD Procedure Category Date Status Time Ertapenem Sod Inj PHA 03/09/25 In Process (Invanz) 10:00 Insert Midline ORDERS 03/08/25 Transmitted 13:23 Date of Service: Mar 09, 2025 Billing Provider: ANA PAULA SERVIN MD Common Visit Codes: [id number] INP/OBS CARE(HIGH) ANA PAULA SERVIN MD Mar 09, 2025 08:47
[2025-03-09] MEDS: ERTAPENEM SOD INJ 1 GM in SODIUM CHL 0.9% 50 ML IV SCH (11:35)
[2025-03-09] MEDS: SODIUM CHLORIDE 0.9% 1,000 ML IV ONE (14:59)
[2025-03-10] VITALS (7 sets, daily range): BP systolic 117–156; BP diastolic 72–98; PULSE 66–108; RESP 18–19; TEMP 36.9; O2SAT 95–97
--- NOTE | 2025-03-10 07:32 | DVHPN2 ---
Reviewed: Care Plan, H&P, Labs, Medications, Previous Orders, Radiology Changes from previous H/P or p: No Changes Eyes: No Pain, No Vision change, No Conjunctivae inflammation, No Eyelid inflammation, No Other, No Redness ENT: No Ear pain, No Ear discharge, No Nose pain, No Nose discharge, No Nose congestion, No Mouth pain, No Mouth swelling, No Throat pain, No Throat swelling, No Other Cardiovascular: No Chest Pain, No Palpitations, No Orthopnea, No Paroxysmal Noc. Dyspnea, No Edema, No Lt Headedness, No Other Respiratory: No Cough, No Dry, No Shortness of breath, No SOB with excertion, No Wheezing, No Hemoptysis, No Pleuritic Pain, No Sputum, No Other Gastrointestinal: No Nausea, No Vomiting; Abdominal Pain; No Diarrhea; C onstipation; No Melena, No Hematochezia, No Other Genitourinary: No Dysuria, No Frequency, No Incontinence, No Hematuria, No Retention, No Other Musculoskeletal: No other, No neck pain, No shoulder pain, No arm pain, No back pain, No hand pain, No leg pain, No foot pain Skin: No Rash, No Lesions, No Jaundice, No Bruising, No Other Objective Vitals Vital Signs Date Time Temp Pulse Resp B/P (MAP) Pulse Ox O2 Delivery O2 Flow Rate FiO2 03/10/25 05:00 97.7 85 18 122/80 (94) 95 97.7 03/09/25 20:00 Room Air* 0 21 Intake/Output Intake and Output 03/10/25 07:00 Intake Total 1450 ml Output Total 1200 ml Balance 250 ml Intake Oral 550 ml IV Total 900 ml Output Urine Total 1200 ml Medications Current Medications Medications Dose Ordered Sig/Kylee Route Start Time Stop Time Status Last Admin Dose Admin Levothyroxine Sodium 88 mcg QAM@0600 PO 03/06/25 06:00 03/10/25 05:53 88 MCG Carbidopa/Levodopa 1 tab TID PO 03/05/25 22:00 03/10/25 05:51 1 TAB Lactulose 30 ml BID PO 03/06/25 10:00 03/09/25 21:51 30 ML Famotidine 20 mg DAILY IV 03/06/25 10:00 03/09/25 11:01 20 MG Sodium Chloride 10 ml Q8HR IV 03/05/25 22:00 6/4/25 05:52 10 ML Acetaminophen/ Hydrocodone Bitart 1 tab Q4HP PRN PO 03/05/25 20:00 03/10/25 05:52 1 TAB Ondansetron HCl 4 mg Q4HP PRN IV 03/05/25 20:00 Docusate Sodium 100 mg BIDPRN PRN PO 03/05/25 20:00 Multivitamins 1 tab DAILY PO 03/06/25 10:00 03/09/25 11:01 1 TAB Acetaminophen 650 mg Q6HP PRN PO 03/05/25 20:00 Nitroglycerin 0.4 mg Q5MINP PRN SL 03/05/25 22:00 Morphine Sulfate 2 mg Q30M PRN IV 03/05/25 22:00 Midodrine 10 mg TID@0600,1200,1800 PO 03/06/25 06:00 03/09/25 18:13 10 MG Sodium Chloride 1,000 ml @ 125 mls/hr Q8H IV 03/07/25 15:00 03/10/25 05:59 125 MLS/HR Ertapenem 1 gm/ Sodium Chloride 50 ml @ 100 mls/hr DAILY IV 03/09/25 10:00 03/09/25 11:35 100 MLS/HR Laboratory Results Laboratory Tests 03/06/25 04:29 Urinalysis Test 03/05/25 16:46 Urine Color Yellow (Yellow) Urine Clarity Turbid (Clear) H Urine pH 6.5 (5.0-9.0) Urine Specific [place] 1.013 (1.001-1.035) Urine Protein Negative (Negative) Urine Ketones Negative (Negative) Urine Blood Negative /uL (Negative) Urine Nitrite Negative (Negative) Urine Bilirubin Negative (Negative) Urine Urobilinogen Normal mg/dL (Negative) Urine Leukocyte Esterase 3+ /uL (Negative) Urine RBC 3 /hpf (0 - 3) Urine Microscopic WBC 48 /HPF (0-3) H Urine Squamous Epithelial Cells Few /hpf (<5) Urine Bacteria Many /hpf (None Seen) H Urine Mucus Few (None Seen) Urine Glucose Normal mg/dL (Normal) Microbiology Microbiology Date/Time Source Procedure Growth Status 03/05/25 16:46 Voided Urine Urine Culture - Final Escherichia coli - ESBL Complete Labs and/or images reviewed: Labs reviewed by me, Image(s) reviewed by me Assessment/Plan Assessment/Plan Septic shock secondary to urinary tract infection Acute hypotension Acute abdominal pain secondary to constipation Complicated UTI with ESBL E coli: Continue Invanz 1 g IV daily for 14 days Fecal impaction, resolved with lactulose Parkinson's: Sinemet Dementia Chronically bedridden Generalized weakness Acute cystitis without hematuria Time spent [address] Discussed with Well Service Pump Equipment Operator Brother Art [phone] and he is agreeable for the patient to go to halfway facility for IV antibiotics for 2 weeks Also discussed with the patient's [id number] Shila [phone] and she is agreeable with the plan Plan discussed with: Patient Date of Service: Mar 10, 2025 Billing Provider: ANA PAULA SERVIN MD Common Visit Codes: [id number] INP/OBS CARE(HIGH) ANA PAULA SERVIN MD Mar 10, 2025 07:32
--- NOTE | 2025-03-10 07:47 | DVHDS2 ---
Discharge Summary Date of Admission March 05, 2025 at 21:58 Date of Discharge: Mar 10, 2025 Admitting Diagnosis Constipation abdominal pain altered mental status Wounds: None Labs/Diagnostic Data: Laboratory Results Test 03/06/25 04:29 03/05/25 16:46 03/05/25 15:46 White Blood Count 3.9 10^3/uL (4.4-10.8) Red Blood Count 3.55 10^6/uL (4.5-5.90) Hemoglobin 10.1 g/dL (13.5-17.5) Hematocrit 30.3 % (41.0-53.0) Mean Corpuscular Volume 85.4 fL (80.0-100.0) Mean Corpuscular Hemoglobin 28.5 pg (28.0-32.0) Mean Corpuscular Hemoglobin Concent 33.4 g/dL (32.0-36.0) Red Cell Distribution Width 15.7 % (11.8-14.3) Platelet Count 258 10^3/uL (140-450) Mean Platelet Volume 8.5 fL (6.9-10.8) Neutrophils (%) (Auto) 72.3 % (37.0-80.0) Lymphocytes (%) (Auto) 18.9 % (10.0-50.0) Monocytes (%) (Auto) 5.9 % (0.0-12.0) Eosinophils (%) (Auto) 1.7 % (0.0-7.0) Basophils (%) (Auto) 1.2 % (0.0-2.0) Neutrophils # (Auto) 2.8 10 ^3/uL (1.6-8.6) Lymphocytes # (Auto) 0.7 10 ^3/uL (0.4-5.4) Monocytes # (Auto) 0.2 10 ^3/uL (0-1.3) Eosinophils # (Auto) 0.1 10 ^3/uL (0-0.8) Basophils # (Auto) 0 10 ^3/uL (0-0.2) Nucleated Red Blood Cells 0.2 % Sodium Level 143 mmol/L (136-145) Potassium Level 3.9 mmol/L (3.5-5.1) Chloride Level 109 mmol/L (98-107) Carbon Dioxide Level 26 mmol/L (20-31) Anion Gap 8 (5-15) Blood Urea Nitrogen 10 mg/dL (9-23) Creatinine 0.91 mg/dL (0.700-1.30) Glomerular Filtration Rate Calc 95 mL/min (>90) BUN/Creatinine Ratio 11.0 (10.0-20.0) Serum Glucose 88 mg/dL (74-106) Calcium Level 8.9 mg/dL (8.7-10.4) Total Bilirubin 0.2 mg/dL (0.2-1.0) Aspartate Amino Transferase (AST) 12 U/L (13-40) Alanine Aminotransferase (ALT) < 9 U/L (7-40) Alkaline Phosphatase 82 U/L (46-116) Total Protein 7.0 g/dL (5.7-8.2) Albumin 3.6 g/dL (3.2-4.8) Urine Color Yellow (Yellow) Urine Clarity Turbid (Clear) Urine pH 6.5 (5.0-9.0) Urine Specific [place] 1.013 (1.001-1.035) Urine Protein Negative (Negative) Urine Ketones Negative (Negative) Urine Blood Negative /uL (Negative) Urine Nitrite Negative (Negative) Urine Bilirubin Negative (Negative) Urine Urobilinogen Normal mg/dL (Negative) Urine Leukocyte Esterase 3+ /uL (Negative) Urine RBC 3 /hpf (0 - 3) Urine Microscopic WBC 48 /HPF (0-3) Urine Squamous Epithelial Cells Few /hpf (<5) Urine Bacteria Many /hpf (None Seen) Urine Mucus Few (None Seen) Urine Glucose Normal mg/dL (Normal) Thyroid Stimulating Hormone (TSH) 4.44 uIU/mL (0.55-4.78) Other Laboratory Tests 03/06/25 04:29 Brief Hx & Hospital Course: 64-year-old male with a history of dementia Parkinson's disease hypothyroidism chronically bedridden multiple frequent admissions came in for abdominal pain and generalized weakness. Found to have constipation treated with lactulose which has resolved continued on home medications Sinemet for Parkinson's and Synthroid for hypothyroidism. The patient was found to be in septic shock secondary to urinary tract infection started on Rocephin converted to Invanz when the urine cultures came back positive for ESBL E coli. He will receive Invanz 1 g IV daily for 14 days for complicated UTI. Patient is nonverbal. Patient may be discharged to nursing home facility for IV Invanz for two weeks for complicated UTI. The plan agreeable with the patient's brother Art [phone] and Abdullahi Shila [phone]. Consults/Reason for consult None Operations or Procedures CT abdomen pelvis without contrast Condition at Discharge: Fair Final Diagnosis/Problems List Septic shock secondary to urinary tract infection Acute hypotension Acute abdominal pain secondary to constipation Complicated UTI with ESBL E coli: Continue Invanz 1 g IV daily for 14 days Fecal impaction, resolved with lactulose Parkinson's: Sinemet Dementia: Hypothyroidism Chronically bedridden Generalized weakness Acute cystitis without hematuria Discharge Disposition: Longterm Facility Discharge Instruct/Medications Diet: Regular Activity: Light activity Follow Up/Referral: [facility] Medications: Invanz 1 g IV daily for two weeks for ESBL E coli UTI See list for other meds 39 (Time taken for discharge summary 39 minutes) Discharge Statement: "Patient was advised to return to the ER or call 911 if any headaches, dizziness, shortness of breath, chest pain, abdominal pain, bleeding, fevers, or worsening of medical condition. Patient was counseled about treatment plan, medications, possible side effects, patientverbalized understanding. All questions were answered to the best of my ability. This discharge took greater then 30 minutes in planning, reviewing documentation, counseling the patient, and discussing with other team members." ASSESSMENT ASSESSMENT Hospital Course Improved marginally Assessment Septic shock secondary to urinary tract infection Acute hypotension Acute abdominal pain secondary to constipation Complicated UTI with ESBL E coli: Continue Invanz 1 g IV daily for 14 days Fecal impaction, resolved with lactulose Parkinson's: Sinemet Dementia: Hypothyroidism Chronically bedridden Generalized weakness Acute cystitis without hematuria Date of Service: Mar 10, 2025 Billing Provider: ANA PAULA SERVIN MD Common Visit Codes: [id number] DISCH DAY >30min ANA PAULA SERVIN MD Mar 10, 2025 07:47
--- NOTE | 2025-03-11 07:01 | ECG ---
[facility] Test Date: 2025-03-05 Test Time: 17:44:34 Pat Name: JESSICA IRIZARRY Department: ER Room: 0208T A Gender: M Spine Surgeon: LEODAN : 1960 Requested By: GOGO SHIPMAN Order Number: [id number] Reading MD: Lon Sauer Measurements Intervals [place] Rate: 97 P: 96 FL: 158 QRS: 77 QRSD: 90 T: 40 QT: 376 QTc: 478 Interpretive Statements Sinus rhythm Borderline ST elevation, anterior leads Borderline prolonged QT interval Electronically Signed On 03-11-2025 9:33:16 PDT by Lon Sauer Please click the below link to view image of tracing.
== END 2025-03-10 17:02 | DRG 871 ==
LOC: ER 14:16 → EDBD 14:16 → OVERFLOW 21:58 → TELE-WESTW 03-06 15:23 → TELE-CENTR 03-08 17:13
PROVIDERS: ADMIT Family Medicine; ATTEND Family Medicine
PROC: 05HC33Z Insertion of Infusion Device into Left Basilic Vein, Percutaneous Approach (ICD-10-PCS; principal; 2025-03-08)
PROC: B54NZZA Ultrasonography of Left Upper Extremity Veins, Guidance (ICD-10-PCS; 2025-03-08)
DX: A41.51 Sepsis due to Escherichia coli [E. coli] (principal); R65.21 Severe sepsis with septic shock; N30.00 Acute cystitis without hematuria; Z16.12 Extended spectrum beta lactamase (ESBL) resistance; K56.41 Fecal impaction; G20.A1 Parkinson's disease without dyskinesia, without mention of fluctuations; D64.9 Anemia, unspecified; E03.9 Hypothyroidism, unspecified; I10 Essential (primary) hypertension; F02.80 Dementia in other diseases classified elsewhere, unspecified severity, without behavioral disturbance, psychotic disturbance, mood disturbance, and anxiety; Z74.01 Bed confinement status; Z79.899 Other long term (current) drug therapy
CPT/HCPCS: 36415; 74018; 80048; 80053; 81001; 84443; 85025; 87086; 87088; 87186; 93005; G0378; J1335; J3490; J7042

== ENCOUNTER 2025-05-27 10:32 | Inpatient (IN) | payer MEDICARE, MEDICAID ==
[~2025-05-27] VITALS: Ht 165.1 cm; Wt 48.8 kg
[~2025-05-27 10:32] MED LIST changes: +CARB25TA77 PO; +FAMO-12 PO; +LISI40TA16 PO; +MET50T PO; +MIDO10TA10 PO; +MULT-1056 PO; +NIFE1TAB30 PO; +OMEP1CAP70 PO; +ONDA-155 PO; +SENN-62 PO
--- NOTE | 2025-05-27 11:24 | ED.PDOC ---
History of Present Illness HPI Comments 64-year-old male ANA with prior medical history of hyperthyroidism, Parkinson's disease, hypertension, anemia, bed-bound and the chief complaint of abdominal pain. EMS report the son of the patient always calls EMS to take the patient to [place] due from being in the closest hospital but they are currently on redirect, in the patient was sent to [facility]. EMS report that the patient is a frequent Flyer and is 112 tachycardic with being nonverbal put able to nod his head, as well as point to the area where the abdominal pain is. Denies chills, fever, N/V/D, SOB, CP. No other associated symptoms, modifiers, recent injuries or sick contacts present at this time. Time Seen by MD: 11:00 Primary Care Provider: UNABLE TO OBTAIN Reviewed Notes: Nurses Notes, Medications, Allergies Allergies: Coded Allergies: NO KNOWN ALLERGIES (Unverified , 01/07/24) Home Meds Active Scripts Lactulose (Lactulose) 10 Gm/15 Ml Triny, 30 ML PO BID for 30 Days, #100 ML 5 Refills Prov:FERNANDO FOSTER MD 02/07/25 Docusate Sodium (Colace) 100 Mg Cap, 1 CAP PO BID, #60 CAP 2 Refills Prov:ANA PAULA SERVIN MD 01/15/25 Polyethylene Glycol 3350 (Miralax) 17 Gm Pow, 17 GM PO DAILY PRN, #340 POW Prov:ANA PAULA SERVIN MD 01/15/25 Docusate Sodium (Docusate Sodium) 100 Mg Cap, 100 MG PO BID for 60 Days, #120 CAP Prov:ILENE LORENZANA RESIDENT 12/24/24 Reported Medications Omeprazole (Gnp Omeprazole) 20 Mg Tab, 20 MG PO DAILY, TAB 10/31/24 Levothyroxine Sodium (Levothyroxine Sodium) 88 Mcg Tab, 1 TAB PO DAILY 12/04/23 Carbidopa-Levodopa (Carbidopa/Levodopa Odt 25-100 mg) 1 Tab Tab, 1 TAB PO TID 12/04/23 Information Source: Emergency Med Personnel Mode of Arrival: EMS Severity: Moderate Timing: Came on: Gradually Duration: Since onset Prehospital treatment: None Past Medical History PAST MEDICAL HISTORY: Anemia, HTN, Thyroid (Hyperthyroidism) Past Medical History (Other): Parkinson's disease, bed-bound Surgical History: Denies all surgeries Family History Family History: Reviewed,noncontributory to illness, Unknown Social History Smoker: Non-Smoker Alcohol: Denies ETOH Use Drugs: Denies Drug Use Lives In: Home, Assisted Care Constitutional: denies: chills, diaphoresis, fatigue, fever, malaise, sweats, weakness, others EENTM: denies: blurred vision, double vision, ear bleeding, ear discharge, ear drainage, ear pain, ear ringing, eye pain, eye redness, hearing loss, mouth pain, mouth swelling, nasal discharge, nose bleeding, nose congestion, nose pain, photophobia, tearing, throat pain, throat swelling, voice changes, others Respiratory: denies: cough, hemoptysis, orthopnea, SOB at rest, shortness of breath, SOB with excertion, stridor, wheezing, others Cardiovascular: denies: chest pain, dizzy spells, diaphoresis, Dyspnea on exertion, edema, irregular heart beat, left arm pain, lightheadedness, palpitations, PND, syncope, others Gastrointestinal: reports: abdominal pain; denies: abdomen distended, blood streaked bowels, constipated, diarrhea, dysphagia, difficulty swallowing, hematemesis, melena, nausea, poor appetite, poor fluid intake, rectal bleeding, rectal pain, vomiting, others Genitourinary: denies: burning, dysuria, flank pain, frequency, hematuria, incontinence, penile discharge, penile sore, pain, testicle pain, testicle swelling, urgency, others Neurological: denies: dizziness, fainting, headache, left sided numbness, left sided weakness, numbness, paresthesia, pre-existing deficit, right sided numbness, right sided weakness, seizure, speech problems, tingling, tremors, w eakness, others Musculoskeletal: denies: back pain, gout, joint pain, joint swelling, muscle pain, muscle stiffness, neck pain, others Integumetry: denies: bruises, change in color, change in hair/nails, dryness, laceration, lesions, lumps, rash, wounds, others Allergic/Immunocompromised: denies: Difficulty Healing, Frequent Infections, Hives, Itching, others Hematologic/Lymphatic: denies: anemia, blood clots, easy bleeding, easy bruising, swollen glands, others Endocrine: denies: excessive hunger, excessive sweating, excessive thirst, excessive urination, flushing, intolerance to cold, intolerance to heat, unexplained weight gain, unexplained weight loss, others Psychiatric: denies: anxiety, bipolar disorder, depression, hopeless, panic disorder, schizophrenia, sleepless, suicidal, others All Other Systems: Reviewed and Negative Physical Exam General Appearance: Moderate Distress, Thin HEENT: Normal ENT Inspection, Pharynx Normal, TMs Normal Neck: Full Range of Motion, Non-Tender, Normal, Normal Inspection Respiratory: Chest Non-Tender, Lungs Clear, No Accessory Muscle Use, No Respiratory Distress, Normal Breath Sounds Cardiovascular: No Edema, No JVD, No Murmur, No Gallop, Normal Peripheral Pulses, Regular Rate/Rhythm Breast Exam: Deferred Gastrointestinal: No Organomegaly, Non Tender, No Pulsatile Mass, Normal Bowel Sounds, Soft Genitalia: Deferred Pelvic: Deferred Rectal: Deferred Extremities: No calf tenderness, Normal capillary refill, No pedal edema Musculoskeletal : Apperance: Normal Neurologic: Alert, Motor Weakness, Normal Affect, Normal Mood, No Sensory Deficits Cerebellar Function: NOT DONE Reflexes: NOT DONE Skin: Dry, Normal Color, Warm Peripheral Pulses: 3+ Radial (R), 3+ Radial (L) Lymphatic: No Adenopathy Was a procedure done? Was a procedure done?: No Differential Dx Considerations may include: Failure to thrive Electrolyte imbalance X-Ray, Labs, Meds, VS Vital Signs Date Time Temp Pulse Resp B/P (MAP) Pulse Ox O2 Delivery O2 Flow Rate FiO2 05/27/25 15:26 114 16 96 Room Air 05/27/25 15:26 98.7 114 16 160/105 (123) 96 98.7 05/27/25 10:45 98.7 112 14 139/96 95 98.7 Lab Test 05/27/25 13:26 Range/Units White Blood Count 7.6 4.4-10.8 10^3/uL Red Blood Count 4.49 L 4.5-5.90 10^6/uL Hemoglobin 12.9 L 13.5-17.5 g/dL Hematocrit 39.2 L 41.0-53.0 % Mean Corpuscular Volume 87.2 80.0-100.0 fL Mean Corpuscular Hemoglobin 28.6 28.0-32.0 pg Mean Corpuscular Hemoglobin Concent 32.8 32.0-36.0 g/dL Red Cell Distribution Width 15.9 H 11.8-14.3 % Platelet Count 237 140-450 10^3/uL Mean Platelet Volume 8.1 6.9-10.8 fL Neutrophils (%) (Auto) 85.8 H 37.0-80.0 % Lymphocytes (%) (Auto) 9.1 L 10.0-50.0 % Monocytes (%) (Auto) 4.2 0.0-12.0 % Eosinophils (%) (Auto) 0.3 0.0-7.0 % Basophils (%) (Auto) 0.6 0.0-2.0 % Neutrophils # (Auto) 6.5 1.6-8.6 10 ^3/uL Lymphocytes # (Auto) 0.7 0.4-5.4 10 ^3/uL Monocytes # (Auto) 0.3 0-1.3 10 ^3/uL Eosinophils # (Auto) 0 0-0.8 10 ^3/uL Basophils # (Auto) 0 0-0.2 10 ^3/uL Nucleated Red Blood Cells 0.1 % Sodium Level 143 136-145 mmol/L Potassium Level 4.0 3.5-5.1 mmol/L Chloride Level 109 H 98-107 mmol/L Carbon Dioxide Level 23 20-31 mmol/L Anion Gap 11 5-15 Blood Urea Nitrogen 19 9-23 mg/dL Creatinine 1.30 0.700-1.30 mg/dL Glomerular Filtration Rate Calc 62 >90 mL/min BUN/Creatinine Ratio 14.6 10.0-20.0 Serum Glucose 102 74-106 mg/dL Calcium Level 9.8 8.7-10.4 mg/dL Troponin I High Sensitivity 9 </=54 ng/L Patient appropriate. Speech affected. Cardiac marker within normal limits. WBC within normal limits. Blood pressure elevated. Tachycardia. Bed ridden. Abdomen is soft nontender. Establish intravenous access. Was given fluids. Neutrophils elevated. Possibly from dehydration. Continue to monitor. Time of 1ST Reevaluation: 11:30 Reevaluation 1ST: Unchanged Patient Education/Counseling: Diagnosis, Treatment, Prognosis Family Education/Counseling: No Family Present SEPSIS Sepsis Screen Physician Orders Chest Portable (05/27/25 11:51) Urinalysis (05/27/25 11:51) Vital Signs Date Time Temp Pulse Resp B/P (MAP) Pulse Ox O2 Delivery O2 Flow Rate FiO2 05/27/25 15:26 114 16 96 Room Air 05/27/25 15:26 98.7 114 16 160/105 (123) 96 98.7 05/27/25 10:45 98.7 112 14 139/96 95 98.7 Laboratory Tests Test 05/27/25 13:26 White Blood Count 7.6 10^3/uL (4.4-10.8) Departure 1 Departure Time of Disposition: 17:19 Impression: Primary Impression: Failure to thrive Qualified Codes: R62.7 - Adult failure to thrive Additional Impressions: Dehydration Hypertensive emergency Disposition: ADMITTED INPATIENT Admit to: Med Surg Condition: Guarded Critical Care Note Critical Care Time?: Yes (90 min-critical care time only) Stability Stability form required: No Heart Score Heart Score: Heart Score Response (Comments) Value History Slightly Suspicious 0 EKG Normal 0 Age 45-64 1 Risk Factors >3 or Hx ASHD 2 Troponin Normal limit 0 Total 3 I personally scribed for SHANELL WALKER MD ([email or web address]) on 05/27/25 at 11:24. Electronically submitted by Adrian Veloz ([email or web address]). SHANELL WALKER MD May 27, 2025 11:24
[2025-05-27 13:45] LABS: Hematocrit 39.2 % (41.0-53.0); Hemoglobin 12.9 g/dL (13.5-17.5); Mean Corpuscular Hemoglobin 28.6 pg (28.0-32.0); Mean Corpuscular Volume 87.2 fL (80.0-100.0); Nucleated Red Blood Cells % 0.1 %
[2025-05-27 13:50] LABS: Potassium 4.0 mmol/L (3.5-5.1); Sodium 143 mmol/L (136-145)
[2025-05-27 13:51] LABS: Anion Gap 11 (5-15); Calcium 9.8 mg/dL (8.7-10.4); Carbon Dioxide 23 mmol/L (20-31)
[2025-05-27 13:54] LABS: Chloride 109 mmol/L (98-107)
[2025-05-27 13:56] LABS: BUN/Creatinine Ratio 14.6 (10.0-20.0); Blood Urea Nitrogen 19 mg/dL (9-23); Glucose 102 mg/dL (74-106)
--- NOTE | 2025-05-27 14:14 | DVH ---
XY CHEST PORTABLE, HISTORY: sob COMPARISON: XY CHEST PORTABLE on DOS: 02/21/25, XY CHEST PORTABLE on DOS: 12/26/24, XY CHEST PORTABLE o n DOS: 01/07/24 XY CHEST PORTABLE on DOS: 02/21/25, XY CHEST PORTABLE on DOS: 12/26/24, XY CHEST PORTABLE on DOS: 4 TECHNICAL DATA: 1 view of the chest was obtained. FINDINGS: Lines and tubes: None Cardiomediastinal silhouette: normal Pulmonary vasculature: normal Lung expansion: normal Lung airspace: normal Lung interstitium: normal Pleura: normal Pneumothorax: no Bones: Unremarkable Other: no IMPRESSION: Asymmetric lucency under the left hemidiaphragm is most likely secondary to bowel gas which was previ ously seen on the prior radiograph however if there is any abdominal pain consider CT for further ghada luation to rule out free air.
[2025-05-27 18:18] VITALS: PULSE 129; RESP 17; O2SAT 94
[2025-05-27 18:44] LABS: Urine Protein, UAD TRACE (Negative)
[2025-05-27] MEDS: SODIUM CHLORIDE 0.9% 1,000 ML IV ONE ×2 (19:08)
[2025-05-27] MEDS: LABETALOL HCL 20 MG/4 ML VL IV ONE (19:09)
[2025-05-27] MEDS: SODIUM CHLORIDE 0.9% 1,000 ML IV SCH (23:00)
--- NOTE | 2025-05-28 05:08 | DVH ---
Exam: CT CT AB PEL WO CON-NO ORAL OR IV History: Lucency under left diaphragm to rule out gastric perforation Comparison Study: XY KUB ABDOMEN SINGLE VIEW on DOS: 03/05/25, CT CT AB PEL WO CON-NO ORAL OR IV on DO S: 02/21/25, XY KUB ABDOMEN SINGLE VIEW on DOS: 02/21/25, XY KUB ABDOMEN SINGLE VIEW on DOS: 02/03/25, X Y KUB ABDOMEN SINGLE VIEW on DOS: 01/27/25 Technique: Multidetector spiral CT of the abdomen was performed from lung bases to pubic symphysis. I maging was performed without IV contrast. Axial, coronal and sagittal multiplanar reformats were obta ined from the axial data set by the technologist. Radiation Dose : 1. Abdomen/Pelvis: CTDIvol 5.37 mGy, DLP 290.95 mGy*cm. Findings: Moderate motion artifact partially obscures detail. Evaluation of solid organs is limited due to lack of intravenous contrast use. Lung Bases: No acute or significant lung base finding. Normal heart size. No pleural or pericardial effusion. Liver: The liver is normal in size. No focal lesions. Gallbladder and Biliary Tree: Unremarkable Spleen: Unremarkable Pancreas: The pancreas is grossly normal in appearance. Adrenal Glands: Unremarkable Kidneys: Kidneys are grossly normal without calculi or hydronephrosis. Bladder: Moderately distended and fluid and gas-filled with air-fluid level and Em catheter. Bowel: The stomach is grossly normal in appearance. Excess retained colorectal stool in a pattern of constipation. Proximal moderately dilated gas-filled small bowel segments. No evidence of intraperito zaria free air. The appendix is not visualized; however, no secondary findings of acute appendicitis i dentified. Ascites: Absent. Lymphadenopathy: No mesenteric, retroperitoneal or periportal lymphadenopathy. Abdominal Wall and Mesentery: Unremarkable. Vasculature: The visualized abdominal aorta is normal in size and caliber. Evaluation of abdominal a nd pelvic vessels is limited due to lack of intravenous contrast. Pelvic Organs: Unremarkable Musculoskeletal: No aggressive focal bony lesions, acute fractures or dislocation. IMPRESSION: 1. Moderate motion artifact partially obscures detail. 2. Retained colorectal stool and proximal moderately dilated gas-filled segments of small bowel witho ut evidence of perforation or intraperitoneal free air. 3. Moderately distended fluid and gas-filled urinary bladder containing a Em catheter. Radiation optimization: All CT scans at this facility use at least one of these dose optimization oleksandr hniques: automated exposure control mA and/or kV adjustment per patient size (includes targeted exam s where dose is matched to clinical indication) or iterative reconstruction.
[2025-05-28] MEDS: SODIUM CHLOR 0.9% PF (SALINE LOCK) 10ML VIAL/SYR IV SCH (06:00)
--- NOTE | 2025-05-28 06:25 | DVHHPRES ---
History of Present Illness Resident Creating Document: YAIMA MACHUCA RESIDENT History of Present Illness 64-year-old male, nonverbal, unable to provide any history. However. pain localization was inferred as the patient points to the upper abdomen. Patient endorsed resting tremor of both hands. According to the ER physician's note, patient was brought by the son. Patient has a history of hyperthyroidism, Parkinson's disease, hypertension, anemia, bed-bound. Patient was tachycardic during admission. He denies chest pain, shortness of breath, fever or any other complaints. No recent injury or sick contact. Past medical history: Hyperthyroidism, Parkinson's disease, hypertension, anemia Past surgical history: Not available Rest of the history taking is pending, given the patient is unable to provide. Review of Systems Gastrointestinal: Abdominal Pain Allergies: Coded Allergies: NO KNOWN ALLERGIES (Unverified , 01/07/24) Medications Current Medications Medications Dose Ordered Sig/Kylee Route Start Time Stop Time Status Last Admin Dose Admin Sodium Chloride 10 ml Q8HR IV 05/28/25 06:00 Sodium Chloride 1,000 ml @ 60 mls/hr [id number] IV 05/27/25 23:00 05/27/25 23:00 60 MLS/HR Morphine Sulfate 2 mg Q4HPRN PRN IV 05/27/25 23:00 Exam Vital Signs Vital Signs Date Time Temp Pulse Resp B/P (MAP) Pulse Ox O2 Delivery O2 Flow Rate FiO2 05/28/25 04:00 106 05/27/25 20:00 16 135/78 (97) 96 05/27/25 18:18 Room Air* 0 21 05/27/25 17:00 98.7 98.7 Exam Pt is lying on bed General Appearance: Alert, Oriented X3, Cooperative, Mild distress HEENT: Right eye cataract, Atraumatic, Mucous membranes moist/pink Respiratory: Clear to auscultation, Normal air movement, No added sounds Cardiovascular: Regular rate, Normal S1, Normal S2, No murmurs Abdominal/ : Right upper abdominal tenderness present, Active bowel sounds, Soft, no distention, no tendernes, no rigidity or no signs of peritonitis present Extremities: Tremors present at both hands. No edema, Normal pulses, No tenderness/swelling Skin: No Significant rash, except past surgical scars Neuro: Normal speech, sensorimotor deficits none Psych/Mental Status: Mental status NL, Mood NL Nurse was there as public relations sales marketing during examination Labs/Xrays Labs Test 05/28/25 05:52 05/27/25 18:12 05/27/25 17:37 05/27/25 13:26 Range/Units Urine Color Light-yellow Yellow Urine Clarity Clear Clear Urine pH 5.5 5.0-9.0 Urine Specific [place] 1.020 1.001-1.035 Urine Protein Trace H Negative Urine Ketones Negative Negative Urine Blood Negative Negative /uL Urine Nitrite Negative Negative Urine Bilirubin Negative Negative Urine Urobilinogen Normal Negative mg/dL Urine Leukocyte Esterase Trace Negative /uL Urine RBC 2 0 - 3 /hpf Urine Microscopic WBC 7 H 0-3 /HPF Urine Squamous Epithelial Cells Few <5 /hpf Urine Bacteria Few H None Seen /hpf Urine Mucus Few None Seen Urine Glucose Normal Normal mg/dL POC Glucose 106 70-106 mg/dl Eosinophils (%) (Auto) 0.3 0.0-7.0 % Eosinophils # (Auto) 0 0-0.8 10 ^3/uL Basophils # (Auto) 0 0-0.2 10 ^3/uL Nucleated Red Blood Cells 0.1 % Troponin I High Sensitivity 9 </=54 ng/L SEPSIS Sepsis Screen Date sepsis recognized/suspect: May 27, 2025 Time Sepsis recognized/suspect: 1816 Recent Procedure: No On Antibiotic Therapy: No Respiratory Rate >20: No Heart Rate >90: No Temp<36 C (96.8 F) or >38.3 C: No SBP <90 or MAP <65 mmHG: No New Acute Mental Status Change: No Is the patient on CPAP, BIPAP,: No Physician Orders Admit (05/27/25 22:50) Allergies (05/27/25 22:50) Code Status (05/27/25 22:50) Sodium Chloride Lock (Saline Lock Ns) (05/28/25 06:00) Sodium Chloride 0.9% (05/27/25 23:00) Oxygen Per Hour (05/27/25 22:50) Complete Blood Count (05/28/25 04:00) Comprehensive Metabolic Panel (05/28/25 04:00) Npo (Nothing By Mouth) Diet (05/28/25 Breakfast) Morphine Sulfate Injection (05/27/25 23:00) Oxygen By Nasal Cannula (05/27/25 22:50) Stat Ekg For Chest Pain (05/27/25 22:50) Notify Md Of Changes From Base (05/27/25 22:50) Ct Ab Pel Wo Con-No Oral Or Iv (05/28/25 01:41) Sequential Compression Device (05/28/25 06:15) Vital Signs Date Time Temp Pulse Resp B/P (MAP) Pulse Ox O2 Delivery O2 Flow Rate FiO2 05/28/25 04:00 106 05/28/25 00:00 111 Laboratory Tests Test 05/28/25 05:52 White Blood Count Pending Medications Medications Dose Ordered Sig/Kylee Route Start Time Stop Time Status Last Admin Dose Admin Sodium Chloride 1,000 ml @ 60 mls/hr [id number] IV 05/27/25 23:00 05/27/25 23:00 60 MLS/HR Assessment/Plan Assessment/Plan Acute abdominal pain due to acute pancreatitis/gastritis Chest x-ray: Asymmetric lucency under the left hemidiaphragm, most likely secondary to bowel gas, seen in prior radiographs. If there is any abdominal pain consider CT for further evaluation to rule out free air. Consult surgery if free air present in the CT scan. CT abdomen and pelvis ordered, lipase ordered IV fluid Morphine Pantoprazole Ceftriaxone Social Social service consulted for home hospice. GI prophylaxis: Pantoprazole DVT prophylaxis: SCDs Diet: NPO Goals of care discussed with the patient for more than 27 minutes: Full code status Case discussed with , patient and RN Plan discussed with: Patient, Other My Orders Orders - SVEN,YAIMA RESIDENT Procedure Category Date Status Time Admit ADMIT 05/27/25 Transmitted 22:50 Allergies DIVYA 05/27/25 In Process 22:50 Code Status CODE 05/27/25 Transmitted 22:50 Sodium Chloride Lock PHA 05/28/25 In Process (Saline Lock Ns) 06:00 Sodium Chloride 0.9% PHA 05/27/25 In Process 23:00 Oxygen Per Hour RT 05/27/25 Transmitted 22:50 Complete Blood Count LAB 05/28/25 In Process 04:00 Comprehensive LAB 05/28/25 In Process Metabolic Panel 04:00 Npo (Nothing By DIET 05/28/25 Transmitted Mouth) Diet Breakfast Morphine Sulfate PHA 05/27/25 In Process Injection 23:00 Oxygen By Nasal RT 05/27/25 Transmitted Cannula 22:50 Stat Ekg For Chest DIVYA 05/27/25 In Process Pain 22:50 Notify Of Changes DIVYA 05/27/25 In Process From Base 22:50 Ct Ab Pel Wo Con-No CT 05/28/25 Resulted Oral Or Iv 01:41 Sequential DIVYA 05/28/25 Transmitted Compression Device 06:15 Date of Service: May 28, 2025 Billing Provider: ZAINAB FRASER MD Common Visit Codes: [id number] INP/OBS CARE (HIGH) Secondary Visit Codes: [id number] CARE PLAN 30 MINUTES YAIMA MACHUCA May 28, 2025 06:25
[2025-05-28 06:26] LABS: Hematocrit 32.9 % (41.0-53.0); Hemoglobin 11.1 g/dL (13.5-17.5); Mean Corpuscular Hemoglobin 29.1 pg (28.0-32.0); Mean Corpuscular Volume 85.8 fL (80.0-100.0); Nucleated Red Blood Cells % 0.0 %
[2025-05-28 06:46] LABS: Alanine Aminotransferase 38 U/L (7-40); Albumin 4.4 g/dL (3.2-4.8); Alkaline Phosphatase 89 U/L (46-116); Anion Gap 13 (5-15); BUN/Creatinine Ratio 15.9 (10.0-20.0); Bilirubin, Total 0.5 mg/dL (0.2-1.0); Blood Urea Nitrogen 17 mg/dL (9-23); Calcium 9.2 mg/dL (8.7-10.4); Carbon Dioxide 19 mmol/L (20-31); Chloride 115 mmol/L (98-107); Glucose 88 mg/dL (74-106); Potassium 3.7 mmol/L (3.5-5.1); Sodium 147 mmol/L (136-145); Total Protein 7.9 g/dL (5.7-8.2)
[2025-05-28] MEDS: PANTOPRAZOLE 40 MG/10 ML VIAL INJ IV ONE (06:48)
[2025-05-28 08:00] VITALS: PULSE 123; RESP 24; O2SAT 98
[2025-05-28] MEDS ORDERED: POLYETHYLENE GLYCOL 17 GM PWDR PO PRN (08:15)
[2025-05-28] MEDS ORDERED: CARBIDOPA W LEVODOPA 25/100mg TABLET PO SCH (08:24)
[2025-05-28] MEDS: LEVOTHYROXINE SODIUM 88 MCG TAB PO SCH (08:42)
--- NOTE | 2025-05-28 08:55 | DVH ---
Date: 05/28/2025 08:13 AM Examination: XY KUB ABDOMEN SINGLE VIEW History: constipation Comparison: CT CT AB PEL WO CON-NO ORAL OR IV on DOS: 05/28/25, XY KUB ABDOMEN SINGLE VIEW on DOS: 02/06 , CT CT AB PEL WO CON-NO ORAL OR IV on DOS: 02/21/25, XY KUB ABDOMEN SINGLE VIEW on DOS: 02/21/25, XY KUB ABDOMEN SINGLE VIEW on DOS: 02/03/25 TECHNIQUE: Frontal views of the abdomen was obtained. FINDINGS: Bowel gas pattern is unremarkable. The lung bases are unremarkable. No acute osseous abnormality identified. IMPRESSION: Nonobstructive bowel gas pattern. Large stool burden.
[2025-05-28] MEDS: cefTRIAXone 1GM/50ML D5W 50 ML IV SCH (09:11)
[2025-05-28] MEDS: LACTULOSE 20Gm/30ML SOLN PO SCH (10:11)
[2025-05-28] MEDS: DOCUSATE SOD 100 MG CAP PO SCH (10:12)
[2025-05-28 12:32] VITALS: BP 132/91; PULSE 107; PULSE 108; RESP 17; RESP 18; TEMP 97.8; O2SAT 95
--- NOTE | 2025-05-28 16:15 | DVHPNRES ---
Progress Note Date Seen: May 28, 2025 Resident Creating Document: HUGH TRAN Medical Necessity Reason Pt with a Central, PICC or Fol: Yes The following are medically ne: Em Catheter Subjective Review of Systems Patient is a 64-year-old male past medical history of cerebral palsy, hyperthyroidism, Parkinsons disease, hypertension, and anemia brought in by EMS with a chief complaint of abdominal pain. Patient is nonverbal but able to nod and point to the upper abdomen to localize pain. EMS reports that the patient is a frequent flyer, typically transported to [facility] by his son, but was redirected to [facility] due to current routing protocols. Patient was tachycardic on arrival (HR 112). Denies chills, fever, nausea, vomiting, diarrhea, shortness of breath, or chest pain. No recent injuries or sick contacts reported. Patient is alert and oriented to self only (A/O x1), communicates via yes/no head movements. He is bedbound and presented to the ER via ambulance yesterday. marketing services rep consulted regarding home hospice. Assessment completed with patients brother who reports that the patient previously lived at home with family and functioned independently. He confirmed that the patient will return to his prior living arrangements post-discharge and that family will provide transportation. Code status discussed with brother; verified as DNI. Past medical history: cerebral palsy, hyperthyroidism, Parkinsons disease, hypertension, anemia Surgical History: Denies all surgeries Smoker: Non-Smoker Alcohol: Denies ETOH Use Drugs: Denies Drug Use Lives In: Home, Assisted Care Allergies: Coded Allergies: NO KNOWN ALLERGIES (Unverified , 01/07/24) Eyes: No Pain, No Vision change, No Conjunctivae inflammation, No Eyelid inflammation, No Other, No Redness ENT: No Ear pain, No Ear discharge, No Nose pain, No Nose discharge, No Nose congestion, No Mouth pain, No Mouth swelling, No Throat pain, No Throat swelling, No Other Cardiovascular: No Chest Pain, No Palpitations, No Orthopnea, No Paroxysmal No Dyspnea, No Edema, No Lt Headedness, No Other Respiratory: No Cough, No Dry, No Shortness of breath, No SOB with exertion, No Wheezing, No Hemoptysis, No Pleuritic Pain, No Sputum, No Other Gastrointestinal: No Nausea, No Vomiting, Abdominal Pain, No Diarrhea, No Constipation, No Melena, No Hematochezia, No Other Genitourinary: No Dysuria, No Frequency, No Incontinence, No Hematuria, No Retention, No Other Musculoskeletal: No other, No neck pain, No shoulder pain, No arm pain, No back pain, No hand pain, No leg pain, No foot pain Skin: No Rash, No Lesions, No Jaundice, No Bruising, No Other Objective vital signs Vital Sign Date Time Temp Pulse Resp B/P (MAP) Pulse Ox O2 Delivery O2 Flow Rate FiO2 05/28/25 12:32 97.8 107 17 132/91 (105) 95 97.8 05/28/25 08:00 Room Air* 0 21 Total Intake and Output 05/27/25 05/27/25 05/28/25 15:00 23:00 07:00 Intake Total 2000 ml Output Total 100 ml Balance 1900 ml medications Current Medications Medications Dose Ordered Sig/Kylee Route Start Time Stop Time Status Last Admin Dose Admin Sodium Chloride 10 ml Q8HR IV 05/28/25 06:00 05/28/25 15:01 10 ML Sodium Chloride 1,000 ml @ 60 mls/hr [id number] IV 05/27/25 23:00 05/28/25 15:52 60 MLS/HR Morphine Sulfate 2 mg Q4HPRN PRN IV 05/27/25 23:00 Pantoprazole Sodium 40 mg DAILY IV 05/29/25 10:00 Ceftriaxone Sodium 50 ml @ 100 mls/hr DAILY@09 IV 05/28/25 09:00 05/28/25 09:11 100 MLS/HR Docusate Sodium 100 mg BID PO 05/28/25 10:00 05/28/25 10:12 100 MG Levothyroxine Sodium 88 mcg QAM PO 05/28/25 08:13 05/28/25 08:42 88 MCG Polyethylene Glycol 17 gm DAILY PRN PO 05/28/25 08:15 Carbidopa/Levodopa 1 tab TID PO 05/28/25 08:24 Hold Lactulose 30 ml BID PO 05/28/25 10:00 05/28/25 10:11 30 ML Examination General Appearance: Alert, Oriented X1, Cooperative, Mild distress. HEENT: Right eye cataract, Atraumatic, Mucous membranes moist/pink Respiratory: Clear to auscultation, Normal air movement, No added sounds Cardiovascular: Regular rate, Normal S1, Normal S2, No murmurs Abdominal/ : Right upper abdominal tenderness present, Active bowel sounds, Soft, no distention, no tendernes, no rigidity or no signs of peritonitis present Extremities: Tremors present at both hands. No edema, Normal pulses, No tenderness/swelling Skin Exam: Stage I-II sacral decubitus ulcer. Normal color. Warm. Dry. Neuro: Normal speech, sensorimotor deficits none Psych/Mental Status: Mental status NL, Mood NL Nurse was there as floor finisher helper during examination laboratory and microbiology Laboratory Tests 05/28/25 05:52 Test 05/28/25 05:52 Range/Units Serum Glucose 88 74-106 mg/dL Labs and/or images reviewed: Labs reviewed by me, Image(s) reviewed by me Problem List/Assessment/Plan Problem List/Assessment/Plan # Failure to thrive # acute on chronic encephalopathy due to Parkinson disease Hold Carbidopa/Levodopa # actue intractable abdominal pain likely due to constipation # constipation likely slow transient Docusate Miralax Lactulose #acute complicated UTI # history of ESBL Urine Protein Trace Urine Microscopic WBC 7 Urine Bacteria Few Ceftriaxone #anemia likely chronic disease Hgb 11.1 Hct 32.9 RDW 15.9 # moderate to severe protein caloric malnutrition BMI 16.1 PUD prophylaxis: protonix 40mg Goals of care: Full code, discussed for >16 minutes on 05/28/25 Plan discussed with patient Plan discussed with Dr. Du Plan discussed with: Other My Orders My Orders Orders - HUGH TRAN Procedure Category Date Status Time Urine Bacterial MINGO 05/28/25 Logged Culture 16:10 Date of Service: May 28, 2025 Billing Provider: CJ DU MD Common Visit Codes: [id number] INP/OBS CARE(HIGH) Secondary Visit Codes: [id number] CARE PLAN 30 MINUTES HUGH TRAN May 28, 2025 16:15 CJ DU MD May 30, 2025 20:54
[2025-05-28 16:32] VITALS: BP 120/79; PULSE 131; RESP 17; TEMP 98; O2SAT 96
[2025-05-28 20:00] VITALS: RESP 16; O2SAT 90
[2025-05-28 21:00] VITALS: BP_SYST 151; BP_SYST 181; BP_DIAS 148; BP_DIAS 96; PULSE 94; RESP 16; TEMP 98; O2SAT 90
[2025-05-29] VITALS (8 sets, daily range): BP systolic 138–146; BP diastolic 76–97; PULSE 68–118; RESP 16–19; TEMP 98–99.1; O2SAT 90–97
[2025-05-29] MEDS: MORPHINE SULFATE INJ 2 MG/ml SYRG IV PRN (04:33)
[2025-05-29 07:38] LABS: Hematocrit 33.8 % (41.0-53.0); Hemoglobin 11.2 g/dL (13.5-17.5); Mean Corpuscular Hemoglobin 28.8 pg (28.0-32.0); Mean Corpuscular Volume 87.2 fL (80.0-100.0); Nucleated Red Blood Cells % 0.0 %
[2025-05-29 07:49] LABS: Anion Gap 12 (5-15); Calcium 9.4 mg/dL (8.7-10.4); Carbon Dioxide 22 mmol/L (20-31); Potassium 3.8 mmol/L (3.5-5.1)
[2025-05-29 07:56] LABS: BUN/Creatinine Ratio 18.2 (10.0-20.0); Blood Urea Nitrogen 22 mg/dL (9-23); Glucose 99 mg/dL (74-106)
[2025-05-29 07:58] LABS: Chloride 118 mmol/L (98-107); Sodium 152 mmol/L (136-145)
[2025-05-29] MEDS: PANTOPRAZOLE 40 MG/10 ML VIAL INJ IV SCH (11:10)
[2025-05-29] MEDS: D5W 5% 1,000 ML IV SCH (13:30)
--- NOTE | 2025-05-29 13:36 | DVHPNRES ---
Progress Note Date Seen: May 29, 2025 Resident Creating Document: HUGH TRAN Medical Necessity Reason Pt with a Central, PICC or Fol: Yes The following are medically ne: Em Catheter Subjective Review of Systems Patient is a 64-year-old male past medical history of cerebral palsy, hyperthyroidism, Parkinsons disease, hypertension, and anemia brought in by EMS with a chief complaint of abdominal pain. Patient is nonverbal but able to nod and point to the upper abdomen to localize pain. EMS reports that the patient is a frequent flyer, typically transported to [facility] by his son, but was redirected to [facility] due to current routing protocols. Patient was tachycardic on arrival (HR 112). Denies chills, fever, nausea, vomiting, diarrhea, shortness of breath, or chest pain. No recent injuries or sick contacts reported. Patient is alert and oriented to self only (A/O x1), communicates via yes/no head movements. He is bedbound and presented to the ER via ambulance yesterday. client services specialist consulted regarding home hospice. Assessment completed with patients brother who reports that the patient previously lived at home with family and functioned independently. He confirmed that the patient will return to his prior living arrangements post-discharge and that family will provide transportation. Code status discussed with brother; verified as DNI. Patient seen at bedside. Dietary consult initiated for constipation lasting more than three days. Patient exhibits poor appetite with ~45% PO intake and is currently on a pureed diet. Reports upper abdominal pain and bilateral hand tremors. Patient is receiving IV antibiotics, hydration, and bowel regimen including Lactulose. Objective vital signs Vital Sign Date Time Temp Pulse Resp B/P (MAP) Pulse Ox O2 Delivery O2 Flow Rate FiO2 05/29/25 12:30 98.9 94 19 141/86 (104) 97 98.9 05/28/25 20:00 Room Air* 0 21 Total Intake and Output 05/28/25 05/28/25 05/29/25 15:00 23:00 07:00 Intake Total 50 ml 118 ml 300 ml Output Total 600 ml 3138 ml Balance 50 ml -482 ml -2838 ml medications Current Medications Medications Dose Ordered Sig/Kylee Route Start Time Stop Time Status Last Admin Dose Admin Sodium Chloride 10 ml Q8HR IV 05/28/25 06:00 05/29/25 05:51 10 ML Morphine Sulfate 2 mg Q4HPRN PRN IV 05/27/25 23:00 05/29/25 04:33 2 MG Pantoprazole Sodium 40 mg DAILY IV 05/29/25 10:00 05/29/25 11:10 40 MG Ceftriaxone Sodium 50 ml @ 100 mls/hr DAILY@09 IV 05/28/25 09:00 05/29/25 11:10 100 MLS/HR Docusate Sodium 100 mg BID PO 05/28/25 10:00 05/28/25 10:12 100 MG Levothyroxine Sodium 88 mcg QAM PO 05/28/25 08:13 05/28/25 08:42 88 MCG Polyethylene Glycol 17 gm DAILY PRN PO 05/28/25 08:15 Carbidopa/Levodopa 1 tab TID PO 05/28/25 08:24 Hold Lactulose 30 ml BID PO 05/28/25 10:00 05/29/25 11:10 30 ML Dextrose 1,000 ml @ 100 mls/hr Q10H IV 05/29/25 13:15 05/29/25 13:30 100 MLS/HR Examination General Appearance: Alert, Oriented X1, Cooperative, Mild distress. HEENT: Right eye cataract, Atraumatic, Mucous membranes moist/pink Respiratory: Clear to auscultation, Normal air movement, No added sounds Cardiovascular: Regular rate, Normal S1, Normal S2, No murmurs Abdominal/ : Right upper abdominal tenderness present, Active bowel sounds, Soft, no distention, no tendernes, no rigidity or no signs of peritonitis present Extremities: Tremors present at both hands. No edema, Normal pulses, No tenderness/swelling Skin Exam: Stage I-II sacral decubitus ulcer. Normal color. Warm. Dry. Neuro: Normal speech, sensorimotor deficits none Psych/Mental Status: Mental status NL, Mood NL Nurse was there as oil house attendant during examination laboratory and microbiology Laboratory Tests 05/29/25 07:04 Test 05/29/25 07:04 Range/Units Serum Glucose 99 74-106 mg/dL Microbiology Date/Time Source Procedure Growth Status 05/28/25 18:12 Urine - Suprapubic Aspirate Urine Culture - Preliminary Resulted Labs and/or images reviewed: Labs reviewed by me, Image(s) reviewed by me Problem List/Assessment/Plan Problem List/Assessment/Plan # Failure to thrive # acute on chronic encephalopathy due to Parkinson disease Hold Carbidopa/Levodopa # actue intractable abdominal pain likely due to constipation # constipation likely slow transient # Ruled out small bowel perforation Chest/abdomen X-Ray: Nonobstructive bowel gas pattern. Large stool burden. Abdomen/Pelcis CT: Moderate motion artifact partially obscures detail. Retained colorectal stool and proximal moderately dilated gas-filled segments of small bowel without evidence of perforation or intraperitoneal free air. Moderately distended fluid and gas-filled urinary bladder containing a Em catheter. Chest X-ray: Asymmetric lucency under the left hemidiaphragm is most likely secondary to bowel gas which was previously seen on the prior radiograph however if there is any abdominal pain consider CT for further evaluation to rule out free air. Docusate Miralax Lactulose D5W 5% IV #acute complicated UTI # history of ESBL Urine Protein Trace Urine Microscopic WBC 7 Urine Bacteria Few Ceftriaxone #anemia likely chronic disease Hgb 11.1 Hct 32.9 RDW 15.9 # moderate to severe protein caloric malnutrition BMI 16.1 Pureed Diet PUD prophylaxis: protonix 40mg Goals of care: Full code, discussed for >16 minutes on 05/29/25 Plan discussed with patient Plan discussed with Dr. Du Plan discussed with: Other My Orders My Orders Orders - HUGH TRAN Procedure Category Date Status Time Urine Bacterial MINGO 05/28/25 In Process Culture 16:10 Code Status CODE 05/28/25 Transmitted 18:20 * Dietary Consult CONS 05/29/25 Transmitted 01:41 * Wound Consult CONS 05/29/25 Transmitted * Swallow Request ST 05/29/25 Transmitted 08:09 Notify Provider NOTICE 05/29/25 Transmitted Malnutrition 10:40 Nutritional NOURISH 05/29/25 Transmitted Supplements 10:40 Dietary NOTICE 05/29/25 Transmitted Recommendations 10:40 Dietary Evaluation Review Recommendations by RD: Increase Calorie Intake Comments: 1) Continue Lactulose and Miralax PRN 2) Consider soluble fiber supplement 3) Initiate Ensure Enlive tid 4) Follow-up with neurology 5) Continue to monitor I&O, labs, and skin integrity Expected Outcomes/Goals: 1) appetite and labs to improve 2) GI symptoms to resolve 3) gradual wt gain 4) f/u in 3-5 days Date of Service: May 29, 2025 Billing Provider: CJ DU MD Common Visit Codes: [id number] INP/OBS CARE(HIGH) HUGH TRAN RESIDENT May 29, 2025 13:36 [place] May 30, 2025 16:27 CJ DU MD May 30, 2025 20:54
[2025-05-30] VITALS (8 sets, daily range): BP systolic 101–128; BP diastolic 63–86; PULSE 76–119; RESP 14–18; TEMP 97.9–99.3; O2SAT 86–97
[2025-05-30 05:36] LABS: Hematocrit 34.0 % (41.0-53.0); Hemoglobin 11.3 g/dL (13.5-17.5); Mean Corpuscular Hemoglobin 29.1 pg (28.0-32.0); Mean Corpuscular Volume 87.6 fL (80.0-100.0); Nucleated Red Blood Cells % 0.0 %
[2025-05-30 05:45] LABS: Potassium 3.6 mmol/L (3.5-5.1)
[2025-05-30 05:46] LABS: Anion Gap 13 (5-15); Calcium 9.5 mg/dL (8.7-10.4); Carbon Dioxide 22 mmol/L (20-31)
[2025-05-30 05:47] LABS: Chloride 112 mmol/L (98-107); Sodium 147 mmol/L (136-145)
[2025-05-30 05:51] LABS: BUN/Creatinine Ratio 13.9 (10.0-20.0); Blood Urea Nitrogen 16 mg/dL (9-23)
[2025-05-30 05:54] LABS: Glucose 137 mg/dL (74-106)
[2025-05-30] MEDS: Ensure HIGH Protein Chocolate 8oz Bottle PO SCH (12:00)
--- NOTE | 2025-05-30 16:29 | DVHPNRES ---
Progress Note Date Seen: May 30, 2025 Resident Creating Document: [place] RESIDENT Medical Necessity Reason Pt with a Central, PICC or Fol: Yes The following are medically ne: Em Catheter Subjective Review of Systems Patient is a 64-year-old male past medical history of cerebral palsy, hyperthyroidism, Parkinsons disease, hypertension, and anemia brought in by EMS with a chief complaint of abdominal pain. Patient is nonverbal but able to nod and point to the upper abdomen to localize pain. EMS reports that the patient is a frequent flyer, typically transported to [facility] by his son, but was redirected to [facility] due to current routing protocols. Patient was tachycardic on arrival (HR 112). Denies chills, fever, nausea, vomiting, diarrhea, shortness of breath, or chest pain. No recent injuries or sick contacts reported. Patient is alert and oriented to self only (A/O x1), communicates via yes/no head movements. He is bedbound and presented to the ER via ambulance yesterday. emergency services dispatcher consulted regarding home hospice. Assessment completed with patients brother who reports that the patient previously lived at home with family and functioned independently. He confirmed that the patient will return to his prior living arrangements post-discharge and that family will provide transportation. Code status discussed with brother; verified as DNI. Past medical history: cerebral palsy, hyperthyroidism, Parkinsons disease, hypertension, anemia Surgical History: Denies all surgeries Smoker: Non-Smoker Alcohol: Denies ETOH Use Drugs: Denies Drug Use Lives In: Home, Assisted Care Allergies: Coded Allergies: NO KNOWN ALLERGIES (Unverified , 01/07/24) Eyes: No Pain, No Vision change, No Conjunctivae inflammation, No Eyelid inflammation, No Other, No Redness ENT: No Ear pain, No Ear discharge, No Nose pain, No Nose discharge, No Nose congestion, No Mouth pain, No Mouth swelling, No Throat pain, No Throat swelling, No Other Cardiovascular: No Chest Pain, No Palpitations, No Orthopnea, No Paroxysmal No Dyspnea, No Edema, No Lt Headedness, No Other Respiratory: No Cough, No Dry, No Shortness of breath, No SOB with exertion, No Wheezing, No Hemoptysis, No Pleuritic Pain, No Sputum, No Other Gastrointestinal: No Nausea, No Vomiting, Abdominal Pain, No Diarrhea, No Constipation, No Melena, No Hematochezia, No Other Genitourinary: No Dysuria, No Frequency, No Incontinence, No Hematuria, No Retention, No Other Musculoskeletal: No other, No neck pain, No shoulder pain, No arm pain, No back pain, No hand pain, No leg pain, No foot pain Skin: No Rash, No Lesions, No Jaundice, No Bruising, No Other 05/29- Patient seen at bedside. Dietary consult initiated for constipation lasting more than three days. Patient exhibits poor appetite with ~45% PO intake and is currently on a pureed diet. Reports upper abdominal pain and bilateral hand tremors. Patient is receiving IV antibiotics, hydration, and bowel regimen including Lactulose. 05/30- Patient was seen at bedside. The patient has tremors in both hands. He has stable vitals and labs are within range. Ensure was added to his diet. We we tried reaching out to his brother to talk to him regarding considering home with home health versus hospice. Patient might be discharged tomorrow after checking sodium. Even continue on the same medication regimen and monitor the patient. Objective vital signs Vital Sign Date Time Temp Pulse Resp B/P (MAP) Pulse Ox O2 Delivery O2 Flow Rate FiO2 05/30/25 13:33 97.9 110 16 101/63 (76) 95 97.9 05/30/25 08:00 Room Air* 0 21 Total Intake and Output 05/29/25 05/29/25 05/30/25 15:00 23:00 07:00 Intake Total 160 ml 725 ml Output Total 500 ml 875 ml Balance -340 ml -150 ml medications Current Medications Medications Dose Ordered Sig/Kylee Route Start Time Stop Time Status Last Admin Dose Admin Sodium Chloride 10 ml Q8HR IV 05/28/25 06:00 05/30/25 14:13 10 ML Morphine Sulfate 2 mg Q4HPRN PRN IV 05/27/25 23:00 05/30/25 02:50 2 MG Pantoprazole Sodium 40 mg DAILY IV 05/29/25 10:00 05/30/25 09:04 40 MG Ceftriaxone Sodium 50 ml @ 100 mls/hr DAILY@09 IV 05/28/25 09:00 05/30/25 09:03 100 MLS/HR Docusate Sodium 100 mg BID PO 05/28/25 10:00 05/30/25 09:03 100 MG Levothyroxine Sodium 88 mcg QAM PO 05/28/25 08:13 05/28/25 08:42 88 MCG Polyethylene Glycol 17 gm DAILY PRN PO 05/28/25 08:15 Carbidopa/Levodopa 1 tab TID PO 05/28/25 08:24 Hold Lactulose 30 ml BID PO 05/28/25 10:00 05/30/25 09:03 30 ML Dextrose 1,000 ml @ 100 mls/hr Q10H IV 05/29/25 13:15 05/30/25 09:05 100 MLS/HR Enteral Nutritional Formula 240 ml TIDWM PO 05/30/25 12:00 05/30/25 12:00 240 ML Examination General Appearance: Alert, Oriented X1, Cooperative, Mild distress. HEENT: Right eye cataract, Atraumatic, Mucous membranes moist/pink Respiratory: Clear to auscultation, Normal air movement, No added sounds Cardiovascular: Regular rate, Normal S1, Normal S2, No murmurs Abdominal/ : Active bowel sounds, Soft, no distention, no tenderness, no rigidity or no signs of peritonitis present Extremities: Tremors present at both hands. No edema, Normal pulses, No tenderness/swelling Skin Exam: Stage I-II sacral decubitus ulcer. Normal color. Warm. Dry. Neuro: Normal speech, sensorimotor deficits none Psych/Mental Status: Mental status NL, Mood NL Nurse was there as activities manager during examination laboratory and microbiology Laboratory Tests 05/30/25 05:06 Test 05/30/25 05:06 Range/Units Serum Glucose 137 H 74-106 mg/dL Microbiology Date/Time Source Procedure Growth Status 05/28/25 18:12 Urine - Suprapubic Aspirate Urine Culture - Final Complete Labs and/or images reviewed: Labs reviewed by me, Image(s) reviewed by me Problem List/Assessment/Plan Problem List/Assessment/Plan Failure to thrive acute on chronic encephalopathy due to Parkinson disease Hold Carbidopa/Levodopa actue intractable abdominal pain likely due to constipation constipation likely slow transient Ruled out small bowel perforation Chest/abdomen X-Ray: Nonobstructive bowel gas pattern. Large stool burden. Abdomen/Pelcis CT: Moderate motion artifact partially obscures detail. Retained colorectal stool and proximal moderately dilated gas-filled segments of small bowel without evidence of perforation or intraperitoneal free air. Moderately distended fluid and gas-filled urinary bladder containing a Em catheter. Chest X-ray: Asymmetric lucency under the left hemidiaphragm is most likely secondary to bowel gas which was previously seen on the prior radiograph however if there is any abdominal pain consider CT for further evaluation to rule out free air. Docusate Miralax Lactulose D5W 5% IV acute complicated UTI history of ESBL Urine Protein Trace Urine Microscopic WBC 7 Urine Bacteria Few Ceftriaxone anemia, likely of chronic disease Hgb 11.1 Hct 32.9 RDW 15.9 moderate to severe protein caloric malnutrition BMI 16.1 Diet: Pureed Diet PUD prophylaxis: protonix 40mg Goals of care: Full code, discussed for >16 minutes on 05/30/25 Plan discussed with patient Plan discussed with Dr. Du Plan discussed with: Other Dietary Evaluation Review Recommendations by RD: Increase Calorie Intake Comments: 1) Continue Lactulose and Miralax PRN 2) Consider soluble fiber supplement 3) Initiate Ensure Enlive tid 4) Follow-up with neurology 5) Continue to monitor I&O, labs, and skin integrity Expected Outcomes/Goals: 1) appetite and labs to improve 2) GI symptoms to resolve 3) gradual wt gain 4) f/u in 3-5 days Date of Service: May 30, 2025 Billing Provider: CJ DU MD Common Visit Codes: [id number] INP/OBS CARE(HIGH) [place] RESIDENT May 30, 2025 16:29 CJ DU MD May 30, 2025 20:55
[2025-05-31] VITALS (8 sets, daily range): BP systolic 103–149; BP diastolic 58–83; PULSE 96–115; RESP 16–20; TEMP 97.4–98.8; O2SAT 95–97
[2025-05-31 07:18] LABS: Hematocrit 32.2 % (41.0-53.0); Hemoglobin 10.8 g/dL (13.5-17.5); Mean Corpuscular Hemoglobin 29.4 pg (28.0-32.0); Mean Corpuscular Volume 87.4 fL (80.0-100.0); Nucleated Red Blood Cells % 0.0 %
[2025-05-31 07:34] LABS: Anion Gap 11 (5-15); Carbon Dioxide 24 mmol/L (20-31); Chloride 106 mmol/L (98-107); Sodium 141 mmol/L (136-145)
[2025-05-31 07:35] LABS: Calcium 9.0 mg/dL (8.7-10.4)
[2025-05-31 07:38] LABS: Potassium 3.4 mmol/L (3.5-5.1)
[2025-05-31 07:40] LABS: BUN/Creatinine Ratio 13.4 (10.0-20.0); Blood Urea Nitrogen 13 mg/dL (9-23)
[2025-05-31 07:41] LABS: Glucose 116 mg/dL (74-106)
[2025-05-31] MEDS: POTASSIUM EFFERVESENT TAB 25 MEQ GT ONE (11:45)
[2025-05-31] MEDS: CARBIDOPA W LEVODOPA 25/100mg TABLET PO SCH (13:45)
--- NOTE | 2025-05-31 15:54 | DVHPNRES ---
Progress Note Date Seen: May 31, 2025 Resident Creating Document: [place] RESIDENT Medical Necessity Reason Pt with a Central, PICC or Fol: Yes The following are medically ne: Em Catheter Subjective Review of Systems Patient is a 64-year-old male past medical history of cerebral palsy, hyperthyroidism, Parkinsons disease, hypertension, and anemia brought in by EMS with a chief complaint of abdominal pain. Patient is nonverbal but able to nod and point to the upper abdomen to localize pain. EMS reports that the patient is a frequent flyer, typically transported to [facility] by his son, but was redirected to [facility] due to current routing protocols. Patient was tachycardic on arrival (HR 112). Denies chills, fever, nausea, vomiting, diarrhea, shortness of breath, or chest pain. No recent injuries or sick contacts reported. Patient is alert and oriented to self only (A/O x1), communicates via yes/no head movements. He is bedbound and presented to the ER via ambulance yesterday. web services professional consulted regarding home hospice. Assessment completed with patients brother who reports that the patient previously lived at home with family and functioned independently. He confirmed that the patient will return to his prior living arrangements post-discharge and that family will provide transportation. Code status discussed with brother; verified as DNI. Past medical history: cerebral palsy, hyperthyroidism, Parkinsons disease, hypertension, anemia Surgical History: Denies all surgeries Smoker: Non-Smoker Alcohol: Denies ETOH Use Drugs: Denies Drug Use Lives In: Home, Assisted Care Allergies: Coded Allergies: NO KNOWN ALLERGIES (Unverified , 01/07/24) Eyes: No Pain, No Vision change, No Conjunctivae inflammation, No Eyelid inflammation, No Other, No Redness ENT: No Ear pain, No Ear discharge, No Nose pain, No Nose discharge, No Nose congestion, No Mouth pain, No Mouth swelling, No Throat pain, No Throat swelling, No Other Cardiovascular: No Chest Pain, No Palpitations, No Orthopnea, No Paroxysmal No Dyspnea, No Edema, No Lt Headedness, No Other Respiratory: No Cough, No Dry, No Shortness of breath, No SOB with exertion, No Wheezing, No Hemoptysis, No Pleuritic Pain, No Sputum, No Other Gastrointestinal: No Nausea, No Vomiting, Abdominal Pain, No Diarrhea, No Constipation, No Melena, No Hematochezia, No Other Genitourinary: No Dysuria, No Frequency, No Incontinence, No Hematuria, No Retention, No Other Musculoskeletal: No other, No neck pain, No shoulder pain, No arm pain, No back pain, No hand pain, No leg pain, No foot pain Skin: No Rash, No Lesions, No Jaundice, No Bruising, No Other 05/29- Patient seen at bedside. Dietary consult initiated for constipation lasting more than three days. Patient exhibits poor appetite with ~45% PO intake and is currently on a pureed diet. Reports upper abdominal pain and bilateral hand tremors. Patient is receiving IV antibiotics, hydration, and bowel regimen including Lactulose. 05/30- Patient was seen at bedside. The patient has tremors in both hands. He has stable vitals and labs are within range. Ensure was added to his diet. We we tried reaching out to his brother to talk to him regarding considering home with home health versus hospice. Patient might be discharged tomorrow after checking sodium. Even continue on the same medication regimen and monitor the patient. 05/31- patient was seen at bedside. He has tremors in both hands. His potassium was 3.4 so we gave him 25 mEq of potassium ER tablet. All other labs were within range and vitals were stable. On swallow evaluation yesterday he was able to swallow liquified diet with nectar thick liquid. We tried contacting his brother to talk to him regarding considering home hospice versus home health which the patient was on before coming to the hospital. We were unable to reach the patient's brother despite repeated attempts. Objective vital signs Vital Sign Date Time Temp Pulse Resp B/P (MAP) Pulse Ox O2 Delivery O2 Flow Rate FiO2 05/31/25 13:00 97.4 115 19 149/83 (105) 97 97.4 05/31/25 08:00 Room Air* 0 21 Total Intake and Output 05/30/25 05/30/25 05/31/25 15:00 23:00 07:00 Intake Total 550 ml 1445 ml 1000 ml Output Total 550 ml 400 ml Balance 550 ml 895 ml 600 ml medications Current Medications Medications Dose Ordered Sig/Kylee Route Start Time Stop Time Status Last Admin Dose Admin Sodium Chloride 10 ml Q8HR IV 05/28/25 06:00 05/31/25 11:24 10 ML Morphine Sulfate 2 mg Q4HPRN PRN IV 05/27/25 23:00 05/30/25 02:50 2 MG Pantoprazole Sodium 40 mg DAILY IV 05/29/25 10:00 05/31/25 11:23 40 MG Ceftriaxone Sodium 50 ml @ 100 mls/hr DAILY@09 IV 05/28/25 09:00 05/31/25 11:23 100 MLS/HR Docusate Sodium 100 mg BID PO 05/28/25 10:00 05/31/25 11:23 100 MG Levothyroxine Sodium 88 mcg QAM PO 05/28/25 08:13 05/31/25 05:57 88 MCG Polyethylene Glycol 17 gm DAILY PRN PO 05/28/25 08:15 Lactulose 30 ml BID PO 05/28/25 10:00 05/31/25 11:23 30 ML Dextrose 1,000 ml @ 100 mls/hr Q10H IV 05/29/25 13:15 05/31/25 11:45 100 MLS/HR Enteral Nutritional Formula 240 ml TIDWM PO 05/30/25 12:00 05/31/25 13:45 240 ML Carbidopa/Levodopa 1 tab QID PO 05/31/25 12:00 05/31/25 13:45 1 TAB Examination General Appearance: Alert, Oriented X1, Cooperative, Mild distress. HEENT: Right eye cataract, Atraumatic, Mucous membranes moist/pink Respiratory: Clear to auscultation, Normal air movement, No added sounds Cardiovascular: Regular rate, Normal S1, Normal S2, No murmurs Abdominal/ : Active bowel sounds, Soft, no distention, no tenderness, no rigidity or no signs of peritonitis present Extremities: Tremors present at both hands. No edema, Normal pulses, No tenderness/swelling Skin Exam: Stage I-II sacral decubitus ulcer. Normal color. Warm. Dry. Neuro: Normal speech, sensorimotor deficits none Psych/Mental Status: Mental status NL, Mood NL Nurse was there as collection agent during examination laboratory and microbiology Laboratory Tests 05/31/25 06:27 Test 05/31/25 06:27 Range/Units Serum Glucose 116 H 74-106 mg/dL Microbiology Date/Time Source Procedure Growth Status 05/28/25 18:12 Urine - Suprapubic Aspirate Urine Culture - Final Complete Labs and/or images reviewed: Labs reviewed by me, Image(s) reviewed by me Problem List/Assessment/Plan Problem List/Assessment/Plan Failure to thrive acute on chronic encephalopathy due to Parkinson disease Carbidopa/Levodopa restarted actue intractable abdominal pain likely due to constipation constipation likely slow transient Ruled out small bowel perforation Chest/abdomen X-Ray: Nonobstructive bowel gas pattern. Large stool burden. Abdomen/Pelcis CT: Moderate motion artifact partially obscures detail. Retained colorectal stool and proximal moderately dilated gas-filled segments of small bowel without evidence of perforation or intraperitoneal free air. Moderately distended fluid and gas-filled urinary bladder containing a Em catheter. Chest X-ray: Asymmetric lucency under the left hemidiaphragm is most likely secondary to bowel gas which was previously seen on the prior radiograph however if there is any abdominal pain consider CT for further evaluation to rule out free air. Docusate Miralax Lactulose D5W 5% IV acute complicated UTI history of ESBL Urine Protein Trace Urine Microscopic WBC 7 Urine Bacteria Few Ceftriaxone anemia, likely of chronic disease Hgb 11.1 Hct 32.9 RDW 15.9 moderate to severe protein caloric malnutrition BMI 16.1 Diet: Pureed Diet PUD prophylaxis: protonix 40mg Goals of care: Full code, discussed for >16 minutes on 05/31/25 Plan discussed with patient's brother Plan discussed with Dr. Du Plan discussed with: Other Dietary Evaluation Review Recommendations by RD: Increase Calorie Intake Comments: 1) Continue Lactulose and Miralax PRN 2) Consider soluble fiber supplement 3) Initiate Ensure Enlive tid 4) Follow-up with neurology 5) Continue to monitor I&O, labs, and skin integrity Expected Outcomes/Goals: 1) appetite and labs to improve 2) GI symptoms to resolve 3) gradual wt gain 4) f/u in 3-5 days Date of Service: May 31, 2025 Billing Provider: CJ DU MD Common Visit Codes: [id number] INP/OBS CARE(MOD) [place] RESIDENT May 31, 2025 15:54 CJ DU MD Jun 03, 2025 08:41
[2025-06-01] VITALS (7 sets, daily range): BP systolic 95–122; BP diastolic 63–82; PULSE 86–106; RESP 17–18; TEMP 97.5–98.4; O2SAT 98–100
[2025-06-01 06:48] LABS: Hematocrit 34.1 % (41.0-53.0); Hemoglobin 11.6 g/dL (13.5-17.5); Mean Corpuscular Hemoglobin 29.7 pg (28.0-32.0); Mean Corpuscular Volume 87.6 fL (80.0-100.0); Nucleated Red Blood Cells % 0.0 %
[2025-06-01 07:00] LABS: Calcium 9.0 mg/dL (8.7-10.4); Chloride 105 mmol/L (98-107); Sodium 140 mmol/L (136-145)
[2025-06-01 07:01] LABS: Anion Gap 11 (5-15); Carbon Dioxide 24 mmol/L (20-31)
[2025-06-01 07:06] LABS: BUN/Creatinine Ratio 13.2 (10.0-20.0); Blood Urea Nitrogen 10 mg/dL (9-23); Glucose 98 mg/dL (74-106)
[2025-06-01 07:21] LABS: Potassium 3.4 mmol/L (3.5-5.1)
[2025-06-01] MEDS: POTASSIUM CHL 20 Meq TABLET PO ONE (10:44)
--- NOTE | 2025-06-01 14:29 | DVHDSRES ---
Discharge Summary Date of Admission Resident Creating Document: [place] RESIDENT May 27, 2025 at 22:50 Date of Discharge: Jun 01, 2025 Admitting Diagnosis Acute abdominal pain due to acute pancreatitis/gastritis Labs/Diagnostic Data: Laboratory Results Test 06/01/25 06:07 05/28/25 05:52 05/27/25 18:12 05/27/25 17:37 White Blood Count 7.7 10^3/uL (4.4-10.8) Red Blood Count 3.90 10^6/uL (4.5-5.90) Hemoglobin 11.6 g/dL (13.5-17.5) Hematocrit 34.1 % (41.0-53.0) Mean Corpuscular Volume 87.6 fL (80.0-100.0) Mean Corpuscular Hemoglobin 29.7 pg (28.0-32.0) Mean Corpuscular Hemoglobin Concent 33.9 g/dL (32.0-36.0) Red Cell Distribution Width 15.1 % (11.8-14.3) Platelet Count 169 10^3/uL (140-450) Mean Platelet Volume 8.4 fL (6.9-10.8) Neutrophils (%) (Auto) 71.5 % (37.0-80.0) Lymphocytes (%) (Auto) 15.4 % (10.0-50.0) Monocytes (%) (Auto) 6.6 % (0.0-12.0) Eosinophils (%) (Auto) 6.1 % (0.0-7.0) Basophils (%) (Auto) 0.4 % (0.0-2.0) Neutrophils # (Auto) 5.5 10 ^3/uL (1.6-8.6) Lymphocytes # (Auto) 1.2 10 ^3/uL (0.4-5.4) Monocytes # (Auto) 0.5 10 ^3/uL (0-1.3) Eosinophils # (Auto) 0.5 10 ^3/uL (0-0.8) Basophils # (Auto) 0 10 ^3/uL (0-0.2) Nucleated Red Blood Cells 0.0 % Sodium Level 140 mmol/L (136-145) Potassium Level 3.4 mmol/L (3.5-5.1) Chloride Level 105 mmol/L (98-107) Carbon Dioxide Level 24 mmol/L (20-31) Anion Gap 11 (5-15) Blood Urea Nitrogen 10 mg/dL (9-23) Creatinine 0.76 mg/dL (0.700-1.30) Glomerular Filtration Rate Calc 101 mL/min (>90) BUN/Creatinine Ratio 13.2 (10.0-20.0) Serum Glucose 98 mg/dL (74-106) Calcium Level 9.0 mg/dL (8.7-10.4) Total Bilirubin 0.5 mg/dL (0.2-1.0) Aspartate Amino Transferase (AST) 29 U/L (13-40) Alanine Aminotransferase (ALT) 38 U/L (7-40) Alkaline Phosphatase 89 U/L (46-116) Total Protein 7.9 g/dL (5.7-8.2) Albumin 4.4 g/dL (3.2-4.8) Lipase 38 U/L (12-53) Urine Color Light-yellow (Yellow) Urine Clarity Clear (Clear) Urine pH 5.5 (5.0-9.0) Urine Specific [place] 1.020 (1.001-1.035) Urine Protein Trace (Negative) Urine Ketones Negative (Negative) Urine Blood Negative /uL (Negative) Urine Nitrite Negative (Negative) Urine Bilirubin Negative (Negative) Urine Urobilinogen Normal mg/dL (Negative) Urine Leukocyte Esterase Trace /uL (Negative) Urine RBC 2 /hpf (0 - 3) Urine Microscopic WBC 7 /HPF (0-3) Urine Squamous Epithelial Cells Few /hpf (<5) Urine Bacteria Few /hpf (None Seen) Urine Mucus Few (None Seen) Urine Glucose Normal mg/dL (Normal) POC Glucose 106 mg/dl (70-106) Test 05/27/25 13:26 Troponin I High Sensitivity 9 ng/L (</=54) Other Laboratory Tests 06/01/25 06:07 Brief Hx & Hospital Course: Patient is a 64-year-old male past medical history of cerebral palsy, hyperthyroidism, Parkinsons disease, hypertension, and anemia brought in by EMS with a chief complaint of abdominal pain. Patient is nonverbal but able to nod and point to the upper abdomen to localize pain. . Patient was tachycardic on arrival (HR 112). Patient is alert and oriented to self only (A/O x1), communicates via yes/no head movements. He is bedbound and presented to the ER via ambulance yesterday. Code status discussed with brother; verified as DNI. CT abdomen and pelvis revealed-Moderate motion artifact partially obscures detail. Retained colorectal stool and proximal moderately dilated gas-filled segments of small bowel without evidence of perforation or intraperitoneal free air. Moderately distended fluid and gas-filled urinary bladder containing a Em catheter. X-ray KUB- Nonobstructive bowel gas pattern. Large stool burden. Patient was treated conservatively with IV antibiotic ceftriaxone, discharged with Macrobid 100 mg p.o. b.i.d. for 2 days. Increase lactulose from 30 mL b.i.d. to 30 mL t.i.d.. Patient's symptom has improved, patient is hemodynamically stable to be discharged with home with the home health service for physical therapy and medication management. Patient's meds were sent to the pharmacy electronically. Patient and his brother Art- [phone] advised to follow up with the primary care physician in 1 week. Condition at Discharge: Stable Final Diagnosis/Problems List acute on chronic encephalopathy due to Parkinson disease actue intractable abdominal pain likely due to constipation Failure to thrive Ruled out small bowel perforation acute complicated UTI history of ESBL anemia, likely of chronic disease Hypothyroidism Cerebral palsy Hypertension Anemia Discharge Disposition: Home with Health Services Discharge Instruct/Medications Diet: Cardiac 2g Na,low cholest Activity: See Comment Activity comment: Patient wheelchair-bound Follow Up/Referral: Please follow up with the primary care physician in 1 week Medications: Sinemet 25 /100 mg 1 tab q.6h Metoprolol 50 mg b.i.d. Lactulose 30 mL p.o. t.i.d. Colace 100 mg p.o. b.i.d. Levothyroxine 88 mcg q.a.m. 30 minutes before breakfast Macrobid 100 mg p.o. b.i.d. for 2 days Pantoprazole 20 mg p.o. daily Colace 100 mg p.o. b.i.d. Lactulose 30 mL p.o. t.i.d. MiraLax 17 g p.o. daily PRN Scheduled Carbidopa-Levodopa (Carbidopa/Levodopa Odt 25-100 mg), 1 TAB PO TID, (Reported) Docusate Sodium (Docusate Sodium), 100 MG PO BID Docusate Sodium (Colace), 1 CAP PO BID Lactulose (Lactulose), 30 ML PO BID Lactulose (Lactulose), 20 GM PO TID Levothyroxine Sodium (Levothyroxine Sodium), 1 TAB PO DAILY, (Reported) Lisinopril (Lisinopril), 1 TAB PO DAILY, (Reported) Metoprolol Tartrate (Lopressor Tablet), 1 TAB PO BID, (Reported) Midodrine HCl (Midodrine Hydrochloride), 1 TAB PO TID, (Reported) Nifedipine (Nifedipine Er), 1 TAB PO DAILY, (Reported) Nitrofurantoin Monohydrate Mac (Macrobid), 100 MG PO BID Omeprazole (Gnp Omeprazole), 20 MG PO DAILY, (Reported) Scheduled PRN Polyethylene Glycol 3350 (Miralax), 17 GM PO DAILY PRN Discharge Statement: "Patient was advised to return to the ER or call 911 if any headaches, dizziness, shortness of breath, chest pain, abdominal pain, bleeding, fevers, or worsening of medical condition. Patient was counseled about treatment plan, medications, possible side effects, patientverbalized understanding. All questions were answered to the best of my ability. This discharge took greater then 30 minutes in planning, reviewing documentation, counseling the patient, and discussing with other team members." ASSESSMENT ASSESSMENT Assessment UTI Date of Service: Jun 01, 2025 Billing Provider: CJ MCCARTHY MD Common Visit Codes: [id number] DISCH DAY >30min SERENITY ALEXANDER Jun 01, 2025 14:29 CJ MCCARTHY MD Jun 03, 2025 08:42
[2025-06-01] MEDS ORDERED: LACT10SO3 PO ×2 (14:33→16:54)
[2025-06-01] MEDS ORDERED: NITR-87 PO (14:33)
== END 2025-06-01 21:23 | disposition home health service (06) | DRG 388 ==
LOC: EDBD 10:32 → EDUNIT# 10:32 → ER 10:32 → OVERFLOW 22:50 → CENTRAL 05-28 12:26
PROVIDERS: ADMIT Internal Medicine Geriatric Medicine; ATTEND Internal Medicine Geriatric Medicine
DX: K56.41 Fecal impaction (principal); G93.41 Metabolic encephalopathy; R53.2 Functional quadriplegia; Z68.1 Body mass index [BMI] 19.9 or less, adult; N39.0 Urinary tract infection, site not specified; R62.7 Adult failure to thrive; G20.A1 Parkinson's disease without dyskinesia, without mention of fluctuations; I10 Essential (primary) hypertension; D63.8 Anemia in other chronic diseases classified elsewhere; G80.9 Cerebral palsy, unspecified; E03.9 Hypothyroidism, unspecified; Z74.01 Bed confinement status
CPT/HCPCS: 36415; 71045; 74018; 74176; 80048; 80053; 81001; 82962; 83690; 84484; 85025; 87086; 92610; 96360; 96361; 99291; G0378; J2470

== ENCOUNTER 2025-06-03 14:44 | Inpatient (IN) | payer MEDICARE, MEDICAID ==
[~2025-06-03] VITALS: Ht 165.1 cm; Wt 98.2 kg
[~2025-06-03 14:44] MED LIST changes: +NITR-87 PO
--- NOTE | 2025-06-03 14:56 | ED.PDOC ---
HPI (NEURO) HPI Comments HPI: 64 y M who presents to the ED via EMS for chief complaint of generalized weakness - EMS states pt lives with brother who is care provider and called EMS due to pt having generalized weakness and states pt has been "moaning" - EMS states [facility] arrived on scene and notes pt has history of Parkinsons, is non-verbal and baseline ax0x1 with otherwise stable vitals and EMS was called - EMS arrived on scene, noted stable vitals, pt ax0x1 per baseline and responded to sternal rub, and brought to the ED - pt now in the ED, is nonverbal, with otherwise stable vitals - per prior noted, pt has been to [facility] multiple times with similar complaints and pt most discharged on 05/31 with the following discharge summary: - Patient is a 64-year-old male past medical history of cerebral palsy, hyperthyroidism, Parkinsons disease, hypertension, and anemia brought in by EMS with a chief complaint of abdominal pain. Patient is nonverbal but able to nod and point to the upper abdomen to localize pain. . Patient was tachycardic on arrival (HR 112). Patient is alert and oriented to self only (A/O x1), communicates via yes/no head movements. He is bedbound and presented to the ER via ambulance yesterday. Code status discussed with brother; verified as DNI. CT abdomen and pelvis revealed-Moderate motion artifact partially obscures detail. Retained colorectal stool and proximal moderately dilated gas-filled segments of small bowel without evidence of perforation or intraperitoneal free air. Moderately distended fluid and gas-filled urinary bladder containing a Em catheter. X-ray KUB- Nonobstructive bowel gas pattern. Large stool burden. Patient was treated conservatively with IV antibiotic ceftriaxone, discharged with Macrobid 100 mg p.o. b.i.d. for 2 days. Increase lactulose from 30 mL b.i.d. to 30 mL t.i.d.. Patient's symptom has improved, patient is hemodynamically stable to be discharged with home with the home health service for physical therapy and medication management. Patient's meds were sent to the pharmacy electronically. Patient and his brother Ingrid [phone] advised to follow up with the primary care physician in 1 week. Past Medical History: acute on chronic encephalopathy due to Parkinson disease actue intractable abdominal pain likely due to constipation Failure to thrive Ruled out small bowel perforation acute complicated UTI history of ESBL anemia, likely of chronic disease Hypothyroidism Cerebral palsy Hypertension Anemia Past Surgical History: unknown Social History: Denies ETOH, smoking, and drug use. Medications: unknown Allergies: nkda IRIZARRY GENERALIZED WEAKNESS, NONVERBAL HPI: Poor Historian. Past Medical History: Past Surgical History: REVIEW OF SYSTEMS: Limited given the patient's nonverbal state CONSTITUTIONAL: Denies acute: fever, diaphoresis, chills, HEAD: Denies acute: headache, photophobia Eyes: Denies acute: Double vision, vision loss, eye pain, eye discharge. EARS: Denies acute: tinnitus, hearing loss, ear discharge, ear pain, THROAT: Denies acute: sore throat, swelling, difficulty swallowing , pain with swallow ing, change in voice. NECK: Denies acute: neck pain, neck swelling, stiff neck. HEART: Denies acute : chest pain, palpitations, LUNGS: Denies acute: SOB, wheezing, cough, hemoptysis ABDOMEN: Denies acute: abdominal pain, Nausea, Vomiting, diarrhea, melena , hematemesis, hematochezia SKIN: Denies acute: rash, redness, lesions, itchiness. EXTREMITIES: Denies acute: calf pain, numbness, tingling, weakness, denies pain in extremity. Denies acute: Low back pain. Neuro: Denies acute: focal neurological deficit, motor or sensory focal neurological deficit, tremors, seizure like activity, confusion, dizziness, change in mental status, loss of bowel or bladder function, cauda equina like symptoms. : Denies acute: dysuria, hematuria, flank pain, increase in urinary frequency. PSYCH: Denies acute: hallucination, suicidal ideation, homicidal ideation. PHYSICAL EXAM: General: ----no----acute distress, awake and alert. Head: normocephalic, atraumatic. Neck: supple, trachea is midline, no swelling. Eyes:, no erythema, no purulent discharge, no proptosis, no icterus. Heart: regular rate, regular rhythm, no significant murmur appreciated. Lungs: no apparent respiratory distress, No wheezing, no rhonchi, no crackles. No stridors Clear to auscultation bilaterally. Abdomen: non tender to palpation, non distended, soft, no guarding, no rebound, + bowel sounds. Patient is wearing diapers Neuro: Awake, Alert, Nonverbal. Skin: no petechia, no purpura, no cyanosis, non-pale, not jaundice. Lower extremities: --no - Pitting edema no deformity, no focal swelling, no calf TTP. Makes eye contact. Face: no apparent facial droop. No nuchal rigidity, Kernig's sign, Brudzinski's sign, no meningeal signs. ED COURSE: DISCLAIMER: This medical document was created using an electronic medical record system with voice recognition software and computerized dictation system. Although this document has been carefully reviewed, there might still be some phonetic and typographical errors. Occasional wrong-word or "sound-alike" substitutions may have occurred due to the inherent limitations of voice recognition software. These areas are purely typographical due to imperfections of the software programs and do not reflect any compromise in the patient's medical care. Please read the chart carefully and recognize, using context, where these substitutions have occurred. Time Seen by MD: 14:51 Primary Care Provider: UNABLE TO OBTAIN Reviewed Notes: Medications, Allergies Information Source: Patient, Emergency Med Personnel Mode of Arrival: EMS Past Medical History PAST MEDICAL HISTORY: Anemia, HTN, Thyroid Surgical History: Denies all surgeries Family History Family History: Reviewed,noncontributory to illness, Unknown Social History Smoker: Non-Smoker Alcohol: Denies ETOH Use Drugs: Denies Drug Use Lives In: Home, Assisted Care Was a procedure done? Was a procedure done?: No Differential Diagnosis (SZ) Seizure: N/A General Weakness: Other (Includes but not limited to thyroid disease, encephalopathy, electrolyte abnormality, sepsis, infection, intracranial pathology, drug adverse effects, arrhythmia, kidney insufficiency, ACS, CVA, malignancy, anemia) X-Ray, Labs, Meds, VS Vital Signs Date Time Temp Pulse Resp B/P (MAP) Pulse Ox O2 Delivery O2 Flow Rate FiO2 06/03/25 18:00 94 16 102/73 (83) 98 06/03/25 16:44 98 Room Air* 0 21 06/03/25 16:35 90 16 98 Room Air* 0 21 06/03/25 16:00 90 16 111/72 (85) 98 06/03/25 15:53 98.4 93 16 106/76 (86) 98 98.4 06/03/25 14:47 98.3 105 21 123/83 99 98.3 Lab Test 06/03/25 18:08 06/03/25 15:59 06/03/25 15:32 06/03/25 15:00 Range/Units Troponin I High Sensitivity 19 20 18 </=54 ng/L POC Glucose 80 70-106 mg/dl White Blood Count 7.9 4.4-10.8 10^3/uL Red Blood Count 4.02 L 4.5-5.90 10^6/uL Hemoglobin 11.8 L 13.5-17.5 g/dL Hematocrit 35.4 L 41.0-53.0 % Mean Corpuscular Volume 88.1 80.0-100.0 fL Mean Corpuscular Hemoglobin 29.3 28.0-32.0 pg Mean Corpuscular Hemoglobin Concent 33.3 32.0-36.0 g/dL Red Cell Distribution Width 15.0 H 11.8-14.3 % Platelet Count 207 140-450 10^3/uL Mean Platelet Volume 9.5 6.9-10.8 fL Neutrophils (%) (Auto) 80.9 H 37.0-80.0 % Lymphocytes (%) (Auto) 10.3 10.0-50.0 % Monocytes (%) (Auto) 6.6 0.0-12.0 % Eosinophils (%) (Auto) 1.7 0.0-7.0 % Basophils (%) (Auto) 0.5 0.0-2.0 % Neutrophils # (Auto) 6.4 1.6-8.6 10 ^3/uL Lymphocytes # (Auto) 0.8 0.4-5.4 10 ^3/uL Monocytes # (Auto) 0.5 0-1.3 10 ^3/uL Eosinophils # (Auto) 0.1 0-0.8 10 ^3/uL Basophils # (Auto) 0 0-0.2 10 ^3/uL Nucleated Red Blood Cells 0.1 % Sodium Level 144 136-145 mmol/L Potassium Level 4.1 3.5-5.1 mmol/L Chloride Level 107 98-107 mmol/L Carbon Dioxide Level 27 20-31 mmol/L Anion Gap 10 5-15 Blood Urea Nitrogen 26 H 9-23 mg/dL Creatinine 1.18 0.700-1.30 mg/dL Glomerular Filtration Rate Calc 69 >90 mL/min BUN/Creatinine Ratio 22.0 H 10.0-20.0 Serum Glucose 85 74-106 mg/dL Lactic Acid Level 0.8 0.4-2.0 mmol/L Calcium Level 9.3 8.7-10.4 mg/dL Magnesium Level 2.3 1.6-2.6 mg/dL Total Bilirubin 0.3 0.2-1.0 mg/dL Aspartate Amino Transferase (AST) 46 H 13-40 U/L Alanine Aminotransferase (ALT) 22 7-40 U/L Alkaline Phosphatase 82 46-116 U/L Total Protein 8.0 5.7-8.2 g/dL Albumin 4.1 3.2-4.8 g/dL [place] [id number] Ph: [phone] DIAGNOSTIC IMAGING Diagnostic Imaging Report : [id number] Signed PATIENT: JESSICA IRIZARRY ACCT: [id number] UNIT: [id number] : 1960 LOC: ER ROOM / BED: / AGE / SEX: 64 / M ADM STATUS: REG ER SERVICE 56 ORDERING PHYSICIAN: YAMINI MAHMOOD DO PROCEDURE(s): ABPL - CT AB PEL WO CON-NO ORAL OR IV REASON: CONSTIPATION ORDER NUMBER(s): [id number], ACCESSION NUMBER(s): [id number] Exam: CT CT AB PEL WO CON-NO ORAL OR IV History: CONSTIPATION Comparison Study: CT CT AB PEL WO CON-NO ORAL OR IV on DOS: 05/28/25, CT CT AB PEL WO CON-NO ORAL OR IV on DOS: 02/21/25, CT CT AB PEL WO CON-NO ORAL OR IV on DOS: 12/26/24 TECHNIQUE: Multidetector CT of the abdomen and pelvis was performed from lung bases to pubic symphysis. Imaging was performed without IV contrast. Axial, coronal, and sagittal multiplanar reformats were obtained from the axial data set by the technologist. RADIATION DOSE: DLP 272.16 mGy.cm; CTDI vol 5.69 mGy. Findings: Lungs: The lung bases are clear. Heart: No cardiomegaly or pericardial effusion. Liver: Unremarkable. Gallbladder: Unremarkable. Spleen: Unremarkable Pancreas: Unremarkable Adrenals: Unremarkable Kidneys: Unremarkable GI tract: Marked fecal burden. Moderate rectal fecal burden with rectal wall thickening. : Enlarged prostate. Vasculature: Mild aortoiliac atherosclerosis. Lymphadenopathy: Absent Peritoneum: No ascites Musculoskeletal: Mild multilevel degenerative changes of the thoracolumbar spine. Soft tissues: Small fat containing periumbilical hernia. Impression: 1. No acute abdominopelvic abnormalities. 2. Marked fecal burden with moderate rectal fecal burden and rectal wall thickening. Correlate for stercoral colitis. 3. Enlarged prostate. Correlate with physical exam and PSA. ATED BY: MARTHA AL DO DICTATED DATE/TIME: 06/03/251818 SIGNED BY: MARTHA AL DO SIGNED DATE/TIME: 06/03/251818 CC: [place] [id number] Ph: [phone] DIAGNOSTIC IMAGING Diagnostic Imaging Report : [id number] Signed PATIENT: JESSICA IRIZARRY ACCT: [id number] UNIT: [id number] : 1960 LOC: ER ROOM / BED: / AGE / SEX: 64 / M ADM STATUS: REG ER SERVICE 1451 ORDERING PHYSICIAN: YAMINI MAHMOOD DO PROCEDURE(s): CXRP - CHEST PORTABLE REASON: weak ORDER NUMBER(s): [id number], ACCESSION NUMBER(s): [id number] EXAM DESCRIPTION: Chest 1 View CLINICAL HISTORY: weak COMPARISON: XY CHEST PORTABLE on DOS: 05/27/25, XY CHEST PORTABLE on DOS: 02/21/25, XY CHEST PORTABLE on DOS: 12/26/24, XY CHEST PORTABLE on DOS: 01/07/24, XY CHEST PORTABLE on DOS: 12/04/23 FINDINGS and IMPRESSION: Lines, tubes, and support devices: None. Lungs / Pleura: No consolidation. No pleural effusion. No pneumothorax. Mediastinum: Normal cardiomediastinal silhouette. Osseous structures / Soft tissues: No acute findings. Large amount of stool in the colon in the upper abdomen. ATED BY: KARAN AGUILAR MD DICTATED DATE/TIME: 06/03/251525 SIGNED BY: KARAN AGUILAR MD SIGNED DATE/TIME: 06/03/25 152 CC: Time of 1ST Reevaluation: 18:37 Reevaluation 1ST: Unchanged Patient Education/Counseling: Other (pt has parkinsons disease, is nonverbal) Family Education/Counseling: Diagnosis, Treatment Comments Patient will need manual rectal disimpaction possibly surgical evaluation to remove the stool burden MDM: patient presented with the above HPI.--recurrent lower abdominal pain with noted significant fecal impaction that would require manual disimpaction and possible surgical evaluation----workup was initiated. patient was found with the above mentioned diagnosis. the following medications were ordered: please refer to order lists of meds and tests obtained by myself Dr. Mahmood. Patient ED course and VS have been stabilized. Patient has been reassessed in the ED and remained in a stable condition. Patient has been observed in the ED adequate length of time to insure improvement/stability. Escalation of care considered: Consideration of escalation to observation or admission Patient was ADMITTED to the medicine team for further evaluation and treatment of their presentation. All the reports of any imaging studies that were ordered by myself were reviewed by myself. Departure 1 Departure Time of Disposition: 18:37 Impression: Primary Impression: Fecal impaction in rectum Disposition: ADMITTED INPATIENT Admit to: [facility] Condition: Guarded Discharged With: Self Critical Care Note Critical Care Time?: No I personally scribed for YAMINI MAHMOOD DO ([email or web address]) on 06/03/25 at 14:56. Electronically submitted by Jeanne Desouza ([email or web address]). I personally scribed for YAMINI MAHMOOD DO ([email or web address]) on 06/03/25 at 15:13. Electronically submitted by Jeanne Desouza ([email or web address]). I personally scribed for YAMINI MAHMOOD DO ([email or web address]) on 06/03/25 at 20:51. Electronically submitted by Jeanne Desouza ([email or web address]). YAMINI MAHMOOD DO Jun 03, 2025 14:56
[2025-06-03 15:25] LABS: Hematocrit 35.4 % (41.0-53.0); Hemoglobin 11.8 g/dL (13.5-17.5); Mean Corpuscular Hemoglobin 29.3 pg (28.0-32.0); Mean Corpuscular Volume 88.1 fL (80.0-100.0); Nucleated Red Blood Cells % 0.1 %
--- NOTE | 2025-06-03 15:27 | DVH ---
EXAM DESCRIPTION: Chest 1 View CLINICAL HISTORY: weak COMPARISON: XY CHEST PORTABLE on DOS: 05/27/25, XY CHEST PORTABLE on DOS: 02/21/25, XY CHEST PORTABLE o n DOS: 12/26/24, XY CHEST PORTABLE on DOS: 01/07/24, XY CHEST PORTABLE on DOS: 12/04/23 FINDINGS and IMPRESSION: Lines, tubes, and support devices: None. Lungs / Pleura: No consolidation. No pleural effusion. No pneumothorax. Mediastinum: Normal cardiomediastinal silhouette. Osseous structures / Soft tissues: No acute findings. Large amount of stool in the colon in the upper abdomen.
[2025-06-03 15:38] LABS: Alanine Aminotransferase 22 U/L (7-40); Albumin 4.1 g/dL (3.2-4.8); Alkaline Phosphatase 82 U/L (46-116); Anion Gap 10 (5-15); BUN/Creatinine Ratio 22.0 (10.0-20.0); Bilirubin, Total 0.3 mg/dL (0.2-1.0); Calcium 9.3 mg/dL (8.7-10.4); Carbon Dioxide 27 mmol/L (20-31); Chloride 107 mmol/L (98-107); Glucose 85 mg/dL (74-106); Magnesium 2.3 mg/dL (1.6-2.6); Potassium 4.1 mmol/L (3.5-5.1); Sodium 144 mmol/L (136-145); Total Protein 8.0 g/dL (5.7-8.2)
[2025-06-03 15:41] LABS: Blood Urea Nitrogen 26 mg/dL (9-23)
[2025-06-03] MEDS: SODIUM CHLORIDE 0.9% 500 ML IV ONE (16:00)
[2025-06-03 16:35] VITALS: PULSE 90; RESP 16; O2SAT 98
--- NOTE | 2025-06-03 18:21 | DVH ---
Exam: CT CT AB PEL WO CON-NO ORAL OR IV History: CONSTIPATION Comparison Study: CT CT AB PEL WO CON-NO ORAL OR IV on DOS: 05/28/25, CT CT AB PEL WO CON-NO ORAL OR I V on DOS: 02/21/25, CT CT AB PEL WO CON-NO ORAL OR IV on DOS: 12/26/24 TECHNIQUE: Multidetector CT of the abdomen and pelvis was performed from lung bases to pubic symphysi s. Imaging was performed without IV contrast. Axial, coronal, and sagittal multiplanar reformats were obtained from the axial data set by the technologist. RADIATION DOSE: DLP 272.16 mGy.cm; CTDI vol 5.69 mGy. Findings: Lungs: The lung bases are clear. Heart: No cardiomegaly or pericardial effusion. Liver: Unremarkable. Gallbladder: Unremarkable. Spleen: Unremarkable Pancreas: Unremarkable Adrenals: Unremarkable Kidneys: Unremarkable GI tract: Marked fecal burden. Moderate rectal fecal burden with rectal wall thickening. : Enlarged prostate. Vasculature: Mild aortoiliac atherosclerosis. Lymphadenopathy: Absent Peritoneum: No ascites Musculoskeletal: Mild multilevel degenerative changes of the thoracolumbar spine. Soft tissues: Small fat containing periumbilical hernia. Impression: 1. No acute abdominopelvic abnormalities. 2. Marked fecal burden with moderate rectal fecal burden and rectal wall thickening. Correlate for st ercoral colitis. 3. Enlarged prostate. Correlate with physical exam and PSA.
[2025-06-03] MEDS ORDERED: LACTULOSE 20Gm/30ML SOLN PO PRN (19:45)
--- NOTE | 2025-06-03 19:59 | DVHHP2 ---
History of Present Illness Reason for Visit: Abdominal pain History of Present Illness 64-year-old male presents for evaluation generalized weakness. Patient with a history of cerebral palsy and Parkinson's disease is nonverbal. Per ED records patient has been moaning and point to his abdomen. There is no family or caregiver at the bedside to provide further details. CT scan shows large stool burden. Past Medical History Thyroid, anemia, hypertension, Parkinson's disease, cerebral palsy Past Surgical History Unknown Family History Unknown Review of Systems Review of Systems Unable to complete review of systems due to patient's dementia Allergies: Coded Allergies: NO KNOWN ALLERGIES (Unverified , 01/07/24) Medications Current Medications Medications Dose Ordered Sig/Kylee Route Start Time Stop Time Status Last Admin Dose Admin Lactulose 30 ml BIDPRN PRN PO 06/03/25 19:45 UNV Carbidopa/Levodopa 1 tab TID PO 06/03/25 22:00 UNV Ondansetron HCl 4 mg Q4HP PRN IV 06/03/25 19:45 UNV Enoxaparin Sodium 40 mg DAILY SC 06/04/25 10:00 UNV Exam Vital Signs Vital Signs Date Time Temp Pulse Resp B/P (MAP) Pulse Ox O2 Delivery O2 Flow Rate FiO2 06/03/25 18:00 94 16 102/73 (83) 98 06/03/25 16:44 Room Air* 0 21 06/03/25 15:53 98.4 98.4 Exam Gen: 64-year-old male in mild distress Skin: Warm, dry, normal color and texture, no rash. HEENT: Normocephalic atraumatic, mucous membranes moist and pink. Neck: Cervical and supraclavicular nodes normal without enlargement, trachea is midline, thyroid gland is normal without masses. Pulmonary: Clear to auscultation and percussion bilaterally. Cardiac: Regular rate and rhythm. No murmur Abdomen: Soft, nontender, nondistended, bowel sounds present all 4 quadrants, no guarding, no rigidity, no organomegaly. Extremities: No cyanosis, clubbing, no edema Neuro: Cranial nerves II through XII grossly intact, normal affect and speech, no focal motor deficits. Labs/Xrays ORDERING PHYSICIAN: YAMINI MAHMOOD DO PROCEDURE(s): CXRP - CHEST PORTABLE REASON: weak ORDER NUMBER(s): [id number], ACCESSION NUMBER(s): [id number] EXAM DESCRIPTION: Chest 1 View CLINICAL HISTORY: weak COMPARISON: XY CHEST PORTABLE on DOS: 05/27/25, XY CHEST PORTABLE on DOS: 02/21/25, XY CHEST PORTABLE on DOS: 12/26/24, XY CHEST PORTABLE on DOS: 01/07/24, XY CHEST PORTABLE on DOS: 12/04/23 FINDINGS and IMPRESSION: Lines, tubes, and support devices: None. Lungs / Pleura: No consolidation. No pleural effusion. No pneumothorax. Mediastinum: Normal cardiomediastinal silhouette. Osseous structures / Soft tissues: No acute findings. Large amount of stool in the colon in the upper abdomen. RING PHYSICIAN: YAMINI MAHMOOD DO PROCEDURE(s): ABPL - CT AB PEL WO CON-NO ORAL OR IV REASON: CONSTIPATION ORDER NUMBER(s): [id number], ACCESSION NUMBER(s): [id number] Exam: CT CT AB PEL WO CON-NO ORAL OR IV History: CONSTIPATION Comparison Study: CT CT AB PEL WO CON-NO ORAL OR IV on DOS: 05/28/25, CT CT AB PEL WO CON-NO ORAL OR IV on DOS: 02/21/25, CT CT AB PEL WO CON-NO ORAL OR IV on DOS: 12/26/24 TECHNIQUE: Multidetector CT of the abdomen and pelvis was performed from lung bases to pubic symphysis. Imaging was performed without IV contrast. Axial, coronal, and sagittal multiplanar reformats were obtained from the axial data set by the technologist. RADIATION DOSE: DLP 272.16 mGy.cm; CTDI vol 5.69 mGy. Findings: Lungs: The lung bases are clear. Heart: No cardiomegaly or pericardial effusion. Liver: Unremarkable. Gallbladder: Unremarkable. Spleen: Unremarkable Pancreas: Unremarkable Adrenals: Unremarkable Kidneys: Unremarkable GI tract: Marked fecal burden. Moderate rectal fecal burden with rectal wall thickening. : Enlarged prostate. Vasculature: Mild aortoiliac atherosclerosis. Lymphadenopathy: Absent Peritoneum: No ascites Musculoskeletal: Mild multilevel degenerative changes of the thoracolumbar spine. Soft tissues: Small fat containing periumbilical hernia. Impression: 1. No acute abdominopelvic abnormalities. 2. Marked fecal burden with moderate rectal fecal burden and rectal wall thickening. Correlate for stercoral colitis. 3. Enlarged prostate. Correlate with physical exam and PSA. Labs Test 06/03/25 18:08 06/03/25 15:32 06/03/25 15:00 Range/Units Troponin I High Sensitivity 19 </=54 ng/L POC Glucose 80 70-106 mg/dl White Blood Count 7.9 4.4-10.8 10^3/uL Red Blood Count 4.02 L 4.5-5.90 10^6/uL Hemoglobin 11.8 L 13.5-17.5 g/dL Hematocrit 35.4 L 41.0-53.0 % Mean Corpuscular Volume 88.1 80.0-100.0 fL Mean Corpuscular Hemoglobin 29.3 28.0-32.0 pg Mean Corpuscular Hemoglobin Concent 33.3 32.0-36.0 g/dL Red Cell Distribution Width 15.0 H 11.8-14.3 % Platelet Count 207 140-450 10^3/uL Mean Platelet Volume 9.5 6.9-10.8 fL Neutrophils (%) (Auto) 80.9 H 37.0-80.0 % Lymphocytes (%) (Auto) 10.3 10.0-50.0 % Monocytes (%) (Auto) 6.6 0.0-12.0 % Eosinophils (%) (Auto) 1.7 0.0-7.0 % Basophils (%) (Auto) 0.5 0.0-2.0 % Neutrophils # (Auto) 6.4 1.6-8.6 10 ^3/uL Lymphocytes # (Auto) 0.8 0.4-5.4 10 ^3/uL Monocytes # (Auto) 0.5 0-1.3 10 ^3/uL Eosinophils # (Auto) 0.1 0-0.8 10 ^3/uL Basophils # (Auto) 0 0-0.2 10 ^3/uL Nucleated Red Blood Cells 0.1 % Sodium Level 144 136-145 mmol/L Potassium Level 4.1 3.5-5.1 mmol/L Chloride Level 107 98-107 mmol/L Carbon Dioxide Level 27 20-31 mmol/L Anion Gap 10 5-15 Blood Urea Nitrogen 26 H 9-23 mg/dL Creatinine 1.18 0.700-1.30 mg/dL Glomerular Filtration Rate Calc 69 >90 mL/min BUN/Creatinine Ratio 22.0 H 10.0-20.0 Serum Glucose 85 74-106 mg/dL Lactic Acid Level 0.8 0.4-2.0 mmol/L Calcium Level 9.3 8.7-10.4 mg/dL Magnesium Level 2.3 1.6-2.6 mg/dL Total Bilirubin 0.3 0.2-1.0 mg/dL Aspartate Amino Transferase (AST) 46 H 13-40 U/L Alanine Aminotransferase (ALT) 22 7-40 U/L Alkaline Phosphatase 82 46-116 U/L Total Protein 8.0 5.7-8.2 g/dL Albumin 4.1 3.2-4.8 g/dL SEPSIS Sepsis Screen Date sepsis recognized/suspect: Jun 03, 2025 Time Sepsis recognized/suspect: 1641 Recent Procedure: No On Antibiotic Therapy: No Respiratory Rate >20: No Heart Rate >90: No Temp<36 C (96.8 F) or >38.3 C: No SBP <90 or MAP <65 mmHG: No New Acute Mental Status Change: No Is the patient on CPAP, BIPAP,: No Physician Orders Notching Machine Operator (06/03/25 ) Chest Portable (06/03/25 14:51) Electrocardigram (06/03/25 14:51) Ct Ab Pel Wo Con-No Oral Or Iv (06/03/25 16:57) Tap Water Enema (06/03/25 18:37) Admit (06/03/25 19:16) Fleet Enema Adult (06/03/25 19:45) Lactulose Oral (06/03/25 19:45) Carbidopa W Levodopa 25/100mg (Sinemet 2 (06/03/25 22:00) Regular Diet (06/04/25 Breakfast) * [facility] [facility] (06/03/25 19:43) Ondansetron Hcl (Zofran) (06/03/25 19:45) Enoxaparin Sodium (Lovenox) (06/04/25 10:00) Condition: Stable (06/03/25 19:43) Maintain Bed Rest (06/03/25 19:43) Sequential Compression Device (06/03/25 ) Vital Signs Date Time Temp Pulse Resp B/P (MAP) Pulse Ox O2 Delivery O2 Flow Rate FiO2 06/03/25 18:00 94 16 102/73 (83) 98 06/03/25 16:44 98 Room Air* 0 21 06/03/25 16:35 90 16 98 Room Air* 0 21 06/03/25 16:00 90 16 111/72 (85) 98 06/03/25 15:53 98.4 93 16 106/76 (86) 98 98.4 06/03/25 14:47 98.3 105 21 123/83 99 98.3 Laboratory Tests Test 06/03/25 15:00 Lactic Acid Level 0.8 mmol/L (0.4-2.0) White Blood Count 7.9 10^3/uL (4.4-10.8) Medications Medications Dose Ordered Sig/Kylee Route Start Time Stop Time Status Last Admin Dose Admin Sodium Chloride 500 ml @ 500 mls/hr Q1H ONCE IV 06/03/25 15:00 06/03/25 15:59 DC 06/03/25 16:00 500 MLS/HR Assessment/Plan Assessment/Plan Assessment Fecal impaction Rule out stercoral colitis Parkinson's disease Plan Admit the patient to [facility] to the hospitalist GI consult Fleet enema Lactulose Hold antihypertensives Continue treatment per orders. Plan discussed with: Other My Orders Orders - REILLY RHODES Procedure Category Date Status Time Admit ADMIT 06/03/25 Transmitted 19:16 Fleet Enema Adult PHA 06/03/25 Logged 19:45 Lactulose Oral PHA 06/03/25 Logged 19:45 Carbidopa W Levodopa PHA 06/03/25 Logged 25/100mg (Sinemet 2 22:00 Regular Diet DIET 06/04/25 Transmitted Breakfast * [facility] [employer] President CONS 06/03/25 Transmitted 19:43 Ondansetron Hcl PHA 06/03/25 Logged (Zofran) 19:45 Enoxaparin Sodium PHA 06/04/25 Logged (Lovenox) 10:00 Condition: Stable DIVYA 06/03/25 In Process 19:43 Maintain Bed Rest DIVYA 06/03/25 In Process 19:43 Sequential DIVYA 06/03/25 In Process Compression Device Date of Service: Jun 03, 2025 Billing Provider: REILLY RHODES Common Visit Codes: [id number] INP/OBS CARE (MOD) REILLY RHODES Jun 03, 2025 19:59
[2025-06-03] MEDS: FLEET ENEMA(ADULT) 135 ML PR ONE (20:20)
[2025-06-03] MEDS: CARBIDOPA W LEVODOPA 25/100mg TABLET PO SCH (22:00)
[2025-06-04] VITALS (8 sets, daily range): BP systolic 105–135; BP diastolic 69–96; PULSE 86–116; RESP 16–20; TEMP 97.6–98.5; O2SAT 95–100
[2025-06-04] MEDS: ENOXAPARIN SOD 40 MG/0.4 ML SYRINGE SC SCH (10:27)
--- NOTE | 2025-06-04 12:28 | DVHPN2 ---
Subjective The patient is seen and examined at bedside. The patient is nonverbal. Reviewed: Care Plan, H&P, Labs, Medications, Previous Orders, Radiology Changes from previous H/P or p: No Changes Objective Vitals Vital Signs Date Time Temp Pulse Resp B/P (MAP) Pulse Ox O2 Delivery O2 Flow Rate FiO2 06/04/25 08:59 98.2 116 18 133/96 (108) 97 98.2 06/04/25 08:25 Room Air* 0 21 Intake/Output Intake and Output 06/04/25 07:00 Intake Total 500 ml Output Total 500 ml Balance 0 ml Intake Oral 0 ml IV Total 500 ml Output Urine Total 500 ml # Voids 2 # Bowel Movements 1 General Appearance: Alert HEENT: EOMI, Mucous membr. moist/pink Neck: Supple Lungs: Clear to auscultation, Normal air movement Cardiovascular: Regular rate, Normal S1, Normal S2, No murmurs, Gallops Abdomen: Normal bowel sounds, Other (Distended and pain four quadrant) Neuro: Cranial nerves 3-12 NL Psych/Mental Status: Mental status NL Medications Current Medications Medications Dose Ordered Sig/Kylee Route Start Time Stop Time Status Last Admin Dose Admin Lactulose 30 ml BIDPRN PRN PO 06/03/25 19:45 Carbidopa/Levodopa 1 tab TID PO 06/03/25 22:00 06/04/25 06:16 1 TAB Ondansetron HCl 4 mg Q4HP PRN IV 06/03/25 19:45 Enoxaparin Sodium 40 mg DAILY SC 06/04/25 10:00 06/04/25 10:27 40 MG Laboratory Results Laboratory Tests 06/03/25 15:00 Chemistry Test 06/03/25 15:00 Albumin 4.1 g/dL (3.2-4.8) Calcium Level 9.3 mg/dL (8.7-10.4) Magnesium Level 2.3 mg/dL (1.6-2.6) Total Protein 8.0 g/dL (5.7-8.2) LFT Test 06/03/25 15:00 Alanine Aminotransferase (ALT) 22 U/L (7-40) Alkaline Phosphatase 82 U/L (46-116) Aspartate Amino Transferase (AST) 46 U/L (13-40) H Total Bilirubin 0.3 mg/dL (0.2-1.0) Labs and/or images reviewed: Labs reviewed by me Assessment/Plan Assessment/Plan Fecal impaction Rule out stercoral colitis Parkinson's disease Plan Waiting for GI consult Fleet enema Lactulose Hold antihypertensives This medical document was created using an electronic medical record system with [employer] direct computerized dictation system. Although this document has been carefully reviewed, there may still be some phonetic and typographical errors. These areas are purely typographical due to imperfections of the software programs, and do not reflect any compromise in the patient's medical care. Plan discussed with: Other (Rn) Date of Service: Jun 04, 2025 Billing Provider: FERNANDO FOSTER MD Common Visit Codes: [id number] INP/OBS CARE(HIGH) FERNANDO FOSTER MD Jun 04, 2025 12:28
--- NOTE | 2025-06-04 13:31 | DVHINCON2 ---
GI Consult Consult Note GI consult note Date of Consultation: 06/04/2025 Chief Complaint: Fecal impaction in the rectum Referring Physician: Rodney OLSON H&P: 64-year-old male admitted with complains of generalized weakness. History from chart and RN. Patient has history of cerebral palsy and Parkinson's disease and is nonverbal. Status post colonoscopy April 2020 and December of [address] Valera Past Medical History: Thyroid, anemia, hypertension, Parkinson's disease, cerebral palsy Past Surgical History: Unknown Social History: Unknown Family History: Unknown Review of Systems: As above Physical exam: General: NAD, patient is awake Chest: lung fung clear to auscultation Heart: RRR, no murmur Abdomen: non-distended, +BS Labs: Labs Test 06/03/25 18:08 06/03/25 15:32 06/03/25 15:00 Range/Units Troponin I High Sensitivity 19 </=54 ng/L POC Glucose 80 70-106 mg/dl White Blood Count 7.9 4.4-10.8 10^3/uL Red Blood Count 4.02 L 4.5-5.90 10^6/uL Hemoglobin 11.8 L 13.5-17.5 g/dL Hematocrit 35.4 L 41.0-53.0 % Mean Corpuscular Volume 88.1 80.0-100.0 fL Mean Corpuscular Hemoglobin 29.3 28.0-32.0 pg Mean Corpuscular Hemoglobin Concent 33.3 32.0-36.0 g/dL Red Cell Distribution Width 15.0 H 11.8-14.3 % Platelet Count 207 140-450 10^3/uL Mean Platelet Volume 9.5 6.9-10.8 fL Neutrophils (%) (Auto) 80.9 H 37.0-80.0 % Lymphocytes (%) (Auto) 10.3 10.0-50.0 % Monocytes (%) (Auto) 6.6 0.0-12.0 % Eosinophils (%) (Auto) 1.7 0.0-7.0 % Basophils (%) (Auto) 0.5 0.0-2.0 % Neutrophils # (Auto) 6.4 1.6-8.6 10 ^3/uL Lymphocytes # (Auto) 0.8 0.4-5.4 10 ^3/uL Monocytes # (Auto) 0.5 0-1.3 10 ^3/uL Eosinophils # (Auto) 0.1 0-0.8 10 ^3/uL Basophils # (Auto) 0 0-0.2 10 ^3/uL Nucleated Red Blood Cells 0.1 % Sodium Level 144 136-145 mmol/L Potassium Level 4.1 3.5-5.1 mmol/L Chloride Level 107 98-107 mmol/L Carbon Dioxide Level 27 20-31 mmol/L Anion Gap 10 5-15 Blood Urea Nitrogen 26 H 9-23 mg/dL Creatinine 1.18 0.700-1.30 mg/dL Glomerular Filtration Rate Calc 69 >90 mL/min BUN/Creatinine Ratio 22.0 H 10.0-20.0 Serum Glucose 85 74-106 mg/dL Lactic Acid Level 0.8 0.4-2.0 mmol/L Calcium Level 9.3 8.7-10.4 mg/dL Magnesium Level 2.3 1.6-2.6 mg/dL Total Bilirubin 0.3 0.2-1.0 mg/dL Aspartate Amino Transferase (AST) 46 H 13-40 U/L Alanine Aminotransferase (ALT) 22 7-40 U/L Alkaline Phosphatase 82 46-116 U/L Total Protein 8.0 5.7-8.2 g/dL Albumin 4.1 3.2-4.8 g/dL Imaging: CT abdomen pelvis Impression: 1. No acute abdominopelvic abnormalities. 2. Marked fecal burden with moderate rectal fecal burden and rectal wall thickening. Correlate for stercoral colitis. 3. Enlarged prostate. Correlate with physical exam and PSA. Assessment: Fecal impaction Constipation History of colon polyp Parkinson's disease Plan: Discussed with Dr. Newsome Lactulose Fleet's enema Consider MiraLax if needed Diet as tolerated We will continue to monitor patient Plan discussed with RN Thank you for this consult Date of Service: Jun 04, 2025 Billing Provider: JOE SERVIN Common Visit Codes: CONSULT ONLY Consultation Codes: [id number] CONSULT <45MIN JOE SERVIN Jun 04, 2025 13:31
[2025-06-04] MEDS: FLEET ENEMA(ADULT) 135 ML PR ONE (14:28)
[2025-06-04] MEDS: LACTULOSE 20Gm/30ML SOLN PO SCH (23:33)
[2025-06-05 01:00] VITALS: BP 108/81; PULSE 99; RESP 18; TEMP 97.8; O2SAT 96
[2025-06-05 05:00] VITALS: BP 91/62; PULSE 82; RESP 16; TEMP 98; O2SAT 96
[2025-06-05 09:19] VITALS: BP 89/63; PULSE 59; RESP 14; TEMP 98.1; O2SAT 72
--- NOTE | 2025-06-05 10:03 | DVHPN2 ---
Subjective The patient is seen and examined at bedside. The patient is nonverbal. Reviewed: Care Plan, H&P, Labs, Medications, Previous Orders, Radiology Changes from previous H/P or p: No Changes Objective Vitals Vital Signs Date Time Temp Pulse Resp B/P (MAP) Pulse Ox O2 Delivery O2 Flow Rate FiO2 06/05/25 09:19 98.1 59 14 89/63 (72) 72 98.1 06/05/25 08:00 Room Air* 0 21 Intake/Output Intake and Output 06/05/25 07:00 Intake Total 1580 ml Balance 1580 ml Intake Oral 1580 ml # Voids 5 # Bowel Movements 2 General Appearance: Alert HEENT: EOMI, Mucous membr. moist/pink Neck: Supple Lungs: Clear to auscultation, Normal air movement Cardiovascular: Regular rate, Normal S1, Normal S2, No murmurs, Gallops Abdomen: Normal bowel sounds, Other (Distended and pain four quadrant) Neuro: Cranial nerves 3-12 NL Psych/Mental Status: Mental status NL Medications Current Medications Medications Dose Ordered Sig/Kylee Route Start Time Stop Time Status Last Admin Dose Admin Carbidopa/Levodopa 1 tab TID PO 06/03/25 22:00 06/05/25 06:02 1 TAB Ondansetron HCl 4 mg Q4HP PRN IV 06/03/25 19:45 Enoxaparin Sodium 40 mg DAILY SC 06/04/25 10:00 06/04/25 10:27 40 MG Lactulose 30 ml BID PO 06/04/25 22:00 06/04/25 23:33 30 ML Laboratory Results Laboratory Tests 06/03/25 15:00 Labs and/or images reviewed: Labs reviewed by me Assessment/Plan Assessment/Plan Fecal impaction Rule out stercoral colitis Parkinson's disease Plan Waiting for GI consult Fleet enema Lactulose Hold antihypertensives Patient has 3 BM within 24 hours. This medical document was created using an electronic medical record system with [employer] direct computerized dictation system. Although this document has been carefully reviewed, there may still be some phonetic and typographical errors. These areas are purely typographical due to imperfections of the software programs, and do not reflect any compromise in the patient's medical care. Plan discussed with: Patient My Orders Orders - FERNANDO FOSTER MD Procedure Category Date Status Time Apply Z-Guard DIVYA 06/04/25 In Process 10:27 Date of Service: Jun 05, 2025 Billing Provider: FERNANDO FOSTER MD Common Visit Codes: [id number] INP/OBS CARE(HIGH) FERNANDO FOSTER MD Jun 05, 2025 10:03
[2025-06-05] MEDS: POLYETHYLENE GLYCOL 17 GM PWDR PO ONE (13:16)
[2025-06-05 13:33] VITALS: BP 127/86; PULSE 97; RESP 14; TEMP 97.1; O2SAT 99
[2025-06-05 17:17] VITALS: BP 130/91; PULSE 109; RESP 16; TEMP 97.4; O2SAT 95
[2025-06-05 21:00] VITALS: BP 100/72; PULSE 100; RESP 17; TEMP 97.9; O2SAT 98
[2025-06-05] MEDS: ONDANSETRON HCL 4 MG/2 ML VIAL IV PRN (21:32)
--- NOTE | 2025-06-05 23:46 | DVHPN2 ---
Progress Note - Dictate Date Seen: Jun 05, 2025 Medical Necessity Reason Pt with a Central, PICC or Fol: No Subjective Three bowel movements recorded since admission , one larger reported this morning Patient is stable resting comfortably vital signs Vital Sign Date Time Temp Pulse Resp B/P (MAP) Pulse Ox O2 Delivery O2 Flow Rate FiO2 06/05/25 21:00 97.9 100 17 100/72 (81) 98 97.9 06/05/25 08:00 Room Air* 0 21 Total Intake and Output 06/04/25 06/04/25 06/05/25 15:00 23:00 07:00 Intake Total 740 ml 840 ml Balance 740 ml 840 ml medications Current Medications Medications Dose Ordered Sig/Kylee Route Start Time Stop Time Status Last Admin Dose Admin Carbidopa/Levodopa 1 tab TID PO 06/03/25 22:00 06/05/25 21:32 1 TAB Ondansetron HCl 4 mg Q4HP PRN IV 06/03/25 19:45 06/05/25 21:32 4 MG Enoxaparin Sodium 40 mg DAILY SC 06/04/25 10:00 06/05/25 10:11 40 MG Lactulose 30 ml BID PO 06/04/25 22:00 06/05/25 21:32 30 ML objective General: NAD, patient is awake Chest: lung fung clear to auscultation Heart: RRR, no murmur Abdomen: non-distended, +BS laboratory and microbiology Laboratory Tests 06/03/25 15:00 Test 06/03/25 15:00 Range/Units Serum Glucose 85 74-106 mg/dL Problems(with codes): (1) Fecal impaction (2) Parkinson disease (3) Constipation (4) Abdominal pain Prognosis Plan Continue lactulose 30 mL p.o. bid MiraLax 17 g p.o. today Continue to monitor bowel activity is Advance diet as tolerated Dietary Evaluation Review Comments: 1) Ensure Enlive 240ml TID 2) Consider stool softener 3) Monitor PO intake, wt trend, I/O Expected Outcomes/Goals: TO gain/maintain weight PO intake meets at least 75% estimated needs fu 3-5 days Plan discussed with: Patient, Other (Nurse) ADÁN BONILLA MD Jun 05, 2025 23:46
[2025-06-06 01:00] VITALS: BP 105/77; PULSE 101; RESP 17; TEMP 98; O2SAT 96
[2025-06-06 05:00] VITALS: BP 117/87; PULSE 66; RESP 16; TEMP 97.9; O2SAT 96
[2025-06-06 09:00] VITALS: BP 96/67; PULSE 83; RESP 17; TEMP 96.7; O2SAT 95
--- NOTE | 2025-06-06 11:30 | DVHPN2 ---
Subjective The patient is seen and examined at bedside. The patient is nonverbal. Reviewed: Care Plan, H&P, Labs, Medications, Previous Orders, Radiology Changes from previous H/P or p: No Changes Objective Vitals Vital Signs Date Time Temp Pulse Resp B/P (MAP) Pulse Ox O2 Delivery O2 Flow Rate FiO2 06/06/25 09:00 96.7 83 17 96/67 (77) 95 96.7 06/06/25 07:50 Room Air* 0 21 Intake/Output Intake and Output 06/06/25 07:00 Intake Total 2650 ml Balance 2650 ml Intake Oral 2650 ml # Voids 8 General Appearance: Alert HEENT: EOMI, Mucous membr. moist/pink Neck: Supple Lungs: Clear to auscultation, Normal air movement Cardiovascular: Regular rate, Normal S1, Normal S2, No murmurs, Gallops Abdomen: Normal bowel sounds, Other (Distended and pain four quadrant) Neuro: Cranial nerves 3-12 NL Psych/Mental Status: Mental status NL Medications Current Medications Medications Dose Ordered Sig/Kylee Route Start Time Stop Time Status Last Admin Dose Admin Carbidopa/Levodopa 1 tab TID PO 06/03/25 22:00 06/06/25 05:43 1 TAB Ondansetron HCl 4 mg Q4HP PRN IV 06/03/25 19:45 06/05/25 21:32 4 MG Enoxaparin Sodium 40 mg DAILY SC 06/04/25 10:00 06/06/25 09:03 40 MG Lactulose 30 ml BID PO 06/04/25 22:00 06/06/25 09:03 30 ML Polyethylene Glycol 17 gm DAILY PO 06/06/25 10:00 Laboratory Results Laboratory Tests 06/03/25 15:00 Assessment/Plan Assessment/Plan Fecal impaction Rule out stercoral colitis Parkinson's disease Plan Appreciate GI input More Fleet enema today Lactulose Hold antihypertensives Patient has 3 BM within 24 hours. We will contact family regarding to discharge planning. This medical document was created using an electronic medical record system with [employer] direct computerized dictation system. Although this document has been carefully reviewed, there may still be some phonetic and typographical errors. These areas are purely typographical due to imperfections of the software programs, and do not reflect any compromise in the patient's medical care. Plan discussed with: Other (RN) Date of Service: Jun 06, 2025 Billing Provider: FERNANDO FOSTER MD Common Visit Codes: [id number] INP/OBS CARE(HIGH) FERNANDO FOSTER MD Jun 06, 2025 11:30
[2025-06-06 13:00] VITALS: BP 107/77; PULSE 113; RESP 18; TEMP 97.5; O2SAT 94
[2025-06-06] MEDS: POLYETHYLENE GLYCOL 17 GM PWDR PO SCH (13:54)
[2025-06-06] MEDS: FLEET ENEMA(ADULT) 135 ML PR ONE (13:54)
[2025-06-06 17:00] VITALS: BP 102/74; PULSE 116; RESP 18; TEMP 98.3; O2SAT 98
[2025-06-06 21:00] VITALS: BP 110/80; PULSE 99; RESP 17; TEMP 98.1; O2SAT 98
--- NOTE | 2025-06-06 22:22 | DVHPN2 ---
Progress Note - Dictate Date Seen: Jun 06, 2025 Medical Necessity Reason Pt with a Central, PICC or Fol: No Subjective Patient had three more bowel movements today and one larger one reported yesterday Patient is stable resting comfortably vital signs Vital Sign Date Time Temp Pulse Resp B/P (MAP) Pulse Ox O2 Delivery O2 Flow Rate FiO2 06/06/25 21:00 98.1 99 17 110/80 (90) 98 98.1 06/06/25 20:15 Room Air* 0 21 Total Intake and Output 06/05/25 06/05/25 06/06/25 15:00 23:00 07:00 Intake Total 2450 ml 200 ml Balance 2450 ml 200 ml medications Current Medications Medications Dose Ordered Sig/Kylee Route Start Time Stop Time Status Last Admin Dose Admin Carbidopa/Levodopa 1 tab TID PO 06/03/25 22:00 06/06/25 21:38 1 TAB Ondansetron HCl 4 mg Q4HP PRN IV 06/03/25 19:45 06/05/25 21:32 4 MG Enoxaparin Sodium 40 mg DAILY SC 06/04/25 10:00 06/06/25 09:03 40 MG Lactulose 30 ml BID PO 06/04/25 22:00 06/06/25 21:38 30 ML Polyethylene Glycol 17 gm DAILY PO 06/06/25 10:00 06/06/25 13:54 17 GM objective General: NAD, patient is awake Chest: lung fung clear to auscultation Heart: RRR, no murmur Abdomen: non-distended, +BS laboratory and microbiology Laboratory Tests 06/03/25 15:00 Test 06/03/25 15:00 Range/Units Serum Glucose 85 74-106 mg/dL Problems(with codes): (1) Fecal impaction in rectum (2) Abdominal pain (3) Parkinson disease (4) Fecal impaction (5) Constipation (6) Failure to thrive (7) Hypertensive emergency Prognosis Plan Continue supportive care Lactulose 30 mL p.o. daily MiraLax 17 g p.o. daily, hold for diarrhea Patient will receive one more fleets enema today Advance diet as tolerated Discharge planning to SNF as per hospitalist Dietary Evaluation Review Comments: 1) Ensure Enlive 240ml TID 2) Consider stool softener 3) Monitor PO intake, wt trend, I/O Expected Outcomes/Goals: TO gain/maintain weight PO intake meets at least 75% estimated needs fu 3-5 days Plan discussed with: Patient, Other (Nurse) ADÁN BONILLA MD Jun 06, 2025 22:22
[2025-06-07] VITALS (8 sets, daily range): BP systolic 89–115; BP diastolic 56–76; PULSE 68–112; RESP 16–18; TEMP 97.4–98.4; O2SAT 93–99
--- NOTE | 2025-06-07 12:58 | DVHPN2 ---
Subjective The patient is seen and examined at bedside. The patient is nonverbal. Reviewed: Care Plan, H&P, Labs, Medications, Previous Orders, Radiology Changes from previous H/P or p: No Changes Objective Vitals Vital Signs Date Time Temp Pulse Resp B/P (MAP) Pulse Ox O2 Delivery O2 Flow Rate FiO2 06/07/25 09:00 97.4 68 16 89/60 (70) 93 97.4 06/07/25 07:35 Room Air* 0 21 Intake/Output Intake and Output 06/07/25 07:00 Intake Total 1838 ml Balance 1838 ml Intake Oral 1838 ml # Voids 8 # Bowel Movements 4 General Appearance: Alert HEENT: EOMI, Mucous membr. moist/pink Neck: Supple Lungs: Clear to auscultation, Normal air movement Cardiovascular: Regular rate, Normal S1, Normal S2, No murmurs, Gallops Abdomen: Normal bowel sounds, Other (Distended and pain four quadrant) Neuro: Cranial nerves 3-12 NL Psych/Mental Status: Mental status NL Medications Current Medications Medications Dose Ordered Sig/Kylee Route Start Time Stop Time Status Last Admin Dose Admin Carbidopa/Levodopa 1 tab TID PO 06/03/25 22:00 06/07/25 05:03 1 TAB Ondansetron HCl 4 mg Q4HP PRN IV 06/03/25 19:45 06/05/25 21:32 4 MG Enoxaparin Sodium 40 mg DAILY SC 06/04/25 10:00 06/07/25 09:26 40 MG Lactulose 30 ml BID PO 06/04/25 22:00 06/07/25 09:19 30 ML Polyethylene Glycol 17 gm DAILY PO 06/06/25 10:00 06/07/25 09:23 17 GM Laboratory Results Laboratory Tests 06/03/25 15:00 Labs and/or images reviewed: Labs reviewed by me Assessment/Plan Assessment/Plan Fecal impaction Rule out stercoral colitis Parkinson's disease Plan Appreciate GI input More Fleet enema today Lactulose Hold antihypertensives Patient has 3 BM within 24 hours. We will contact family regarding to discharge planning. Discharge This medical document was created using an electronic medical record system with [employer] direct computerized dictation system. Although this document has been carefully reviewed, there may still be some phonetic and typographical errors. These areas are purely typographical due to imperfections of the software programs, and do not reflect any compromise in the patient's medical care. Plan discussed with: Patient Date of Service: Jun 07, 2025 Billing Provider: FERNANDO FOSTER MD Common Visit Codes: [id number] INP/OBS CARE(HIGH) FERNANDO FOSTER MD Jun 07, 2025 12:58
[2025-06-07] MEDS: ACETAMINOPHEN 325 MG TAB PO PRN (18:27)
--- NOTE | 2025-06-07 21:18 | DVHPN2 ---
Progress Note - Dictate Date Seen: Jun 07, 2025 Medical Necessity Reason Pt with a Central, PICC or Fol: No Subjective Patient had 3-4 Bms yesterday Patient is stable resting comfortably vital signs Vital Sign Date Time Temp Pulse Resp B/P (MAP) Pulse Ox O2 Delivery O2 Flow Rate FiO2 06/07/25 17:00 98.4 105 17 111/64 (80) 93 98.4 06/07/25 07:35 Room Air* 0 21 Total Intake and Output 06/06/25 06/06/25 06/07/25 15:00 23:00 07:00 Intake Total 355 ml 1083 ml 400 ml Balance 355 ml 1083 ml 400 ml medications Current Medications Medications Dose Ordered Sig/Kylee Route Start Time Stop Time Status Last Admin Dose Admin Carbidopa/Levodopa 1 tab TID PO 06/03/25 22:00 06/07/25 14:26 1 TAB Ondansetron HCl 4 mg Q4HP PRN IV 06/03/25 19:45 06/05/25 21:32 4 MG Enoxaparin Sodium 40 mg DAILY SC 06/04/25 10:00 06/07/25 09:26 40 MG Lactulose 30 ml BID PO 06/04/25 22:00 06/07/25 09:19 30 ML Polyethylene Glycol 17 gm DAILY PO 06/06/25 10:00 06/07/25 09:23 17 GM Acetaminophen 650 mg Q6HP PRN PO 06/07/25 17:45 06/07/25 18:27 650 MG objective General: NAD, patient is awake Chest: lung fung clear to auscultation Heart: RRR, no murmur Abdomen: non-distended, +BS laboratory and microbiology Laboratory Tests 06/03/25 15:00 Test 06/03/25 15:00 Range/Units Serum Glucose 85 74-106 mg/dL Problems(with codes): (1) Failure to thrive (2) Fecal impaction in rectum (3) Abdominal pain (4) Constipation Prognosis Plan Advance diet as tolerated Discharge planning is in progress Maintained on Colace 100 mg p.o. twice a day MiraLax 17 g p.o. daily Lactulose 30 mL p.o. daily Outpatient follow up with GI Services as needed Dietary Evaluation Review Comments: 1) Ensure Enlive 240ml TID 2) Consider stool softener 3) Monitor PO intake, wt trend, I/O Expected Outcomes/Goals: TO gain/maintain weight PO intake meets at least 75% estimated needs fu 3-5 days Plan discussed with: Patient, Other (Nurse) ADÁN BONILLA MD Jun 07, 2025 21:18
[2025-06-08 01:00] VITALS: BP 134/89; PULSE 101; RESP 18; TEMP 98; O2SAT 97
[2025-06-08 07:45] VITALS: PULSE 89; RESP 17; O2SAT 95
[2025-06-08 09:00] VITALS: BP 93/62; PULSE 89; RESP 17; TEMP 95.9; O2SAT 95
--- NOTE | 2025-06-08 11:41 | DVHPN2 ---
Subjective The patient is seen and examined at bedside. The patient is nonverbal. Reviewed: Care Plan, H&P, Labs, Medications, Previous Orders, Radiology Objective Vitals Vital Signs Date Time Temp Pulse Resp B/P (MAP) Pulse Ox O2 Delivery O2 Flow Rate FiO2 06/08/25 09:00 95.9 89 17 93/62 (72) 95 95.9 06/08/25 07:45 Room Air* 0 21 Intake/Output Intake and Output 06/08/25 07:00 Intake Total 1125 ml Balance 1125 ml Intake Oral 1125 ml # Voids 10 # Bowel Movements 1 General Appearance: Alert HEENT: EOMI, Mucous membr. moist/pink Neck: Supple Lungs: Clear to auscultation, Normal air movement Cardiovascular: Regular rate, Normal S1, Normal S2, No murmurs, Gallops Abdomen: Normal bowel sounds, Other (Distended and pain four quadrant) Neuro: Cranial nerves 3-12 NL Psych/Mental Status: Mental status NL Medications Current Medications Medications Dose Ordered Sig/Kylee Route Start Time Stop Time Status Last Admin Dose Admin Carbidopa/Levodopa 1 tab TID PO 06/03/25 22:00 06/08/25 05:47 1 TAB Ondansetron HCl 4 mg Q4HP PRN IV 06/03/25 19:45 06/05/25 21:32 4 MG Enoxaparin Sodium 40 mg DAILY SC 06/04/25 10:00 06/08/25 09:25 40 MG Lactulose 30 ml BID PO 06/04/25 22:00 06/08/25 09:26 30 ML Polyethylene Glycol 17 gm DAILY PO 06/06/25 10:00 06/08/25 09:26 17 GM Acetaminophen 650 mg Q6HP PRN PO 06/07/25 17:45 06/08/25 03:15 650 MG Laboratory Results Laboratory Tests 06/03/25 15:00 Assessment/Plan Assessment/Plan Fecal impaction Rule out stercoral colitis Parkinson's disease Plan Appreciate GI input More Fleet enema today Lactulose Hold antihypertensives Patient has 3 BM within 24 hours. We will contact family regarding to discharge planning. Discharge This medical document was created using an electronic medical record system with [employer] direct computerized dictation system. Although this document has been carefully reviewed, there may still be some phonetic and typographical errors. These areas are purely typographical due to imperfections of the software programs, and do not reflect any compromise in the patient's medical care. My Orders Orders - FERNANDO FOSTER MD Procedure Category Date Status Time Discharge DISCHARGE 06/07/25 Transmitted 12:59 FERNANDO FOSTER MD Jun 08, 2025 11:41
--- NOTE | 2025-06-08 11:41 | DVHDS2 ---
Discharge Summary Date of Admission Jun 03, 2025 at 19:16 Date of Discharge: Jun 08, 2025 Admitting Diagnosis Fecal impaction Rule out stercoral colitis Parkinson's disease Cerebral palsy Labs/Diagnostic Data: Laboratory Results Test 06/03/25 18:08 06/03/25 15:32 06/03/25 15:00 Troponin I High Sensitivity 19 ng/L (</=54) POC Glucose 80 mg/dl (70-106) White Blood Count 7.9 10^3/uL (4.4-10.8) Red Blood Count 4.02 10^6/uL (4.5-5.90) Hemoglobin 11.8 g/dL (13.5-17.5) Hematocrit 35.4 % (41.0-53.0) Mean Corpuscular Volume 88.1 fL (80.0-100.0) Mean Corpuscular Hemoglobin 29.3 pg (28.0-32.0) Mean Corpuscular Hemoglobin Concent 33.3 g/dL (32.0-36.0) Red Cell Distribution Width 15.0 % (11.8-14.3) Platelet Count 207 10^3/uL (140-450) Mean Platelet Volume 9.5 fL (6.9-10.8) Neutrophils (%) (Auto) 80.9 % (37.0-80.0) Lymphocytes (%) (Auto) 10.3 % (10.0-50.0) Monocytes (%) (Auto) 6.6 % (0.0-12.0) Eosinophils (%) (Auto) 1.7 % (0.0-7.0) Basophils (%) (Auto) 0.5 % (0.0-2.0) Neutrophils # (Auto) 6.4 10 ^3/uL (1.6-8.6) Lymphocytes # (Auto) 0.8 10 ^3/uL (0.4-5.4) Monocytes # (Auto) 0.5 10 ^3/uL (0-1.3) Eosinophils # (Auto) 0.1 10 ^3/uL (0-0.8) Basophils # (Auto) 0 10 ^3/uL (0-0.2) Nucleated Red Blood Cells 0.1 % Sodium Level 144 mmol/L (136-145) Potassium Level 4.1 mmol/L (3.5-5.1) Chloride Level 107 mmol/L (98-107) Carbon Dioxide Level 27 mmol/L (20-31) Anion Gap 10 (5-15) Blood Urea Nitrogen 26 mg/dL (9-23) Creatinine 1.18 mg/dL (0.700-1.30) Glomerular Filtration Rate Calc 69 mL/min (>90) BUN/Creatinine Ratio 22.0 (10.0-20.0) Serum Glucose 85 mg/dL (74-106) Lactic Acid Level 0.8 mmol/L (0.4-2.0) Calcium Level 9.3 mg/dL (8.7-10.4) Magnesium Level 2.3 mg/dL (1.6-2.6) Total Bilirubin 0.3 mg/dL (0.2-1.0) Aspartate Amino Transferase (AST) 46 U/L (13-40) Alanine Aminotransferase (ALT) 22 U/L (7-40) Alkaline Phosphatase 82 U/L (46-116) Total Protein 8.0 g/dL (5.7-8.2) Albumin 4.1 g/dL (3.2-4.8) Other Laboratory Tests 06/03/25 15:00 Brief Hx & Hospital Course: This is a 64 years old male come to emergency department because of generalized weakness. The the patient has a history of cerebral palsy and Parkinson's disease. The patient is nonverbal. Apparently the patient was moaning and point to his abdomen. CT scan abdomen and pelvis showed a large stool burden. The patient was admitted. GI was consulted. The patient received Fleet enema x2. The patient is able to move large bowel movement after Fleet enema. The patient is stable and will be discharged home today. Follow up with primary care physician 1-2 weeks. Activity as tolerated. Diet per home diet. oyster bed worker to set up [facility] for transportation home. Physical exam: HEENT: Normocephalic atraumatic pupils equal react to light and accommodation. Extraocular muscles intact, conjunctiva pink, oropharynx moist, no thrush, no exudate. Lymphatic: No lymphadenopathy Cardiovascular exam: S1, S2 was heard. No murmurs, rubs, gallops Lung: Clear on auscultation bilaterally, no wheeze, rale, rhonchi. GI: Abdominal soft, nondistended, nontenderness, positive bowel sounds. Extremity: No crepitus, cyanosis, edema. Pedal pulses present bilateral. Full range of motion. Skin: Normal turgor, no rash. Psych: Alert, awake. Neurology: Nonverbal This medical document was created using an electronic medical record system with [employer] direct computerized dictation system. Although this document has been carefully reviewed, there may still be some phonetic and typographical errors. These areas are purely typographical due to imperfections of the software programs, and do not reflect any compromise in the patient's medical care. Condition at Discharge: Stable Final Diagnosis/Problems List Fecal Impaction Parkinson's disease Cerebral palsy Discharge Disposition: Home with Health Services Discharge Instruct/Medications Diet: Regular Activity: No Restrictions, As Tolerated Follow Up/Referral: pcp 1-2 weeks Medications: see med list Scheduled Carbidopa-Levodopa (Carbidopa/Levodopa Er), 2 TAB PO BID, (Reported) Docusate Sodium (Colace), 1 CAP PO BID Famotidine (Famotidine), 1 TAB PO DAILY, (Reported) Lactulose (Lactulose), 30 ML PO DAILY, (Reported) Levothyroxine Sodium (Levothyroxine Sodium), 1 TAB PO DAILY, (Reported) Lisinopril (Lisinopril), 1 TAB PO DAILY, (Reported) Metoprolol Tartrate (Lopressor Tablet), 1 TAB PO BID, (Reported) Midodrine HCl (Midodrine Hydrochloride), 1 TAB PO TID, (Reported) Multiple Vitamin (Multivitamin), 1 TAB PO DAILY, (Reported) Nifedipine (Nifedipine Er), 1 TAB PO DAILY, (Reported) Nitrofurantoin Monohydrate Mac (Macrobid), 100 MG PO BID Omeprazole (Omeprazole Dr), 1 CAP PO DAILY, (Reported) Ondansetron HCl (Ondansetron), 1 TAB PO PRN, (Reported) Sennosides-Docusate Sodium (Senokot S), 1 TAB PO BID, (Reported) Scheduled PRN Polyethylene Glycol 3350 (Miralax), 17 GM PO DAILY PRN Discharge Statement: "Patient was advised to return to the ER or call 911 if any headaches, dizziness, shortness of breath, chest pain, abdominal pain, bleeding, fevers, or worsening of medical condition. Patient was counseled about treatment plan, medications, possible side effects, patientverbalized understanding. All questions were answered to the best of my ability. This discharge took greater then 30 minutes in planning, reviewing documentation, counseling the patient, and discussing with other team members." ASSESSMENT ASSESSMENT Assessment Fecal Impaction Date of Service: Jun 08, 2025 Billing Provider: FERNANDO FOSTER MD Common Visit Codes: 91584-HMN/OBS DISCH DAY >30min FERNANDO FOSTER MD Jun 08, 2025 11:41
--- NOTE | 2025-06-08 12:34 | DVHPN2 ---
Progress Note - Dictate Date Seen: Jun 08, 2025 Medical Necessity Reason Pt with a Central, PICC or Fol: No Subjective Patient had 3-4 Bms yesterday and one last night Patient is stable resting comfortably vital signs Vital Sign Date Time Temp Pulse Resp B/P (MAP) Pulse Ox O2 Delivery O2 Flow Rate FiO2 06/08/25 09:00 95.9 89 17 93/62 (72) 95 95.9 06/08/25 07:45 Room Air* 0 21 Total Intake and Output 06/07/25 06/07/25 06/08/25 15:00 23:00 07:00 Intake Total 725 ml 400 ml Balance 725 ml 400 ml medications Current Medications Medications Dose Ordered Sig/Kylee Route Start Time Stop Time Status Last Admin Dose Admin Carbidopa/Levodopa 1 tab TID PO 06/03/25 22:00 06/08/25 05:47 1 TAB Ondansetron HCl 4 mg Q4HP PRN IV 06/03/25 19:45 06/05/25 21:32 4 MG Enoxaparin Sodium 40 mg DAILY SC 06/04/25 10:00 06/08/25 09:25 40 MG Lactulose 30 ml BID PO 06/04/25 22:00 06/08/25 09:26 30 ML Polyethylene Glycol 17 gm DAILY PO 06/06/25 10:00 06/08/25 09:26 17 GM Acetaminophen 650 mg Q6HP PRN PO 06/07/25 17:45 06/08/25 03:15 650 MG objective General: NAD, patient is awake Chest: lung fung clear to auscultation Heart: RRR, no murmur Abdomen: non-distended, +BS laboratory and microbiology Laboratory Tests 06/03/25 15:00 Test 06/03/25 15:00 Range/Units Serum Glucose 85 74-106 mg/dL Problems(with codes): (1) Ileus (2) Intractable abdominal pain (3) Parkinsons disease (4) Constipation (5) Fecal impaction Prognosis Plan Advance diet as tolerated Discharge planning is in progress Maintained on Colace 100 mg p.o. twice a day MiraLax 17 g p.o. daily Lactulose 30 mL p.o. daily Outpatient follow up with GI Services as needed Dietary Evaluation Review Comments: 1) Ensure Enlive 240ml TID 2) Consider stool softener 3) Monitor PO intake, wt trend, I/O Expected Outcomes/Goals: TO gain/maintain weight PO intake meets at least 75% estimated needs fu 3-5 days Plan discussed with: Patient ADÁN BONILLA MD Jun 08, 2025 12:33
[2025-06-08 13:00] VITALS: BP 99/69; PULSE 126; RESP 17; TEMP 97.8; O2SAT 95
[2025-06-08 16:50] VITALS: BP 107/75; PULSE 118; RESP 18; TEMP 97.4; O2SAT 98
== END 2025-06-08 19:50 | disposition home health service (06) | DRG 388 ==
LOC: ER 14:44 → EDBD 14:44 → OVERFLOW 19:16 → WEST WING 19:57
PROVIDERS: ADMIT Internal Medicine; ATTEND Internal Medicine
DX: K56.41 Fecal impaction (principal); R53.2 Functional quadriplegia; G20.A1 Parkinson's disease without dyskinesia, without mention of fluctuations; E03.9 Hypothyroidism, unspecified; I10 Essential (primary) hypertension; Z86.19 Personal history of other infectious and parasitic diseases; Z86.0100 Personal history of colon polyps, unspecified; Z79.899 Other long term (current) drug therapy
CPT/HCPCS: 36415; 71045; 74176; 80053; 82962; 83605; 83735; 84484; 85025; 96360; G0378; J2405